=== PATIENT | male | born 1955 | race Caucasian/White ===

== ENCOUNTER 2016-07-28 12:03 | Emergency (ER) | payer MEDICARE ==
[~2016-07-28] VITALS: Ht 182.9 cm; Wt 111.1 kg
[~2016-07-28 12:03] MED LIST: ASPI1TAB PO; ATIV1TAB7 PO; ATOR1TAB21 PO; INSUDET SC; LISI-542 PO
[2016-07-28 13:02] LABS: VENOUS BASE EXCESS 3.1 (-2.0-2.0); VENOUS O2 SATURATION 82.6 % (60.0-80.0); VENOUS PARTIAL PRESSURE CO2 44.5 mmHg (38.0-50.0); VENOUS PARTIAL PRESSURE O2 45.9 mmHg (30.0-50.0); VENOUS STANDARD HCO3 26.8 MEQ/L; VENOUS TOTAL CO2 29.5 MEQ/L (24.0-28.0)
[2016-07-28 13:08] LABS: ANION GAP 8 MEQ/L (8-16); BLOOD UREA NITROGEN 15 MG/DL (7-18); CALCIUM LEVEL 8.9 MG/DL (8.8-10.2); CARBON DIOXIDE LEVEL 29 MEQ/L (21-32); CHLORIDE LEVEL 101 MEQ/L (98-107); CREATININE FOR GFR 1.15 MG/DL (0.70-1.30); GLOMERULAR FILTRATION RATE > 60.0 (>49); GLUCOSE, FASTING 367 MG/DL (80-110); POTASSIUM SERUM 4.2 MEQ/L (3.5-5.1); SODIUM LEVEL 138 MEQ/L (136-145)
[2016-07-28 13:09] LABS: BASO % 0.6 % (0.0-1.0); EOS # 0.2 K/mm3 (0.0-0.50); LARGE UNSTAINED CELL # 0.2 K/mm3 (0.0-0.4); LARGE UNSTAINED CELL % 1.7 % (0.0-4.0); LYMPH # 1.3 K/mm3 (1.5-4.5); LYMPH % 14.7 % (24.0-44.0); MEAN CORPUSCULAR HEMOGLOBIN 29.2 pg (27.0-33.0); MEAN CORPUSCULAR HGB CONC 32.8 g/dl (32.0-36.5); MONO # 0.4 K/mm3 (0.0-0.8); MONO % 4.5 % (0.0-5.0); NEUTROPHILS # 6.7 K/mm3 (1.8-7.7); NEUTROPHILS % 76.5 % (36.0-66.0); PLATELET COUNT, AUTOMATED 324 k/mm3 (150-450); RED CELL DISTRIBUTION WIDTH 12.3 % (11.5-14.5); WHITE BLOOD COUNT 8.7 K/mm3 (4.0-10.0)
[2016-07-28 13:51] LABS: ERYTHROCYTE SEDIMENTATION RATE 45 mm/hr (0-20)
[2016-07-28] MEDS ORDERED: SANTYL OINT 30GM TOP ONE (15:00)
[2016-07-28] MEDS ORDERED: ISOVUE-370 76% 100ML VIAL (Q9967) As Ordered ONE (15:22)
--- NOTE | 2016-07-28 16:12 | REP ---
CT of the right foot with IV contrast: Comparison is the right foot 95 10/28/2014. There is a soft tissue ulceration laterally adjacent to the fifth digit. There are no lytic, blastic or destructive skeletal changes to suggest osteomyelitis. There is diffuse soft tissue edema throughout the right foot. I a do not identify a focal fluid collection that would indicate abscess. Signed by Nick Lynn MD 07/28/2016 04:03 P
[2016-07-28] MEDS ORDERED: cefTRIAXone SOD 1 GM VIAL (J0696) As Ordered ONE (17:22)
[2016-07-28] MEDS ORDERED: HumuLIN N INSULIN (NovoLIN N) PER UNIT SC ONE (19:30)
--- NOTE | 2016-07-28 19:45 | EDDOCDS ---
Physician Documentation [facility] Name: Bryant Ruvalcaba Age: 60 yrs Sex: Male : 1955 Arrival Date: 07/28/2016 Time: 12:03 Bed 7 Private MD: Liban Santos H. Disposition: 07/28/16 18:54 Discharged to Home/Self Care. Impression: Type 2 diabetes mellitus with foot ulcer, Non-pressure chronic ulcer of other part of right foot with necrosis of muscle, Hyperglycemia, unspecified. - Condition is Stable. - Discharge Instructions: Blood Glucose Monitoring, Adult, Type 2 Diabetes Mellitus, Adult, Diabetes and Sick Day Management, Hyperglycemia, Skin Ulcer. - Prescriptions for Keflex 500 mg Oral Capsule - take 1 capsule by ORAL route every 8 hours for 14 days; 42 capsule. - Medication Reconciliation, Local Pharmacy Hours form. - Follow up: Liban Santos; When: Call to arrange an appointment; Reason: Recheck today's complaints, Continuance of care. Follow up: Anjel Chandra MD; When: Call to arrange an appointment; Reason: Recheck today's complaints, Continuance of care. - Problem is an acute exacerbation. - Symptoms are unchanged. - Notes: Check your fingersticks before meals and at bedtime Take your insulin as it was previously prescribed (15 units every morning) Call Dr Santos's office first thing Sunday to get a follow-up appointment Call Dr Chandra's office first thing Sunday to move up your appointment Return to the ER if you run a fever, develop redness of the foot or you have any other concerns Historical: - Allergies: No known drug Allergies; - Home Meds: 1. Aspir-81 81 mg oral TbEC 1 tab once daily 2. hasn't taken any of his prescribed medications since last summer due to financial difficulties - PMHx: Diabetes - IDDM: controlled; Hypercholesterolemia; - PSHx: debridement of diabetic foot ulcer; Tonsillectomy; circumcision; Stents, Coronary; - Social history: Smoking status: Patient states former smoker of tobacco. No barriers to communication noted, The patient speaks fluent Guatemalan, Speaks appropriately for age. - Family history: Not pertinent. - : The pt / caregiver states he / she is not on anticoagulants. Home medication list is obtained from the patient. - Exposure Risk Screening:: None identified. Vital Signs: 02/17 12:05 BP 137 / 75; Pulse 83; Resp 18 S; Temp 96.2(O); Pulse Ox 96% on R/A; Weight 111.13 kg / gr2 245 lbs (R); Height 6 ft. 0 in. (182.88 cm) (R); Pain 3/10; 19:10 BP 111 / 61; Pulse 84; Resp 18; Temp 98.1(TE); Pulse Ox 93% on R/A; Pain 0/10; jmv 12:05 Body Mass Index 33.23 (111.13 kg, 182.88 cm) gr2 MDM: 12:30 Fingerstick Blood Sugar Ordered. EDMS 12:46 Fingerstick Blood Sugar Reviewed. le 12:48 Consult PFS/PSA/Phosphoric Acid Supervisor: Resources/Social Work ordered. le 12:48 IV Saline Lock ordered. le 12:49 CBC with Diff Ordered. EDMS 12:49 BMP Ordered. EDMS 12:49 ESR Ordered. EDMS 12:49 CRP Ordered. EDMS 12:49 Venous Blood Gas (large pea green tube on ice) Ordered. EDMS 12:49 A1C Ordered. EDMS 13:04 Financial registration complete. mm15 13:13 COUNTS INCLUDE 234 BEDS AT THE [facility] Payment Agreement was scanned into [employer] and attached to record. mm15 14:04 CBC with Diff Reviewed. le 14:04 BMP Reviewed. le 14:04 ESR Reviewed. le 14:04 CRP Reviewed. le 14:04 Venous Blood Gas (large pea green tube on ice) Reviewed. le 14:04 A1C Reviewed. le 14:08 Santyl Ointment 250 unit/g 1 applic Topical once ordered. le 14:08 Wound Care ordered. le 14:09 Misc Foot Roentgenologist Order ordered. le 15:16 Misc Foot Roentgenologist Order complete. lbd 16:27 Misc. Nursing Order ordered. le 16:43 cefTRIAXone 2 grams IVPB once over 30 mins; dilute in 50mL of NS or D5W ordered. le 16:52 CONSISTENT CARBOHYDRATE+DIET ordered. EDMS 18:51 HumuLIN N 1 units Sub-Q once; Dispense unopened bottle home with the patient ordered. le Administered Medications: 14:38 Drug: Santyl Ointment 250 unit/g 1 applic Route: Topical; Site: affected area; kr3 17:30 Drug: cefTRIAXone 2 grams [ceftriaxone 1 gram solution for injection] Route: IVPB; rafaela Infused Over: 30 mins; Site: left hand; 18:05 Follow up: IV Status: Completed infusion rafaela 19:37 Drug: HumuLIN N 1 units {Co-Signature: mlc (Michelle Green RN).} {Note: sent home with rafaela patient.} Route: Sub-Q; Site: abdomen; Signatures: Dispatcher [employer] EDMS Heather Perez, Tile And Marble Setter Unit lbd Violeta Guillory RN RN ck1 Flori VizcarraRN RN kr3 Manda Pike, TOMBSTONE POLISHER TOMBSTONE POLISHER Mehul Galo mm15 Thai Bates RN RN jmb Mandy Booth RN mlc The chart was reviewed and I authenticate all verbal orders and agree with the evaluation and treatment provided.Corrections: (The following items were deleted from the chart) 15:23 15:17 CT ANGIO LOWER EXTREM ordered. EDMS EDMS 17:31 14:13 BED REQUEST+ADM ordered. EDMS EDMS Attachments: 13:13 COUNTS INCLUDE 234 BEDS AT THE [facility] Payment Agreement mm15 MTDD
--- NOTE | 2016-07-28 19:46 | EDDOCDS ---
Nurse's Notes [facility] Name: Bryant Ruvalcaba Age: 60 yrs Sex: Male : 1955 Arrival Date: 07/28/2016 Time: 12:03 Bed 7 Private MD: Liban Santos H. Diagnosis: Type 2 diabetes mellitus with foot ulcer;Non-pressure chronic ulcer of other part of right foot with necrosis of muscle;Hyperglycemia, unspecified Presentation: 07/28 12:08 Presenting complaint: Patient states: worsening diabetic ulcer on right foot with ck1 purulent drainage. Adult Sepsis Screening: The patient does not have new or worsening altered mentation. Patient's respiratory rate is less than 22. Systolic blood pressure is greater than 100. Patient has a qSOFA score of 0- Negative Sepsis Screen. Suicide/Homicide risk assessment- the patient denies having any suicidal and/or homicidal ideations and does not present with any other emotional, behavioral or mental health complaints. Status: Patient is not a appliance service technician or dependent. Transition of care: patient was not received from another setting of care. 12:08 Method Of Arrival: Walkin/Carried/Asstd ck1 12:08 Acuity: REBEL Level 3 ck1 Triage Assessment: 12:12 General: Appears in no apparent distress, comfortable, Behavior is appropriate for age, ck1 cooperative. Pain: Denies pain. HIV screening NA for this visit Offered previously. Neurological: Level of Consciousness is awake, alert, obeys commands, Oriented to person, place, time. Derm: Skin is pink, warm & dry. Musculoskeletal: Range of motion intact in all extremities. Historical: - Allergies: No known drug Allergies; - Home Meds: 1. Aspir-81 81 mg oral TbEC 1 tab once daily 2. hasn't taken any of his prescribed medications since last summer due to financial difficulties - PMHx: Diabetes - IDDM: controlled; Hypercholesterolemia; - PSHx: debridement of diabetic foot ulcer; Tonsillectomy; circumcision; Stents, Coronary; - Social history: Smoking status: Patient states former smoker of tobacco. No barriers to communication noted, The patient speaks fluent Jordanian, Speaks appropriately for age. - Family history: Not pertinent. - : The pt / caregiver states he / she is not on anticoagulants. Home medication list is obtained from the patient. - Exposure Risk Screening:: None identified. Screenin:56 Screening information is obtained from the patient. Fall risk: No risks identified. kr3 Assistance ADL's: requires no assistance with activities of daily living. Abuse/DV Screen: The patient / caregiver reports he/she is: not in a situation that causes fear, pain or injury. Nutritional screening: No deficits noted. Advance Directives: Currently, there is no health care proxy. home support is adequate. Assessment: 12:54 Reassessment: Patient appears in no apparent distress at this time. Pain: Location: kr3 ball of right foot. Neurological: Level of Consciousness is awake, alert. Respiratory: Respiratory effort is even, unlabored. Derm: wound bottom right foot with odorous drainage. Musculoskeletal:. 13:48 Reassessment: Patient appears in no apparent distress at this time. wound care being kr3 done by Manda Pike NP. 15:37 General: Appears in no apparent distress, comfortable, Behavior is appropriate for age, jmb cooperative, PAtient down to CT scan. Patient appears comfortable with no voiced complaints at this time. . Neurological: Level of Consciousness is awake, alert, obeys commands, Oriented to person, place, time, Speech is normal, Facial symmetry appears normal, Facial symmetry: tongue is midline. Cardiovascular: Capillary refill < 3 seconds Heart tones present. Respiratory: Airway is patent Respiratory effort is even, unlabored, Respiratory pattern is regular, symmetrical. GI: Abdomen is non- distended. Derm: Skin is pink, warm & dry. Patient has open wound to right foot. Dressed by nurse prior to receiving patient. Musculoskeletal: Range of motion intact in all extremities. 16:25 General: Appears in no apparent distress, comfortable, Behavior is appropriate for age, jmb cooperative, Patient laying on stretcher with at bedside. NO voiced complaints at this time. . Neurological: Level of Consciousness is awake, alert, obeys commands, Oriented to person, place, time. Respiratory: Airway is patent Respiratory effort is even, unlabored, Respiratory pattern is regular, symmetrical. 17:30 General: Appears in no apparent distress, comfortable, Behavior is appropriate for age, jmb cooperative, Patient laying on stretcher, medication administered via IV pump per provider orders. Patient denies any discomfort at this time. . Neurological: Level of Consciousness is awake, alert, obeys commands, Oriented to person, place, time. Respiratory: Airway is patent Respiratory effort is even, unlabored, Respiratory pattern is regular, symmetrical. 18:05 General: Appears in no apparent distress, comfortable, Behavior is appropriate for age, jmb cooperative. Neurological: Level of Consciousness is awake, alert, obeys commands, Oriented to person, place, time. Respiratory: Airway is patent Respiratory effort is even, unlabored, Respiratory pattern is regular, symmetrical. 18:48 General: Appears in no apparent distress, comfortable, Behavior is appropriate for age, jmb cooperative, Patient laying on stretcher with at bedside. keeps coming out asking questions and asking for food for patient. No voiced complaints at this time from patient. . Neurological: Level of Consciousness is awake, alert, obeys commands, Oriented to person, place, time. Respiratory: Airway is patent Respiratory effort is even, unlabored, Respiratory pattern is regular, symmetrical. 19:43 General: Patient instructed on discharge instructions. Patient asked if there were any b questions regarding discharge, patient stated no. IV discontinued per hospital policy. Patient signed discharge instructions. Patient discharged in stable condition. . Vital Signs: 12:05 BP 137 / 75; Pulse 83; Resp 18 S; Temp 96.2(O); Pulse Ox 96% on R/A; Weight 111.13 kg gr2 (R); Height 6 ft. 0 in. (182.88 cm) (R); Pain 3/10; 19:10 BP 111 / 61; Pulse 84; Resp 18; Temp 98.1(TE); Pulse Ox 93% on R/A; Pain 0/10; jmv 12:05 Body Mass Index 33.23 (111.13 kg, 182.88 cm) gr2 Vitals: 12:05 Log In Time: July 28, 2016 at 12:05. gr2 ED Course: 12:04 Patient visited by Rafa Talamantes. gr2 12:04 Patient moved to Waiting gr2 12:05 Liban Santos is Private Physician. gr2 12:07 Patient visited by Rafa Talamantes. gr2 12:07 Patient moved to Pre RCE gr2 12:09 Triage Initiated ck1 12:14 Flori Vizcarra,RN is Primary Nurse. ck1 12:14 Patient moved to 7 ck1 12:17 Manda Pike F[facility]. le 12:17 Patient visited by Manda Pike FNP. le 12:17 Patient visited by Manda Pike FNP. le 12:54 Patient visited by Flori Vizcarra RN. kr3 12:54 The patient / caregiver is instructed regarding the plan of care and ED course. kr3 Accompanied by Family Member, Patient has correct armband on for positive identification. Placed in gown. Bed in low position. Call light in reach. Side rails up X 1. 12:54 A1C Sent. kr3 12:54 CRP Sent. kr3 12:54 ESR Sent. kr3 12:54 BMP Sent. kr3 12:54 CBC with Diff Sent. kr3 12:54 Venous Blood Gas (large pea green tube on ice) Sent. kr3 12:54 Inserted saline lock: 20 gauge in left antecubital area and blood collected. The kr3 patient tolerated the procedure well. 13:13 [facility] [place] was scanned into myOrder and attached to record. mm15 13:48 Patient visited by Flori Vizcarra RN. kr3 13:57 Patient name changed from Bryant\S\Forest\S\Jordon\S\ to Bryant\S\ \S\Jordon. EDMS 14:38 Patient visited by Flori Vizcarra RN. kr3 15:07 Primary Nurse role handed off by Flori Vizcarra,ALEJANDRO kr3 15:09 Patient visited by Trang Phillip PCA. ct3 15:38 Patient visited by Thai Bates RN. jmb 16:26 Patient visited by Thai Bates RN. jmb 17:31 Patient visited by Thai Bates RN. jmb 18:05 Patient visited by Thai Bates RN. jmb 18:42 Patient visited by Trang Phillip PCA. ct3 18:49 Patient visited by Thai Bates RN. jmb 18:54 Liban Santos is Referral Physician. le 19:01 Anjel Chandra MD is Referral Physician. le 19:11 Patient visited by Jj Reyes PCA. jmv 19:43 Discontinued lock intact, bleeding controlled, pressure dressing applied, No jmb redness/swelling at site. No procedures done that require assistance. Administered Medications: 14:38 Drug: Santyl Ointment 250 unit/g 1 applic Route: Topical; Site: affected area; kr3 17:30 Drug: cefTRIAXone 2 grams [ceftriaxone 1 gram solution for injection] Route: IVPB; rafaela Infused Over: 30 mins; Site: left hand; 18:05 Follow up: IV Status: Completed infusion rafaela 19:37 Drug: HumuLIN N 1 units {Co-Signature: mlc (Michelle Green RN).} {Note: sent home with rafaela patient.} Route: Sub-Q; Site: abdomen; Order Results: Lab Order: Fingerstick Blood Sugar; SPEC'M 07/28/16 12:23 Test: BEDSIDE GLUCOSE; Value: 340; Range: 80-115; Abnormal: Above high normal; Units: MG/DL; Status: F Test Note: ; Serum Blood Draw Doctor Notified Lab Order: CBC with Diff; SPEC'M 07/28/16 12:36 Test: WHITE BLOOD COUNT; Value: 8.7; Range: 4.0-10.0; Units: K/mm3; Status: F Test: RED BLOOD COUNT; Value: 5.03; Range: 4.30-6.10; Units: M/mm3; Status: F Test: HEMOGLOBIN; Value: 14.7; Range: 14.0-18.0; Units: g/dl; Status: F Test: HEMATOCRIT; Value: 44.7; Range: 42.0-52.0; Units: %; Status: F Test: MEAN CORPUSCULAR VOLUME; Value: 89.0; Range: 80.0-96.0; Units: fl; Status: F Test: MEAN CORPUSCULAR HEMOGLOBIN; Value: 29.2; Range: 27.0-33.0; Units: pg; Status: F Test: MEAN CORPUSCULAR HGB CONC; Value: 32.8; Range: 32.0-36.5; Units: g/dl; Status: F Test: RED CELL DISTRIBUTION WIDTH; Value: 12.3; Range: 11.5-14.5; Units: %; Status: F Test: PLATELET COUNT, AUTOMATED; Value: 324; Range: 150-450; Units: k/mm3; Status: F Test: NEUTROPHILS %; Value: 76.5; Range: 36.0-66.0; Abnormal: Above high normal; Units: %; Status: F Test: LYMPH %; Value: 14.7; Range: 24.0-44.0; Abnormal: Below low normal; Units: %; Status: F Test: MONO %; Value: 4.5; Range: 0.0-5.0; Units: %; Status: F Test: EOS %; Value: 2.0; Range: 0.0-3.0; Units: %; Status: F Test: BASO %; Value: 0.6; Range: 0.0-1.0; Units: %; Status: F Test: LARGE UNSTAINED CELL %; Value: 1.7; Range: 0.0-4.0; Units: %; Status: F Test: NEUTROPHILS #; Value: 6.7; Range: 1.8-7.7; Units: K/mm3; Status: F Test: LYMPH #; Value: 1.3; Range: 1.5-4.5; Abnormal: Below low normal; Units: K/mm3; Status: F Test: MONO #; Value: 0.4; Range: 0.0-0.8; Units: K/mm3; Status: F Test: EOS #; Value: 0.2; Range: 0.0-0.50; Units: K/mm3; Status: F Test: BASO #; Value: 0.0; Range: 0.0-0.2; Units: K/mm3; Status: F Test: LARGE UNSTAINED CELL #; Value: 0.2; Range: 0.0-0.4; Units: K/mm3; Status: F Lab Order: [facility]; SPEC'M 07/28/16 12:36 Test: GLUCOSE, FASTING; Value: 367; Range: 80-110; Abnormal: Above high normal; Units: MG/DL; Status: F Test: BLOOD UREA NITROGEN; Value: 15; Range: 7-18; Units: MG/DL; Status: F Test: CREATININE FOR GFR; Value: 1.15; Range: 0.70-1.30; Units: MG/DL; Status: F Test: GLOMERULAR FILTRATION RATE; Value: > 60.0; Range: >49; Status: F Test: SODIUM LEVEL; Value: 138; Range: 136-145; Units: MEQ/L; Status: F Test: POTASSIUM SERUM; Value: 4.2; Range: 3.5-5.1; Units: MEQ/L; Status: F Test: CHLORIDE LEVEL; Value: 101; Range: 98-107; Units: MEQ/L; Status: F Test: CARBON DIOXIDE LEVEL; Value: 29; Range: 21-32; Units: MEQ/L; Status: F Test: ANION GAP; Value: 8; Range: 8-16; Units: MEQ/L; Status: F Test: CALCIUM LEVEL; Value: 8.9; Range: 8.8-10.2; Units: MG/DL; Status: F Test Note: ; Units are mL/min/1.73 m2 Chronic Kidney Disease Staging per NKF: Stage I & II GFR >=60 Normal to Mildly Decreased Stage III GFR 30-59 Moderately Decreased Stage IV GFR 15-29 Severely Decreased Stage V GFR <15 Very Little GFR Left ESRD GFR <15 on [facility] Lab Order: ESR; [facility] 07/28/16 12:36 Test: ERYTHROCYTE SEDIMENTATION RATE; Value: 45; Range: 0-20; Abnormal: Above high normal; Units: mm/hr; Status: F Lab Order: CRP; [facility] 07/28/16 12:36 Test: C REACTIVE PROTEIN QUANTITATIV; Value: 1.67; Range: 0.00-0.30; Abnormal: Above high normal; Units: MG/DL; Status: F Lab Order: Venous Blood Gas (large pea green tube on ice); [facility] 07/28/16 12:36 Test: VENOUS PH; Value: 7.419; Range: 7.330-7.430; Units: UNITS; Status: F Test: VENOUS PARTIAL PRESSURE CO2; Value: 44.5; Range: 38.0-50.0; Units: mmHg; Status: F Test: VENOUS PARTIAL PRESSURE O2; Value: 45.9; Range: 30.0-50.0; Units: mmHg; Status: F Test: VENOUS TOTAL CO2; Value: 29.5; Range: 24.0-28.0; Abnormal: Above high normal; Units: MEQ/L; Status: F Test: VENOUS HCO3; Value: 28.2; Range: 23.0-27.0; Abnormal: Above high normal; Units: MEQ/L; Status: F Test: VENOUS BASE EXCESS; Value: 3.1; Range: -2.0-2.0; Abnormal: Above high normal; Status: F Test: VENOUS STANDARD HCO3; Value: 26.8; Units: MEQ/L; Status: F Test: VENOUS O2 SATURATION; Value: 82.6; Range: 60.0-80.0; Abnormal: Above high normal; Units: %; Status: F Lab Order: A1C; SPEC'M 07/28/16 12:36 Test: HEMOGLOBIN A1c; Value: 12.9; Range: 4.5-6.2; Abnormal: Above high normal; Units: %; Status: F Test: ESTIMATED AVERAGE GLUCOSE; Value: 324; Range: 60-110; Abnormal: Above high normal; Units: MG/DL; Status: F Outcome: 18:54 Discharge ordered by Provider. le 19:43 Discharge Assessment: Patient awake, alert and oriented x 3. No cognitive and/or jmb functional deficits noted. Patient verbalized understanding of disposition instructions. Patient awake and alert. obeys commands, Oriented to person, place and time. Patient verbalized understanding of disposition instructions. Patient has no functional deficits. patient administered narcotics - no. The following High Risk Discharge criteria are identified: None. Discharged to home ambulatory, with significant other. Condition: stable. Discharge instructions given to patient, Instructed on discharge instructions, follow up and referral plans. medication usage, Demonstrated understanding of instructions, medications, Pt was receptive of discharge instructions/ teaching. Prescriptions given X 1. CT Study completed. Property sent home with patient. 19:44 Patient left the ED. rafaela Signatures: Dispatcher [employer] EDID Violeta GuilloryRN RN ck1 Flori Vizcarra,RN RN kr3 Manda Pike, ELECTRICAL ELECTRONICS ENGINEERS ELECTRICAL ELECTRONICS ENGINEERS Trang Agee, SATELLITE TECHNICIAN SATELLITE TECHNICIAN ct3 Rafa Talamantes gr2 Mehul Castro mm15 Thai BatesRN RN Jj Perea, SATELLITE TECHNICIAN SATELLITE TECHNICIAN jmv Michelle Green RN mlc MTDD
--- NOTE | 2016-07-30 20:46 | EDDOCDS ---
Physician Documentation [facility] Name: Bryant Ruvalcaba Age: 60 yrs Sex: Male : 1955 Arrival Date: 07/28/2016 Time: 12:03 Bed 7 Private MD: Liban Santos H. Disposition: 07/28/16 18:54 Discharged to Home/Self Care. Impression: Type 2 diabetes mellitus with foot ulcer, Non-pressure chronic ulcer of other part of right foot with necrosis of muscle, Hyperglycemia, unspecified. - Condition is Stable. - Discharge Instructions: Blood Glucose Monitoring, Adult, Type 2 Diabetes Mellitus, Adult, Diabetes and Sick Day Management, Hyperglycemia, Skin Ulcer. - Prescriptions for Keflex 500 mg Oral Capsule - take 1 capsule by ORAL route every 8 hours for 14 days; 42 capsule. - Medication Reconciliation, Local Pharmacy Hours form. - Follow up: Liban Santos; When: Call to arrange an appointment; Reason: Recheck today's complaints, Continuance of care. Follow up: Anjel Chandra MD; When: Call to arrange an appointment; Reason: Recheck today's complaints, Continuance of care. - Problem is an acute exacerbation. - Symptoms are unchanged. - Notes: Check your fingersticks before meals and at bedtime Take your insulin as it was previously prescribed (15 units every morning) Call Dr Santos's office first thing Sunday to get a follow-up appointment Call Dr Chandra's office first thing Sunday to move up your appointment Return to the ER if you run a fever, develop redness of the foot or you have any other concerns Historical: - Allergies: No known drug Allergies; - Home Meds: 1. Aspir-81 81 mg oral TbEC 1 tab once daily 2. hasn't taken any of his prescribed medications since last summer due to financial difficulties - PMHx: Diabetes - IDDM: controlled; Hypercholesterolemia; - PSHx: debridement of diabetic foot ulcer; Tonsillectomy; circumcision; Stents, Coronary; - Social history: Smoking status: Patient states former smoker of tobacco. No barriers to communication noted, The patient speaks fluent Scottish, Speaks appropriately for age. - Family history: Not pertinent. - : The pt / caregiver states he / she is not on anticoagulants. Home medication list is obtained from the patient. - Exposure Risk Screening:: None identified. Vital Signs: 02/17 12:05 BP 137 / 75; Pulse 83; Resp 18 S; Temp 96.2(O); Pulse Ox 96% on R/A; Weight 111.13 kg / gr2 245 lbs (R); Height 6 ft. 0 in. (182.88 cm) (R); Pain 3/10; 19:10 BP 111 / 61; Pulse 84; Resp 18; Temp 98.1(TE); Pulse Ox 93% on R/A; Pain 0/10; jmv 12:05 Body Mass Index 33.23 (111.13 kg, 182.88 cm) gr2 MDM: 12:30 Fingerstick Blood Sugar Ordered. EDMS 12:46 Fingerstick Blood Sugar Reviewed. le 12:48 Consult PFS/PSA/Compensation Expert: Resources/Social Work ordered. le 12:48 IV Saline Lock ordered. le 12:49 CBC with Diff Ordered. EDMS 12:49 BMP Ordered. EDMS 12:49 ESR Ordered. EDMS 12:49 CRP Ordered. EDMS 12:49 Venous Blood Gas (large pea green tube on ice) Ordered. EDMS 12:49 A1C Ordered. EDMS 13:04 Financial registration complete. mm15 13:13 [facility] Payment Agreement was scanned into [employer] and attached to record. mm15 14:04 CBC with Diff Reviewed. le 14:04 BMP Reviewed. le 14:04 ESR Reviewed. le 14:04 CRP Reviewed. le 14:04 Venous Blood Gas (large pea green tube on ice) Reviewed. le 14:04 A1C Reviewed. le 14:08 Santyl Ointment 250 unit/g 1 applic Topical once ordered. le 14:08 Wound Care ordered. le 14:09 Misc Professor Of Mechanical Engineering Order ordered. le 15:16 Misc Professor Of Mechanical Engineering Order complete. lbd 16:27 Misc. Nursing Order ordered. le 16:43 cefTRIAXone 2 grams IVPB once over 30 mins; dilute in 50mL of NS or D5W ordered. le 16:52 CONSISTENT CARBOHYDRATE+DIET ordered. EDMS 18:51 HumuLIN N 1 units Sub-Q once; Dispense unopened bottle home with the patient ordered. le 07/29 10:59 T-Sheet-- Draft Copy was scanned into [employer] and attached to record. gb Administered Medications: 07/28 14:38 Drug: Santyl Ointment 250 unit/g 1 applic Route: Topical; Site: affected area; kr3 17:30 Drug: cefTRIAXone 2 grams [ceftriaxone 1 gram solution for injection] Route: IVPB; rafaela Infused Over: 30 mins; Site: left hand; 18:05 Follow up: IV Status: Completed infusion rafaela 19:37 Drug: HumuLIN N 1 units {Co-Signature: [facility] [place] ([place]le [place] RN).} {Note: sent home with rafaela patient.} Route: Sub-Q; Site: abdomen; Signatures: Dispatcher [employer] EDMS Heather Perez, Communications Editor Unit lbd Najma Denise, Reg Reg gb Violeta GuilloryRN RN ck1 Flori Vizcarra,RN RN kr3 Manda Pike FNP Mehul Spear mm15 Thai Bates RN RN jmb Mandy Booth RN mlc The chart was reviewed and I authenticate all verbal orders and agree with the evaluation and treatment provided.Corrections: (The following items were deleted from the chart) 15:23 15:17 CT ANGIO LOWER EXTREM ordered. EDMS EDMS 17:31 14:13 BED REQUEST+ADM ordered. EDMS EDMS Attachments: 13:13 [facility] Payment Agreement mm15 07/29 10:59 T-Sheet-- Draft Copy gb Chart Complete MTDD
--- NOTE | 2016-07-30 20:46 | EDDOCDS ---
Nurse's Notes [facility] Name: Bryant Ruvalcaba Age: 60 yrs Sex: Male : 1955 Arrival Date: 07/28/2016 Time: 12:03 Bed 7 Private MD: Liban Santos H. Diagnosis: Type 2 diabetes mellitus with foot ulcer;Non-pressure chronic ulcer of other part of right foot with necrosis of muscle;Hyperglycemia, unspecified Presentation: 07/28 12:08 Presenting complaint: Patient states: worsening diabetic ulcer on right foot with ck1 purulent drainage. Adult Sepsis Screening: The patient does not have new or worsening altered mentation. Patient's respiratory rate is less than 22. Systolic blood pressure is greater than 100. Patient has a qSOFA score of 0- Negative Sepsis Screen. Suicide/Homicide risk assessment- the patient denies having any suicidal and/or homicidal ideations and does not present with any other emotional, behavioral or mental health complaints. Status: Patient is not a tax services specialist or dependent. Transition of care: patient was not received from another setting of care. 12:08 Method Of Arrival: Walkin/Carried/Asstd ck1 12:08 Acuity: REBEL Level 3 ck1 Triage Assessment: 12:12 General: Appears in no apparent distress, comfortable, Behavior is appropriate for age, ck1 cooperative. Pain: Denies pain. HIV screening NA for this visit Offered previously. Neurological: Level of Consciousness is awake, alert, obeys commands, Oriented to person, place, time. Derm: Skin is pink, warm & dry. Musculoskeletal: Range of motion intact in all extremities. Historical: - Allergies: No known drug Allergies; - Home Meds: 1. Aspir-81 81 mg oral TbEC 1 tab once daily 2. hasn't taken any of his prescribed medications since last summer due to financial difficulties - PMHx: Diabetes - IDDM: controlled; Hypercholesterolemia; - PSHx: debridement of diabetic foot ulcer; Tonsillectomy; circumcision; Stents, Coronary; - Social history: Smoking status: Patient states former smoker of tobacco. No barriers to communication noted, The patient speaks fluent Ugandan, Speaks appropriately for age. - Family history: Not pertinent. - : The pt / caregiver states he / she is not on anticoagulants. Home medication list is obtained from the patient. - Exposure Risk Screening:: None identified. Screenin:56 Screening information is obtained from the patient. Fall risk: No risks identified. kr3 Assistance ADL's: requires no assistance with activities of daily living. Abuse/DV Screen: The patient / caregiver reports he/she is: not in a situation that causes fear, pain or injury. Nutritional screening: No deficits noted. Advance Directives: Currently, there is no health care proxy. home support is adequate. Assessment: 12:54 Reassessment: Patient appears in no apparent distress at this time. Pain: Location: kr3 ball of right foot. Neurological: Level of Consciousness is awake, alert. Respiratory: Respiratory effort is even, unlabored. Derm: wound bottom right foot with odorous drainage. Musculoskeletal:. 13:48 Reassessment: Patient appears in no apparent distress at this time. wound care being kr3 done by Manda Pike NP. 15:37 General: Appears in no apparent distress, comfortable, Behavior is appropriate for age, jmb cooperative, PAtient down to CT scan. Patient appears comfortable with no voiced complaints at this time. . Neurological: Level of Consciousness is awake, alert, obeys commands, Oriented to person, place, time, Speech is normal, Facial symmetry appears normal, Facial symmetry: tongue is midline. Cardiovascular: Capillary refill < 3 seconds Heart tones present. Respiratory: Airway is patent Respiratory effort is even, unlabored, Respiratory pattern is regular, symmetrical. GI: Abdomen is non- distended. Derm: Skin is pink, warm & dry. Patient has open wound to right foot. Dressed by nurse prior to receiving patient. Musculoskeletal: Range of motion intact in all extremities. 16:25 General: Appears in no apparent distress, comfortable, Behavior is appropriate for age, jmb cooperative, Patient laying on stretcher with at bedside. NO voiced complaints at this time. . Neurological: Level of Consciousness is awake, alert, obeys commands, Oriented to person, place, time. Respiratory: Airway is patent Respiratory effort is even, unlabored, Respiratory pattern is regular, symmetrical. 17:30 General: Appears in no apparent distress, comfortable, Behavior is appropriate for age, jmb cooperative, Patient laying on stretcher, medication administered via IV pump per provider orders. Patient denies any discomfort at this time. . Neurological: Level of Consciousness is awake, alert, obeys commands, Oriented to person, place, time. Respiratory: Airway is patent Respiratory effort is even, unlabored, Respiratory pattern is regular, symmetrical. 18:05 General: Appears in no apparent distress, comfortable, Behavior is appropriate for age, jmb cooperative. Neurological: Level of Consciousness is awake, alert, obeys commands, Oriented to person, place, time. Respiratory: Airway is patent Respiratory effort is even, unlabored, Respiratory pattern is regular, symmetrical. 18:48 General: Appears in no apparent distress, comfortable, Behavior is appropriate for age, jmb cooperative, Patient laying on stretcher with at bedside. keeps coming out asking questions and asking for food for patient. No voiced complaints at this time from patient. . Neurological: Level of Consciousness is awake, alert, obeys commands, Oriented to person, place, time. Respiratory: Airway is patent Respiratory effort is even, unlabored, Respiratory pattern is regular, symmetrical. 19:43 General: Patient instructed on discharge instructions. Patient asked if there were any b questions regarding discharge, patient stated no. IV discontinued per hospital policy. Patient signed discharge instructions. Patient discharged in stable condition. . Vital Signs: 12:05 BP 137 / 75; Pulse 83; Resp 18 S; Temp 96.2(O); Pulse Ox 96% on R/A; Weight 111.13 kg gr2 (R); Height 6 ft. 0 in. (182.88 cm) (R); Pain 3/10; 19:10 BP 111 / 61; Pulse 84; Resp 18; Temp 98.1(TE); Pulse Ox 93% on R/A; Pain 0/10; jmv 12:05 Body Mass Index 33.23 (111.13 kg, 182.88 cm) gr2 Vitals: 12:05 Log In Time: July 28, 2016 at 12:05. gr2 ED Course: 12:04 Patient visited by Rafa Talamantes. gr2 12:04 Patient moved to Waiting gr2 12:05 Liban Santos is Private Physician. gr2 12:07 Patient visited by Rafa Talamantes. gr2 12:07 Patient moved to Pre RCE gr2 12:09 Triage Initiated ck1 12:14 Flori Vizcarra,RN is Primary Nurse. ck1 12:14 Patient moved to 7 ck1 12:17 [facility]. le 12:17 Patient visited by Manda Pike FNP. le 12:17 Patient visited by Manda Pike FNP. le 12:54 Patient visited by Flori Vizcarra RN. kr3 12:54 The patient / caregiver is instructed regarding the plan of care and ED course. kr3 Accompanied by Family Member, Patient has correct armband on for positive identification. Placed in gown. Bed in low position. Call light in reach. Side rails up X 1. 12:54 A1C Sent. kr3 12:54 CRP Sent. kr3 12:54 ESR Sent. kr3 12:54 BMP Sent. kr3 12:54 CBC with Diff Sent. kr3 12:54 Venous Blood Gas (large pea green tube on ice) Sent. kr3 12:54 Inserted saline lock: 20 gauge in left antecubital area and blood collected. The kr3 patient tolerated the procedure well. 13:13 [facility] [place] Agreement was scanned into [employer] and attached to record. mm15 13:48 Patient visited by Flori Vizcarra RN. kr3 13:57 Patient name changed from Bryant\S\Forest\S\Jordon\S\ to Bryant\S\ \S\Jordon. EDMS 14:38 Patient visited by Flori Vizcarra RN. kr3 15:07 Primary Nurse role handed off by Flori Vizcarra,ALEJANDRO kr3 15:09 Patient visited by Trang Phillip PCA. ct3 15:38 Patient visited by Thai Bates RN. jmb 16:26 Patient visited by Thai Bates RN. jmb 17:31 Patient visited by Thai Bates RN. jmb 18:05 Patient visited by Thai Bates RN. jmb 18:42 Patient visited by Trang Phillip PCA. ct3 18:49 Patient visited by Thai Bates RN. jmb 18:54 Liban Santos is Referral Physician. le 19:01 Anjel Chandra MD is Referral Physician. le 19:11 Patient visited by Jj Reyes PCA. jmv 19:43 Discontinued lock intact, bleeding controlled, pressure dressing applied, No jmb redness/swelling at site. No procedures done that require assistance. 07/29 10:59 T-Sheet-- Draft Copy was scanned into [employer] and attached to record. gb Administered Medications: 07/28 14:38 Drug: Santyl Ointment 250 unit/g 1 applic Route: Topical; Site: affected area; kr3 17:30 Drug: cefTRIAXone 2 grams [ceftriaxone 1 gram solution for injection] Route: IVPB; rafaela Infused Over: 30 mins; Site: left hand; 18:05 Follow up: IV Status: Completed infusion rafaela 19:37 Drug: HumuLIN N 1 units {Co-Signature: [facility] (Michelle Green RN).} {Note: sent home with rafaela patient.} Route: Sub-Q; Site: abdomen; Order Results: Lab Order: Fingerstick Blood Sugar; SPEC'M 07/28/16 12:23 Test: BEDSIDE GLUCOSE; Value: 340; Range: 80-115; Abnormal: Above high normal; Units: MG/DL; Status: F Test Note: ; Serum Blood Draw Doctor Notified Lab Order: CBC with Diff; SPEC'M 07/28/16 12:36 Test: WHITE BLOOD COUNT; Value: 8.7; Range: 4.0-10.0; Units: K/mm3; Status: F Test: RED BLOOD COUNT; Value: 5.03; Range: 4.30-6.10; Units: M/mm3; Status: F Test: HEMOGLOBIN; Value: 14.7; Range: 14.0-18.0; Units: g/dl; Status: F Test: HEMATOCRIT; Value: 44.7; Range: 42.0-52.0; Units: %; Status: F Test: MEAN CORPUSCULAR VOLUME; Value: 89.0; Range: 80.0-96.0; Units: fl; Status: F Test: MEAN CORPUSCULAR HEMOGLOBIN; Value: 29.2; Range: 27.0-33.0; Units: pg; Status: F Test: MEAN CORPUSCULAR HGB CONC; Value: 32.8; Range: 32.0-36.5; Units: g/dl; Status: F Test: RED CELL DISTRIBUTION WIDTH; Value: 12.3; Range: 11.5-14.5; Units: %; Status: F Test: PLATELET COUNT, AUTOMATED; Value: 324; Range: 150-450; Units: k/mm3; Status: F Test: NEUTROPHILS %; Value: 76.5; Range: 36.0-66.0; Abnormal: Above high normal; Units: %; Status: F Test: LYMPH %; Value: 14.7; Range: 24.0-44.0; Abnormal: Below low normal; Units: %; Status: F Test: MONO %; Value: 4.5; Range: 0.0-5.0; Units: %; Status: F Test: EOS %; Value: 2.0; Range: 0.0-3.0; Units: %; Status: F Test: BASO %; Value: 0.6; Range: 0.0-1.0; Units: %; Status: F Test: LARGE UNSTAINED CELL %; Value: 1.7; Range: 0.0-4.0; Units: %; Status: F Test: NEUTROPHILS #; Value: 6.7; Range: 1.8-7.7; Units: K/mm3; Status: F Test: LYMPH #; Value: 1.3; Range: 1.5-4.5; Abnormal: Below low normal; Units: K/mm3; Status: F Test: MONO #; Value: 0.4; Range: 0.0-0.8; Units: K/mm3; Status: F Test: EOS #; Value: 0.2; Range: 0.0-0.50; Units: K/mm3; Status: F Test: BASO #; Value: 0.0; Range: 0.0-0.2; Units: K/mm3; Status: F Test: LARGE UNSTAINED CELL #; Value: 0.2; Range: 0.0-0.4; Units: K/mm3; Status: F Lab Order: [facility]; SPEC'M 07/28/16 12:36 Test: GLUCOSE, FASTING; Value: 367; Range: 80-110; Abnormal: Above high normal; Units: MG/DL; Status: F Test: BLOOD UREA NITROGEN; Value: 15; Range: 7-18; Units: MG/DL; Status: F Test: CREATININE FOR GFR; Value: 1.15; Range: 0.70-1.30; Units: MG/DL; Status: F Test: GLOMERULAR FILTRATION RATE; Value: > 60.0; Range: >49; Status: F Test: SODIUM LEVEL; Value: 138; Range: 136-145; Units: MEQ/L; Status: F Test: POTASSIUM SERUM; Value: 4.2; Range: 3.5-5.1; Units: MEQ/L; Status: F Test: CHLORIDE LEVEL; Value: 101; Range: 98-107; Units: MEQ/L; Status: F Test: CARBON DIOXIDE LEVEL; Value: 29; Range: 21-32; Units: MEQ/L; Status: F Test: ANION GAP; Value: 8; Range: 8-16; Units: MEQ/L; Status: F Test: CALCIUM LEVEL; Value: 8.9; Range: 8.8-10.2; Units: MG/DL; Status: F Test Note: ; Units are mL/min/1.73 m2 Chronic Kidney Disease Staging per NKF: Stage I & II GFR >=60 Normal to Mildly Decreased Stage III GFR 30-59 Moderately Decreased Stage IV GFR 15-29 Severely Decreased Stage V GFR <15 Very Little GFR Left ESRD GFR <15 on ADULT EDUCATION MANAGER Lab Order: ESR; [facility]' 07/28/16 12:36 Test: ERYTHROCYTE SEDIMENTATION RATE; Value: 45; Range: 0-20; Abnormal: Above high normal; Units: mm/hr; Status: F Lab Order: CRP; [facility]' 07/28/16 12:36 Test: C REACTIVE PROTEIN QUANTITATIV; Value: 1.67; Range: 0.00-0.30; Abnormal: Above high normal; Units: MG/DL; Status: F Lab Order: Venous Blood Gas (large pea green tube on ice); [facility]' 07/28/16 12:36 Test: VENOUS PH; Value: 7.419; Range: 7.330-7.430; Units: UNITS; Status: F Test: VENOUS PARTIAL PRESSURE CO2; Value: 44.5; Range: 38.0-50.0; Units: mmHg; Status: F Test: VENOUS PARTIAL PRESSURE O2; Value: 45.9; Range: 30.0-50.0; Units: mmHg; Status: F Test: VENOUS TOTAL CO2; Value: 29.5; Range: 24.0-28.0; Abnormal: Above high normal; Units: MEQ/L; Status: F Test: VENOUS HCO3; Value: 28.2; Range: 23.0-27.0; Abnormal: Above high normal; Units: MEQ/L; Status: F Test: VENOUS BASE EXCESS; Value: 3.1; Range: -2.0-2.0; Abnormal: Above high normal; Status: F Test: VENOUS STANDARD HCO3; Value: 26.8; Units: MEQ/L; Status: F Test: VENOUS O2 SATURATION; Value: 82.6; Range: 60.0-80.0; Abnormal: Above high normal; Units: %; Status: F Lab Order: A1C; SPEC'M 07/28/16 12:36 Test: HEMOGLOBIN A1c; Value: 12.9; Range: 4.5-6.2; Abnormal: Above high normal; Units: %; Status: F Test: ESTIMATED AVERAGE GLUCOSE; Value: 324; Range: 60-110; Abnormal: Above high normal; Units: MG/DL; Status: F Outcome: 18:54 Discharge ordered by Provider. le 19:43 Discharge Assessment: Patient awake, alert and oriented x 3. No cognitive and/or jmb functional deficits noted. Patient verbalized understanding of disposition instructions. Patient awake and alert. obeys commands, Oriented to person, place and time. Patient verbalized understanding of disposition instructions. Patient has no functional deficits. patient administered narcotics - no. The following High Risk Discharge criteria are identified: None. Discharged to home ambulatory, with significant other. Condition: stable. Discharge instructions given to patient, Instructed on discharge instructions, follow up and referral plans. medication usage, Demonstrated understanding of instructions, medications, Pt was receptive of discharge instructions/ teaching. Prescriptions given X 1. CT Study completed. Property sent home with patient. 19:44 Patient left the ED. adalib Signatures: Dispatcher [employer] EDMS Najma Denise, Reg Reg gb Violeta Guillory,RN RN ck1 Flori Vizcarra,RN RN kr3 Manda Pike, PUBLIC HEALTH REPRESENTATIVE PUBLIC HEALTH REPRESENTATIVE Trang Agee, FLYING SQUAD SALESPERSON FLYING SQUAD SALESPERSON ct3 Rafa Talamantes gr2 Mehul Castro mm15 Thai Bates RN RN adalib Jj Reyes, FLYING SQUAD SALESPERSON FLYING SQUAD SALESPERSON jmv Michelle Green RN [facility] [place] Complete MTDD
--- NOTE | 2016-07-30 20:46 | EDDOCDS ---
Physician Documentation [facility] Name: Bryant Ruvalcaba Age: 60 yrs Sex: Male : 1955 Arrival Date: 07/28/2016 Time: 12:03 Bed 7 Private MD: Liban Santos H. Disposition: 07/28/16 18:54 Discharged to Home/Self Care. Impression: Type 2 diabetes mellitus with foot ulcer, Non-pressure chronic ulcer of other part of right foot with necrosis of muscle, Hyperglycemia, unspecified. - Condition is Stable. - Discharge Instructions: Blood Glucose Monitoring, Adult, Type 2 Diabetes Mellitus, Adult, Diabetes and Sick Day Management, Hyperglycemia, Skin Ulcer. - Prescriptions for Keflex 500 mg Oral Capsule - take 1 capsule by ORAL route every 8 hours for 14 days; 42 capsule. - Medication Reconciliation, Local Pharmacy Hours form. - Follow up: Liban Santos; When: Call to arrange an appointment; Reason: Recheck today's complaints, Continuance of care. Follow up: Anjel Chandra MD; When: Call to arrange an appointment; Reason: Recheck today's complaints, Continuance of care. - Problem is an acute exacerbation. - Symptoms are unchanged. - Notes: Check your fingersticks before meals and at bedtime Take your insulin as it was previously prescribed (15 units every morning) Call Dr Santos's office first thing Sunday to get a follow-up appointment Call Dr Chandra's office first thing Sunday to move up your appointment Return to the ER if you run a fever, develop redness of the foot or you have any other concerns Historical: - Allergies: No known drug Allergies; - Home Meds: 1. Aspir-81 81 mg oral TbEC 1 tab once daily 2. hasn't taken any of his prescribed medications since last summer due to financial difficulties - PMHx: Diabetes - IDDM: controlled; Hypercholesterolemia; - PSHx: debridement of diabetic foot ulcer; Tonsillectomy; circumcision; Stents, Coronary; - Social history: Smoking status: Patient states former smoker of tobacco. No barriers to communication noted, The patient speaks fluent [place]er, Speaks appropriately for age. - Family history: Not pertinent. - : The pt / caregiver states he / she is not on anticoagulants. Home medication list is obtained from the patient. - Exposure Risk Screening:: None identified. Vital Signs: 02/17 12:05 BP 137 / 75; Pulse 83; Resp 18 S; Temp 96.2(O); Pulse Ox 96% on R/A; Weight 111.13 kg / gr2 245 lbs (R); Height 6 ft. 0 in. (182.88 cm) (R); Pain 3/10; 19:10 BP 111 / 61; Pulse 84; Resp 18; Temp 98.1(TE); Pulse Ox 93% on R/A; Pain 0/10; jmv 12:05 Body Mass Index 33.23 (111.13 kg, 182.88 cm) gr2 MDM: 12:30 Fingerstick Blood Sugar Ordered. EDMS 12:46 Fingerstick Blood Sugar Reviewed. le 12:48 Consult PFS/PSA/Production Machine Operator: Resources/Social Work ordered. le 12:48 IV Saline Lock ordered. le 12:49 CBC with Diff Ordered. EDMS 12:49 BMP Ordered. EDMS 12:49 ESR Ordered. EDMS 12:49 CRP Ordered. EDMS 12:49 Venous Blood Gas (large pea green tube on ice) Ordered. EDMS 12:49 A1C Ordered. EDMS 13:04 Financial registration complete. mm15 13:13 [facility] Payment Agreement was scanned into [employer] and attached to record. mm15 14:04 CBC with Diff Reviewed. le 14:04 BMP Reviewed. le 14:04 ESR Reviewed. le 14:04 CRP Reviewed. le 14:04 Venous Blood Gas (large pea green tube on ice) Reviewed. le 14:04 A1C Reviewed. le 14:08 Santyl Ointment 250 unit/g 1 applic Topical once ordered. le 14:08 Wound Care ordered. le 14:09 Misc Business Center Manager Order ordered. le 15:16 Misc Business Center Manager Order complete. lbd 16:27 Misc. Nursing Order ordered. le 16:43 cefTRIAXone 2 grams IVPB once over 30 mins; dilute in 50mL of NS or D5W ordered. le 16:52 CONSISTENT CARBOHYDRATE+DIET ordered. EDMS 18:51 HumuLIN N 1 units Sub-Q once; Dispense unopened bottle home with the patient ordered. le 07/29 10:59 T-Sheet-- Draft Copy was scanned into [employer] and attached to record. gb Administered Medications: 07/28 14:38 Drug: Santyl Ointment 250 unit/g 1 applic Route: Topical; Site: affected area; kr3 17:30 Drug: cefTRIAXone 2 grams [ceftriaxone 1 gram solution for injection] Route: IVPB; rafaela Infused Over: 30 mins; Site: left hand; 18:05 Follow up: IV Status: Completed infusion rafaela 19:37 Drug: HumuLIN N 1 units [place] [facility] [place]} {Note: sent home with rafaela patient.} Route: Sub-Q; Site: abdomen; Signatures: Dispatcher [employer] EDMS Heather Perez, Mission Coordinator Unit lbd Najma Denise, Reg Reg gb Violeta GuilloryRN RN ck1 Flori Vizcarra,RN RN kr3 Manda Pike FNP Mehul Spear mm15 Thai Bates RN RN jmb Mandy Booth RN mlc The chart was reviewed and I authenticate all verbal orders and agree with the evaluation and treatment provided.Corrections: (The following items were deleted from the chart) 15:23 15:17 CT ANGIO LOWER EXTREM ordered. EDMS EDMS 17:31 14:13 BED REQUEST+ADM ordered. EDMS EDMS Attachments: 13:13 [facility] Payment Agreement mm15 07/29 10:59 T-Sheet-- Draft Copy gb Chart Complete MTDD
== END 2016-07-28 19:44 | disposition home or self-care (01) ==
LOC: M ED 12:03
DX: E11.622 Type 2 diabetes mellitus with other skin ulcer (principal); E11.65 Type 2 diabetes mellitus with hyperglycemia; E78.00 Pure hypercholesterolemia, unspecified; Z87.891 Personal history of nicotine dependence; Z98.61 Coronary angioplasty status; Z91.19 Patient's noncompliance with other medical treatment and regimen; Z79.82 Long term (current) use of aspirin
CPT/HCPCS: 36415; 73701; 80048; 82803; 83036; 85025; 85652; 86140; 96365; 96372; 99284; J0696; Q9967

== ENCOUNTER → 2016-08-15 | Outpatient (REF) | payer MEDICARE | LOC: M LAB REF 17:06 | PROVIDERS: ATTEND Surgery | DX: E11.621 Type 2 diabetes mellitus with foot ulcer (principal); L97.509 Non-pressure chronic ulcer of other part of unspecified foot with unspecified severity; Z79.4 Long term (current) use of insulin | CPT/HCPCS: 11043; 87070; 87077; 87186; 97597; G0463 ==

== ENCOUNTER 2017-08-07 06:33 | Inpatient (IN) | payer MEDICARE ==
[2017-08-07] MEDS ORDERED: IPRATROPIUM 0.5MG/ALBUTEROL 2.5MG INH SOL UD 3ML (DUONEB)(J7620) As Ordered (06:48)
[2017-08-07] MEDS: IPRATROPIUM 0.5MG/ALBUTEROL 2.5MG INH SOL UD 3ML (DUONEB)(J7620) NEB ×3 (06:58→06:59)
[2017-08-07 07:03] LABS: BASO # 0.1 10^3/uL (0.0-0.2); BASO % 0.5 % (0.0-1.0); EOS # 0.5 10^3/uL (0.0-0.50); HEMATOCRIT 44.5 % (42.0-52.0); HEMOGLOBIN 14.2 g/dl (14.0-18.0); IMMATURE GRANULOCYTE % 0.4 % (0-3.0); LYMPH # 1.5 10^3/uL (1.5-4.5); LYMPH % 15.7 % (24.0-44.0); MEAN CORPUSCULAR HEMOGLOBIN 29.5 pg (27.0-33.0); MEAN CORPUSCULAR HGB CONC 31.9 g/dl (32.0-36.5); MEAN CORPUSCULAR VOLUME 92.5 fl (80.0-96.0); MONO # 0.9 10^3/uL (0.0-0.8); MONO % 9.4 % (0.0-5.0); NEUTROPHILS # 6.7 10^3/uL (1.8-7.7); PLATELET COUNT, AUTOMATED 264 10^3/uL (150-450); RED BLOOD COUNT 4.81 10^6/uL (4.30-6.10); RED CELL DISTRIBUTION WIDTH 13.3 % (11.5-14.5); WHITE BLOOD COUNT 9.7 10^3/uL (4.0-10.0)
[2017-08-07 07:14] LABS: INR 0.96; PROTHROMBIN TIME 12.9 SECONDS (12.4-14.5)
[2017-08-07 07:15] LABS: PARTIAL THROMBOPLASTIN TIME 27.7 SECONDS (26.8-37.9)
[2017-08-07 07:23] LABS: ABG HCO3 27.9 MEQ/L (22.0-26.0); ABG O2 SATURATION 98.2 % (95.0-99.0); ABG PARTIAL PRESSURE CO2 54.1 mmHg (35.0-45.0); ABG PARTIAL PRESSURE O2 117.2 mmHg (75.0-100.0); ABG STANDARD HCO3 25.4 MEQ/L (22.0-26.0); ABG TOTAL CO2 29.6 MEQ/L (23.0-31.0); ABG pH (ARTERIAL) 7.331 UNITS (7.350-7.450)
[2017-08-07 07:34] LABS: LACTIC ACID SEPSIS PROTOCOL 3.4 MMOL/L (0.4-2.0)
[2017-08-07] MEDS: FUROSEMIDE 100 MG/10 ML VIAL (J1940) IV (07:36)
[2017-08-07 08:11] LABS: ANION GAP 10 MEQ/L (8-16); BLOOD UREA NITROGEN 25 MG/DL (7-18); CALCIUM LEVEL 8.2 MG/DL (8.8-10.2); CARBON DIOXIDE LEVEL 25 MEQ/L (21-32); CHLORIDE LEVEL 106 MEQ/L (98-107); CK-MB VALUE MASS 3.8 NG/ML (0.0-3.6); CPK CREATINE PHOSPHOKINASE 206 U/L (39-308); CREATININE FOR GFR 1.23 MG/DL (0.70-1.30); GLOMERULAR FILTRATION RATE > 60.0 (>49); GLUCOSE, FASTING 302 MG/DL (70-100); MB/CK RELATIVE INDEX 1.84 (< OR =4); NT-PRO BNP 615 PG/ML (<125); SODIUM LEVEL 141 MEQ/L (136-145); TROPONIN I 0.03 NG/ML (< 0.10)
[2017-08-07 08:15] LABS: POTASSIUM SERUM 5.2 MEQ/L (3.5-5.1)
[2017-08-07 09:18] LABS: CK-MB VALUE MASS 3.5 NG/ML (0.0-3.6); CPK CREATINE PHOSPHOKINASE 146 U/L (39-308); MB/CK RELATIVE INDEX 2.39 (< OR =4); TROPONIN I 0.05 NG/ML (< 0.10)
[2017-08-07] MEDS: FUROSEMIDE 40 MG/4 ML VIAL (J1940) IV ×3 (12:00→19:59)
[2017-08-07 12:45] LABS: CK-MB VALUE MASS 3.3 NG/ML (0.0-3.6); CPK CREATINE PHOSPHOKINASE 129 U/L (39-308); MB/CK RELATIVE INDEX 2.55 (< OR =4); TROPONIN I 0.06 NG/ML (< 0.10)
[2017-08-07] MEDS ORDERED: DEXTROSE 50% 50 ML SYRINGE IV (15:00)
[2017-08-07] MEDS ORDERED: GLUCAGON FOR INJ 1 MG VIAL (J1610) SC (15:00)
[2017-08-07] MEDS ORDERED: GLUCOSE 4 GM CHEW TABLET PO (15:00)
[2017-08-07] MEDS: ASPIRIN 81 MG ENTERIC TAB PO (16:20)
[2017-08-07 18:03] LABS: BEDSIDE GLUCOSE 199 MG/DL (80-115)
[2017-08-07] MEDS: HumaLOG INSULIN (NovoLOG) PER UNIT SC ×2 (18:31→21:00)
[2017-08-07 18:43] LABS: ANION GAP 6 MEQ/L (8-16); BLOOD UREA NITROGEN 24 MG/DL (7-18); CALCIUM LEVEL 8.1 MG/DL (8.8-10.2); CARBON DIOXIDE LEVEL 34 MEQ/L (21-32); CHLORIDE LEVEL 102 MEQ/L (98-107); CREATININE FOR GFR 1.12 MG/DL (0.70-1.30); GLOMERULAR FILTRATION RATE > 60.0 (>49); GLUCOSE, FASTING 228 MG/DL (70-100); POTASSIUM SERUM 4.4 MEQ/L (3.5-5.1); SODIUM LEVEL 142 MEQ/L (136-145)
[2017-08-07] MEDS ORDERED: SLF 3 ML SYR IV (21:00)
[2017-08-07] MEDS: SLF 3 ML SYR IV (21:11)
[2017-08-07] MEDS: SYMBICORT 80/4.5MCG INHALER 6GM INH (21:16)
[2017-08-07 21:28] LABS: BEDSIDE GLUCOSE 216 MG/DL (80-115)
[2017-08-08] MEDS: FUROSEMIDE 40 MG/4 ML VIAL (J1940) IV ×6 (00:07→20:06)
[2017-08-08 05:05] LABS: HEMATOCRIT 42.6 % (42.0-52.0); HEMOGLOBIN 13.6 g/dl (14.0-18.0); MEAN CORPUSCULAR HGB CONC 31.9 g/dl (32.0-36.5); MEAN CORPUSCULAR VOLUME 90.8 fl (80.0-96.0); PLATELET COUNT, AUTOMATED 285 10^3/uL (150-450); RED BLOOD COUNT 4.69 10^6/uL (4.30-6.10); RED CELL DISTRIBUTION WIDTH 13.4 % (11.5-14.5); WHITE BLOOD COUNT 11.4 10^3/uL (4.0-10.0)
[2017-08-08 05:31] LABS: ANION GAP 2 MEQ/L (8-16); BLOOD UREA NITROGEN 26 MG/DL (7-18); CALCIUM LEVEL 8.4 MG/DL (8.8-10.2); CARBON DIOXIDE LEVEL 39 MEQ/L (21-32); CHLORIDE LEVEL 100 MEQ/L (98-107); GLOMERULAR FILTRATION RATE 54.5 (>49); GLUCOSE, FASTING 229 MG/DL (70-100); SODIUM LEVEL 141 MEQ/L (136-145)
[2017-08-08] MEDS: SLF 3 ML SYR IV ×3 (06:00→20:07)
[2017-08-08] MEDS: SYMBICORT 80/4.5MCG INHALER 6GM INH ×2 (07:43→19:46)
[2017-08-08] MEDS: HumaLOG INSULIN (NovoLOG) PER UNIT SC ×4 (08:24→20:06)
[2017-08-08] MEDS: ATORVASTATIN 20 MG TAB PO (08:24)
[2017-08-08] MEDS: HumuLIN N INSULIN (NovoLIN N) PER UNIT SC (08:24)
[2017-08-08] MEDS: LISINOPRIL 5 MG TAB PO (08:25)
[2017-08-08] MEDS: CLOPIDOGREL 75 MG TAB PO (08:25)
[2017-08-08] MEDS: ASPIRIN 81 MG ENTERIC TAB PO (08:25)
[2017-08-08 11:36] LABS: BEDSIDE GLUCOSE 220 MG/DL (80-115)
[2017-08-08 16:56] LABS: BEDSIDE GLUCOSE 164 MG/DL (80-115)
[2017-08-08 20:01] LABS: BEDSIDE GLUCOSE 258 MG/DL (80-115)
[2017-08-09] MEDS: FUROSEMIDE 40 MG/4 ML VIAL (J1940) IV ×4 (00:14→16:45)
[2017-08-09] MEDS: SLF 3 ML SYR IV ×3 (04:21→20:57)
[2017-08-09 04:59] LABS: HEMATOCRIT 44.5 % (42.0-52.0); HEMOGLOBIN 14.3 g/dl (14.0-18.0); MEAN CORPUSCULAR HEMOGLOBIN 28.9 pg (27.0-33.0); MEAN CORPUSCULAR HGB CONC 32.1 g/dl (32.0-36.5); MEAN CORPUSCULAR VOLUME 89.9 fl (80.0-96.0); PLATELET COUNT, AUTOMATED 300 10^3/uL (150-450); RED BLOOD COUNT 4.95 10^6/uL (4.30-6.10); RED CELL DISTRIBUTION WIDTH 13.2 % (11.5-14.5); WHITE BLOOD COUNT 13.7 10^3/uL (4.0-10.0)
[2017-08-09 05:16] LABS: ANION GAP 2 MEQ/L (8-16); BLOOD UREA NITROGEN 42 MG/DL (7-18); CALCIUM LEVEL 8.6 MG/DL (8.8-10.2); CARBON DIOXIDE LEVEL 38 MEQ/L (21-32); CHLORIDE LEVEL 100 MEQ/L (98-107); CREATININE FOR GFR 1.56 MG/DL (0.70-1.30); GLOMERULAR FILTRATION RATE 48.1 (>49); GLUCOSE, FASTING 196 MG/DL (70-100); POTASSIUM SERUM 4.4 MEQ/L (3.5-5.1); SODIUM LEVEL 140 MEQ/L (136-145)
[2017-08-09] MEDS: HumaLOG INSULIN (NovoLOG) PER UNIT SC ×4 (07:36→20:50)
[2017-08-09] MEDS: SYMBICORT 80/4.5MCG INHALER 6GM INH ×2 (07:49→19:32)
[2017-08-09] MEDS: LISINOPRIL 5 MG TAB PO (08:10)
[2017-08-09] MEDS: CLOPIDOGREL 75 MG TAB PO (08:10)
[2017-08-09] MEDS: ATORVASTATIN 20 MG TAB PO (08:10)
[2017-08-09] MEDS: HumuLIN N INSULIN (NovoLIN N) PER UNIT SC (08:10)
[2017-08-09] MEDS: ASPIRIN 81 MG ENTERIC TAB PO (08:11)
[2017-08-09 11:50] LABS: BEDSIDE GLUCOSE 238 MG/DL (80-115)
[2017-08-09 16:46] LABS: BEDSIDE GLUCOSE 231 MG/DL (80-115)
[2017-08-09 20:51] LABS: BEDSIDE GLUCOSE 202 MG/DL (80-115)
[2017-08-09] MEDS: HEPARIN SOD (PORCINE) 5000 UNITS/ML VIAL SQ (20:56)
[2017-08-10 04:36] LABS: HEMATOCRIT 44.9 % (42.0-52.0); HEMOGLOBIN 14.3 g/dl (14.0-18.0); MEAN CORPUSCULAR HEMOGLOBIN 28.4 pg (27.0-33.0); MEAN CORPUSCULAR HGB CONC 31.8 g/dl (32.0-36.5); MEAN CORPUSCULAR VOLUME 89.3 fl (80.0-96.0); PLATELET COUNT, AUTOMATED 297 10^3/uL (150-450); RED BLOOD COUNT 5.03 10^6/uL (4.30-6.10); RED CELL DISTRIBUTION WIDTH 13.2 % (11.5-14.5); WHITE BLOOD COUNT 10.5 10^3/uL (4.0-10.0)
[2017-08-10 04:46] LABS: ANION GAP 6 MEQ/L (8-16); BLOOD UREA NITROGEN 49 MG/DL (7-18); CALCIUM LEVEL 8.2 MG/DL (8.8-10.2); CARBON DIOXIDE LEVEL 34 MEQ/L (21-32); CHLORIDE LEVEL 100 MEQ/L (98-107); CREATININE FOR GFR 1.47 MG/DL (0.70-1.30); GLOMERULAR FILTRATION RATE 51.5 (>49); GLUCOSE, FASTING 214 MG/DL (70-100); POTASSIUM SERUM 4.3 MEQ/L (3.5-5.1); SODIUM LEVEL 140 MEQ/L (136-145)
[2017-08-10] MEDS: SLF 3 ML SYR IV ×3 (06:00→20:17)
[2017-08-10] MEDS: HumaLOG INSULIN (NovoLOG) PER UNIT SC ×4 (07:41→20:18)
[2017-08-10] MEDS: HumuLIN N INSULIN (NovoLIN N) PER UNIT SC (08:47)
[2017-08-10] MEDS: FUROSEMIDE 40 MG/4 ML VIAL (J1940) IV ×2 (08:48→16:59)
[2017-08-10] MEDS: LISINOPRIL 5 MG TAB PO (08:48)
[2017-08-10] MEDS: HEPARIN SOD (PORCINE) 5000 UNITS/ML VIAL SQ ×2 (08:48→20:17)
[2017-08-10] MEDS: CLOPIDOGREL 75 MG TAB PO (08:48)
[2017-08-10] MEDS: ASPIRIN 81 MG ENTERIC TAB PO (08:48)
[2017-08-10] MEDS: ATORVASTATIN 20 MG TAB PO (08:48)
[2017-08-10] MEDS: SYMBICORT 80/4.5MCG INHALER 6GM INH ×2 (09:23→19:42)
[2017-08-10 11:36] LABS: BEDSIDE GLUCOSE 235 MG/DL (80-115)
[2017-08-10 16:42] LABS: BEDSIDE GLUCOSE 110 MG/DL (80-115)
[2017-08-10 20:22] LABS: BEDSIDE GLUCOSE 210 MG/DL (80-115)
[2017-08-11 04:54] LABS: HEMATOCRIT 43.7 % (42.0-52.0); MEAN CORPUSCULAR HEMOGLOBIN 28.7 pg (27.0-33.0); MEAN CORPUSCULAR VOLUME 89.5 fl (80.0-96.0); PLATELET COUNT, AUTOMATED 287 10^3/uL (150-450); RED BLOOD COUNT 4.88 10^6/uL (4.30-6.10); WHITE BLOOD COUNT 10.1 10^3/uL (4.0-10.0)
[2017-08-11 05:11] LABS: ANION GAP 4 MEQ/L (8-16); BLOOD UREA NITROGEN 50 MG/DL (7-18); CALCIUM LEVEL 8.2 MG/DL (8.8-10.2); CARBON DIOXIDE LEVEL 34 MEQ/L (21-32); CHLORIDE LEVEL 102 MEQ/L (98-107); CREATININE FOR GFR 1.35 MG/DL (0.70-1.30); GLOMERULAR FILTRATION RATE 56.8 (>49); GLUCOSE, FASTING 205 MG/DL (70-100); SODIUM LEVEL 140 MEQ/L (136-145)
[2017-08-11] MEDS: SLF 3 ML SYR IV ×3 (05:19→21:13)
[2017-08-11] MEDS: SYMBICORT 80/4.5MCG INHALER 6GM INH ×2 (07:46→19:42)
[2017-08-11] MEDS: HumaLOG INSULIN (NovoLOG) PER UNIT SC ×4 (08:02→20:12)
[2017-08-11] MEDS: CLOPIDOGREL 75 MG TAB PO (08:03)
[2017-08-11] MEDS: ASPIRIN 81 MG ENTERIC TAB PO (08:03)
[2017-08-11] MEDS: ATORVASTATIN 20 MG TAB PO (08:03)
[2017-08-11] MEDS: LISINOPRIL 5 MG TAB PO (08:03)
[2017-08-11] MEDS: HumuLIN N INSULIN (NovoLIN N) PER UNIT SC (08:04)
[2017-08-11] MEDS: HEPARIN SOD (PORCINE) 5000 UNITS/ML VIAL SQ ×2 (08:04→20:13)
[2017-08-11] MEDS: FUROSEMIDE 20 MG TAB PO ×2 (08:16→17:15)
[2017-08-11 11:54] LABS: BEDSIDE GLUCOSE 206 MG/DL (80-115)
[2017-08-11 17:17] LABS: BEDSIDE GLUCOSE 159 MG/DL (80-115)
[2017-08-11 20:25] LABS: BEDSIDE GLUCOSE 168 MG/DL (80-115)
[2017-08-12 04:48] LABS: HEMATOCRIT 44.4 % (42.0-52.0); HEMOGLOBIN 14.2 g/dl (14.0-18.0); RED BLOOD COUNT 4.97 10^6/uL (4.30-6.10); WHITE BLOOD COUNT 8.3 10^3/uL (4.0-10.0)
[2017-08-12 04:49] LABS: MEAN CORPUSCULAR HEMOGLOBIN 28.6 pg (27.0-33.0); MEAN CORPUSCULAR VOLUME 89.3 fl (80.0-96.0); PLATELET COUNT, AUTOMATED 265 10^3/uL (150-450)
[2017-08-12] MEDS: SLF 3 ML SYR IV ×3 (05:00→20:51)
[2017-08-12 05:07] LABS: ANION GAP 6 MEQ/L (8-16); BLOOD UREA NITROGEN 45 MG/DL (7-18); CALCIUM LEVEL 8.6 MG/DL (8.8-10.2); CARBON DIOXIDE LEVEL 33 MEQ/L (21-32); CHLORIDE LEVEL 100 MEQ/L (98-107); CREATININE FOR GFR 1.27 MG/DL (0.70-1.30); GLOMERULAR FILTRATION RATE > 60.0 (>49); GLUCOSE, FASTING 196 MG/DL (70-100); SODIUM LEVEL 139 MEQ/L (136-145)
[2017-08-12] MEDS: SYMBICORT 80/4.5MCG INHALER 6GM INH ×2 (07:29→20:33)
[2017-08-12] MEDS: HumaLOG INSULIN (NovoLOG) PER UNIT SC ×4 (07:43→20:40)
[2017-08-12] MEDS: ATORVASTATIN 20 MG TAB PO (08:46)
[2017-08-12] MEDS: FUROSEMIDE 20 MG TAB PO ×2 (08:46→17:13)
[2017-08-12] MEDS: ASPIRIN 81 MG ENTERIC TAB PO (08:46)
[2017-08-12] MEDS: CLOPIDOGREL 75 MG TAB PO (08:46)
[2017-08-12] MEDS: LISINOPRIL 5 MG TAB PO (08:47)
[2017-08-12] MEDS: HumuLIN N INSULIN (NovoLIN N) PER UNIT SC (08:47)
[2017-08-12] MEDS: HEPARIN SOD (PORCINE) 5000 UNITS/ML VIAL SQ ×2 (08:48→20:50)
[2017-08-12 11:50] LABS: BEDSIDE GLUCOSE 303 MG/DL (80-115)
[2017-08-12 17:16] LABS: BEDSIDE GLUCOSE 148 MG/DL (80-115)
[2017-08-12 20:45] LABS: BEDSIDE GLUCOSE 143 MG/DL (80-115)
[2017-08-13 04:41] LABS: HEMATOCRIT 43.5 % (42.0-52.0); HEMOGLOBIN 14.1 g/dl (14.0-18.0); MEAN CORPUSCULAR HEMOGLOBIN 28.7 pg (27.0-33.0); MEAN CORPUSCULAR HGB CONC 32.4 g/dl (32.0-36.5); MEAN CORPUSCULAR VOLUME 88.4 fl (80.0-96.0); PLATELET COUNT, AUTOMATED 273 10^3/uL (150-450); RED BLOOD COUNT 4.92 10^6/uL (4.30-6.10); RED CELL DISTRIBUTION WIDTH 12.9 % (11.5-14.5); WHITE BLOOD COUNT 9.9 10^3/uL (4.0-10.0)
[2017-08-13 04:59] LABS: ANION GAP 7 MEQ/L (8-16); BLOOD UREA NITROGEN 44 MG/DL (7-18); CALCIUM LEVEL 8.5 MG/DL (8.8-10.2); CARBON DIOXIDE LEVEL 31 MEQ/L (21-32); CHLORIDE LEVEL 102 MEQ/L (98-107); CREATININE FOR GFR 1.47 MG/DL (0.70-1.30); GLOMERULAR FILTRATION RATE 51.5 (>49); GLUCOSE, FASTING 173 MG/DL (70-100); POTASSIUM SERUM 4.2 MEQ/L (3.5-5.1); SODIUM LEVEL 140 MEQ/L (136-145)
[2017-08-13] MEDS: SLF 3 ML SYR IV ×2 (06:00→14:00)
[2017-08-13] MEDS: HumaLOG INSULIN (NovoLOG) PER UNIT SC ×3 (07:54→16:37)
[2017-08-13] MEDS: FUROSEMIDE 20 MG TAB PO ×2 (07:55→16:36)
[2017-08-13] MEDS: ASPIRIN 81 MG ENTERIC TAB PO (07:55)
[2017-08-13] MEDS: HumuLIN N INSULIN (NovoLIN N) PER UNIT SC (07:55)
[2017-08-13] MEDS: CLOPIDOGREL 75 MG TAB PO (07:56)
[2017-08-13] MEDS: HEPARIN SOD (PORCINE) 5000 UNITS/ML VIAL SQ (07:56)
[2017-08-13] MEDS: ATORVASTATIN 20 MG TAB PO (07:56)
[2017-08-13] MEDS: LISINOPRIL 5 MG TAB PO (07:56)
[2017-08-13] MEDS: SYMBICORT 80/4.5MCG INHALER 6GM INH (08:24)
[2017-08-13 12:03] LABS: BEDSIDE GLUCOSE 169 MG/DL (80-115)
[2017-08-13 16:39] LABS: BEDSIDE GLUCOSE 108 MG/DL (80-115)
== END 2017-08-13 19:41 | disposition home or self-care (01) | DRG 291 ==
LOC: M ICU 08-08 01:34 → M ED 06:33 → M ED INP 10:59 → M PCU 20:27
DX: I11.0 Hypertensive heart disease with heart failure (principal); J96.01 Acute respiratory failure with hypoxia; E66.2 Morbid (severe) obesity with alveolar hypoventilation; G47.33 Obstructive sleep apnea (adult) (pediatric); I25.10 Atherosclerotic heart disease of native coronary artery without angina pectoris; E11.40 Type 2 diabetes mellitus with diabetic neuropathy, unspecified; D72.829 Elevated white blood cell count, unspecified; I27.20 Pulmonary hypertension, unspecified; E78.5 Hyperlipidemia, unspecified; Z91.19 Patient's noncompliance with other medical treatment and regimen; Z79.899 Other long term (current) drug therapy; Z79.82 Long term (current) use of aspirin; I25.2 Old myocardial infarction; Z95.2 Presence of prosthetic heart valve; E11.319 Type 2 diabetes mellitus with unspecified diabetic retinopathy without macular edema; Z86.73 Personal history of transient ischemic attack (TIA), and cerebral infarction without residual deficits; I50.21 Acute systolic (congestive) heart failure; J44.9 Chronic obstructive pulmonary disease, unspecified

== ENCOUNTER → 2017-08-13 | Outpatient (CLI) | payer MEDICARE | LOC: M SLEEP 19:30 | DX: G47.33 Obstructive sleep apnea (adult) (pediatric) (principal) | CPT/HCPCS: 95811 ==

== ENCOUNTER 2017-10-23 07:03 | Emergency (ER) | payer MEDICARE ==
[2017-10-23 07:43] LABS: BASO # 0.1 10^3/uL (0.0-0.2); BASO % 0.6 % (0.0-1.0); EOS # 0.7 10^3/uL (0.0-0.50); EOS % 6.1 % (0.0-3.0); HEMATOCRIT 44.4 % (42.0-52.0); HEMOGLOBIN 14.9 g/dl (13.5-17.5); IMMATURE GRANULOCYTE % 0.5 % (0-3.0); LYMPH # 3.5 10^3/uL (1.5-4.5); LYMPH % 29.4 % (24.0-44.0); MEAN CORPUSCULAR HEMOGLOBIN 29.5 pg (27.0-33.0); MEAN CORPUSCULAR HGB CONC 33.6 g/dl (32.0-36.5); MEAN CORPUSCULAR VOLUME 87.9 fl (80.0-96.0); MONO # 1.1 10^3/uL (0.0-0.8); MONO % 9.3 % (0.0-5.0); NEUTROPHILS # 6.4 10^3/uL (1.8-7.7); NEUTROPHILS % 54.1 % (36.0-66.0); PLATELET COUNT, AUTOMATED 294 10^3/uL (150-450); RED BLOOD COUNT 5.05 10^6/uL (4.30-6.10); RED CELL DISTRIBUTION WIDTH 13.3 % (11.5-14.5); WHITE BLOOD COUNT 11.9 10^3/uL (4.0-10.0)
[2017-10-23] MEDS: DEXTROSE 50% 50 ML SYRINGE IV (07:50)
[2017-10-23 07:54] LABS: ANION GAP 7 MEQ/L (8-16); BLOOD UREA NITROGEN 22 MG/DL (7-18); CALCIUM LEVEL 8.7 MG/DL (8.8-10.2); CARBON DIOXIDE LEVEL 26 MEQ/L (21-32); CHLORIDE LEVEL 112 MEQ/L (98-107); CREATININE FOR GFR 1.12 MG/DL (0.70-1.30); GLOMERULAR FILTRATION RATE > 60.0 (>49); GLUCOSE, FASTING 54 MG/DL (70-100); POTASSIUM SERUM 3.1 MEQ/L (3.5-5.1); SODIUM LEVEL 145 MEQ/L (136-145)
[2017-10-23] MEDS: POTASSIUM CHLORIDE 10 MEQ SR TABLET PO (08:15)
[2017-10-23 08:44] LABS: BEDSIDE GLUCOSE 168 MG/DL (80-115)
[2017-10-23 08:44] LABS: BEDSIDE GLUCOSE 60 MG/DL (80-115)
[2017-10-23 08:44] LABS: BEDSIDE GLUCOSE 53 MG/DL (80-115)
== END 2017-10-23 09:52 | disposition home or self-care (01) ==
LOC: M ED 07:03
DX: E16.2 Hypoglycemia, unspecified (principal); E87.6 Hypokalemia; I25.10 Atherosclerotic heart disease of native coronary artery without angina pectoris; I50.9 Heart failure, unspecified; I25.2 Old myocardial infarction; I11.0 Hypertensive heart disease with heart failure; J44.9 Chronic obstructive pulmonary disease, unspecified; E11.9 Type 2 diabetes mellitus without complications; E78.70 Disorder of bile acid and cholesterol metabolism, unspecified; Z79.4 Long term (current) use of insulin; Z79.01 Long term (current) use of anticoagulants; Z79.899 Other long term (current) drug therapy; Z86.73 Personal history of transient ischemic attack (TIA), and cerebral infarction without residual deficits; Z95.5 Presence of coronary angioplasty implant and graft; Z87.891 Personal history of nicotine dependence
CPT/HCPCS: 80048

== ENCOUNTER 2018-04-03 10:09 | Day surgery (SDC) | payer MEDICARE ==
[2018-04-03] MEDS: NS 1,000 ML IV (10:50)
[2018-04-03 11:07] LABS: BEDSIDE GLUCOSE 116 MG/DL (80-115)
[2018-04-03] MEDS ORDERED: PROPOFOL 200 MG/20 ML VIAL As Ordered ×2 (11:58→12:20)
== END 2018-04-03 13:02 | disposition home or self-care (01) ==
LOC: M OPP 10:09
DX: Z12.11 Encounter for screening for malignant neoplasm of colon (principal); Z80.0 Family history of malignant neoplasm of digestive organs; D12.5 Benign neoplasm of sigmoid colon; D12.4 Benign neoplasm of descending colon; D12.0 Benign neoplasm of cecum; K64.0 First degree hemorrhoids; K57.30 Diverticulosis of large intestine without perforation or abscess without bleeding; Z95.5 Presence of coronary angioplasty implant and graft; I25.10 Atherosclerotic heart disease of native coronary artery without angina pectoris; I50.9 Heart failure, unspecified; E78.5 Hyperlipidemia, unspecified; E11.9 Type 2 diabetes mellitus without complications; R19.7 Diarrhea, unspecified; R56.9 Unspecified convulsions; G47.8 Other sleep disorders; G47.30 Sleep apnea, unspecified; R06.83 Snoring; L97.911 Non-pressure chronic ulcer of unspecified part of right lower leg limited to breakdown of skin; L97.921 Non-pressure chronic ulcer of unspecified part of left lower leg limited to breakdown of skin; Z79.82 Long term (current) use of aspirin; Z79.4 Long term (current) use of insulin; Z79.899 Other long term (current) drug therapy
CPT/HCPCS: 45385

== ENCOUNTER 2018-04-09 11:49 | Emergency (ER) | payer MEDICARE ==
[2018-04-09] MEDS: NS 1,000 ML IV (13:09)
[2018-04-09] MEDS: ONDANSETRON 4MG/2ML VIAL (J2405) IV (13:09)
[2018-04-09 13:11] LABS: BASO % 0.3 % (0.0-1.0); EOS # 0.1 10^3/uL (0.0-0.50); EOS % 0.8 % (0.0-3.0); HEMATOCRIT 45.2 % (42.0-52.0); HEMOGLOBIN 14.8 g/dl (13.5-17.5); IMMATURE GRANULOCYTE % 0.3 % (0-3.0); LYMPH # 0.9 10^3/uL (1.5-4.5); LYMPH % 6.3 % (24.0-44.0); MEAN CORPUSCULAR HGB CONC 32.7 g/dl (32.0-36.5); MEAN CORPUSCULAR VOLUME 91.7 fl (80.0-96.0); MONO # 1.1 10^3/uL (0.0-0.8); MONO % 7.9 % (0.0-5.0); NEUTROPHILS # 11.7 10^3/uL (1.8-7.7); NEUTROPHILS % 84.4 % (36.0-66.0); PLATELET COUNT, AUTOMATED 305 10^3/uL (150-450); RED BLOOD COUNT 4.93 10^6/uL (4.30-6.10); RED CELL DISTRIBUTION WIDTH 13.1 % (11.5-14.5); WHITE BLOOD COUNT 13.9 10^3/uL (4.0-10.0)
[2018-04-09 13:29] LABS: ALBUMIN 2.8 GM/DL (3.2-5.2); ALKALINE PHOSPHATASE 101 U/L (45-117); ALT/SGPT 22 U/L (12-78); ANION GAP 6 MEQ/L (8-16); AST/SGOT 11 U/L (7-37); BILIRUBIN,TOTAL 0.5 MG/DL (0.2-1.0); BLOOD UREA NITROGEN 25 MG/DL (7-18); CALCIUM LEVEL 8.3 MG/DL (8.8-10.2); CARBON DIOXIDE LEVEL 32 MEQ/L (21-32); CHLORIDE LEVEL 102 MEQ/L (98-107); CPK CREATINE PHOSPHOKINASE 119 U/L (39-308); CREATININE FOR GFR 1.41 MG/DL (0.70-1.30); GLOMERULAR FILTRATION RATE 53.9 (>49); GLUCOSE, FASTING 244 MG/DL (70-100); LIPASE 143 U/L (73-393); MB/CK RELATIVE INDEX 1.76 (< OR =4); POTASSIUM SERUM 5.1 MEQ/L (3.5-5.1); SODIUM LEVEL 140 MEQ/L (136-145); TOTAL PROTEIN 6.8 GM/DL (6.4-8.2); TROPONIN I < 0.02 NG/ML (< 0.10)
== END 2018-04-09 14:41 | disposition home or self-care (01) ==
LOC: M ED 11:49
DX: R11.2 Nausea with vomiting, unspecified (principal); R19.7 Diarrhea, unspecified; R10.9 Unspecified abdominal pain; E11.9 Type 2 diabetes mellitus without complications; I11.0 Hypertensive heart disease with heart failure; I50.9 Heart failure, unspecified; I25.2 Old myocardial infarction; J44.9 Chronic obstructive pulmonary disease, unspecified; Z86.73 Personal history of transient ischemic attack (TIA), and cerebral infarction without residual deficits; Z95.5 Presence of coronary angioplasty implant and graft; Z82.49 Family history of ischemic heart disease and other diseases of the circulatory system; Z79.899 Other long term (current) drug therapy; Z79.82 Long term (current) use of aspirin; Z79.02 Long term (current) use of antithrombotics/antiplatelets; Z79.4 Long term (current) use of insulin
CPT/HCPCS: J2405

== ENCOUNTER → 2018-04-10 | Outpatient (REF) | payer MEDICARE | LOC: M LAB REF 10:11 | DX: R19.7 Diarrhea, unspecified (principal) | CPT/HCPCS: 87507 ==

== ENCOUNTER 2018-05-20 06:21 | Inpatient (IN) | payer MEDICARE ==
[2018-05-20] MEDS: ALBUTEROL SULFATE 2.5 MG/0.5 ML INH NEB SOLN INH (07:19)
[2018-05-20] MEDS: IPRATROPIUM 0.5MG/ALBUTEROL 2.5MG INH SOL UD 3ML (DUONEB)(J7620) NEB ×3 (07:19→20:10)
[2018-05-20 07:24] LABS: BASO % 0.4 % (0.0-1.0); EOS # 0.3 10^3/uL (0.0-0.50); EOS % 3.5 % (0.0-3.0); HEMOGLOBIN 13.6 g/dl (13.5-17.5); IMMATURE GRANULOCYTE % 0.2 % (0-3.0); LYMPH # 1.3 10^3/uL (1.5-4.5); LYMPH % 14.6 % (24.0-44.0); MEAN CORPUSCULAR HEMOGLOBIN 29.5 pg (27.0-33.0); MEAN CORPUSCULAR HGB CONC 31.6 g/dl (32.0-36.5); MEAN CORPUSCULAR VOLUME 93.3 fl (80.0-96.0); MONO # 0.7 10^3/uL (0.0-0.8); MONO % 7.3 % (0.0-5.0); NEUTROPHILS # 6.6 10^3/uL (1.8-7.7); PLATELET COUNT, AUTOMATED 245 10^3/uL (150-450); RED BLOOD COUNT 4.61 10^6/uL (4.30-6.10); RED CELL DISTRIBUTION WIDTH 13.7 % (11.5-14.5); WHITE BLOOD COUNT 8.9 10^3/uL (4.0-10.0)
[2018-05-20] MEDS: methylPREDNISolone INJ 125 MG/2 ML VIAL (J2930) IV (07:28)
[2018-05-20 07:37] LABS: ABG BASE EXCESS 2.4 (-2.0-2.0); ABG HCO3 28.5 MEQ/L (22.0-26.0); ABG O2 SATURATION 94.3 % (95.0-99.0); ABG PARTIAL PRESSURE CO2 49.7 mmHg (35.0-45.0); ABG STANDARD HCO3 26.5 MEQ/L (22.0-26.0); ABG pH (ARTERIAL) 7.376 UNITS (7.350-7.450)
[2018-05-20 07:47] LABS: LACTIC ACID SEPSIS PROTOCOL 1.1 MMOL/L (0.4-2.0)
[2018-05-20 07:47] LABS: ALBUMIN 2.8 GM/DL (3.2-5.2); ALBUMIN/GLOBULIN RATIO 0.67 (1.00-1.93); ALKALINE PHOSPHATASE 116 U/L (45-117); ALT/SGPT 17 U/L (12-78); AST/SGOT 13 U/L (7-37); BILIRUBIN,DIRECT 0.1 MG/DL (0.0-0.2); BILIRUBIN,TOTAL 0.4 MG/DL (0.2-1.0)
[2018-05-20 07:49] LABS: ANION GAP 4 MEQ/L (8-16); BLOOD UREA NITROGEN 30 MG/DL (7-18); CARBON DIOXIDE LEVEL 32 MEQ/L (21-32); CHLORIDE LEVEL 106 MEQ/L (98-107); CPK CREATINE PHOSPHOKINASE 96 U/L (39-308); CREATININE FOR GFR 1.46 MG/DL (0.70-1.30); GLOMERULAR FILTRATION RATE 51.7 (>49); GLUCOSE, FASTING 266 MG/DL (70-100); MB/CK RELATIVE INDEX 2.92 (< OR =4); NT-PRO BNP 1327 PG/ML (<125); POTASSIUM SERUM 4.9 MEQ/L (3.5-5.1); SODIUM LEVEL 142 MEQ/L (136-145); TROPONIN I 0.03 NG/ML (< 0.10)
[2018-05-20 07:54] LABS: INFLUENZA A AMPLIFICATION NEGATIVE (NEGATIVE); INFLUENZA B AMPLIFICATION NEGATIVE (NEGATIVE)
[2018-05-20] MEDS ORDERED: ISOVUE-370 76% 100ML VIAL (Q9967) As Ordered (08:08)
[2018-05-20] MEDS: FUROSEMIDE injection 250 MG in D5W 225 ML IV (08:26)
[2018-05-20] MEDS ORDERED: IPRATROPIUM 0.5MG/ALBUTEROL 2.5MG INH SOL UD 3ML (DUONEB)(J7620) NEB (10:15)
[2018-05-20] MEDS ORDERED: DEXTROSE 50% 50 ML SYRINGE IV (10:30)
[2018-05-20] MEDS ORDERED: GLUCOSE 4 GM CHEW TABLET PO (10:30)
[2018-05-20] MEDS ORDERED: GLUCAGON FOR INJ 1 MG VIAL (J1610) SC (10:30)
[2018-05-20] MEDS ORDERED: ONDANSETRON 4MG/2ML VIAL (J2405) IV (10:30)
[2018-05-20] MEDS: AZITHROMYCIN INJ 500 MG, VIAL MATE ADAPTER 1 EACH in D5W 250 ML IV (10:38)
[2018-05-20] MEDS: cefTRIAXone SOD 2 GM in D5W MINI-BAG PLUS 50 ML IV (12:00)
[2018-05-20 12:07] LABS: BEDSIDE GLUCOSE 358 MG/DL (80-115)
[2018-05-20] MEDS: LACTOBACILLUS ACIDOPHILUS CAP (BACID) PO (12:41)
[2018-05-20] MEDS: ATORVASTATIN 20 MG TAB PO (12:41)
[2018-05-20] MEDS: HumaLOG INSULIN (NovoLOG) PER UNIT SC ×3 (12:41→21:37)
[2018-05-20] MEDS: LISINOPRIL 10 MG TAB PO (12:42)
[2018-05-20] MEDS: ASPIRIN 81 MG ENTERIC TAB PO (12:42)
[2018-05-20] MEDS: CLOPIDOGREL 75 MG TAB PO (12:42)
[2018-05-20 14:15] LABS: C REACTIVE PROTEIN QUANTITATIV 0.67 MG/DL (0.00-0.30)
[2018-05-20 14:42] LABS: CPK CREATINE PHOSPHOKINASE 101 U/L (39-308); MB/CK RELATIVE INDEX 2.87 (< OR =4); TROPONIN I < 0.02 NG/ML (< 0.10)
[2018-05-20] MEDS ORDERED: SLF 3 ML SYR IV (15:00)
[2018-05-20] MEDS: FUROSEMIDE 40 MG/4 ML VIAL (J1940) IV (15:11)
[2018-05-20 16:29] LABS: CPK CREATINE PHOSPHOKINASE 105 U/L (39-308); MB/CK RELATIVE INDEX 2.48 (< OR =4); TROPONIN I < 0.02 NG/ML (< 0.10)
[2018-05-20 16:56] LABS: BEDSIDE GLUCOSE 423 MG/DL (80-115)
[2018-05-20] MEDS ORDERED: LEVEMIR (INSULIN DETEMIR) 1 UNITS/0.01ML SC (21:00)
[2018-05-20 21:20] LABS: BEDSIDE GLUCOSE 341 MG/DL (80-115)
[2018-05-20] MEDS: SENOKOT S TAB PO (21:36)
[2018-05-20] MEDS: HEPARIN SOD (PORCINE) 5000 UNITS/ML VIAL SC (21:36)
[2018-05-20] MEDS: guaiFENesin ER 600 MG TAB PO (21:36)
[2018-05-20] MEDS: LEVEMIR (INSULIN DETEMIR) 1 UNITS/0.01ML SC (21:37)
[2018-05-20] MEDS: SLF 3 ML SYR IV (21:38)
[2018-05-21] MEDS: FUROSEMIDE 40 MG/4 ML VIAL (J1940) IV ×4 (01:10→23:58)
[2018-05-21] MEDS: IPRATROPIUM 0.5MG/ALBUTEROL 2.5MG INH SOL UD 3ML (DUONEB)(J7620) NEB ×4 (02:00→20:11)
[2018-05-21 05:50] LABS: HEMATOCRIT 42.6 % (42.0-52.0); HEMOGLOBIN 13.3 g/dl (13.5-17.5); MEAN CORPUSCULAR HGB CONC 31.2 g/dl (32.0-36.5); MEAN CORPUSCULAR VOLUME 92.8 fl (80.0-96.0); PLATELET COUNT, AUTOMATED 257 10^3/uL (150-450); RED BLOOD COUNT 4.59 10^6/uL (4.30-6.10); RED CELL DISTRIBUTION WIDTH 13.6 % (11.5-14.5); WHITE BLOOD COUNT 12.9 10^3/uL (4.0-10.0)
[2018-05-21] MEDS: SLF 3 ML SYR IV ×3 (06:00→21:22)
[2018-05-21 06:07] LABS: ANION GAP 4 MEQ/L (8-16); BLOOD UREA NITROGEN 37 MG/DL (7-18); C REACTIVE PROTEIN QUANTITATIV 0.55 MG/DL (0.00-0.30); CALCIUM LEVEL 8.5 MG/DL (8.8-10.2); CARBON DIOXIDE LEVEL 35 MEQ/L (21-32); CHLORIDE LEVEL 100 MEQ/L (98-107); CREATININE FOR GFR 1.57 MG/DL (0.70-1.30); GLOMERULAR FILTRATION RATE 47.6 (>49); GLUCOSE, FASTING 308 MG/DL (70-100); MAGNESIUM LEVEL 1.8 MG/DL (1.8-2.4); POTASSIUM SERUM 4.5 MEQ/L (3.5-5.1); SODIUM LEVEL 139 MEQ/L (136-145)
[2018-05-21] MEDS: HumaLOG INSULIN (NovoLOG) PER UNIT SC ×4 (07:46→21:00)
[2018-05-21] MEDS: LACTOBACILLUS ACIDOPHILUS CAP (BACID) PO (08:18)
[2018-05-21] MEDS: CLOPIDOGREL 75 MG TAB PO (08:18)
[2018-05-21] MEDS: HEPARIN SOD (PORCINE) 5000 UNITS/ML VIAL SC ×2 (08:18→21:21)
[2018-05-21] MEDS: LEVEMIR (INSULIN DETEMIR) 1 UNITS/0.01ML SC ×2 (08:19→21:21)
[2018-05-21] MEDS: guaiFENesin ER 600 MG TAB PO ×2 (08:19→21:21)
[2018-05-21] MEDS: SENOKOT S TAB PO ×2 (08:19→21:21)
[2018-05-21] MEDS: ASPIRIN 81 MG ENTERIC TAB PO (08:19)
[2018-05-21] MEDS: ATORVASTATIN 20 MG TAB PO (08:19)
[2018-05-21] MEDS: LISINOPRIL 10 MG TAB PO (08:19)
[2018-05-21] MEDS ORDERED: AZITHROMYCIN INJ 500 MG, VIAL MATE ADAPTER 1 EACH in D5W 250 ML IV (11:00)
[2018-05-21 11:41] LABS: BEDSIDE GLUCOSE 275 MG/DL (80-115)
[2018-05-21] MEDS ORDERED: cefTRIAXone SOD 2 GM in D5W MINI-BAG PLUS 50 ML IV (12:00)
[2018-05-21 16:36] LABS: BEDSIDE GLUCOSE 283 MG/DL (80-115)
[2018-05-21 21:15] LABS: BEDSIDE GLUCOSE 229 MG/DL (80-115)
[2018-05-22] MEDS: IPRATROPIUM 0.5MG/ALBUTEROL 2.5MG INH SOL UD 3ML (DUONEB)(J7620) NEB ×4 (02:00→20:30)
[2018-05-22 05:25] LABS: HEMATOCRIT 45.2 % (42.0-52.0); MEAN CORPUSCULAR VOLUME 93.6 fl (80.0-96.0); PLATELET COUNT, AUTOMATED 268 10^3/uL (150-450); RED BLOOD COUNT 4.83 10^6/uL (4.30-6.10); RED CELL DISTRIBUTION WIDTH 13.6 % (11.5-14.5); WHITE BLOOD COUNT 10.6 10^3/uL (4.0-10.0)
[2018-05-22] MEDS: SLF 3 ML SYR IV ×3 (05:27→20:10)
[2018-05-22 05:49] LABS: ANION GAP 2 MEQ/L (8-16); BLOOD UREA NITROGEN 42 MG/DL (7-18); C REACTIVE PROTEIN QUANTITATIV 0.32 MG/DL (0.00-0.30); CALCIUM LEVEL 8.4 MG/DL (8.8-10.2); CARBON DIOXIDE LEVEL 36 MEQ/L (21-32); CHLORIDE LEVEL 100 MEQ/L (98-107); CREATININE FOR GFR 1.51 MG/DL (0.70-1.30); GLOMERULAR FILTRATION RATE 49.8 (>49); GLUCOSE, FASTING 228 MG/DL (70-100); MAGNESIUM LEVEL 1.7 MG/DL (1.8-2.4); POTASSIUM SERUM 4.9 MEQ/L (3.5-5.1); SODIUM LEVEL 138 MEQ/L (136-145)
[2018-05-22] MEDS: LACTOBACILLUS ACIDOPHILUS CAP (BACID) PO (08:19)
[2018-05-22] MEDS: CLOPIDOGREL 75 MG TAB PO (08:19)
[2018-05-22] MEDS: guaiFENesin ER 600 MG TAB PO ×2 (08:19→19:58)
[2018-05-22] MEDS: ASPIRIN 81 MG ENTERIC TAB PO (08:19)
[2018-05-22] MEDS: ATORVASTATIN 20 MG TAB PO (08:19)
[2018-05-22] MEDS: SENOKOT S TAB PO ×2 (08:19→19:58)
[2018-05-22] MEDS: LISINOPRIL 10 MG TAB PO (08:20)
[2018-05-22] MEDS: LEVEMIR (INSULIN DETEMIR) 1 UNITS/0.01ML SC ×2 (08:20→19:58)
[2018-05-22] MEDS: HEPARIN SOD (PORCINE) 5000 UNITS/ML VIAL SC ×2 (08:20→19:58)
[2018-05-22] MEDS: FUROSEMIDE 40 MG/4 ML VIAL (J1940) IV ×2 (08:21→15:52)
[2018-05-22] MEDS: HumaLOG INSULIN (NovoLOG) PER UNIT SC ×4 (08:49→19:57)
[2018-05-22 11:41] LABS: BEDSIDE GLUCOSE 267 MG/DL (80-115)
[2018-05-22] MEDS: MAG SULF 1GM/100ML (MAG RUN) 1 GM in APPROPRIATE DILUENT 1 EA IV (14:04)
[2018-05-22 17:59] LABS: BEDSIDE GLUCOSE 288 MG/DL (80-115)
[2018-05-22 21:00] LABS: BEDSIDE GLUCOSE 181 MG/DL (80-115)
[2018-05-23] MEDS: FUROSEMIDE 40 MG/4 ML VIAL (J1940) IV ×4 (00:53→23:57)
[2018-05-23] MEDS: IPRATROPIUM 0.5MG/ALBUTEROL 2.5MG INH SOL UD 3ML (DUONEB)(J7620) NEB ×4 (02:00→19:23)
[2018-05-23 05:33] LABS: HEMATOCRIT 44.2 % (42.0-52.0); HEMOGLOBIN 13.9 g/dl (13.5-17.5); MEAN CORPUSCULAR HGB CONC 31.4 g/dl (32.0-36.5); MEAN CORPUSCULAR VOLUME 92.3 fl (80.0-96.0); PLATELET COUNT, AUTOMATED 279 10^3/uL (150-450); RED BLOOD COUNT 4.79 10^6/uL (4.30-6.10); RED CELL DISTRIBUTION WIDTH 13.4 % (11.5-14.5); WHITE BLOOD COUNT 10.9 10^3/uL (4.0-10.0)
[2018-05-23 05:51] LABS: ANION GAP 4 MEQ/L (8-16); BLOOD UREA NITROGEN 45 MG/DL (7-18); C REACTIVE PROTEIN QUANTITATIV < 0.30 MG/DL (0.00-0.30); CALCIUM LEVEL 8.4 MG/DL (8.8-10.2); CARBON DIOXIDE LEVEL 36 MEQ/L (21-32); CHLORIDE LEVEL 101 MEQ/L (98-107); CREATININE FOR GFR 1.42 MG/DL (0.70-1.30); GLOMERULAR FILTRATION RATE 53.4 (>49); GLUCOSE, FASTING 110 MG/DL (70-100); POTASSIUM SERUM 4.2 MEQ/L (3.5-5.1); SODIUM LEVEL 141 MEQ/L (136-145)
[2018-05-23] MEDS: SLF 3 ML SYR IV ×3 (06:00→22:00)
[2018-05-23 07:05] LABS: NT-PRO BNP 120 PG/ML (<125)
[2018-05-23] MEDS: HEPARIN SOD (PORCINE) 5000 UNITS/ML VIAL SC ×2 (08:05→20:33)
[2018-05-23] MEDS: SENOKOT S TAB PO ×2 (08:06→20:33)
[2018-05-23] MEDS: ATORVASTATIN 20 MG TAB PO (08:06)
[2018-05-23] MEDS: LACTOBACILLUS ACIDOPHILUS CAP (BACID) PO (08:06)
[2018-05-23] MEDS: ASPIRIN 81 MG ENTERIC TAB PO (08:06)
[2018-05-23] MEDS: CLOPIDOGREL 75 MG TAB PO (08:06)
[2018-05-23] MEDS: guaiFENesin ER 600 MG TAB PO ×2 (08:06→20:33)
[2018-05-23] MEDS: LISINOPRIL 10 MG TAB PO (08:07)
[2018-05-23 08:14] LABS: BEDSIDE GLUCOSE 103 MG/DL (80-115)
[2018-05-23] MEDS: LEVEMIR (INSULIN DETEMIR) 1 UNITS/0.01ML SC ×2 (08:25→20:34)
[2018-05-23] MEDS: HumaLOG INSULIN (NovoLOG) PER UNIT SC ×4 (08:27→20:34)
[2018-05-23 12:04] LABS: BEDSIDE GLUCOSE 193 MG/DL (80-115)
[2018-05-23 17:13] LABS: BEDSIDE GLUCOSE 189 MG/DL (80-115)
[2018-05-23 20:02] LABS: BEDSIDE GLUCOSE 215 MG/DL (80-115)
[2018-05-24] MEDS: IPRATROPIUM 0.5MG/ALBUTEROL 2.5MG INH SOL UD 3ML (DUONEB)(J7620) NEB ×4 (01:52→20:00)
[2018-05-24 05:19] LABS: HEMATOCRIT 45.6 % (42.0-52.0); HEMOGLOBIN 14.3 g/dl (13.5-17.5); MEAN CORPUSCULAR HGB CONC 31.4 g/dl (32.0-36.5); MEAN CORPUSCULAR VOLUME 92.5 fl (80.0-96.0); PLATELET COUNT, AUTOMATED 271 10^3/uL (150-450); RED BLOOD COUNT 4.93 10^6/uL (4.30-6.10); RED CELL DISTRIBUTION WIDTH 13.5 % (11.5-14.5); WHITE BLOOD COUNT 9.7 10^3/uL (4.0-10.0)
[2018-05-24 05:41] LABS: ANION GAP 5 MEQ/L (8-16); BLOOD UREA NITROGEN 49 MG/DL (7-18); C REACTIVE PROTEIN QUANTITATIV 0.84 MG/DL (0.00-0.30); CALCIUM LEVEL 8.1 MG/DL (8.8-10.2); CARBON DIOXIDE LEVEL 35 MEQ/L (21-32); CHLORIDE LEVEL 99 MEQ/L (98-107); CREATININE FOR GFR 1.56 MG/DL (0.70-1.30); GLOMERULAR FILTRATION RATE 47.9 (>49); GLUCOSE, FASTING 229 MG/DL (70-100); POTASSIUM SERUM 4.6 MEQ/L (3.5-5.1); SODIUM LEVEL 139 MEQ/L (136-145)
[2018-05-24] MEDS: SLF 3 ML SYR IV ×3 (05:48→20:38)
[2018-05-24] MEDS: HumaLOG INSULIN (NovoLOG) PER UNIT SC ×4 (08:34→20:37)
[2018-05-24] MEDS: HEPARIN SOD (PORCINE) 5000 UNITS/ML VIAL SC ×2 (08:34→20:37)
[2018-05-24] MEDS: LEVEMIR (INSULIN DETEMIR) 1 UNITS/0.01ML SC ×2 (08:34→20:38)
[2018-05-24] MEDS: SENOKOT S TAB PO ×2 (08:35→20:37)
[2018-05-24] MEDS: guaiFENesin ER 600 MG TAB PO ×2 (08:35→20:37)
[2018-05-24] MEDS: CLOPIDOGREL 75 MG TAB PO (08:35)
[2018-05-24] MEDS: LISINOPRIL 10 MG TAB PO (08:35)
[2018-05-24] MEDS: ASPIRIN 81 MG ENTERIC TAB PO (08:35)
[2018-05-24] MEDS: LACTOBACILLUS ACIDOPHILUS CAP (BACID) PO (08:35)
[2018-05-24] MEDS: ATORVASTATIN 20 MG TAB PO (08:35)
[2018-05-24 12:02] LABS: BEDSIDE GLUCOSE 271 MG/DL (80-115)
[2018-05-24 16:46] LABS: BEDSIDE GLUCOSE 224 MG/DL (80-115)
[2018-05-24 20:31] LABS: BEDSIDE GLUCOSE 224 MG/DL (80-115)
[2018-05-25] MEDS: IPRATROPIUM 0.5MG/ALBUTEROL 2.5MG INH SOL UD 3ML (DUONEB)(J7620) NEB ×3 (01:50→14:00)
[2018-05-25 05:21] LABS: HEMATOCRIT 43.5 % (42.0-52.0); HEMOGLOBIN 13.5 g/dl (13.5-17.5); MEAN CORPUSCULAR HEMOGLOBIN 28.4 pg (27.0-33.0); MEAN CORPUSCULAR VOLUME 91.6 fl (80.0-96.0); PLATELET COUNT, AUTOMATED 247 10^3/uL (150-450); RED BLOOD COUNT 4.75 10^6/uL (4.30-6.10); RED CELL DISTRIBUTION WIDTH 13.2 % (11.5-14.5)
[2018-05-25 05:43] LABS: ANION GAP 3 MEQ/L (8-16); BLOOD UREA NITROGEN 44 MG/DL (7-18); C REACTIVE PROTEIN QUANTITATIV 1.64 MG/DL (0.00-0.30); CALCIUM LEVEL 8.2 MG/DL (8.8-10.2); CARBON DIOXIDE LEVEL 34 MEQ/L (21-32); CHLORIDE LEVEL 104 MEQ/L (98-107); CREATININE FOR GFR 1.43 MG/DL (0.70-1.30); GLUCOSE, FASTING 151 MG/DL (70-100); MAGNESIUM LEVEL 2.1 MG/DL (1.8-2.4); POTASSIUM SERUM 4.8 MEQ/L (3.5-5.1); SODIUM LEVEL 141 MEQ/L (136-145)
[2018-05-25] MEDS: SLF 3 ML SYR IV ×3 (06:00→21:36)
[2018-05-25] MEDS: HumaLOG INSULIN (NovoLOG) PER UNIT SC ×4 (07:45→21:35)
[2018-05-25] MEDS: LEVEMIR (INSULIN DETEMIR) 1 UNITS/0.01ML SC ×2 (08:34→21:35)
[2018-05-25] MEDS: SENOKOT S TAB PO ×2 (08:35→21:00)
[2018-05-25] MEDS: ASPIRIN 81 MG ENTERIC TAB PO (08:35)
[2018-05-25] MEDS: ATORVASTATIN 20 MG TAB PO (08:35)
[2018-05-25] MEDS: LACTOBACILLUS ACIDOPHILUS CAP (BACID) PO (08:35)
[2018-05-25] MEDS: LISINOPRIL 10 MG TAB PO (08:35)
[2018-05-25] MEDS: HEPARIN SOD (PORCINE) 5000 UNITS/ML VIAL SC ×2 (08:36→21:34)
[2018-05-25] MEDS: FUROSEMIDE 40 MG TAB PO ×2 (08:36→17:33)
[2018-05-25] MEDS: guaiFENesin ER 600 MG TAB PO ×2 (08:36→21:34)
[2018-05-25] MEDS: CLOPIDOGREL 75 MG TAB PO (08:36)
[2018-05-25 11:40] LABS: BEDSIDE GLUCOSE 165 MG/DL (80-115)
[2018-05-25 16:45] LABS: BEDSIDE GLUCOSE 176 MG/DL (80-115)
[2018-05-26] MEDS: IPRATROPIUM 0.5MG/ALBUTEROL 2.5MG INH SOL UD 3ML (DUONEB)(J7620) NEB ×4 (02:00→20:10)
[2018-05-26 05:54] LABS: HEMATOCRIT 44.1 % (42.0-52.0); HEMOGLOBIN 13.7 g/dl (13.5-17.5); MEAN CORPUSCULAR HEMOGLOBIN 28.5 pg (27.0-33.0); MEAN CORPUSCULAR HGB CONC 31.1 g/dl (32.0-36.5); MEAN CORPUSCULAR VOLUME 91.7 fl (80.0-96.0); PLATELET COUNT, AUTOMATED 273 10^3/uL (150-450); RED BLOOD COUNT 4.81 10^6/uL (4.30-6.10); RED CELL DISTRIBUTION WIDTH 13.2 % (11.5-14.5); WHITE BLOOD COUNT 10.1 10^3/uL (4.0-10.0)
[2018-05-26] MEDS: SLF 3 ML SYR IV ×3 (05:54→21:45)
[2018-05-26 06:20] LABS: ANION GAP 6 MEQ/L (8-16); BLOOD UREA NITROGEN 42 MG/DL (7-18); C REACTIVE PROTEIN QUANTITATIV 3.35 MG/DL (0.00-0.30); CALCIUM LEVEL 8.3 MG/DL (8.8-10.2); CARBON DIOXIDE LEVEL 31 MEQ/L (21-32); CHLORIDE LEVEL 104 MEQ/L (98-107); CREATININE FOR GFR 1.41 MG/DL (0.70-1.30); GLOMERULAR FILTRATION RATE 53.9 (>49); GLUCOSE, FASTING 180 MG/DL (70-100); MAGNESIUM LEVEL 2.3 MG/DL (1.8-2.4); POTASSIUM SERUM 4.3 MEQ/L (3.5-5.1); SODIUM LEVEL 141 MEQ/L (136-145)
[2018-05-26] MEDS: HumaLOG INSULIN (NovoLOG) PER UNIT SC ×4 (07:37→21:00)
[2018-05-26] MEDS: guaiFENesin ER 600 MG TAB PO ×2 (09:02→21:45)
[2018-05-26] MEDS: FUROSEMIDE 40 MG TAB PO ×2 (09:02→17:00)
[2018-05-26] MEDS: LACTOBACILLUS ACIDOPHILUS CAP (BACID) PO (09:02)
[2018-05-26] MEDS: ASPIRIN 81 MG ENTERIC TAB PO (09:02)
[2018-05-26] MEDS: CLOPIDOGREL 75 MG TAB PO (09:02)
[2018-05-26] MEDS: HEPARIN SOD (PORCINE) 5000 UNITS/ML VIAL SC ×2 (09:03→21:45)
[2018-05-26] MEDS: ATORVASTATIN 20 MG TAB PO (09:03)
[2018-05-26] MEDS: LEVEMIR (INSULIN DETEMIR) 1 UNITS/0.01ML SC ×2 (09:03→21:45)
[2018-05-26] MEDS: SENOKOT S TAB PO ×2 (09:03→21:45)
[2018-05-26] MEDS: LISINOPRIL 10 MG TAB PO (09:03)
[2018-05-27] MEDS: IPRATROPIUM 0.5MG/ALBUTEROL 2.5MG INH SOL UD 3ML (DUONEB)(J7620) NEB ×3 (02:00→13:56)
[2018-05-27] MEDS: SLF 3 ML SYR IV (05:08)
[2018-05-27 05:48] LABS: HEMATOCRIT 41.5 % (42.0-52.0); MEAN CORPUSCULAR HEMOGLOBIN 28.8 pg (27.0-33.0); MEAN CORPUSCULAR HGB CONC 31.3 g/dl (32.0-36.5); MEAN CORPUSCULAR VOLUME 91.8 fl (80.0-96.0); PLATELET COUNT, AUTOMATED 258 10^3/uL (150-450); RED BLOOD COUNT 4.52 10^6/uL (4.30-6.10); WHITE BLOOD COUNT 8.9 10^3/uL (4.0-10.0)
[2018-05-27 06:05] LABS: ANION GAP 5 MEQ/L (8-16); BLOOD UREA NITROGEN 45 MG/DL (7-18); C REACTIVE PROTEIN QUANTITATIV 2.05 MG/DL (0.00-0.30); CALCIUM LEVEL 8.2 MG/DL (8.8-10.2); CARBON DIOXIDE LEVEL 32 MEQ/L (21-32); CHLORIDE LEVEL 104 MEQ/L (98-107); CREATININE FOR GFR 1.39 MG/DL (0.70-1.30); GLOMERULAR FILTRATION RATE 54.8 (>49); GLUCOSE, FASTING 177 MG/DL (70-100); MAGNESIUM LEVEL 2.2 MG/DL (1.8-2.4); POTASSIUM SERUM 4.4 MEQ/L (3.5-5.1); SODIUM LEVEL 141 MEQ/L (136-145)
[2018-05-27] MEDS: SENOKOT S TAB PO (08:45)
[2018-05-27] MEDS: CLOPIDOGREL 75 MG TAB PO (08:45)
[2018-05-27] MEDS: FUROSEMIDE 40 MG TAB PO (08:45)
[2018-05-27] MEDS: guaiFENesin ER 600 MG TAB PO (08:45)
[2018-05-27] MEDS: ATORVASTATIN 20 MG TAB PO (08:45)
[2018-05-27] MEDS: ASPIRIN 81 MG ENTERIC TAB PO (08:46)
[2018-05-27] MEDS: LACTOBACILLUS ACIDOPHILUS CAP (BACID) PO (08:46)
[2018-05-27] MEDS: HumaLOG INSULIN (NovoLOG) PER UNIT SC ×2 (08:46→11:52)
[2018-05-27] MEDS: LEVEMIR (INSULIN DETEMIR) 1 UNITS/0.01ML SC (08:47)
[2018-05-27] MEDS: HEPARIN SOD (PORCINE) 5000 UNITS/ML VIAL SC (08:47)
[2018-05-27] MEDS: LISINOPRIL 10 MG TAB PO (09:00)
[2018-05-27 21:44] LABS: BEDSIDE GLUCOSE 274 MG/DL (80-115)
[2018-05-27 21:44] LABS: BEDSIDE GLUCOSE 232 MG/DL (80-115)
[2018-05-27 21:44] LABS: BEDSIDE GLUCOSE 154 MG/DL (80-115)
[2018-05-27 21:44] LABS: BEDSIDE GLUCOSE 246 MG/DL (80-115)
== END 2018-05-27 13:57 | disposition home or self-care (01) | DRG 291 ==
LOC: M MSPAV 05-25 20:14 → M ED 06:21 → M PCU 05-21 17:15 → M MSPAV 05-25 20:16 → M ED INP 10:17 → M PCU 12:21
DX: I50.31 Acute diastolic (congestive) heart failure (principal); J96.01 Acute respiratory failure with hypoxia; J20.9 Acute bronchitis, unspecified; E66.9 Obesity, unspecified; G47.33 Obstructive sleep apnea (adult) (pediatric); I25.10 Atherosclerotic heart disease of native coronary artery without angina pectoris; E11.9 Type 2 diabetes mellitus without complications; B97.89 Other viral agents as the cause of diseases classified elsewhere; Z91.19 Patient's noncompliance with other medical treatment and regimen; Z95.2 Presence of prosthetic heart valve; E78.49 Other hyperlipidemia; Z79.82 Long term (current) use of aspirin; Z79.899 Other long term (current) drug therapy; Z87.891 Personal history of nicotine dependence; N18.9 Chronic kidney disease, unspecified

== ENCOUNTER 2018-09-15 13:20 | Inpatient (IN) | payer MEDICARE ==
[~2018-09-15] VITALS: Ht 182.9 cm; Wt 129.8 kg
[~2018-09-15 13:20] MED LIST changes: -ASPI1TAB PO; +ASPI81TA26 PO; +CLOP75TA2 PO; +EXCETAB81 PO; +FURO40TA2 PO; +INSUNSD SC; +LASI40TA9 PO; +LISI10TA4 PO; +POTA20TA4 PO; +SYMB80INH INH; +TOUJ1.2I SC; +ZOFR4TAB14 PO; +[UNRECOGNIZED DRUG - CODE] PO
[2018-09-15] MEDS ORDERED: CARV6.25 PO ×2 (13:33→16:30)
[2018-09-15] MEDS ORDERED: SOLI1INJ SQ (13:33)
[2018-09-15 14:14] LABS: BASO % 0.4 % (0.0-1.0); EOS # 0.1 10^3/uL (0.0-0.50); EOS % 0.7 % (0.0-3.0); HEMOGLOBIN 13.6 g/dl (13.5-17.5); LYMPH # 0.4 10^3/uL (1.5-4.5); LYMPH % 3.8 % (24.0-44.0); MEAN CORPUSCULAR HEMOGLOBIN 26.8 pg (27.0-33.0); MEAN CORPUSCULAR HGB CONC 29.6 g/dl (32.0-36.5); MEAN CORPUSCULAR VOLUME 90.7 fl (80.0-96.0); MONO # 0.6 10^3/uL (0.0-0.8); MONO % 5.9 % (0.0-5.0); NEUTROPHILS # 9.4 10^3/uL (1.8-7.7); PLATELET COUNT, AUTOMATED 260 10^3/uL (150-450); RED BLOOD COUNT 5.07 10^6/uL (4.30-6.10); WHITE BLOOD COUNT 10.6 10^3/uL (4.0-10.0)
[2018-09-15 14:16] LABS: VENOUS BASE EXCESS -2.2 (-2.0-2.0); VENOUS HCO3 27.7 MEQ/L (23.0-27.0); VENOUS O2 SATURATION 78.5 % (60.0-80.0); VENOUS PARTIAL PRESSURE CO2 72.1 mmHg (38.0-50.0); VENOUS PARTIAL PRESSURE O2 50.8 mmHg (30.0-50.0); VENOUS PH 7.202 UNITS (7.330-7.430); VENOUS STANDARD HCO3 22.2 MEQ/L; VENOUS TOTAL CO2 29.9 MEQ/L (24.0-28.0)
[2018-09-15 14:24] LABS: INR 1.08; PROTHROMBIN TIME 14.1 SECONDS (12.1-14.4)
--- NOTE | 2018-09-15 14:26 | REP ---
Clinical: Cough and dyspnea. Technique: PA and lateral. Comparison: 05/23/2018. Findings: Cardiomegaly is appreciated along with cephalization and increased interstitial markings as well as indistinct pulmonary vasculature. Findings suggest pulmonary edema/CHF. Lateral view demonstrates small pleural effusions. No focal consolidation. No pneumothorax. Skeletal structures intact. Impression: Findings most suggestive of cardiomegaly with pulmonary edema and small pleural effusions. Electronically Signed by Tex Ramires MD 09/15/2018 02:18 P
[2018-09-15 14:51] LABS: ALBUMIN 3.1 GM/DL (3.2-5.2); BILIRUBIN,DIRECT 0.3 MG/DL (0.0-0.2); BILIRUBIN,TOTAL 0.7 MG/DL (0.2-1.0); CALCIUM LEVEL 8.7 MG/DL (8.8-10.2); CREATININE FOR GFR 2.28 MG/DL (0.70-1.30); GLOMERULAR FILTRATION RATE 30.9 (>49); MB/CK RELATIVE INDEX 1.61 (< OR =4); POTASSIUM SERUM 5.7 MEQ/L (3.5-5.1); THYROID STIMULATING HORMONE 1.07 uIU/ML (0.358-3.740); TOTAL PROTEIN 6.9 GM/DL (6.4-8.2); TROPONIN I 0.02 NG/ML (< 0.10)
[2018-09-15] MEDS ORDERED: IPRATROPIUM 0.5MG/ALBUTEROL 2.5MG INH SOL UD 3ML (DUONEB)(J7620) NEB ONE (15:15)
[2018-09-15] MEDS ORDERED: FUROSEMIDE 40 MG/4 ML VIAL (J1940) IV ONE (15:45)
[2018-09-15] MEDS ORDERED: NITROGLYCERIN 2% OINT 1 GM *U/D* PKT TOP ONE (15:45)
[2018-09-15] MEDS ORDERED: NITROGLYCERIN 0.4 MG SUBL TABLET SL PRN (16:15)
[2018-09-15] MEDS ORDERED: GLUCOSE 4 GM CHEW TABLET PO PRN (16:15)
[2018-09-15] MEDS ORDERED: ACETAMINOPHEN TAB 650MG DOSE (2X325MG) PO PRN (16:15)
[2018-09-15] MEDS ORDERED: MAALOX 30 ML SUSP *UDC PO PRN (16:15)
[2018-09-15] MEDS ORDERED: GLUCAGON FOR INJ 1 MG VIAL (J1610) SC PRN (16:15)
[2018-09-15] MEDS ORDERED: DEXTROSE 50% 50 ML SYRINGE IV PRN (16:15)
--- NOTE | 2018-09-15 16:28 | HPEPDOC ---
General Date of Admission Sep 15, 2018 at 16:04 Primary Care Physician: SANCHEZ COTO MD Attending Physician: KAROL IGNACIO MD Chief Complaint The patient is a 62-year-old male admitted with a reason for visit of CHF. Source: Patient, Family Exam Limitations: No limitations Timing/Duration: Day(s) (2-3 days) Associated Symptoms: Cough History of Present Illness This is a 62 years old, obese, white male with past medical history of multiple medical problems including congestive heart failure, obstructive sleep apnea, diabetes mellitus, coronary artery disease and status post PCI with 3 stents placed and about 4-5 years ago. Recently had a nuclear studies done which showed EF of 34%, came in with chief complaints of persistent diarrhea and sore throat. While in ED, patient was found to be in acute congestive heart failure but patient declines any chest pain or shortness of breath, patient is being admitted for treatment of pulmonary edema and cardiology consultation. Home Medications Scheduled (Probiotic Choclate Bears) 1 Chw Chw, 2 CHW PO DAILY, (Reported) (Soliqua 100/33 100-33 Unt-Mcg/ml) 1 Inj Inj, 50 UNITS SQ DAILY, (Reported) Aspirin (Aspirin 81) 81 Mg Tab, 81 MG PO DAILY, (Reported) Atorvastatin Calcium (Atorvastatin Calcium) 20 Mg Tab, 20 MG PO DAILY, (Reported) Carvedilol (Carvedilol) 6.25 Mg Tab, 6.25 MG PO BID, (Reported) Clopidogrel Bisulfate (Clopidogrel) 75 Mg Tab, 75 MG PO DAILY, (Reported) Lisinopril (Lisinopril) 10 Mg Tab, 10 MG PO DAILY, (Reported) Scheduled PRN Furosemide (Furosemide) 40 Mg Tab, 40 MG PO BID PRN for SWELLING, (Reported) Allergies Coded Allergies: No Known Allergies (Unverified , 09/15/18) Past Medical History Medical History Congestive heart failure, obstructive sleep apnea, diabetes mellitus, coronary artery disease status post PCI, history of recent persistent diarrhea. Had a colonoscopy done recently in February 2018 with 3 polyps, but patient still has persistent diarrhea Surgical History None, except PCI's Family History Significant Family History: No pertinent family hx Social History * Smoker: Denies Alcohol: Denies Drugs: denies Review of Systems Constitutional: Denies: Chills, Fever, Night Sweats Eyes: Denies: Pain, Vision change ENT: Reports: Sore Throat Skin: Denies: Rash, Lesions, Breakdown Pulmonary: Reports: Cough; Denies: Dyspnea Cardiovascular: Denies: Chest Pain, Palpitations, Orthopnea, Paroxysmal Noc. Dyspnea, Lt Headedness Gastrointestinal: Denies: Nausea, Vomiting, Abdominal Pain, Diarrhea Genitourinary: Denies: Dysuria, Frequency, Incontinence, Retention Hematologic: Denies: Bruising, Bleeding Excessively Musculoskeletal: Denies: Neck Pain, Back Pain, Joint Pain, Muscle Pain, Spasms Neurological: Denies: Weakness, Numbness, Change in speech, Confusion Psych: Reports: Mood Normal; Denies: Depression, Memory Issues Physical Examination General Exam: Positive: Alert, No Acute Distress Eye Exam: Positive: PERRLA, Conjunctiva & lids normal, EOMI; Negative: Sclera icteric ENT Exam: Positive: Atraumatic, Mucous membr. moist/pink, Pharynx Normal Neck Exam: Positive: Supple; Negative: JVD, thyromegaly Chest Exam: Positive: Rales, Other (decreased breath sounds and bilateral rales audible on examination) Heart Exam: Positive: Rate Normal, Regular Rhythm, Normal S1, Normal S2; Negative: Murmurs, Rubs Telemetry: Positive: No significant arrhythmia Abdomen Exam: Positive: Normal bowel sounds, Soft; Negative: Tenderness, Hepatospenomegaly Extremity Exam: Positive: Edema (2+ bipedal edema), Normal pulses; Negative: Clubbing, Cyanosis Skin Exam: Positive: Nl turgor and temperature; Negative: Breakdown, Lesion Neuro Exam: Positive: Normal Gait, Normal Speech, Cranial Nerves 3-12 NL, Reflexes 2+ Psych Exam: Positive: Mental status NL, Mood NL, Oriented x 3 Vital Signs Vital Signs Date Time Temp Pulse Resp B/P (MAP) Pulse Ox O2 Delivery O2 Flow Rate FiO2 09/15/18 16:01 75 20 143/67 (92) 65 Nasal Cannula 09/15/18 15:00 4.0 09/15/18 13:29 97.3 Laboratory Data Labs 24H Laboratory Tests 2 09/15/18 13:54: Immature Granulocyte % (Auto) 0.2, White Blood Count 10.6H, Red Blood Count 5.07, Hemoglobin 13.6, Hematocrit 46.0, Mean Corpuscular Volume 90.7, Mean Corpuscular Hemoglobin 26.8L, Mean Corpuscular Hemoglobin Concent 29.6L, Red Cell Distribution Width 14.6H, Platelet Count 260, Neutrophils (%) (Auto) 89.0H, Lymphocytes (%) (Auto) 3.8L, Monocytes (%) (Auto) 5.9H, Eosinophils (%) (Auto) 0.7, Basophils (%) (Auto) 0.4, Neutrophils # (Auto) 9.4H, Lymphocytes # (Auto) 0.4L, Monocytes # (Auto) 0.6, Eosinophils # (Auto) 0.1, Basophils # (Auto) 0.0, Nucleated Red Blood Cells % (auto) 0.0, Prothrombin Time 14.1, Prothromb Time International Ratio 1.08, Blood Gas Bicarbonate Standard 22.2, Venous Blood pH 7.202L, Venous Blood Partial Pressure CO2 72.1H, Venous Blood Partial Pressure O2 50.8H, Venous Blood Total Carbon Dioxide 29.9H, Venous Blood HCO3 27.7H, Venous Blood Oxygen Saturation 78.5, Venous Blood Base Excess -2.2L, Anion Gap 4L, Glomerular Filtration Rate 30.9L, Lactic Acid Level 1.2, Calcium Level 8.7L, Aspartate Amino Transf (AST/SGOT) 29, Alanine Aminotransferase (ALT/SGPT) 51, Alkaline Phosphatase 132H, Total Bilirubin 0.7, Direct Bilirubin 0.3H, Total Creatine Kinase 254, Creatine Kinase MB 4.0H, Creatine Kinase MB Relative Index 1.61, Troponin I 0.02, KC-Owh-U-Type Natriuretic Peptide 3098H, Total Protein 6.9, Albumin 3.1L, Albumin/Globulin Ratio 0.82L, Thyroid Stimulating Hormone (TSH) 1.070 CBC/BMP Laboratory Tests 09/15/18 13:54 Red Blood Count 5.07, Mean Corpuscular Volume 90.7, Mean Corpuscular Hemoglobin 26.8 L, Mean Corpuscular Hemoglobin Concent 29.6 L, Red Cell Distribution Width 14.6 H, Neutrophils (%) (Auto) 89.0 H, Lymphocytes (%) (Auto) 3.8 L, Monocytes (%) (Auto) 5.9 H, Eosinophils (%) (Auto) 0.7, Basophils (%) (Auto) 0.4, Neutroph ils # (Auto) 9.4 H, Lymphocytes # (Auto) 0.4 L, Monocytes # (Auto) 0.6, Eosinophils # (Auto) 0.1, Basophils # (Auto) 0.0 Microbiology Microbiology 09/15/18 Blood Culture, Received Pending 09/15/18 Blood Culture, Received Pending 09/15/18 Respiratory Virus Panel (PCR) (SP) - Final, Complete Human Rhinovirus/Enterovirus Coronavirus Hku1 09/15/18 Gram Stain, Received Pending 09/15/18 Sputum Culture, Received Pending Problems (1) CHF (congestive heart failure) Status: Acute Response to Treatment: Uncompensated Discussed With: Patient, Family with Pt Consent Problem Specific Plan: Consult Specialist Problem Text: A 62 years old, obese, white male with past medical history of congestive heart failure, obstructive sleep apnea, diabetes mellitus, coronary artery disease status post PCI with 3 stents, EF of 34%. Also of chronic diarrhea is being admitted with the diagnosis of pulmonary edema and worsening BUN/creatinine. Patient is noncompliant to his medical care, most likely decompensated acute on chronic systolic heart failure on exam. Patient doesn't have a lateral styles and bipedal edema consistent with acute Heart failure. Given the patient's BUN/creatinine is higher than the baseline. He could benefit from diuresis with Lasix. He did get 1 dose of Lasix 40 mg IV in the ED along with Nitropaste half inch to chest wall. Admit patient to [facility] floor with telemetry. Saline lock IV Lasix 40 mg every 12 hours Monitor intake and output clinical athletic instructor O2 support Nitropaste half inch to chest wall every 6 hours to reduce preload Continue home COREG,LISINOPRIL. LIPITOR, Plavix, aspirin Repeat BNP, CBC, CMP in a.m. Trend troponins Cardiology consult was called from ED. We'll await cardiology input Regarding patient's diabetes mellitus. He'll be placed on a fingerstick blood sugar coverage with Humalog Medical management discussed with patient and his at the bedside and they agree with the plan Plan / VTE VTE Prophylaxis Ordered?: Yes KAROL IGNACIO MD Sep 15, 2018 16:28
[2018-09-15] MEDS ORDERED: FURO40TA2 PO (16:30)
--- NOTE | 2018-09-15 16:56 | REP ---
Clinical: Acute renal failure. Technique: Real time forte scale ultrasound examination using curved array transducer. Findings: The kidneys demonstrate increased central sinus fat consistent with chronic age-related medical renal disease. The right kidney measures 12.9 x 5.5 x 5.7 cm without hydronephrosis, nephrolithiasis, cystic or mass lesion. The left kidney measures 13.1 x 5.3 x 5.1 cm without hydronephrosis, nephrolithiasis, or cystic lesion. A 2.6 x 2.1 x 2.89 cm isoechoic area along the lower pole likely represents lobulated normal tissue less likely mass lesion. The bladder is unremarkable. Impression: 1. Chronic medical renal disease. 2. No hydronephrosis. 3. Presumed lobulation along the lower pole of the left kidney less likely representing true mass. Pre post contrast CT of the abdomen as outpatient may be helpful for more definitive evaluation. Electronically Signed by Tex Ramires MD 09/15/2018 04:48 P
[2018-09-15 18:00] VITALS: BP 166/88
[2018-09-15] MEDS: IPRATROPIUM 0.5MG/ALBUTEROL 2.5MG INH SOL UD 3ML (DUONEB)(J7620) NEB PRN ×2 (18:05→23:55)
--- NOTE | 2018-09-15 18:07 | ECGEPIP ---
Stationary ECG Study [facility] - ED Test Date: 2018-09-15 Pat Name: MANISH GIL Department: Room: - Gender: M Second Vp Hr Assessment: ab : 1955 Requested By: CHASE Malone Order Number: [id number] Reading MD: Azra Marshall Measurements Intervals [place] Rate: 76 P: 76 NC: 157 QRS: 52 QRSD: 96 T: 74 QT: 379 QTc: 429 Interpretive Statements SINUS RHYTHM LOW QRS VOLTAGE ANTEROSEPTAL MYOCARDIAL INFARCTION, OF INDETERMINATE AGE NSTTW ABNORMALITY SIMILAR 05/20/18 Electronically Signed On 09-15-2018 18:07:29 EDT by Azra Marshall
[2018-09-15] MEDS: HumaLOG INSULIN (NovoLOG) PER UNIT SC SCH ×2 (18:19→21:10)
[2018-09-15] MEDS: CLOPIDOGREL 75 MG TAB PO SCH (18:19)
[2018-09-15] MEDS: ENOXAPARIN 40 MG/0.4 ML SYRINGE (J1650) SC SCH (18:19)
[2018-09-15] MEDS: DOCUSATE SODIUM 100 MG CAP PO SCH (21:00)
[2018-09-15] MEDS: CARVedilol 6.25 MG TAB PO SCH (21:08)
[2018-09-15] MEDS: guaiFENesin ER 600 MG TAB PO SCH (21:09)
[2018-09-15] MEDS: NITROGLYCERIN 2% OINT 1 GM *U/D* PKT TOP SCH (21:10)
[2018-09-15 22:00] VITALS: BP 136/61
[2018-09-16] MEDS: NITROGLYCERIN 2% OINT 1 GM *U/D* PKT TOP SCH ×4 (03:47→21:30)
[2018-09-16] MEDS ORDERED: FUROSEMIDE 40 MG/4 ML VIAL (J1940) IV SCH (04:00)
[2018-09-16 06:00] VITALS: BP 132/68
[2018-09-16 06:10] LABS: HEMATOCRIT 40.2 % (42.0-52.0); MEAN CORPUSCULAR HGB CONC 29.9 g/dl (32.0-36.5); MEAN CORPUSCULAR VOLUME 90.5 fl (80.0-96.0); PLATELET COUNT, AUTOMATED 228 10^3/uL (150-450); RED BLOOD COUNT 4.44 10^6/uL (4.30-6.10); WHITE BLOOD COUNT 9.5 10^3/uL (4.0-10.0)
[2018-09-16 06:35] LABS: ALBUMIN 2.7 GM/DL (3.2-5.2); BILIRUBIN,TOTAL 0.6 MG/DL (0.2-1.0); CALCIUM LEVEL 8.3 MG/DL (8.8-10.2); CREATININE FOR GFR 2.22 MG/DL (0.70-1.30); GLOMERULAR FILTRATION RATE 31.9 (>49); MAGNESIUM LEVEL 1.8 MG/DL (1.8-2.4); POTASSIUM SERUM 5.3 MEQ/L (3.5-5.1); TOTAL PROTEIN 6.5 GM/DL (6.4-8.2)
[2018-09-16] MEDS: HumaLOG INSULIN (NovoLOG) PER UNIT SC SCH ×4 (07:51→21:32)
[2018-09-16 08:00] VITALS: BP 116/59
[2018-09-16] MEDS: LISINOPRIL 10 MG TAB PO SCH (09:27)
[2018-09-16] MEDS: guaiFENesin ER 600 MG TAB PO SCH ×2 (09:28→21:31)
[2018-09-16] MEDS: ASPIRIN 81 MG CHEW TABLET PO SCH (09:28)
[2018-09-16] MEDS: CLOPIDOGREL 75 MG TAB PO SCH (09:28)
[2018-09-16] MEDS: DOCUSATE SODIUM 100 MG CAP PO SCH ×2 (09:28→21:00)
[2018-09-16] MEDS: ATORVASTATIN 20 MG TAB PO SCH (09:28)
[2018-09-16] MEDS: CARVedilol 6.25 MG TAB PO SCH ×2 (09:29→21:31)
[2018-09-16] MEDS ORDERED: FUROSEMIDE 100 MG/10 ML VIAL (J1940) IV ONE ×3 (09:30→21:00)
[2018-09-16] MEDS: ENOXAPARIN 40 MG/0.4 ML SYRINGE (J1650) SC SCH (09:30)
--- NOTE | 2018-09-16 09:34 | IPNPDOC ---
Subjective Date Seen The patient was seen on 09/16/18. Subjective Chief Complaint/HPI Patient is still complaining of shortness of breath, which has slightly improved. No chest pain, no nausea, vomiting, chronic wounds at both lower extremities General: Reports: Normal Appetite; Denies: Chills, Night Sweats, Fatigue, Malaise Constitutional: Denies: Chills, Fever, Night Sweats Eyes: Denies: Pain, Vision change ENT: Denies: Head Aches, Ear Pain, Dysphagia Skin: Denies: Rash, Lesions, Breakdown Pulmonary: Reports: Dyspnea, Cough Cardiovascular: Denies: Chest Pain, Palpitations, Orthopnea, Paroxysmal Noc. Dyspnea, Lt Headedness Gastrointestinal: Denies: Nausea, Vomiting, Abdominal Pain, Diarrhea, Constipation Genitourinary: Denies: Dysuria, Frequency, Incontinence, Retention Hematologic: Denies: Bruising, Bleeding Excessively Musculoskeletal: Denies: Neck Pain, Back Pain, Joint Pain, Muscle Pain, Spasms Neurological: Denies: Weakness, Numbness, Change in speech, Confusion Psych: Reports: Mood Normal; Denies: Depression, Memory Issues Objective Physical Examination General Exam: Positive: Alert, No Acute Distress Eye Exam: Positive: PERRLA, Conjunctiva & lids normal, EOMI; Negative: Sclera icteric ENT Exam: Positive: Atraumatic, Mucous membr. moist/pink, Pharynx Normal Neck Exam: Positive: Supple; Negative: JVD, thyromegaly Chest Exam: Positive: Rales, Wheezing, Other (bilateral expiratory wheezing also noted today) Heart Exam: Positive: Rate Normal, Regular Rhythm, Normal S1, Normal S2; Negative: Murmurs, Rubs Telemetry: Positive: No significant arrhythmia Abdomen Exam: Positive: Normal bowel sounds, Soft; Negative: Tenderness, Hepatospenomegaly Extremity Exam: Positive: Edema (2+ bipedal edema), Normal pulses; Negative: Clubbing, Cyanosis Skin Exam: Positive: Nl turgor and temperature; Negative: Breakdown, Lesion Neuro Exam: Positive: Normal Gait, Normal Speech, Cranial Nerves 3-12 NL, Reflexes 2+ Psych Exam: Positive: Mental status NL, Mood NL, Oriented x 3 Assessment /Plan Problems (1) CHF (congestive heart failure) Status: Acute Response to Treatment: Uncompensated Discussed With: Patient, Family with Pt Consent Problem Specific Plan: Consult Specialist Problem Text: A 62 years old, obese, white male with past medical history of congestive heart failure, obstructive sleep apnea, diabetes mellitus, coronary artery disease status post PCI with 3 stents, EF of 34%. Also of chronic diarrhea is being admitted with the diagnosis of pulmonary edema and worsening BUN/creatinine. Patient is noncompliant to his medical care, most likely decompensated acute on chronic systolic heart failure on exam. Patient doesn't have a lateral styles and bipedal edema consistent with acute Heart failure. Given the patient's BUN/creatinine is higher than the baseline. He could benefit from diuresis with Lasix. He did get 1 dose of Lasix 40 mg IV in the ED along with Nitropaste half inch to chest wall. On today's physical examination patient also seemed to have a component of COPD as well Patient has positive balance on intake and output after a slight negative balance yesterday Will give one more stated dose of Lasix for 60 mg IVP 1 Strict I&O's Cardiology consult pending Monitor patient's renal functions on Lasix Continue home medications (2) COPD (chronic obstructive pulmonary disease) Problem Text: This seems to be a component of COPD on examination Gen. bilateral wheezing on auscultation Will add duoneb to 6 hour and every 2 hours when necessary Also start Solu-Medrol 40 mg IV every 8 hour Monitor fingerstick blood sugar and coverage accordingly Will Will monitor closely Continue home meds Plan/VTE VTE Prophylaxis Ordered?: Yes VS, I&O, 24H, Fishbongeraldine Vital Signs/I&O Vital Signs Date Time Temp Pulse Resp B/P (MAP) Pulse Ox O2 Delivery O2 Flow Rate FiO2 09/16/18 06:00 97.7 72 21 132/68 (89) 91 4.0 09/15/18 16:01 Nasal Cannula I&O- Last 24 Hours up to 6 AM 09/16/18 06:00 Intake Total 1100 ml Output Total 950 ml Balance 150 ml Laboratory Data 24H LABS Laboratory Tests 2 09/15/18 13:54: Immature Granulocyte % (Auto) 0.2, White Blood Count 10.6H, Red Blood Count 5.07, Hemoglobin 13.6, Hematocrit 46.0, Mean Corpuscular Volume 90.7, Mean Corpuscular Hemoglobin 26.8L, Mean Corpuscular Hemoglobin Concent 29.6L, Red Cell Distribution Width 14.6H, Platelet Count 260, Neutrophils (%) (Auto) 89.0H, Lymphocytes (%) (Auto) 3.8L, Monocytes (%) (Auto) 5.9H, Eosinophils (%) (Auto) 0 .7, Basophils (%) (Auto) 0.4, Neutrophils # (Auto) 9.4H, Lymphocytes # (Auto) 0.4L, Monocytes # (Auto) 0.6, Eosinophils # (Auto) 0.1, Basophils # (Auto) 0.0, Nucleated Red Blood Cells % (auto) 0.0, Prothrombin Time 14.1, Prothromb Time International Ratio 1.08, Blood Gas Bicarbonate Standard 22.2, Venous Blood pH 7.202L, Venous Blood Partial Pressure CO2 72.1H, Venous Blood Partial Pressure O2 50.8H, Venous Blood Total Carbon Dioxide 29.9H, Venous Blood HCO3 27.7H, Venous Blood Oxygen Saturation 78.5, Venous Blood Base Excess -2.2L, Anion Gap 4L, Glomerular Filtration Rate 30.9L, Lactic Acid Level 1.2, Calcium Level 8.7L, Aspartate Amino Transf (AST/SGOT) 29, Alanine Aminotransferase (ALT/SGPT) 51, Alkaline Phosphatase 132H, Total Bilirubin 0.7, Direct Bilirubin 0.3H, Total Creatine Kinase 254, Creatine Kinase MB 4.0H, Creatine Kinase MB Relative Index 1.61, Troponin I 0.02, RI-Yfw-R-Type Natriuretic Peptide 3098H, Total Protein 6.9, Albumin 3.1L, Albumin/Globulin Ratio 0.82L, Thyroid Stimulating Hormone (TSH) 1.070 09/15/18 18:02: Bedside Glucose (Misc Panel) 163H 09/15/18 20:32: Bedside Glucose (Misc Panel) 303H 09/15/18 21:59: Troponin I 0.02 09/16/18 05:23: Nucleated Red Blood Cells % (auto) 0.0, Anion Gap 6L, Glomerular Filtration Rate 31.9L, Blood Urea Nitrogen 50H, Creatinine 2.22H, Sodium Level 141, Potassium Level 5.3H, Chloride Level 107, Carbon Dioxide Level 28, Calcium Level 8.3L, Aspartate Amino Transf (AST/SGOT) 32, Alanine Aminotransferase (ALT/SGPT) 41, Alkaline Phosphatase 106, Total Bilirubin 0.6, Total Protein 6.5, Albumin 2.7L, Magnesium Level 1.8, WO-Hyp-T-Type Natriuretic Peptide 4599H, Albumin/Globulin Ratio 0.71L CBC/BMP Laboratory Tests 09/15/18 13:54 Red Blood Count 5.07, Mean Corpuscular Volume 90.7, Mean Corpuscular Hemoglobin 26.8 L, Mean Corpuscular Hemoglobin Concent 29.6 L, Red Cell Distribution Width 14.6 H, Neutrophils (%) (Auto) 89.0 H, Lymphocytes (%) (Auto) 3.8 L, Monocytes (%) (Auto) 5.9 H, Eosinophils (%) (Auto) 0.7, Basophils (%) (Auto) 0.4, Neutrophils # (Auto) 9.4 H, Lymphocytes # (Auto) 0.4 L, Monocytes # (Auto) 0.6, Eosinophils # (Auto) 0.1, Basophils # (Auto) 0.0 09/16/18 05:23 Red Blood Count 4.44, Mean Corpuscular Volume 90.5, Mean Corpuscular Hemoglobin 27.0, Mean Corpuscular Hemoglobin Concent 29.9 L, Red Cell Distribution Width 14.3, Calcium Level 8.3 L, Aspartate Amino Transf (AST/SGOT) 32, Alanine Aminotransferase (ALT/SGPT) 41, Alkaline Phosphatase 106, Total Bilirubin 0.6, Total Protein 6.5, Albumin 2.7 L Microbiology Microbiology 09/15/18 Blood Culture, Received Pending 09/15/18 Blood Culture, Received Pending 09/15/18 Respiratory Virus Panel (PCR) (SP) - Final, Complete Human Rhinovirus/Enterovirus Coronavirus Hku1 09/15/18 Gram Stain - Final, Resulted 09/15/18 Sputum Culture, Resulted Pending KAROL IGNACIO MD Sep 16, 2018 09:34
--- NOTE | 2018-09-16 10:07 | REP ---
CHEST, SINGLE VIEW: Single frontal portable view of the chest is performed and compared to prior study of 09/15/2018. Mild cardiomegaly and vascular congestion is again noted. Once again, there are findings suggesting mild interstitial pulmonary edema, essentially unchanged. Mediastinal silhouette is unchanged. IMPRESSION: Stable exam. Electronically Signed by Nick Carrasco MD 09/16/2018 06:15 P
[2018-09-16] MEDS: methylPREDNISolone INJ 40 MG/1 ML VIAL (J2920) IV SCH ×2 (11:50→18:32)
[2018-09-16] MEDS: IPRATROPIUM 0.5MG/ALBUTEROL 2.5MG INH SOL UD 3ML (DUONEB)(J7620) NEB SCH ×2 (13:58→20:43)
[2018-09-16 14:00] VITALS: BP 101/50
[2018-09-16] MEDS ORDERED: FUROSEMIDE 40 MG/4 ML VIAL (J1940) As Ordered ONE (15:50)
[2018-09-16 16:25] VITALS: BP 115/60
[2018-09-16] MEDS: FUROSEMIDE 100 MG/10 ML VIAL (J1940) IV SCH (17:00)
--- NOTE | 2018-09-16 17:05 | REP ---
Portable chest, 04:08 p.m., single AP semi upright view: Comparison is 09:34 a.m. earlier today. There is an additional comparison study of 09/15/2018. Diffuse bilateral interstitial infiltrates are again identified, unchanged. No pleural effusions are identified. Cardiac size is upper normal. Impression: Persisting interstitial infiltrates. Electronically Signed by Nick Lynn MD 09/16/2018 04:57 P
[2018-09-16] MEDS ORDERED: SLF 3 ML SYR IV PRN (18:30)
[2018-09-16 20:00] VITALS: BP 112/52
[2018-09-16] MEDS: SLF 3 ML SYR IV SCH (21:32)
[2018-09-16 23:59] VITALS: BP 130/65
[2018-09-17] VITALS (14 sets, daily range): BP systolic 110–133; BP diastolic 56–72; O2SAT 94
[2018-09-17 00:17] LABS: ABG BASE EXCESS -0.6 (-2.0-2.0); ABG HCO3 26.9 MEQ/L (22.0-26.0); ABG O2 SATURATION 99.3 % (95.0-99.0); ABG PARTIAL PRESSURE CO2 57.1 mmHg (35.0-45.0); ABG PARTIAL PRESSURE O2 196.8 mmHg (75.0-100.0); ABG TOTAL CO2 28.7 MEQ/L (23.0-31.0); ABG pH (ARTERIAL) 7.291 UNITS (7.350-7.450)
[2018-09-17] MEDS ORDERED: FUROSEMIDE 100 MG/10 ML VIAL (J1940) IV ONE ×4 (00:30→03:45)
[2018-09-17] MEDS: methylPREDNISolone INJ 40 MG/1 ML VIAL (J2920) IV SCH ×3 (01:01→17:41)
[2018-09-17] MEDS: IPRATROPIUM 0.5MG/ALBUTEROL 2.5MG INH SOL UD 3ML (DUONEB)(J7620) NEB SCH ×4 (01:39→20:40)
[2018-09-17] MEDS: NITROGLYCERIN 2% OINT 1 GM *U/D* PKT TOP SCH ×4 (04:00→21:16)
[2018-09-17 04:43] LABS: ABG BASE EXCESS 0.3 (-2.0-2.0); ABG HCO3 29.5 MEQ/L (22.0-26.0); ABG PARTIAL PRESSURE O2 174.2 mmHg (75.0-100.0); ABG STANDARD HCO3 24.8 MEQ/L (22.0-26.0); ABG TOTAL CO2 31.7 MEQ/L (23.0-31.0)
[2018-09-17 04:45] LABS: ABG pH (ARTERIAL) 7.234 UNITS (7.350-7.450)
[2018-09-17 04:47] LABS: ABG PARTIAL PRESSURE CO2 71.4 mmHg (35.0-45.0)
[2018-09-17 05:00] LABS: HEMATOCRIT 40.4 % (42.0-52.0); HEMOGLOBIN 12.2 g/dl (13.5-17.5); MEAN CORPUSCULAR HEMOGLOBIN 26.8 pg (27.0-33.0); MEAN CORPUSCULAR HGB CONC 30.2 g/dl (32.0-36.5); MEAN CORPUSCULAR VOLUME 88.6 fl (80.0-96.0); PLATELET COUNT, AUTOMATED 218 10^3/uL (150-450); RED BLOOD COUNT 4.56 10^6/uL (4.30-6.10); WHITE BLOOD COUNT 4.6 10^3/uL (4.0-10.0)
[2018-09-17] MEDS: SLF 3 ML SYR IV SCH ×3 (05:33→21:15)
[2018-09-17 05:41] LABS: ALBUMIN 2.7 GM/DL (3.2-5.2); BILIRUBIN,TOTAL 0.5 MG/DL (0.2-1.0); CALCIUM LEVEL 8.2 MG/DL (8.8-10.2); CREATININE FOR GFR 2.38 MG/DL (0.70-1.30); GLOMERULAR FILTRATION RATE 29.4 (>49); MAGNESIUM LEVEL 1.9 MG/DL (1.8-2.4); POTASSIUM SERUM 5.7 MEQ/L (3.5-5.1)
--- NOTE | 2018-09-17 05:46 | IPNPDOC ---
Date Seen The patient was seen on 09/17/18. Progress Note INTERIM PROGRESS NOTE I was called to the beside by nursing and respiratory therapy around 0300 because patient had been tried on BiPaP but was saturating in the low 70s and very lethargic. Reportedly, the patient uses BiPaP at home but is non-compliant and does not know his home settings. Respiratory therapy tried non-rebreather mask and was able to get patient's saturations up to low 90%. On my exam, the patient's lungs had crackles and I could appreciate some trace edema on his lower extremities bilaterally. I reviewed the orders from previous in the day and found that after almost 120mg IV lasix he had only urinated 1.5L and I felt the patient was fluid-overloaded. I gave the patient 80mg IV lasix, followed by 60mg IV lasix ordered by my attending Dr. Wade Rodrigues, and the patient's output was only 800cc after about 3 hours. It was then decided to transfer the patient to the ICU to be under the care of the counter clerk tractor parts present at the time, Dr. Marycarmen Salas and for adjustment of his BiPaP settings. An ABG drawn after the patient was initially on a non-rebreather mask demonstr ated a primary respiratory acidosis: 7.29/57/196. Four hours later (continued on nonrebreather mask) it worsened to 7.234/71/174. The patient was started on BiPaP again with settings 18/8 and 60% FiO2. VS, I&O, 24H, Fishbone Vital Signs/I&O Vital Signs Date Time Temp Pulse Resp B/P (MAP) Pulse Ox O2 Delivery O2 Flow Rate FiO2 09/17/18 05:00 45 09/17/18 05:00 62 22 128/67 (87) 92 09/17/18 04:10 15.0 09/17/18 04:00 97.6 09/17/18 03:00 Non-Rebreather I&O- Last 24 Hours up to 6 AM 09/17/18 06:00 Intake Total 960 ml Output Total 3570 ml Balance -2610 ml Laboratory Data 24H LABS Laboratory Tests 2 09/16/18 11:20: Bedside Glucose (Misc Panel) 197H 09/16/18 16:32: Troponin I 0.05# 09/16/18 17:52: Bedside Glucose (Misc Panel) 231H 09/16/18 21:08: Bedside Glucose (Misc Panel) 390H 09/17/18 00:08: Blood Gas Bicarbonate Standard 24.0, Arterial Blood pH 7.291L, Arterial Blood Partial Pressure CO2 57.1H, Arterial Blood Partial Pressure O2 196.8H, Arterial Blood Total CO2 28.7, Arterial Blood HCO3 26.9H, Arterial Blood Base Excess -0.6, Arterial Blood Oxygen Saturation 99.3H 09/17/18 04:21: Nucleated Red Blood Cells % (auto) 0.0 09/17/18 04:35: Blood Gas Bicarbonate Standard 24.8, Arterial Blood pH 7.234*L, Arterial Blood Partial Pressure CO2 71.4*H, Arterial Blood Partial Pressure O2 174.2H, Arterial Blood Total CO2 31.7H, Arterial Blood HCO3 29.5H, Arterial Blood Base Excess 0.3, Arterial Blood Oxygen Saturation 99.0 CBC/BMP Laboratory Tests 09/17/18 04:21 Red Blood Count 4.56, Mean Corpuscular Volume 88.6, Mean Corpuscular Hemoglobin 26.8 L, Mean Corpuscular Hemoglobin Concent 30.2 L, Red Cell Distribution Width 14.4 Microbiology Microbiology 09/15/18 Blood Culture - Preliminary, Resulted No growth after 24 hours . All specim... 09/15/18 Blood Culture - Preliminary, Resulted No growth after 24 hours . All specim... 09/15/18 Respiratory Virus Panel (PCR) (SP) - Final, Complete Human Rhinovirus/Enterovirus Coronavirus Hku1 09/15/18 Gram Stain - Final, Resulted 09/15/18 Sputum Culture, Resulted Pending GME ATTESTATION GME ATTESTATION My faculty preceptor for this patient encounter was physically present during the encounter and was fully available. All aspects of the patient interview, examination, medical decision making process, and medical care plan development were reviewed and approved by the faculty preceptor. The faculty preceptor is aware and concurs with the plan as stated in the body of this note and will attest to such by his/her cosignature. ATTENDING NOTE ATTENDING ATTESTATION: I discussed and reviewed the findings and plan with resident. I have personally assessed patient at bedside and agreed with resident's assessment and plans. GENARO RUBIO MD Sep 17, 2018 05:46 WADE RODRIGUES MD Sep 17, 2018 06:36
[2018-09-17 09:31] LABS: ABG BASE EXCESS 0.1 (-2.0-2.0); ABG HCO3 27.4 MEQ/L (22.0-26.0); ABG O2 SATURATION 90.3 % (95.0-99.0); ABG PARTIAL PRESSURE CO2 55.5 mmHg (35.0-45.0); ABG STANDARD HCO3 24.5 MEQ/L (22.0-26.0); ABG TOTAL CO2 29.1 MEQ/L (23.0-31.0); ABG pH (ARTERIAL) 7.311 UNITS (7.350-7.450)
[2018-09-17] MEDS: HumaLOG INSULIN (NovoLOG) PER UNIT SC SCH ×4 (09:49→21:15)
[2018-09-17] MEDS: FUROSEMIDE 100 MG/10 ML VIAL (J1940) IV SCH (09:49)
[2018-09-17] MEDS: ENOXAPARIN 40 MG/0.4 ML SYRINGE (J1650) SC SCH (09:50)
[2018-09-17] MEDS: CLOPIDOGREL 75 MG TAB PO SCH (10:22)
[2018-09-17] MEDS: ASPIRIN 81 MG CHEW TABLET PO SCH (10:22)
[2018-09-17] MEDS: DOCUSATE SODIUM 100 MG CAP PO SCH ×2 (10:22→20:23)
[2018-09-17] MEDS: ATORVASTATIN 20 MG TAB PO SCH (10:23)
[2018-09-17] MEDS: guaiFENesin ER 600 MG TAB PO SCH ×2 (10:24→21:15)
[2018-09-17] MEDS: CARVedilol 6.25 MG TAB PO SCH ×2 (10:24→21:15)
[2018-09-17] MEDS: LISINOPRIL 10 MG TAB PO SCH (10:24)
--- NOTE | 2018-09-17 10:35 | REP ---
Portable chest, 09:54 a.m., single AP semi upright view: Comparison is for a 2019. The interstitial infiltrates have improved. There are no focal infiltrates. No pleural effusions. Cardiac size is upper normal, unchanged. Impression: Improved interstitial infiltrates. Electronically Signed by Nick Lynn MD 09/17/2018 10:27 A
--- NOTE | 2018-09-17 13:30 | IPNPDOC ---
Subjective Date Seen The patient was seen on 09/17/18. Subjective Chief Complaint/HPI Patient was transferred to ICU last night with increasing shortness of breath, patient is presently on a BiPAP and is tolerating it very well, General: Reports: ROS Unobtainable Objective Physical Examination General Exam: Positive: Alert, No Acute Distress Eye Exam: Positive: PERRLA, Conjunctiva & lids normal, EOMI; Negative: Sclera icteric ENT Exam: Positive: Atraumatic, Mucous membr. moist/pink, Pharynx Normal Neck Exam: Positive: Supple; Negative: JVD, thyromegaly Chest Exam: Positive: Rales, Wheezing, Other (bilateral expiratory wheezing also noted today) Heart Exam: Positive: Rate Normal, Regular Rhythm, Normal S1, Normal S2; Negative: Murmurs, Rubs Telemetry: Positive: No significant arrhythmia Abdomen Exam: Positive: Normal bowel sounds, Soft; Negative: Tenderness, Hepatospenomegaly Extremity Exam: Positive: Edema (2+ bipedal edema), Normal pulses; Negative: Clubbing, Cyanosis Skin Exam: Positive: Nl turgor and temperature; Negative: Breakdown, Lesion Neuro Exam: Positive: Normal Gait, Normal Speech, Cranial Nerves 3-12 NL, Reflexes 2+ Psych Exam: Positive: Mental status NL, Mood NL, Oriented x 3 Assessment /Plan Problems (1) CHF (congestive heart failure) Status: Acute Response to Treatment: Compensated Discussed With: Nurse, Chief Ii Dispatcher Problem Text: A 62 years old, obese, white male with past medical history of congestive heart failure, obstructive sleep apnea, diabetes mellitus, coronary artery disease status post PCI with 3 stents, EF of 34%. Also of chronic diarrhea is being admitted with the diagnosis of pulmonary edema and worsening BUN/creatinine. Patient is noncompliant to his medical care, most likely decompensated acute on chronic systolic heart failure on exam. Patient doesn't have a lateral styles and bipedal edema consistent with acute Heart failure. Patient was transferred to ICU last night Will start Lasix 60 mg IV every 6 hours 2. Obtained Negative balance at least 1.5 L in 24 hours Patient has been started on BiPAP and by pulmonary and he is tolerating it very well, ABG has improved Continue all current medications Repeat CBC, CMP, BNP and chest x-ray in a.m. Continue intensive care till patient is clinically stable Further, as per critical care/pulmonary (2) COPD (chronic obstructive pulmonary disease) Status: Acute Response to Treatment: Compensated Discussed With: Nurse Problem Text: This seems to be a component of COPD on examination Gen. bilateral wheezing on auscultation Will add duoneb to 6 hour and every 2 hours when necessary Also start Solu-Medrol 40 mg IV every 8 hour Monitor fingerstick blood sugar and coverage accordingly Will Will monitor closely Continue home meds Plan/VTE VTE Prophylaxis Ordered?: Yes VS, I&O, 24H, Fishbone Vital Signs/I&O Vital Signs Date Time Temp Pulse Resp B/P (MAP) Pulse Ox O2 Delivery O2 Flow Rate FiO2 09/17/18 10:24 65 133/72 09/17/18 07:30 94 BIPAP/CPAP 65 09/17/18 06:00 19 09/17/18 04:10 15.0 09/17/18 04:00 97.6 I&O- Last 24 Hours up to 6 AM 09/17/18 06:00 Intake Total 960 ml Output Total 3910 ml Balance -2950 ml Laboratory Data 24H LABS Laboratory Tests 2 09/16/18 16:32: Troponin I 0.05# 09/16/18 17:52: Bedside Glucose (Misc Panel) 231H 09/16/18 21:08: Bedside Glucose (Misc Panel) 390H 09/17/18 00:08: Blood Gas Bicarbonate Standard 24.0, Arterial Blood pH 7.291L, Arterial Blood Partial Pressure CO2 57.1H, Arterial Blood Partial Pressure O2 196.8H, Arterial Blood Total CO2 28.7, Arterial Blood HCO3 26.9H, Arterial Blood Base Excess - 0.6, Arterial Blood Oxygen Saturation 99.3H 09/17/18 04:21: Nucleated Red Blood Cells % (auto) 0.0, Anion Gap 6L, Glomerular Filtration Rate 29.4L, Blood Urea Nitrogen 61H, Creatinine 2.38H, Sodium Level 137, Potassium Level 5.7H, Chloride Level 103, Carbon Dioxide Level 28, Calcium Level 8.2L, Aspartate Amino Transf (AST/SGOT) 38H, Alanine Aminotransferase (ALT/SGPT) 39, Alkaline Phosphatase 102, Total Bilirubin 0.5, Total Protein 7.0, Albumin 2.7L, Magnesium Level 1.9, DR-Glx-B-Type Natriuretic Peptide 3734H, Albumin/Globulin Ratio 0.63L 09/17/18 04:35: Blood Gas Bicarbonate Standard 24.8, Arterial Blood pH 7.234*L, Arterial Blood Partial Pressure CO2 71.4*H, Arterial Blood Partial Pressure O2 174.2H, Arterial Blood Total CO2 31.7H, Arterial Blood HCO3 29.5H, Arterial Blood Base Excess 0.3, Arterial Blood Oxygen Saturation 99.0 09/17/18 09:21: Blood Gas Bicarbonate Standard 24.5, Arterial Blood pH 7.311L, Arterial Blood Partial Pressure CO2 55.5H, Arterial Blood Partial Pressure O2 65.0L, Arterial Blood Total CO2 29.1, Arterial Blood HCO3 27.4H, Arterial Blood Base Excess 0.1, Arterial Blood Oxygen Saturation 90.3L 09/17/18 12:37: Bedside Glucose (Misc Panel) 278H CBC/BMP Laboratory Tests 09/17/18 04:21 Red Blood Count 4.56, Mean Corpuscular Volume 88.6, Mean Corpuscular Hemoglobin 26.8 L, Mean Corpuscular Hemoglobin Concent 30.2 L, Red Cell Distribution Width 14.4, Calcium Level 8.2 L, Aspartate Amino Transf (AST/SGOT) 38 H, Alanine Aminotransferase (ALT/SGPT) 39, Alkaline Phosphatase 102, Total Bilirubin 0.5, Total Protein 7.0, Albumin 2.7 L Microbiology Microbiology 09/15/18 Blood Culture - Preliminary, Resulted No growth after 24 hours . All specim... 09/15/18 Blood Culture - Preliminary, Resulted No growth after 24 hours . All specim... 09/15/18 Respiratory Virus Panel (PCR) (SP) - Final, Complete Human Rhinovirus/Enterovirus Coronavirus Hku1 09/15/18 Gram Stain - Final, Complete 09/15/18 Sputum Culture - Final, Complete KAROL IGNACIO MD Sep 17, 2018 13:30
[2018-09-17] MEDS: FUROSEMIDE 40 MG/4 ML VIAL (J1940) IV SCH (17:41)
[2018-09-18] VITALS (10 sets, daily range): BP systolic 144–166; BP diastolic 68–83; O2SAT 97
[2018-09-18] MEDS: IPRATROPIUM 0.5MG/ALBUTEROL 2.5MG INH SOL UD 3ML (DUONEB)(J7620) NEB SCH ×4 (02:18→20:35)
[2018-09-18] MEDS: methylPREDNISolone INJ 40 MG/1 ML VIAL (J2920) IV SCH ×3 (02:19→16:58)
[2018-09-18] MEDS: NITROGLYCERIN 2% OINT 1 GM *U/D* PKT TOP SCH ×4 (04:00→21:04)
[2018-09-18 05:34] LABS: HEMOGLOBIN 12.8 g/dl (13.5-17.5); MEAN CORPUSCULAR HEMOGLOBIN 26.8 pg (27.0-33.0); MEAN CORPUSCULAR HGB CONC 30.5 g/dl (32.0-36.5); MEAN CORPUSCULAR VOLUME 87.9 fl (80.0-96.0); PLATELET COUNT, AUTOMATED 252 10^3/uL (150-450); RED BLOOD COUNT 4.78 10^6/uL (4.30-6.10); WHITE BLOOD COUNT 9.4 10^3/uL (4.0-10.0)
[2018-09-18] MEDS: FUROSEMIDE 40 MG/4 ML VIAL (J1940) IV SCH ×4 (05:45→16:58)
[2018-09-18] MEDS: SLF 3 ML SYR IV SCH ×3 (05:45→21:04)
[2018-09-18 06:04] LABS: ALBUMIN 2.7 GM/DL (3.2-5.2); BILIRUBIN,TOTAL 0.4 MG/DL (0.2-1.0); CALCIUM LEVEL 8.4 MG/DL (8.8-10.2); CREATININE FOR GFR 2.15 MG/DL (0.70-1.30); GLOMERULAR FILTRATION RATE 33.1 (>49); MAGNESIUM LEVEL 1.8 MG/DL (1.8-2.4); POTASSIUM SERUM 5.2 MEQ/L (3.5-5.1); TOTAL PROTEIN 6.8 GM/DL (6.4-8.2)
--- NOTE | 2018-09-18 06:50 | CR ---
DATE OF CONSULTATION: 09/17/2018 History obtained from chart and collateral information as patient unable to provide an accurate history due to metabolic encephalopathy HISTORY OF PRESENT ILLNESS: The patient is a 62-year-old male with a history of morbid obesity, heart failure with reduced ejection fraction (EF), obstructive sleep apnea (KADIE) - noncompliant, diabetes, coronary artery disease (CAD) status post percutaneous coronary intervention (PCI) and stent, hypertension, and hyperlipidemia who presented with complaints of diarrhea initially and sore throat. The patient has a history of poor compliance with medications due to difficulty affording their cost. He is on a diuretic, however, he has had been taking it as needed. The patient is also on insulin for his diabetes, however, has only been able to take it sparingly due to the cost. The patient initially had been complaining of diarrhea and was due for an appointment with GI to further evaluate it, however in the emergency department (ED), the patient had also been complaining of some increasing shortness of breath and possibly some increased lower extremity edema. He has also been on nasal cannula supplementation at home requiring 4-5 liters per minute. He denies a prior history of chronic obstructive pulmonary disease (COPD). He is a former smoker, however, has quit more than 25 years ago and was less than a pack a day for 15 years. In the ED, the patient was noted to be hypoxemic as well as lethargic. The patient's chest x-ray on admission also showed evidence of some increased pulmonary vascular congestion as well as with small pleural effusions. His BNP was elevated as well and he was admitted for a acute decompensated congestive heart failure (CHF) exacerbation. The patient's ABG showed evidence of some acute hypercarbic respiratory failure likely in the setting of his acute CHF exacerbation and he was placed on BiPAP for further support. The patient was placed on his home BiPAP settings, however, on these BiPAP settings he was noted to have periods of apnea and desaturating into the 80s. He was therefore admitted to the intensive care unit (ICU) to be placed on our BiPAP with adjustment of his settings. The patient was adjusted to BiPAP with the settings of 18/8, a respiratory rate of 18 and FIO2 of 60%. Later on in the morning, it was noted that while patient goes into deeper periods of sleep he will desaturate while on the BiPAP. His BiPAP settings were then adjusted to 20/12 with a rate of 20 and FIO2 of 60%. PAST MEDICAL HISTORY: 1. CHF with reduced EF. 2. KADIE, noncompliant. 3. Diabetes. 4. CAD status post PCI. 5. Hypertension. 6. Hyperlipidemia. 8. Chronic hypoxemic respiratory failure. 9. History of diarrhea. PAST SURGICAL HISTORY: PCIs. FAMILY HISTORY: Mother with a history of diabetes, hypertensive heart disease. Father with a history of colon cancer. Brothers and sisters with heart disease and diabetes as well. SOCIAL HISTORY: The patient is a former smoker and was less than a pack a day for approximately 15 years and has had quit smoking more than 25 years ago. ALLERGIES: No known drug allergies. HOME MEDICATIONS: - aspirin - atorvastatin - carvedilol - Plavix - lisinopril - spironolactone - furosemide - insulin REVIEW OF SYSTEMS: Was limited as the patient was on BiPAP and lethargic. PHYSICAL EXAMINATION: Temperature 97.6, pulse 69, respirations 24, blood pressure (BP) 126/69, O2 sat 98% on non-rebreather. General: The patient is a morbidly obese male who is lying in bed. He is somewhat somnolent, but able to be aroused to voice, however, he drifts back to sleep immediately. HEENT: He is normocephalic, atraumatic. Neck is supple. No palpable cervical adenopathy. Mucous membranes are moist. Cardiac: Regular rate and rhythm. Normal S1 and S2. Unable to appreciate any murmurs. Pulmonary: The patient with some bilateral crackles and some faint wheezing. Abdomen is obese, nontender, nondistended. Lower extremities: There is trace lower extremity edema bilaterally and evidence of scabbing wounds and nonhealing ulcers. LABORATORY DATA: WBC 4.6, hemoglobin 12.2, platelets 218. Chemistry: Sodium 137, potassium 5.7, chloride 103, bicarb 28, BUN 61, creatinine 2.38, glucose 324, AST 38, ALT 39, alkaline phosphatase 102. BNP 3734. Troponin was negative. AB.234, pCO2 of 71.4 and pO2 of 174.2, this was on his home BiPAP. ASSESSMENT/PLAN: The patient is a 62-year-old male with a history of congestive heart failure with a reduced ejection fraction, diabetes, obstructive sleep apnea - noncompliant with BiPAP, chronic hypoxemic respiratory failure on nasal cannula oxygen supplementation, hypertension, and hyperlipidemia who presented with diarrhea, sore throat and increased shortness of breath. The patient was found to have acute hypoxemic and hypercarbic respiratory failure likely secondary to an acute CHF exacerbation. He was placed on his home BiPAP, however, was noted to be desaturating on his home BiPAP and therefore was brought to the ICU for placement of our BiPAP and adjustment of his settings. With adjustment of his BiPAP settings, he was noted to have improvement in his ABG and improvement in his mental status. The patient was also given Lasix as per the primary team and has had increased urine output. The patient also had some faint wheezes noted and he was started on steroids by the primary team for possible COPD exacerbation. He has no prior history of COPD and no documented pulmonary function testing. He is a former smoker, however, had quit more than 25 years ago. Would consider a quicker taper of the prednisone. Can continue with DuoNebs. Would continue diuresis and would closely monitor his electrolytes and his urine output. Will continue with BiPAP at night and with naps. He will likely need to be discharged on some adjusted settings. Would need to encourage compliance for his BiPAP upon discharge and follow up with pulmonary. GLADYS
--- NOTE | 2018-09-18 07:09 | ECHO ---
DATE OF PROCEDURE: 09/17/2018 REFERRING PHYSICIAN: Dr. Hector Galindo. INDICATION: Congestive heart failure. HEIGHT: 183 cm. WEIGHT: 141 kg. DIMENSIONS: IVS: 1.1 LV: 5.6 LVPW: 1.1 LA: 3.2 Aorta: 3.2 IVC: 3.1 Mitral E wave velocity: 77 A wave: 51 E prime septal: 9.0 E prime lateral: 7.5 FINDINGS: The study is of very limited technical quality. Parasternal and apical views are virtually nonexistent. There were acceptable subcostal views. The patient is in sinus rhythm. Left ventricle is normal size. There is a septal wall motion abnormality. [place] was not visualized. Remaining LV segments probably of normal or near normal contractility. I estimate overall mildly reduced left ventricular systolic function. Right ventricle was poorly seen but grossly does not appear enlarged. Both atria appear grossly normal based on limited views. Aortic valve is minimally sclerotic but mobility of leaflets is preserved. There are also degenerative abnormalities of mitral valve but mobility of leaflet is intact. Tricuspid and pulmonic valves appear normal. No pericardial effusion is noted. Inferior vena cava is markedly dilated and there is no appreciable collapse with respiration indicative of very high central venous pressure. Aortic root is normal. Aortic arch and abdominal aorta were not seen. Doppler interrogation of aortic valve reveals no stenosis or insufficiency. Same applies for remaining three valves. Mitral inflow pattern and tissue Doppler imaging of mitral annulus reveal likely grade 2 diastolic dysfunction. CONCLUSIONS: 1. Study is of markedly limited technical quality. 2. Preserved LV size with septal wall motion abnormality, nonvisualized apex and overall probably mildly reduced LV systolic function. This should not be considered overly reliable due to very limited visualization. Likely grade 2 diastolic dysfunction. 3. No significant valvular disease. 4. Very high central venous pressure. 5. Unable to estimate pulmonary artery pressure. COMMENT: SBE prophylaxis is not recommended. MTDD
[2018-09-18] MEDS: HumaLOG INSULIN (NovoLOG) PER UNIT SC SCH ×4 (07:31→21:03)
--- NOTE | 2018-09-18 07:37 | REP ---
Portable chest, 06:52 a.m., single AP semi upright view: Comparison is 09/17/2018. The lung rodriguez are unchanged. Cardiac size is upper normal for portable positioning, unchanged. The babs, mediastinum, skeletal structures are unremarkable. Impression: There is no interval change. Electronically Signed by Nick Lynn MD 09/18/2018 07:29 A
[2018-09-18] MEDS: ASPIRIN 81 MG CHEW TABLET PO SCH (08:26)
[2018-09-18] MEDS: CLOPIDOGREL 75 MG TAB PO SCH (08:26)
[2018-09-18] MEDS: DOCUSATE SODIUM 100 MG CAP PO SCH ×2 (08:26→21:00)
[2018-09-18] MEDS: CARVedilol 6.25 MG TAB PO SCH ×2 (08:26→21:02)
[2018-09-18] MEDS: ENOXAPARIN 40 MG/0.4 ML SYRINGE (J1650) SC SCH (08:27)
[2018-09-18] MEDS: guaiFENesin ER 600 MG TAB PO SCH ×2 (08:27→21:02)
[2018-09-18] MEDS: ATORVASTATIN 20 MG TAB PO SCH (08:27)
[2018-09-18] MEDS: LISINOPRIL 10 MG TAB PO SCH (08:27)
[2018-09-18 09:01] LABS: ABG BASE EXCESS 3.9 (-2.0-2.0); ABG HCO3 30.5 MEQ/L (22.0-26.0); ABG PARTIAL PRESSURE CO2 54.4 mmHg (35.0-45.0); ABG PARTIAL PRESSURE O2 96.5 mmHg (75.0-100.0); ABG STANDARD HCO3 27.9 MEQ/L (22.0-26.0); ABG TOTAL CO2 32.2 MEQ/L (23.0-31.0); ABG pH (ARTERIAL) 7.367 UNITS (7.350-7.450)
--- NOTE | 2018-09-18 11:30 | IPNPDOC ---
Subjective Date Seen The patient was seen on 09/18/18. Subjective Chief Complaint/HPI Patient feels much better. He is on BiPAP, good diuresis with Lasix is in negative balance General: Reports: ROS Unobtainable, Normal Appetite Pulmonary: Reports: Dyspnea Psych: Reports: Mood Normal Objective Physical Examination General Exam: Positive: Alert, No Acute Distress Eye Exam: Positive: PERRLA, Conjunctiva & lids normal, EOMI; Negative: Sclera icteric ENT Exam: Positive: Atraumatic, Mucous membr. moist/pink, Pharynx Normal Neck Exam: Positive: Supple; Negative: JVD, thyromegaly Chest Exam: Positive: Other (bilateral crackers and some wheezing noted) Heart Exam: Positive: Rate Normal, Regular Rhythm, Normal S1, Normal S2; Negative: Murmurs, Rubs Telemetry: Positive: No significant arrhythmia Abdomen Exam: Positive: Normal bowel sounds, Soft; Negative: Tenderness, Hepatospenomegaly Male Exam: Positive: Normal Genital Exam Extremity Exam: Positive: Edema (2+ bipedal edema), Normal pulses; Negative: Clubbing, Cyanosis Skin Exam: Positive: Nl turgor and temperature; Negative: Breakdown, Lesion Neuro Exam: Positive: Normal Gait, Normal Speech, Cranial Nerves 3-12 NL, Reflexes 2+ Psych Exam: Positive: Mental status NL, Mood NL, Oriented x 3 Assessment /Plan Problems (1) CHF (congestive heart failure) Status: Acute Response to Treatment: Compensated Discussed With: Nurse, Developer Designer Problem Text: A 62 years old, obese, white male with past medical history of congestive heart failure, obstructive sleep apnea, diabetes mellitus, coronary artery disease status post PCI with 3 stents, EF of 34%. Also of chronic diarrhea is being admitted with the diagnosis of pulmonary edema and worsening BUN/creatinine. Patient is noncompliant to his medical care, most likely decompensated acute on chronic systolic heart failure on exam. Patient doesn't have a lateral styles and bipedal edema consistent with acute Heart failure. Patient is responding very well to negative balance Lasix therapy . His output was 3200, negative yesterday and 740. Negative today Will change Lasix to Lasix 60 mg IV every 6 hours Still will aim for negative balance Patient has been started on BiPAP and by pulmonary and he is tolerating it very well, ABG has improved Continue all current medications . Continue intensive care till patient is clinically stable Further, as per critical care/pulmonary (2) COPD (chronic obstructive pulmonary disease) Status: Acute Response to Treatment: Compensated Discussed With: Nurse Problem Text: This seems to be a component of COPD on examination Gen. bilateral wheezing on auscultation Will add duoneb to 6 hour and every 2 hours when necessary Also start Solu-Medrol 40 mg IV every 8 hour Monitor fingerstick blood sugar and coverage accordingly Will Will monitor closely Continue home meds (3) ARF (acute renal failure) Status: Acute Problem Text: BEE on CKD will get Nephrology consult for further evaluation. Renal functions stable Plan/VTE VTE Prophylaxis Ordered?: Yes VS, I&O, 24H, Fishbone Vital Signs/I&O Vital Signs Date Time Temp Pulse Resp B/P (MAP) Pulse Ox O2 Delivery O2 Flow Rate FiO2 09/18/18 08:26 73 166/79 09/18/18 08:00 97.7 21 91 4.0 09/18/18 04:00 50 09/18/18 02:25 BIPAP/CPAP I&O- Last 24 Hours up to 6 AM 09/18/18 06:00 Intake Total 1520 ml Output Total 3205 ml Balance -1685 ml Laboratory Data 24H LABS Laboratory Tests 2 09/17/18 12:37: Bedside Glucose (Misc Panel) 278H 09/17/18 17:28: Bedside Glucose (Misc Panel) 292H 09/17/18 21:11: Bedside Glucose (Misc Panel) 351H 09/18/18 04:43: Nucleated Red Blood Cells % (auto) 0.0, Anion Gap 4L, Glomerular Filtration Rate 33.1L, Blood Urea Nitrogen 65H, Creatinine 2.15H, Sodium Level 138, Potassium Level 5.2H, Chloride Level 103, Carbon Dioxide Level 31, Calcium Level 8.4L, Aspartate Amino Transf (AST/SGOT) 20, Alanine Aminotransferase (ALT/SGPT) 32, Alkaline Phosphatase 92, Total Bilirubin 0.4, Total Protein 6.8, Albumin 2.7L, Magnesium Level 1.8, JO-Xkt-B-Type Natriuretic Peptide 1847H, Albumin/Globulin Ratio 0.66L 09/18/18 08:44: Blood Gas Bicarbonate Standard 27.9H, Arterial Blood pH 7.367, Arterial Blood Partial Pressure CO2 54.4H, Arterial Blood Partial Pressure O2 96.5, Arterial Blood Total CO2 32.2H, Arterial Blood HCO3 30.5H, Arterial Blood Base Excess 3.9H, Arterial Blood Oxygen Saturation 97.0 CBC/BMP Laboratory Tests 09/18/18 04:43 Red Blood Count 4.78, Mean Corpuscular Volume 87.9, Mean Corpuscular Hemoglobin 26.8 L, Mean Corpuscular Hemoglobin Concent 30.5 L, Red Cell Distribution Width 14.2, Calcium Level 8.4 L, Aspartate Amino Transf (AST/SGOT) 20, Alanine Aminotransferase (ALT/SGPT) 32, Alkaline Phosphatase 92, Total Bilirubin 0.4, Total Protein 6.8, Albumin 2.7 L Microbiology Microbiology 09/15/18 Blood Culture - Preliminary, Resulted No Growth after 48 hours. All Specime... 09/15/18 Blood Culture - Preliminary, Resulted No Growth after 48 hours. All Specime... 09/15/18 Respiratory Virus Panel (PCR) (SP) - Final, Complete Human Rhinovirus/Enterovirus Coronavirus Hku1 09/15/18 Gram Stain - Final, Complete 09/15/18 Sputum Culture - Final, Complete KAROL IGNACIO MD Sep 18, 2018 11:30
[2018-09-18 14:41] LABS: CREATININE,RANDOM URINE 17.4 MG/DL
[2018-09-18] MEDS ORDERED: CEPACOL LOZENGE PO PRN (15:00)
[2018-09-18 19:51] LABS: APPEARANCE, URINE CLEAR (CLEAR); BACTERIA, URINE AUTO NEGATIVE (NEGATIVE); BILIRUBIN, URINE AUTO NEGATIVE (NEGATIVE); BLOOD, URINE BLOOD 2+ (NEGATIVE); COLOR, URINE STRAW (YELLOW); GLUCOSE, URINE (UA) AUTO 3+ mg/dL (NEGATIVE); KETONE, URINE AUTO NEGATIVE (NEGATIVE); LEUKOCYTE ESTERASE, URINE AUTO NEGATIVE (NEGATIVE); NITRITE, URINE AUTO NEGATIVE (NEGATIVE); PROTEIN, URINE AUTO NEGATIVE (NEGATIVE); RBC, URINE AUTO 6 /HPF (0-3); SPECIFIC GRAVITY URINE AUTO 1.006 (1.002-1.035); SQUAMOUS EPITHELIAL CELL UR AU 0 /HPF (0-6); UROBILINOGEN, URINE AUTO 0.2 mg/dL (0.0-2.0); WBC, URINE AUTO 0 /HPF (0-3)
[2018-09-18] MEDS: **hydrALAZINE** 10 MG TAB PO SCH (22:54)
[2018-09-19] VITALS (13 sets, daily range): BP systolic 96–181; BP diastolic 51–89
[2018-09-19] MEDS: FUROSEMIDE 40 MG/4 ML VIAL (J1940) IV SCH ×2 (00:11→06:00)
[2018-09-19] MEDS: IPRATROPIUM 0.5MG/ALBUTEROL 2.5MG INH SOL UD 3ML (DUONEB)(J7620) NEB SCH ×4 (01:37→20:52)
[2018-09-19] MEDS: methylPREDNISolone INJ 40 MG/1 ML VIAL (J2920) IV SCH ×2 (02:29→15:21)
[2018-09-19] MEDS: NITROGLYCERIN 2% OINT 1 GM *U/D* PKT TOP SCH ×2 (04:00→10:17)
[2018-09-19 05:02] LABS: HEMATOCRIT 43.8 % (42.0-52.0); HEMOGLOBIN 13.6 g/dl (13.5-17.5); MEAN CORPUSCULAR HEMOGLOBIN 26.6 pg (27.0-33.0); MEAN CORPUSCULAR HGB CONC 31.1 g/dl (32.0-36.5); MEAN CORPUSCULAR VOLUME 85.7 fl (80.0-96.0); PLATELET COUNT, AUTOMATED 279 10^3/uL (150-450); RED BLOOD COUNT 5.11 10^6/uL (4.30-6.10); WHITE BLOOD COUNT 11.3 10^3/uL (4.0-10.0)
[2018-09-19] MEDS: **hydrALAZINE** 10 MG TAB PO SCH ×4 (05:43→21:58)
[2018-09-19] MEDS: SLF 3 ML SYR IV SCH ×3 (06:06→21:59)
[2018-09-19 06:34] LABS: ALBUMIN 2.9 GM/DL (3.2-5.2); BILIRUBIN,TOTAL 0.5 MG/DL (0.2-1.0); CALCIUM LEVEL 8.6 MG/DL (8.8-10.2); CREATININE FOR GFR 1.98 MG/DL (0.70-1.30); GLOMERULAR FILTRATION RATE 36.4 (>49); PERCENT SATURATION 10.9 % (19.7-50.0); PHOSPHORUS LEVEL 4.1 MG/DL (2.5-4.9); POTASSIUM SERUM 5.4 MEQ/L (3.5-5.1); TOTAL PROTEIN 6.7 GM/DL (6.4-8.2)
--- NOTE | 2018-09-19 06:34 | CR ---
DATE OF CONSULTATION: 09/18/2018 REQUESTING PHYSICIAN: Dr. Hector Galindo REASON FOR CONSULTATION: Management of volume status and acute kidney injury (BEE) on chronic kidney disease. CHIEF COMPLAINT: The patient presented to the hospital on September 15, 2018 with progressive shortness of breath. HISTORY OF PRESENT ILLNESS: Mr. Bryant Ruvalcaba is a 62-year-old male with past medical history of morbid obesity, diabetes mellitus type 2, history of coronary artery disease, congestive heart failure, multiple other comorbidities as mentioned below. He has baseline chronic kidney disease stage III, baseline creatinine of around 1.4 to 1.5 as of last year; however some of his previous readings from 2017 and 2018 have a creatinine of 1.1 to 1.2. He reports that he saw Dr. Narayan in the nephrology office many years ago and that he stopped following up. He presented to the hospital this time with progressive shortness of breath. Chest x-ray on arrival showed pulmonary edema. He was aggressively diuresed with intravenous (IV) diuretics. His creatinine on arrival was 2.2 which has been still fluctuating around 2.1 to 2.2. The patient is also hyperkalemic. The nephrology service was called for further help in the management of this patient's volume status and assessment in the management of acute chronic kidney superimposed on chronic kidney disease stage III. I saw and evaluated the patient this morning in the intensive care unit (ICU). He was wearing the nasal cannula. He reports that his shortness of breath is getting better now as compared with two days ago. He has an indwelling Burrell catheter. The patient has a good response to diuretics. He is otherwise afebrile and hemodynamically stable. PAST MEDICAL HISTORY: 1. Congestive heart failure. The latest echocardiogram showed mildly reduced left ventricular (LV) systolic function. No significant valvular abnormality. 2. Chronic kidney disease stage III. Best baseline creatinine around 1.4 to 1.5 as of last year. 3. Diabetes mellitus type 2. 4. Morbid obesity. 5. Obstructive sleep apnea. 6. Coronary artery disease status post stenting. PAST SURGICAL HISTORY: 1. History of coronary artery disease stenting. 2. History of colonoscopy in the past. ALLERGIES: No known drug allergies. FAMILY HISTORY: No significant family history of end-stage renal disease regarding hemodialysis. SOCIAL HISTORY: The patient denies any illicit drug abuse, alcohol abuse or smoking. REVIEW OF SYSTEMS: Constitutional: He denies any fevers or chills. Eyes: He denies any blurring vision, double vision. ENT: He denies any dysphagia, odynophagia, ear discharge. Cardiovascular: He reports a history of heart failure. He denies any chest pain or palpitations. Respiratory: He reports improving shortness of breath. GI: Patient denies any nausea or vomiting. Genitourinary: He has an indwelling Burrell catheter. Musculoskeletal: He denies any muscle aches or pains. Skin: He denies any rashes or ulcers. FINISH PATCHER: He denies any strokes or seizures. Psych: Patient denies any depression or anxiety. Hematologic/Oncologic: He denies any easy bleeding or bruisiong. All other review of systems is negative. PHYSICAL EXAMINATION: General: Patient is awake, alert, oriented times three, morbid obese sitting up in the bed. Vital signs: Temperature is 98.7 degrees Fahrenheit, blood pressure 150/76, pulse 73, respiratory rate 20, saturating 91% on nasal cannula. Head and neck exam: Extraocular muscles intact. Pupils equal, round, reactive to light. Moist mucous membranes. He is wearing a nasal cannula. Neck: Neck is supple. I could not evaluate jugular venous distention (JVD) because of body habitus. . Cardiovascular: S1, S2. Extremities: 1+ edema of the bilateral lower extremities. He has ulcers on the bilateral lower extremities which are in different stages of healing. Respiratory: Mildly decreased breath sounds at the bases. Mild expiratory rhonchi bilaterally at the bases. Abdomen: Soft, obese, positive bowel sounds, nontender. Genitourinary: He has an indwelling Burrell catheter. Urine in the bag is pale yellow at this point. Musculoskeletal: Bilateral lower extremity ulcers and scabs. FINISH PATCHER: No focal neurological deficit. Power is 5/5 in all extremities. LAB REVIEW: CBC showed WBC of 9.4, hemoglobin 12.8, platelets are 252. Urinalysis showed no protein, 3+ glucose. Arterial blood gas (ABG) done this morning showed pH 7.3, PCO2 54, PO2 96. Bicarbonate 30, Oxygen sat is 97%. Basic metabolic panel (BMP) showed sodium 138, potassium 5.2, chloride 103, bicarbonate 31, BUN 65, creatinine 2.1, it was 2.3 yesterday. Calcium 8.4, magnesium 1.8. BNP 1847, it was more than 3,000 on admission. Albumin 2.7. Microbiology: Respiratory viral panel is positive for human rhinovirus and enterovirus. IMAGING: A renal ultrasound done on September 15, 2018 showed chronic renal disease, no hydronephrosis, presumed lobulation along the lower pole of the left kidney. Pre and post contrast CT of the abdomen was advised. A chest x-ray was done this morning that showed cardiac size upper limits of normal, no acute infiltrate, pulmonary edema is improving. CURRENT INPATIENT MEDICATIONS: - Mucinex as needed - Tylenol as needed - DuoNebs every 4 hours as needed and every 6 hours around the clock - Mylanta as needed for dyspepsia - aspirin 81 mg daily - Depakote 20 mg nightly - Coreg 6.25 mg by mouth twice a day - Cepacol Lozenges - Plavix 75 mg by mouth daily - Lovenox 40 mg subcutaneous daily - Lasix 40 mg intravenous every 6 hours - Lisinopril 10 mg by mouth daily - Solu-Medrol 40 mg IV every 8 hours ASSESSMENT: This patient is a 62-year-old male with chronic kidney disease state III, diabetes mellitus type 2, admitted this time with acute respiratory rate secondary to congestive heart failure exacerbation and acute viral upper respiratory tract infection. The patient has acute kidney disease superimposed on chronic kidney disease stage III along with hyperkalemia. PLAN: 1. Acute kidney disease superimposed on chronic kidney disease stage III. It is multifactorial at this point. The patient is using adeline inhibitors. He is on high dose of diuretics at this time. His volume status is also decompensated. It is okay to continue the diuretics at this point; however, I am holding the lisinopril. The patient is nonoliguric at this point. He is responding very well to the diuretics. The diuretic dose has already been to 40 mg every 6 hours starting yesterday. 2. Hyperkalemia. The patient has persistent hyperkalemia despite being on diuretics. As mentioned above, I am hold the lisinopril at this point. Continue low potassium diet which I have changed today. 3. Anemia and chronic kidney disease. I have ordered the iron levels for tomorrow morning. If the levels are low then the patient will be given iron. Hemoglobin is above 12, no need for Aranesp administration at this point. 4. Acute decompensated systolic congestive heart failure. The patient is currently on diuretics. He is in negative fluid balance for the last four days. Volume status is improving. Continue Coreg at this point. Lisinopril is being held because of acute kidney injury superimposed on chronic kidney disease and hyperkalemia. I am going to start the patient on hydralazine. 5. Coronary artery disease. Continue aspirin 81 mg daily. Continue Lipitor 20 mg nightly. Continue the current dose of Coreg. Continue Plavix. Lisinopril is being held because of hyperkalemia and worsening kidney function. 6. Diabetes mellitus type 2. Glucose level is well controlled. Continue current dose of insulin sliding scale. Avoid use of Metformin. The patient needs to be started on long acting insulin as his glucose levels are running in the 300s. 7. Upper respiratory tract viral infection. The patient is currently on steroids and nebulizations. He still has mild respiratory rhonchi. Symptoms are improving. Thank-you for involving me in the care of this patient. I shall be happy to follow the patient along with you tomorrow morning. Total critical care time spent in the management of this patient today in the intensive care unit (ICU) was 1 hour. edited: 09/19/2018 0634 is MTDD
[2018-09-19] MEDS: ISOSORBIDE DIN (ISORDIL) 10 MG TAB PO SCH ×3 (06:41→17:18)
[2018-09-19] MEDS: DOCUSATE SODIUM 100 MG CAP PO SCH ×2 (07:36→21:00)
[2018-09-19] MEDS: HumaLOG INSULIN (NovoLOG) PER UNIT SC SCH ×4 (07:47→21:58)
[2018-09-19] MEDS: LEVEMIR (INSULIN DETEMIR) 1 UNITS/0.01ML SC SCH (07:47)
[2018-09-19 08:58] LABS: ABG BASE EXCESS 5.6 (-2.0-2.0); ABG O2 SATURATION 91.7 % (95.0-99.0); ABG PARTIAL PRESSURE CO2 53.6 mmHg (35.0-45.0); ABG PARTIAL PRESSURE O2 64.8 mmHg (75.0-100.0); ABG STANDARD HCO3 29.3 MEQ/L (22.0-26.0); ABG TOTAL CO2 33.7 MEQ/L (23.0-31.0); ABG pH (ARTERIAL) 7.394 UNITS (7.350-7.450)
[2018-09-19 09:43] LABS: PTH INTACT 104.2 PG/ML (18.5-88.0)
[2018-09-19] MEDS: ENOXAPARIN 40 MG/0.4 ML SYRINGE (J1650) SC SCH (09:57)
[2018-09-19] MEDS: guaiFENesin ER 600 MG TAB PO SCH ×2 (09:57→21:59)
[2018-09-19] MEDS: ATORVASTATIN 20 MG TAB PO SCH (09:57)
[2018-09-19] MEDS: CLOPIDOGREL 75 MG TAB PO SCH (09:57)
[2018-09-19] MEDS: ASPIRIN 81 MG CHEW TABLET PO SCH (09:57)
[2018-09-19] MEDS: CARVedilol 6.25 MG TAB PO SCH ×2 (10:11→21:59)
--- NOTE | 2018-09-19 11:11 | IPNPDOC ---
Subjective Date Seen The patient was seen on 09/19/18. Subjective Chief Complaint/HPI Patient is comfortable. No shortness of breath last about 3 kg, KG is awake, off BiPAP on nasal cannula General: Reports: Normal Appetite; Denies: Chills, Night Sweats, Fatigue, Malaise Constitutional: Denies: Chills, Fever, Night Sweats Eyes: Denies: Pain, Vision change ENT: Denies: Head Aches, Ear Pain, Dysphagia Skin: Denies: Rash, Lesions, Breakdown Pulmonary: Denies: Dyspnea, Cough Cardiovascular: Denies: Chest Pain, Palpitations, Orthopnea, Paroxysmal Noc. Dyspnea, Lt Headedness Gastrointestinal: Denies: Nausea, Vomiting, Abdominal Pain, Diarrhea, Constip ation Genitourinary: Denies: Dysuria, Frequency, Incontinence, Retention Hematologic: Denies: Bruising, Bleeding Excessively Musculoskeletal: Denies: Neck Pain, Back Pain, Joint Pain, Muscle Pain, Spasms Neurological: Denies: Weakness, Numbness, Change in speech, Confusion Psych: Reports: Mood Normal; Denies: Depression, Memory Issues Objective Physical Examination General Exam: Positive: Alert, No Acute Distress Eye Exam: Positive: PERRLA, Conjunctiva & lids normal, EOMI; Negative: Sclera icteric ENT Exam: Positive: Atraumatic, Mucous membr. moist/pink, Pharynx Normal Neck Exam: Positive: Supple; Negative: JVD, thyromegaly Chest Exam: Positive: Other (bilateral crackers and some wheezing noted) Heart Exam: Positive: Rate Normal, Regular Rhythm, Normal S1, Normal S2; Negative: Murmurs, Rubs Telemetry: Positive: No significant arrhythmia Abdomen Exam: Positive: Normal bowel sounds, Soft; Negative: Tenderness, Hepatospenomegaly Male Exam: Positive: Normal Genital Exam Extremity Exam: Positive: Edema (2+ bipedal edema), Normal pulses; Negative: Clubbing, Cyanosis Skin Exam: Positive: Nl turgor and temperature; Negative: Breakdown, Lesion Neuro Exam: Positive: Normal Gait, Normal Speech, Cranial Nerves 3-12 NL, Reflexes 2+ Psych Exam: Positive: Mental status NL, Mood NL, Oriented x 3 Assessment /Plan Problems (1) CHF (congestive heart failure) Status: Acute Response to Treatment: Compensated Discussed With: Nurse, Sample Driller Problem Text: A 62 years old, obese, white male with past medical history of congestive heart failure, obstructive sleep apnea, diabetes mellitus, coronary artery disease status post PCI with 3 stents, EF of 34%. Also of chronic diarrhea is being admitted with the diagnosis of pulmonary edema and worsening BUN/creatinine. Patient is noncompliant to his medical care, most likely decompensated acute on chronic systolic heart failure on exam. Patient doesn't have a lateral styles and bipedal edema consistent with acute Heart failure. Patient has diuresed very well on Lasix therapy. We will continue hydralazine, Lasix and adeline inhibitors have been stopped secondary to hyperkalemia and worsening renal function He is off BiPAP during the daytime on a nasal cannula for oxygen support Patient is clinically doing very well. He will be tried his home BiPAP tonight and if there is any problems or complications. He'll be discharged to PCU on from there. He will possibly be arranged to go home Continue all current medications . Continue intensive care till patient is clinically stable Further, as per critical care/pulmonary (2) COPD (chronic obstructive pulmonary disease) Status: Acute Response to Treatment: Compensated Discussed With: Nurse Problem Text: This seems to be a component of COPD on examination Gen. bilateral wheezing on auscultation Will add duoneb to 6 hour and every 2 hours when necessary Change Solu-Medrol 40 mg every 6-12 hours Monitor fingerstick blood sugar and coverage accordingly Will Will monitor closely Continue home meds (3) ARF (acute renal failure) Status: Acute Problem Text: BEE on CKD Nephrology consult appreciated. Off ACEI secondary to worsening renal function and hyperkalemia Also started on hydralazine and isosorbide DC nitro paste Discussed with Dr. kramer Plan/VTE VTE Prophylaxis Ordered?: Yes VS, I&O, 24H, Fishbone Vital Signs/I&O Vital Signs Date Time Temp Pulse Resp B/P (MAP) Pulse Ox O2 Delivery O2 Flow Rate FiO2 09/19/18 10:11 69 96/51 09/19/18 06:00 17 90 4.0 09/19/18 04:00 97.8 40 09/18/18 02:25 BIPAP/CPAP I&O- Last 24 Hours up to 6 AM 09/19/18 06:00 Intake Total 1796 ml Output Total 4375 ml Balance -2579 ml Laboratory Data 24H LABS Laboratory Tests 2 09/18/18 12:25: Bedside Glucose (Misc Panel) 371H 09/18/18 13:56: Urine Appearance CLEAR, Urine Color STRAW, Urine pH 5.0, Urine Specific [place] 1.006, Urine Protein NEGATIVE, Urine Glucose (UA) 3+H, Urine Ketones NEGATIVE, Urine Urobilinogen 0.2, Urine Bilirubin NEGATIVE, Urine Leukocyte Esterase NEGATIVE, Urine Blood 2+H, Urine Nitrite NEGATIVE, Urine WBC (Auto) 0, Urine RBC (Auto) 6H, Urine Hyaline Casts (Auto) 0, Urine Bacteria (Auto) NEGATIVE, Urine Squamous Epithelial Cells 0, Urine Sperm (Auto) , Urine Random Creatinine 17.4, Urine Random Total Protein 10.0 09/18/18 16:52: Bedside Glucose (Misc Panel) 382H 09/18/18 20:52: Bedside Glucose (Misc Panel) 398H 09/19/18 04:24: Nucleated Red Blood Cells % (auto) 0.2H, Anion Gap 5L, Glomerular Filtration Rate 36.4L, Blood Urea Nitrogen 69H, Creatinine 1.98H, Sodium Level 138, Potassium Level 5.4H, Chloride Level 101, Carbon Dioxide Level 32, Calcium Level 8.6L, Phosphorus Level 4.1, Aspartate Amino Transf (AST/SGOT) 17, Alanine Aminotransferase (ALT/SGPT) 31, Alkaline Phosphatase 91, Total Bilirubin 0.5, Total Protein 6.7, Albumin 2.9L, Iron Level 31L, Total Iron Binding Capacity 285, Transferrin % Saturation 10.9L, Ferritin 42, Albumin/Globulin Ratio 0.76L, Parathyroid Hormone (Intact) 104.2H 09/19/18 08:47: Blood Gas Bicarbonate Standard 29.3H, Arterial Blood pH 7.394, Arterial Blood Partial Pressure CO2 53.6H, Arterial Blood Partial Pressure O2 64.8L, Arterial Blood Total CO2 33.7H, Arterial Blood HCO3 32.0H, Arterial Blood Base Excess 5.6H, Arterial Blood Oxygen Saturation 91.7L CBC/BMP Laboratory Tests 09/19/18 04:24 Red Blood Count 5.11, Mean Corpuscular Volume 85.7, Mean Corpuscular Hemoglobin 26.6 L, Mean Corpuscular Hemoglobin Concent 31.1 L, Red Cell Distribution Width 14.2, Calcium Level 8.6 L, Phosphorus Level 4.1, Aspartate Amino Transf (AST/SGOT) 17, Alanine Aminotransferase (ALT/SGPT) 31, Alkaline Phosphatase 91, Total Bilirubin 0.5, Total Protein 6.7, Albumin 2.9 L Microbiology Microbiology 09/15/18 Blood Culture - Preliminary, Resulted No Growth after 72 hours. All specime... 09/15/18 Blood Culture - Preliminary, Resulted No Growth after 72 hours. All specime... 09/15/18 Respiratory Virus Panel (PCR) (SP) - Final, Complete Human Rhinovirus/Enterovirus Coronavirus Hku1 09/15/18 Gram Stain - Final, Complete 09/15/18 Sputum Culture - Final, Complete KAROL IGNACIO MD Sep 19, 2018 11:11
[2018-09-19] MEDS ORDERED: DARBEPOETIN 100 MCG/0.5 ML *DIALYSIS* SYRINGE (J0882) IV SCH (12:00)
--- NOTE | 2018-09-19 14:05 | IPN ---
DATE OF SERVICE: 09/19/2018 SUBJECTIVE: The patient was seen and examined at the bedside today morning in the intensive care unit (ICU). The patient is afebrile and hemodynamically stable. He continues to have a good urine output. His renal function is stable. Creatinine is down to 1.9. He continues to have hyperkalemia. His breathing is significantly better. OBJECTIVE: Vital Signs: Temperature 97.5 degrees Fahrenheit. Blood pressure 96/51. Pulse 67. Respiratory rate 18. Saturating 95% on 4 liters by nasal cannula. Intake and Output: Urine output recorded as 4.1 liters yesterday and 1.5 liters so far today since overnight. PHYSICAL EXAMINATION: General: Patient is awake, alert and oriented times three, morbidly obese, laying in the bed, in no apparent distress. Head and Neck Exam: Extraocular muscles are intact. Pupils equally round and reactive to light. Mucous membranes are moist. Neck is supple. I could not appreciate any jugular venous distention (JVD). Cardiovascular: S1 and S2. Trace edema of the bilateral lower extremities. Respiratory: Mildly decreased breath sounds at the bases. No active rales or rhonchi. Abdomen: Soft. Obese. Positive bowel sounds. Nontender. No organomegaly. Genitourinary: He has an indwelling Burrell catheter. Musculoskeletal: Bilateral lower extremity ulcers on his calves were noted. Central Nervous System (ANALYTICAL CLERK): No focal deficit. Power is 5/5 in all extremities. LAB REVIEW: CBC showed a WBC of 11.3, hemoglobin 13.6 and platelets are 279. BMP showed sodium 138, potassium 5.4, chloride 101, bicarbonate 32, BUN 69, creatinine 1.9 and it was 2.1 yesterday. Glucose level was 421. Calcium 8.6. Iron 31, TIBC 285, transferrin saturation 10.9% only, ferritin 42. IMAGING: Chest x-ray done today morning showed cardiac size upper limit of normal. No interval change. CURRENT INPATIENT MEDICATIONS: The patient's medications were all reviewed by me. I have started the patient on hydralazine 10 mg by mouth three times a day, isosorbide 10 mg by mouth three times a day. Nitropaste has been stopped. Lisinopril was stopped yesterday. Solu-Medrol has been decreased to 40 mg IV every 12 hours. IV Lasix has been stopped and the patient has been started on torsemide by myself. ASSESSMENT AND PLAN: 1. Acute kidney injury superimposed on chronic kidney disease Stage III, most likely secondary to combination of cardiorenal syndrome and use of AZAM inhibitors. Okay to continue the diuretics, however, diuretics have been changed to oral diuretic now. Best baseline creatinine as per previous record is around 1.4 as of last year. 2. Hyperkalemia. It is secondary to use of AZAM inhibitors. His lisinopril was stopped yesterday. Potassium level is expected to improve over the next 24 to 48 hours. 3. Iron deficiency anemia. I am going to start the patient on oral iron. 4. Acute decompensated systolic congestive heart failure. The patient is diuresing very well with IV diuretics. His blood pressures are soft now. Continue the current dose of Coreg. Lisinopril has been stopped because of acute kidney injury and hyperkalemia. He has been started on low dose of hydralazine and isosorbide with holding parameters. 5. Diabetes mellitus type 2. Continue insulin sliding scale. Avoid use of metformin. The patient was started on Levemir 30 units subcutaneous daily today morning. 6. Acute chronic obstructive pulmonary disease exacerbation. The patient has human rhinovirus enterovirus infection. He is currently getting steroids which are being tapered down. Continue the nebulizations. Improvement of volume status is also helping with the shortness of breath. 7. Secondary hyperparathyroidism. The patient has a PTH level of 104. I am going to start him on low dose of calcitriol. Total critical care time spent in the management of this patient today morning in the intensive care unit was 40 minutes.
[2018-09-19] MEDS: FERROUS GLUCONATE 324 MG TAB PO SCH (15:22)
[2018-09-19] MEDS: TORSEMIDE 20 MG TAB PO SCH (17:18)
[2018-09-20] VITALS (8 sets, daily range): BP systolic 92–157; BP diastolic 54–84
[2018-09-20] MEDS: IPRATROPIUM 0.5MG/ALBUTEROL 2.5MG INH SOL UD 3ML (DUONEB)(J7620) NEB SCH ×4 (00:49→20:30)
[2018-09-20] MEDS: methylPREDNISolone INJ 40 MG/1 ML VIAL (J2920) IV SCH (03:50)
[2018-09-20 05:24] LABS: HEMATOCRIT 47.2 % (42.0-52.0); HEMOGLOBIN 14.9 g/dl (13.5-17.5); MEAN CORPUSCULAR HEMOGLOBIN 26.9 pg (27.0-33.0); MEAN CORPUSCULAR HGB CONC 31.6 g/dl (32.0-36.5); MEAN CORPUSCULAR VOLUME 85.2 fl (80.0-96.0); PLATELET COUNT, AUTOMATED 263 10^3/uL (150-450); RED BLOOD COUNT 5.54 10^6/uL (4.30-6.10)
[2018-09-20] MEDS: SLF 3 ML SYR IV SCH ×3 (05:33→22:59)
[2018-09-20] MEDS: **hydrALAZINE** 10 MG TAB PO SCH ×3 (05:33→22:59)
[2018-09-20 06:04] LABS: CREATININE FOR GFR 2.11 MG/DL (0.70-1.30); GLOMERULAR FILTRATION RATE 33.8 (>49); POTASSIUM SERUM 4.9 MEQ/L (3.5-5.1)
[2018-09-20] MEDS: ISOSORBIDE DIN (ISORDIL) 10 MG TAB PO SCH ×3 (06:32→17:22)
--- NOTE | 2018-09-20 08:07 | REP ---
Portable chest x-ray: Single view. History: CHF. Comparison chest x-ray: September 18, 2018. Findings: EKG electrodes are seen. There are increased markings today in the left base laterally. Developing infiltrate versus atelectasis. Remaining lung rodriguez are clear. Pleural angles are sharp. Cardiomediastinal silhouette is unchanged. Pulmonary vasculature is not increased. Impression: Increased density left base question developing infiltrate versus atelectasis. Electronically Signed by Ian Cain MD 09/20/2018 07:59 A
[2018-09-20] MEDS: HumaLOG INSULIN (NovoLOG) PER UNIT SC SCH ×4 (08:17→21:43)
[2018-09-20] MEDS: LEVEMIR (INSULIN DETEMIR) 1 UNITS/0.01ML SC SCH (08:18)
[2018-09-20] MEDS: predniSONE 10 MG TAB PO SCH (08:18)
[2018-09-20] MEDS: guaiFENesin ER 600 MG TAB PO SCH ×2 (08:18→21:06)
[2018-09-20] MEDS: ASPIRIN 81 MG CHEW TABLET PO SCH (08:18)
[2018-09-20] MEDS: FERROUS GLUCONATE 324 MG TAB PO SCH (08:18)
[2018-09-20] MEDS: CLOPIDOGREL 75 MG TAB PO SCH (08:18)
[2018-09-20] MEDS: TORSEMIDE 20 MG TAB PO SCH (08:19)
[2018-09-20] MEDS: ATORVASTATIN 20 MG TAB PO SCH (08:19)
[2018-09-20] MEDS: CALCITRIOL 0.25 MCG CAP (S0169) PO SCH (08:19)
[2018-09-20] MEDS: ENOXAPARIN 40 MG/0.4 ML SYRINGE (J1650) SC SCH (08:19)
[2018-09-20] MEDS ORDERED: LEVEMIR (INSULIN DETEMIR) 1 UNITS/0.01ML SC ONE (09:00)
[2018-09-20] MEDS: CARVedilol 6.25 MG TAB PO SCH ×2 (09:00→21:06)
--- NOTE | 2018-09-20 12:04 | IPN ---
DATE OF SERVICE: 09/20/2018 SUBJECTIVE: The patient was seen and examined at the bedside today morning. The patient reports his shortness of breath is significantly better. His volume status is optimized. He is off of oxygen now. He is breathing much better now. He still continues to have more than a gallon of urine output a day. His diuretics were changed to oral diuretics yesterday. He is responding well to torsemide. There is a slight bump in the creatinine today from 1.9 to 2.1. The patient is getting alkalotic with the diuretics. OBJECTIVE: VITAL SIGNS: Temperature 98.3 degrees Fahrenheit. Blood pressure 92/54. Pulse 72. Respiratory rate 19. Saturating 92% on 3 liters nasal cannula. INTAKE AND OUTPUT: Urine output recorded as 4.3 liters yesterday, 750 mL so far today since overnight. Weight on the bed scale is 131 kg. PHYSICAL EXAMINATION: GENERAL: Patient is awake, alert and oriented times three, morbidly obese, laying in the bed, in no apparent distress. HEAD AND NECK EXAM: Extraocular muscles are intact. Pupils equally round and reactive to light. Mucous membranes are moist. Neck is supple. No jugular venous distention (JVD) was appreciated. CARDIOVASCULAR: S1 and S2. No edema of the bilateral lower extremities. RESPIRATORY: Mildly decreased breath sounds at the bases. Otherwise, no active rales or rhonchi. ABDOMEN: Soft. Obese. Positive bowel sounds. Nontender. No organomegaly. MUSCULOSKELETAL: He has bilateral scabs and ulcers on the lower extremities. Otherwise, no clubbing or cyanosis. SUPERVISOR NETWORK CONTROL OPERATORS: No focal deficit. Power is 5/5 in all extremities. LAB REVIEW: CBC showed a WBC of 10, hemoglobin 14.9, platelets are 263. BMP showed sodium 136, potassium 4.9, chloride 97, bicarbonate 35, BUN 79, creatinine 2.1. Glucose level was 425, calcium is 9. IMAGING: A chest x-ray was done today morning which showed possible atelectasis on the left base. CURRENT INPATIENT MEDICATIONS: The patient's medications were all reviewed by myself. I have decreased the torsemide to 30 mg by mouth twice a day. Solu-Medrol has been stopped and he has been started on prednisone 30 mg daily. I increased the insulin Levemir to 40 units subcu daily. ASSESSMENT AND PLAN: 1. Acute kidney injury superimposed on chronic kidney disease stage III. It was most likely secondary cardiorenal in nature. Patient is responding well to diuretics. I stopped the AZAM inhibitor because of elevated creatinine and persistent hyperkalemia. Okay to continue the oral diuretics at this point. 2. Hyperkalemia. Potassium level is improved after stopping the AZAM inhibitors. Continue the diuretics, which will help further improve the potassium levels. 3. Iron deficiency anemia. Patient is currently oral iron. Hemoglobin level has improved within normal range. 4. Acute decompensated systolic congestive heart failure. Patient has responded very well to the IV diuretics. The diuretics have been switched to oral. He is getting alkalotic now so I have decreased the torsemide dose to 30 mg by mouth twice a day. Continue the current dose of hydralazine and isosorbide. Continue current dose of carvedilol. 5. Diabetes mellitus type 2. I have increased the Levemir dose to 40 units subcu daily because the patient is still hyperglycemic because of use of steroids. 6. Acute chronic obstructive pulmonary disease exacerbation. Symptomatically he is better. Continue the nebulizations. Steroids have been changed to oral prednisone, tapering down the doses as per primary team. 7. Secondary hyperparathyroidism. Continue current dose of calcitriol 0.25 mcg by mouth Sunday, Sunday, and Sunday.
--- NOTE | 2018-09-20 13:53 | IPNPDOC ---
Subjective Date Seen The patient was seen on 09/20/18. Subjective Chief Complaint/HPI Patient is feeling much better. He is off BiPAP on nasal cannula, sitting in bed awaiting physical therapy General: Reports: Normal Appetite; Denies: Chills, Night Sweats, Fatigue, Malaise Constitutional: Denies: Chills, Fever, Night Sweats Eyes: Denies: Pain, Vision change ENT: Denies: Head Aches, Ear Pain, Dysphagia Skin: Denies: Rash, Lesions, Breakdown Pulmonary: Denies: Dyspnea, Cough Cardiovascular: Denies: Chest Pain, Palpitations, Orthopnea, Paroxysmal Noc. Dyspnea, Lt Headedness Gastrointestinal: Denies: Nausea, Vomiting, Abdominal Pain, Diarrhea, Cons tipation Genitourinary: Denies: Dysuria, Frequency, Incontinence, Retention Hematologic: Denies: Bruising, Bleeding Excessively Musculoskeletal: Denies: Neck Pain, Back Pain, Joint Pain, Muscle Pain, Spasms Neurological: Denies: Weakness, Numbness, Change in speech, Confusion Psych: Reports: Mood Normal; Denies: Depression, Memory Issues Objective Physical Examination General Exam: Positive: Alert, No Acute Distress Eye Exam: Positive: PERRLA, Conjunctiva & lids normal, EOMI; Negative: Sclera icteric ENT Exam: Positive: Atraumatic, Mucous membr. moist/pink, Pharynx Normal Neck Exam: Positive: Supple; Negative: JVD, thyromegaly Chest Exam: Positive: Other (bilateral crackers and some wheezing noted) Heart Exam: Positive: Rate Normal, Regular Rhythm, Normal S1, Normal S2; Negative: Murmurs, Rubs Telemetry: Positive: No significant arrhythmia Abdomen Exam: Positive: Normal bowel sounds, Soft; Negative: Tenderness, Hepatospenomegaly Male Exam: Positive: Normal Genital Exam Extremity Exam: Positive: Edema (2+ bipedal edema), Normal pulses; Negative: Clubbing, Cyanosis Skin Exam: Positive: Nl turgor and temperature; Negative: Breakdown, Lesion Neuro Exam: Positive: Normal Gait, Normal Speech, Cranial Nerves 3-12 NL, Reflexes 2+ Psych Exam: Positive: Mental status NL, Mood NL, Oriented x 3 Assessment /Plan Problems (1) CHF (congestive heart failure) Status: Acute Response to Treatment: Compensated Discussed With: Nurse, [employer] Drill Operator Problem Text: A 62 years old, obese, white male with past medical history of co ngestive heart failure, obstructive sleep apnea, diabetes mellitus, coronary artery disease status post PCI with 3 stents, EF of 34%. Also of chronic diarrhea is being admitted with the diagnosis of pulmonary edema and worsening BUN/creatinine. Patient is noncompliant to his medical care, most likely decompensated acute on chronic systolic heart failure on exam. Patient doesn't have a lateral styles and bipedal edema consistent with acute Heart failure. Patient has diuresed very well on Lasix therapy. We will continue hydralazine, Lasix and adeline inhibitors have been stopped secondary to hyperkalemia and worsening renal function He is off BiPAP during the daytime on a nasal cannula for oxygen support Patient is clinically doing very well. He will be tried his home BiPAP tonight and if there is any problems or complications. Patient responded very well to IV diuresis with good urine output Transfer to PCU today Continue all current medications . Continue intensive care till patient is clinically stable Further, as per critical care/pulmonary (2) COPD (chronic obstructive pulmonary disease) Status: Acute Response to Treatment: Compensated Discussed With: Nurse Problem Text: This seems to be a component of COPD on examination Gen. bilateral wheezing on auscultation Will add duoneb to 6 hour and every 2 hours when necessary Change Solu-Medrol to by mouth prednisone secondary to increasing blood sugar Baseline Lantus has been increased secondary to uncontrolled diabetes mellitus, also fingerstick blood sugar coverage with sliding scale insulin Will Will monitor closely Continue home meds (3) ARF (acute renal failure) Status: Acute Problem Text: BEE on CKD Nephrology consult appreciated. Off ACEI secondary to worsening renal function and hyperkalemia Also started on hydralazine and isosorbide DC nitro paste Discussed with Dr. kramer Plan/VTE VTE Prophylaxis Ordered?: Yes VS, I&O, 24H, Fishbone Vital Signs/I&O Vital Signs Date Time Temp Pulse Resp B/P (MAP) Pulse Ox O2 Delivery O2 Flow Rate FiO2 09/20/18 12:49 125/73 09/20/18 12:00 3.0 09/20/18 12:00 98.4 68 16 93 09/19/18 04:00 40 09/18/18 02:25 BIPAP/CPAP I&O- Last 24 Hours up to 6 AM 09/20/18 06:00 Intake Total 1540 ml Output Total 4370 ml Balance -2830 ml Laboratory Data 24H LABS Laboratory Tests 2 09/19/18 16:43: Bedside Glucose (Misc Panel) 423H 09/19/18 20:43: Bedside Glucose (Misc Panel) 361H 09/20/18 05:10: Nucleated Red Blood Cells % (auto) 0.2H, Anion Gap 4L, Glomerular Filtration Rate 33.8L, Blood Urea Nitrogen 79H, Creatinine 2.11H, Sodium Level 136, Potassium Level 4.9, Chloride Level 97L, Carbon Dioxide Level 35H, Calcium Level 9.0 09/20/18 11:52: Bedside Glucose (Misc Panel) 487H CBC/BMP Laboratory Tests 09/20/18 05:10 Red Blood Count 5.54, Mean Corpuscular Volume 85.2, Mean Corpuscular Hemoglobin 26.9 L, Mean Corpuscular Hemoglobin Concent 31.6 L, Red Cell Distribution Width 14.2, Calcium Level 9.0 Microbiology Microbiology 09/15/18 Blood Culture - Preliminary, Resulted No Growth after 72 hours. All specime... 09/15/18 Blood Culture - Preliminary, Resulted No Growth after 72 hours. All specime... 09/15/18 Respiratory Virus Panel (PCR) (SP) - Final, Complete Human Rhinovirus/Enterovirus Coronavirus Hku1 09/15/18 Gram Stain - Final, Complete 09/15/18 Sputum Culture - Final, Complete KAROL IGNACIO MD Sep 20, 2018 13:53
[2018-09-20] MEDS: TORSEMIDE 10 MG TABLET PO SCH (17:22)
[2018-09-21] MEDS ORDERED: HumaLOG INSULIN (NovoLOG) PER UNIT SC ONE (00:45)
[2018-09-21] MEDS: IPRATROPIUM 0.5MG/ALBUTEROL 2.5MG INH SOL UD 3ML (DUONEB)(J7620) NEB SCH ×4 (02:00→20:00)
[2018-09-21 04:00] VITALS: BP 125/81
[2018-09-21 05:50] LABS: HEMATOCRIT 49.5 % (42.0-52.0); HEMOGLOBIN 15.5 g/dl (13.5-17.5); MEAN CORPUSCULAR HEMOGLOBIN 26.5 pg (27.0-33.0); MEAN CORPUSCULAR HGB CONC 31.3 g/dl (32.0-36.5); MEAN CORPUSCULAR VOLUME 84.6 fl (80.0-96.0); PLATELET COUNT, AUTOMATED 273 10^3/uL (150-450); RED BLOOD COUNT 5.85 10^6/uL (4.30-6.10); WHITE BLOOD COUNT 13.2 10^3/uL (4.0-10.0)
[2018-09-21] MEDS: SLF 3 ML SYR IV SCH ×3 (06:00→22:35)
[2018-09-21 06:20] LABS: ALBUMIN 3.2 GM/DL (3.2-5.2); BILIRUBIN,TOTAL 0.6 MG/DL (0.2-1.0); CALCIUM LEVEL 9.2 MG/DL (8.8-10.2); CREATININE FOR GFR 2.27 MG/DL (0.70-1.30); GLOMERULAR FILTRATION RATE 31.1 (>49); POTASSIUM SERUM 3.7 MEQ/L (3.5-5.1); TOTAL PROTEIN 7.6 GM/DL (6.4-8.2)
[2018-09-21] MEDS: **hydrALAZINE** 10 MG TAB PO SCH ×3 (06:28→22:36)
[2018-09-21 08:00] VITALS: BP 117/68
[2018-09-21] MEDS: ENOXAPARIN 40 MG/0.4 ML SYRINGE (J1650) SC SCH (08:06)
[2018-09-21] MEDS: LEVEMIR (INSULIN DETEMIR) 1 UNITS/0.01ML SC SCH (08:06)
[2018-09-21] MEDS: predniSONE 10 MG TAB PO SCH (08:07)
[2018-09-21] MEDS: ASPIRIN 81 MG CHEW TABLET PO SCH (08:07)
[2018-09-21] MEDS: TORSEMIDE 10 MG TABLET PO SCH ×2 (08:07→17:00)
[2018-09-21] MEDS: HumaLOG INSULIN (NovoLOG) PER UNIT SC SCH ×4 (08:07→21:42)
[2018-09-21] MEDS: ISOSORBIDE DIN (ISORDIL) 10 MG TAB PO SCH ×3 (08:08→17:00)
[2018-09-21] MEDS: FERROUS GLUCONATE 324 MG TAB PO SCH (08:08)
[2018-09-21] MEDS: guaiFENesin ER 600 MG TAB PO SCH ×2 (08:08→21:41)
[2018-09-21] MEDS: CLOPIDOGREL 75 MG TAB PO SCH (08:08)
[2018-09-21] MEDS: ATORVASTATIN 20 MG TAB PO SCH (08:09)
[2018-09-21] MEDS: CARVedilol 6.25 MG TAB PO SCH ×2 (08:09→21:41)
--- NOTE | 2018-09-21 09:27 | REP ---
Portable chest x-ray: Single view. History: Right lower lobe infiltrate. Comparison chest x-ray: September 20, 2018. This was read as showing a possible infiltrate in the left base. Findings: Lungs are symmetrically aerated. No definite infiltrate is seen on either side. Pleural angles are sharp. Heart size is borderline. Pulmonary vasculature is not increased. Impression: No definite infiltrate. Electronically Signed by Ian Cain MD 09/21/2018 09:18 A
[2018-09-21 12:00] VITALS: BP 126/74
--- NOTE | 2018-09-21 12:28 | IPNPDOC ---
Subjective Date Seen The patient was seen on 09/21/18. Subjective Chief Complaint/HPI Patient is comfortable for no new complaints at the present time tolerating BiPAP at nighttime General: Reports: Normal Appetite; Denies: Chills, Night Sweats, Fatigue, Malaise Constitutional: Denies: Chills, Fever, Night Sweats Eyes: Denies: Pain, Vision change ENT: Denies: Head Aches, Ear Pain, Dysphagia Skin: Denies: Rash, Lesions, Breakdown Pulmonary: Denies: Dyspnea, Cough Cardiovascular: Denies: Chest Pain, Palpitations, Orthopnea, Paroxysmal Noc. Dyspnea, Lt Headedness Gastrointestinal: Denies: Nausea, Vomiting, Abdominal Pain, Diarrhea, Constipation Genitourinary: Denies: Dysuria, Frequency, Incontinence, Retention Hematologic: Denies: Bruising, Bleeding Excessively Musculoskeletal: Denies: Neck Pain, Back Pain, Joint Pain, Muscle Pain, Spasms Neurological: Denies: Weakness, Numbness, Change in speech, Confusion Psych: Reports: Mood Normal; Denies: Depression, Memory Issues Objective Physical Examination General Exam: Positive: Alert, No Acute Distress Eye Exam: Positive: PERRLA, Conjunctiva & lids normal, EOMI; Negative: Sclera icteric ENT Exam: Positive: Atraumatic, Mucous membr. moist/pink, Pharynx Normal Neck Exam: Positive: Supple; Negative: JVD, thyromegaly Chest Exam: Positive: Other (bilateral crackers and some wheezing noted) Heart Exam: Positive: Rate Normal, Regular Rhythm, Normal S1, Normal S2; Negative: Murmurs, Rubs Telemetry: Positive: No significant arrhythmia Abdomen Exam: Positive: Normal bowel sounds, Soft; Negative: Tenderness, Hepatospenomegaly Male Exam: Positive: Normal Genital Exam Extremity Exam: Positive: Edema (2+ bipedal edema), Normal pulses; Negative: Clubbing, Cyanosis Skin Exam: Positive: Nl turgor and temperature; Negative: Breakdown, Lesion Neuro Exam: Positive: Normal Gait, Normal Speech, Cranial Nerves 3-12 NL, Reflexes 2+ Psych Exam: Positive: Mental status NL, Mood NL, Oriented x 3 Assessment /Plan Problems (1) CHF (congestive heart failure) Status: Acute Response to Treatment: Compensated Discussed With: Nurse, [place] Cutter Problem Text: A 62 years old, obese, white male with past medical history of congestive heart failure, obstructive sleep apnea, diabetes mellitus, coronary artery disease status post PCI with 3 stents, EF of 34%. Also of chronic diarrhea is being admitted with the diagnosis of pulmonary edema and worsening BUN/creatinine. Patient is noncompliant to his medical care, most likely decompensated acute on chronic systolic heart failure on exam. Patient doesn't have a lateral styles and bipedal edema consistent with acute Heart failure. Patient has diuresed very well on Lasix therapy. We will continue hydralazine, Lasix . adeline inhibitors have been stopped secondary to hyperkalemia and worsening renal function He is off BiPAP during the daytime on a nasal cannula for oxygen support Patient is clinically doing very well. He will be tried his home BiPAP tonight and if there is any problems or complications. Patient responded very well to IV diuresis with good urine output current is cu rrently on by mouth Lasix Continue all current medications . Continue intensive care till patient is clinically stable Further, as per critical care/pulmonary (2) COPD (chronic obstructive pulmonary disease) Status: Acute Response to Treatment: Compensated Discussed With: Nurse Problem Text: This seems to be a component of COPD on examination Gen. bilateral wheezing on auscultation Will add duoneb to 6 hour and every 2 hours when necessary Change Solu-Medrol to by mouth prednisone secondary to increasing blood sugar , taper dose of prednisone to 20 mg by mouth daily Baseline Lantus has been increased secondary to uncontrolled diabetes mellitus, also fingerstick blood sugar coverage with sliding scale insulin Will Will monitor closely Continue home meds (3) ARF (acute renal failure) Status: Acute Problem Text: BEE on CKD Nephrology consult appreciated. Off ACEI secondary to worsening renal function and hyperkalemia Also started on hydralazine and isosorbide DC nitro paste Discussed with Dr. kramer Plan/VTE VTE Prophylaxis Ordered?: Yes VS, I&O, 24H, Fishbone Vital Signs/I&O Vital Signs Date Time Temp Pulse Resp B/P (MAP) Pulse Ox O2 Delivery O2 Flow Rate FiO2 09/21/18 08:09 77 117/68 09/21/18 08:00 97.1 21 93 3.0 09/19/18 04:00 40 09/18/18 02:25 BIPAP/CPAP I&O- Last 24 Hours up to 6 AM 09/21/18 06:00 Intake Total 1260 ml Output Total 2900 ml Balance -1640 ml Laboratory Data 24H LABS Laboratory Tests 2 09/20/18 17:01: Bedside Glucose (Misc Panel) 516*H 09/20/18 17:08: Bedside Glucose (Misc Panel) 472H 09/20/18 17:12: Bedside Glucose Confirm (Misc) 523*H 09/20/18 21:09: Bedside Glucose (Misc Panel) 521*H 09/21/18 00:08: Bedside Glucose (Misc Panel) 419H 09/21/18 02:54: Bedside Glucose (Misc Panel) 310H 09/21/18 05:23: 09/21/18 05:26: Nucleated Red Blood Cells % (auto) 0.0, Anion Gap 9, Glomerular Filtration Rate 31.1L, Blood Urea Nitrogen 90H, Creatinine 2.27H, Sodium Level 141, Potassium Level 3.7#, Chloride Level 96L, Carbon Dioxide Level 36H, Calcium Level 9.2, Aspartate Amino Transf (AST/SGOT) 26, Alanine Aminotransferase (ALT/SGPT) 61, Alkaline Phosphatase 97, Total Bilirubin 0.6, Total Protein 7.6, Albumin 3.2, Albumin/Globulin Ratio 0.73L 09/21/18 11:57: Bedside Glucose (Misc Panel) 298H CBC/BMP Laboratory Tests 09/21/18 05:26 Red Blood Count 5.85, Mean Corpuscular Volume 84.6, Mean Corpuscular Hemoglobin 26.5 L, Mean Corpuscular Hemoglobin Concent 31.3 L, Red Cell Distribution Width 14.0, Calcium Level 9.2, Aspartate Amino Transf (AST/SGOT) 26, Alanine Aminotransferase (ALT/SGPT) 61, Alkaline Phosphatase 97, Total Bilirubin 0.6, Total Protein 7.6, Albumin 3.2 Microbiology Microbiology 09/15/18 Blood Culture - Final, Complete NO GROWTH AFTER 5 DAYS 09/15/18 Blood Culture - Final, Complete NO GROWTH AFTER 5 DAYS 09/15/18 Respiratory Virus Panel (PCR) (SP) - Final, Complete Human Rhinovirus/Enterovirus Coronavirus Hku1 09/15/18 Gram Stain - Final, Complete 09/15/18 Sputum Culture - Final, Complete KAROL IGNACIO MD Sep 21, 2018 12:28
--- NOTE | 2018-09-21 14:38 | IPN ---
DATE: 09/21/2018 Mr. Ruvalcaba is seen this morning on his bedside. He is feeling better today and denies any nausea or vomiting. His dyspnea is still there and he is using oxygen. He has no fever or chills. PHYSICAL EXAMINATION: Temperature 97.6 degrees Fahrenheit, heart rate 70 per minute and respiratory rate 18 per minute. Blood pressure 126/74 mmHg and oxygen saturation 90% on 3 liters oxygen. Head is atraumatic. Neck is supple and jugular venous distention (JVD) difficult to be assessed but no obvious neck vein distension noted. His heart sounds are regular and lungs have diminished breath sounds bilaterally. Abdomen is obese, soft and nontender. Extremities have no cyanosis or clubbing. Neurologically, he is awake, alert and oriented times three. Today's labs show WBC count 13.2, hemoglobin 15.5 and hematocrit 49.5. Sodium 141, potassium 3.7, CO2 of 36, BUN 90 and creatinine 2.27. Glucose 282. PROBLEMS: 1. Acute renal failure superimposed on chronic kidney disease. There is no significant belt changer the last few days and mild fluctuations in kidney function are noted. At present, we will continue to monitor his kidney function on a daily basis. 2. Congestive heart failure. The patient has been diuresed and currently his diuretics are on hold. Clinically his not easy to be assessed; however, I do not see any significant evidence of volume overload. We will continue to hold his diuretics for now. 3. Metabolic alkalosis. The patient has developed mild metabolic alkalosis related to diuresis and currently his diuretics are on hold. We anticipate improvement over the next few days. From a renal standpoint, the patient is doing much better, and we will continue to monitor closely. At present, his kidney function seems to be leveled off.
[2018-09-21 15:26] VITALS: BP 92/54
[2018-09-21 20:00] VITALS: BP 104/58
[2018-09-21 23:59] VITALS: BP 114/68
[2018-09-22] MEDS: IPRATROPIUM 0.5MG/ALBUTEROL 2.5MG INH SOL UD 3ML (DUONEB)(J7620) NEB SCH ×4 (01:58→20:01)
[2018-09-22 04:00] VITALS: BP 119/72
[2018-09-22 05:36] LABS: HEMATOCRIT 49.8 % (42.0-52.0); HEMOGLOBIN 15.6 g/dl (13.5-17.5); MEAN CORPUSCULAR HEMOGLOBIN 26.8 pg (27.0-33.0); MEAN CORPUSCULAR HGB CONC 31.3 g/dl (32.0-36.5); MEAN CORPUSCULAR VOLUME 85.4 fl (80.0-96.0); PLATELET COUNT, AUTOMATED 252 10^3/uL (150-450); RED BLOOD COUNT 5.83 10^6/uL (4.30-6.10); WHITE BLOOD COUNT 12.5 10^3/uL (4.0-10.0)
[2018-09-22 05:47] LABS: BILIRUBIN,TOTAL 0.5 MG/DL (0.2-1.0); CALCIUM LEVEL 8.9 MG/DL (8.8-10.2); CREATININE FOR GFR 2.4 MG/DL (0.70-1.30); GLOMERULAR FILTRATION RATE 29.2 (>49); MAGNESIUM LEVEL 1.9 MG/DL (1.8-2.4); POTASSIUM SERUM 4.4 MEQ/L (3.5-5.1); TOTAL PROTEIN 7.2 GM/DL (6.4-8.2)
[2018-09-22] MEDS: **hydrALAZINE** 10 MG TAB PO SCH ×3 (06:00→21:07)
[2018-09-22] MEDS: SLF 3 ML SYR IV SCH ×3 (06:00→21:07)
[2018-09-22 08:00] VITALS: BP 131/77
[2018-09-22] MEDS ORDERED: predniSONE 20 MG TAB PO SCH (09:00)
[2018-09-22] MEDS: HumaLOG INSULIN (NovoLOG) PER UNIT SC SCH ×4 (09:01→21:00)
[2018-09-22] MEDS: ATORVASTATIN 20 MG TAB PO SCH (09:02)
[2018-09-22] MEDS: CLOPIDOGREL 75 MG TAB PO SCH (09:02)
[2018-09-22] MEDS: ASPIRIN 81 MG CHEW TABLET PO SCH (09:02)
[2018-09-22] MEDS: LEVEMIR (INSULIN DETEMIR) 1 UNITS/0.01ML SC SCH (09:02)
[2018-09-22] MEDS: ENOXAPARIN 40 MG/0.4 ML SYRINGE (J1650) SC SCH (09:02)
[2018-09-22] MEDS: FERROUS GLUCONATE 324 MG TAB PO SCH (09:02)
[2018-09-22] MEDS: guaiFENesin ER 600 MG TAB PO SCH ×2 (09:03→21:05)
[2018-09-22] MEDS: ISOSORBIDE DIN (ISORDIL) 10 MG TAB PO SCH ×3 (09:03→16:42)
[2018-09-22] MEDS: TORSEMIDE 10 MG TABLET PO SCH (09:04)
[2018-09-22] MEDS: CARVedilol 6.25 MG TAB PO SCH ×2 (09:04→21:06)
--- NOTE | 2018-09-22 10:25 | IPNPDOC ---
Subjective Date Seen The patient was seen on 09/22/18. Subjective Chief Complaint/HPI She lives down in bed, has no new complaints General: Reports: Normal Appetite; Denies: Chills, Night Sweats, Fatigue, Malaise Constitutional: Denies: Chills, Fever, Night Sweats Eyes: Denies: Pain, Vision change ENT: Denies: Head Aches, Ear Pain, Dysphagia Skin: Denies: Rash, Lesions, Breakdown Pulmonary: Denies: Dyspnea, Cough Cardiovascular: Denies: Chest Pain, Palpitations, Orthopnea, Paroxysmal Noc. Dyspnea, Lt Headedness Gastrointestinal: Denies: Nausea, Vomiting, Abdominal Pain, Diarrhea, Constipation Genitourinary: Denies: Dysuria, Frequency, Incontinence, Retention Hematologic: Denies: Bruising, Bleeding Excessively Musculoskeletal: Denies: Neck Pain, Back Pain, Joint Pain, Muscle Pain, Spasms Neurological: Denies: Weakness, Numbness, Change in speech, Confusion Psych: Reports: Mood Normal; Denies: Depression, Memory Issues Objective Physical Examination General Exam: Positive: Alert, No Acute Distress Eye Exam: Positive: PERRLA, Conjunctiva & lids normal, EOMI; Negative: Sclera icteric ENT Exam: Positive: Atraumatic, Mucous membr. moist/pink, Pharynx Normal Neck Exam: Positive: Supple; Negative: JVD, thyromegaly Chest Exam: Positive: Other (bilateral crackers and some wheezing noted) Heart Exam: Positive: Rate Normal, Regular Rhythm, Normal S1, Normal S2; Negative: Murmurs, Rubs Telemetry: Positive: No significant arrhythmia Abdomen Exam: Positive: Normal bowel sounds, Soft; Negative: Tenderness, Hepatospenomegaly Male Exam: Positive: Normal Genital Exam Extremity Exam: Positive: Edema (2+ bipedal edema), Normal pulses; Negative: Clubbing, Cyanosis Skin Exam: Positive: Nl turgor and temperature; Negative: Breakdown, Lesion Neuro Exam: Positive: Normal Gait, Normal Speech, Cranial Nerves 3-12 NL, Reflexes 2+ Psych Exam: Positive: Mental status NL, Mood NL, Oriented x 3 Assessment /Plan Problems (1) CHF (congestive heart failure) Status: Acute Response to Treatment: Compensated Discussed With: Nurse, Landscape Horticulture Instructor Problem Text: A 62 years old, obese, white male with past medical history of congestive heart failure, obstructive sleep apnea, diabetes mellitus, coronary artery disease status post PCI with 3 stents, EF of 34%. Also of chronic diarrhea is being admitted with the diagnosis of pulmonary edema and worsening BUN/creatinine. Patient is noncompliant to his medical care, most likely decompensated acute on chronic systolic heart failure on exam. Patient doesn't have a lateral styles and bipedal edema consistent with acute Heart failure. Patient has diuresed very well on Lasix therapy. We will continue hydralazine, Lasix . adeline inhibitors have been stopped secondary to hyperkalemia and worsening renal function He is off BiPAP during the daytime on a nasal cannula for oxygen support Patient is clinically doing very well. He will be tried his home BiPAP tonight and if there is any problems or complications. Patient responded very well to IV diuresis with good urine output current is currently on by mouth Lasix Patient can be discharged home in a.m with home care support Patient again counseled to use BiPAP at nighttime while sleeping. He agrees (2) COPD (chronic obstructive pulmonary disease) Status: Acute Response to Treatment: Compensated Discussed With: Nurse Problem Text: This seems to be a component of COPD on examination Gen. bilateral wheezing on auscultation Will add duoneb to 6 hour and every 2 hours when necessary Change Solu-Medrol to by mouth prednisone secondary to increasing blood sugar , taper dose of prednisone to 10 mg by mouth daily Baseline Lantus has been increased secondary to uncontrolled diabetes mellitus, also fingerstick blood sugar coverage with sliding scale insulin Will Will monitor closely Continue home meds (3) ARF (acute renal failure) Status: Acute Problem Text: BEE on CKD Nephrology consult appreciated. Off ACEI secondary to worsening renal function and hyperkalemia Also started on hydralazine and isosorbide DC nitro paste Baseline renal function followed by Dr. Narayan appreciated Plan/VTE VTE Prophylaxis Ordered?: Yes VS, I&O, 24H, Fishbone Vital Signs/I&O Vital Signs Date Time Temp Pulse Resp B/P (MAP) Pulse Ox O2 Delivery O2 Flow Rate FiO2 09/22/18 09:04 73 09/22/18 09:03 131/77 09/22/18 08:00 97.7 18 89 97.7 75 09/22/18 07:00 Nasal Cannula I&O- Last 24 Hours up to 6 AM 09/22/18 05:59 Intake Total 1140 ml Output Total 1425 ml Balance -285 ml Laboratory Data 24H LABS Laboratory Tests 2 09/21/18 11:57: Bedside Glucose (Misc Panel) 298H 09/21/18 17:04: Bedside Glucose (Misc Panel) 402H 09/21/18 21:37: Bedside Glucose (Misc Panel) 438H 09/22/18 05:11: Nucleated Red Blood Cells % (auto) 0.0, Anion Gap 7L, Glomerular Filtration Rate 29.2L, Blood Urea Nitrogen 98H, Creatinine 2.40H, Sodium Level 137, Potassium Level 4.4, Chloride Level 96L, Carbon Dioxide Level 34H, Calcium Level 8.9, Asp artate Amino Transf (AST/SGOT) 35, Alanine Aminotransferase (ALT/SGPT) 76, Alkaline Phosphatase 86, Total Bilirubin 0.5, Total Protein 7.2, Albumin 3.0L, Magnesium Level 1.9, Albumin/Globulin Ratio 0.71L CBC/BMP Laboratory Tests 09/22/18 05:11 Red Blood Count 5.83, Mean Corpuscular Volume 85.4, Mean Corpuscular Hemoglobin 26.8 L, Mean Corpuscular Hemoglobin Concent 31.3 L, Red Cell Distribution Width 14.1, Calcium Level 8.9, Aspartate Amino Transf (AST/SGOT) 35, Alanine Ami notransferase (ALT/SGPT) 76, Alkaline Phosphatase 86, Total Bilirubin 0.5, Total Protein 7.2, Albumin 3.0 L Microbiology Microbiology 09/15/18 Blood Culture - Final, Complete NO GROWTH AFTER 5 DAYS 09/15/18 Blood Culture - Final, Complete NO GROWTH AFTER 5 DAYS 09/15/18 Respiratory Virus Panel (PCR) (SP) - Final, Complete Human Rhinovirus/Enterovirus Coronavirus Hku1 09/15/18 Gram Stain - Final, Complete 09/15/18 Sputum Culture - Final, Complete KAROL IGNACIO MD Sep 22, 2018 10:25
[2018-09-22 12:00] VITALS: BP 108/64
--- NOTE | 2018-09-22 14:55 | IPN ---
DATE OF SERVICE: 09/22/2018 Mr. Ruvalcaba is seen this morning on his bedside. He feels about the same compared with yesterday. Nursing staff report that yesterday his blood pressure was low and diuretics were held. However, this morning his blood pressure has improved. The patient has chronic dyspnea and has been on 3 liters oxygen at home. He denies any fever, chills, nausea or vomiting. On physical examination, temperature 97.7 degrees Fahrenheit, heart rate 86 per minute and respiratory rate 18 per minute. Blood pressure 131/77 mmHg and oxygen saturation 90%. Intake and output records from yesterday are negative by 260 mL. His head is atraumatic. Neck is supple and jugular venous distention (JVD) is difficult to be assessed. Oral mucosa is somewhat dry. Heart sounds are irregular in rhythm and distant. Lungs have diminished air entry bilaterally. Abdomen: Obese, soft and nontender and bowel sounds are present. Extremities have no cyanosis or clubbing. Neurologically, he is at his baseline mentation. Today's labs show WBC count 12.5, hemoglobin 15.6 and hematocrit 29.8. Platelets 252. Sodium 137, potassium 4.4, CO2 of 34, BUN 98 and creatinine 2.40. Glucose 319 and calcium 8.9. PROBLEMS: 1. Acute renal failure superimposed on chronic kidney disease. The patient has slight increase in his BUN and creatinine. He has been in negative fluid balance over the last few days. Yesterday his blood pressure was also low. I am going to hold his diuretic torsemide for now and we will see how he does during the next 24 hours. 2. Congestive heart failure. His volume status seems to be reasonably well-compensated and at this point we will hold off on further diuretic. 3. Hypotension. Blood pressure was low yesterday, but seems to be better today. He did receive his medications this morning. 4. Hypoxemia. This is chronic and most likely related to his lung disease. He has been on home oxygen. I do not feel that diuresing him any further is likely to improve his hypoxemia.
[2018-09-22] MEDS ORDERED: ONDANSETRON 4MG/2ML VIAL (J2405) As Ordered ONE (15:16)
[2018-09-22] MEDS: ONDANSETRON 4MG/2ML VIAL (J2405) IV PRN ×2 (15:19→21:11)
[2018-09-22 20:00] VITALS: BP 130/76
[2018-09-23] MEDS: IPRATROPIUM 0.5MG/ALBUTEROL 2.5MG INH SOL UD 3ML (DUONEB)(J7620) NEB SCH ×4 (01:00→19:02)
[2018-09-23] MEDS: ONDANSETRON 4MG/2ML VIAL (J2405) IV PRN ×2 (02:53→08:35)
[2018-09-23 04:00] VITALS: BP 158/92
[2018-09-23] MEDS: **hydrALAZINE** 10 MG TAB PO SCH ×3 (05:47→21:09)
[2018-09-23] MEDS: SLF 3 ML SYR IV SCH ×3 (05:48→21:11)
[2018-09-23] MEDS: ISOSORBIDE DIN (ISORDIL) 10 MG TAB PO SCH ×3 (05:48→17:38)
[2018-09-23 08:00] VITALS: BP 170/90
[2018-09-23] MEDS: ENOXAPARIN 40 MG/0.4 ML SYRINGE (J1650) SC SCH (08:33)
[2018-09-23] MEDS: HumaLOG INSULIN (NovoLOG) PER UNIT SC SCH ×4 (08:33→21:10)
[2018-09-23] MEDS: CLOPIDOGREL 75 MG TAB PO SCH (08:34)
[2018-09-23] MEDS: LEVEMIR (INSULIN DETEMIR) 1 UNITS/0.01ML SC SCH (08:34)
[2018-09-23] MEDS: FERROUS GLUCONATE 324 MG TAB PO SCH (08:34)
[2018-09-23] MEDS: predniSONE 10 MG TAB PO SCH (08:34)
[2018-09-23] MEDS: ASPIRIN 81 MG CHEW TABLET PO SCH (08:34)
[2018-09-23] MEDS: guaiFENesin ER 600 MG TAB PO SCH ×2 (08:34→21:09)
[2018-09-23] MEDS: ATORVASTATIN 20 MG TAB PO SCH (08:34)
[2018-09-23] MEDS: CALCITRIOL 0.25 MCG CAP (S0169) PO SCH (08:35)
[2018-09-23] MEDS: CARVedilol 6.25 MG TAB PO SCH ×2 (08:35→21:09)
--- NOTE | 2018-09-23 08:59 | IPN ---
DATE: 09/23/2018 Bryant Ruvalcaba is a patient of Dr. Liban Robert who is on the hospitalist service for congestive heart failure (CHF), reduced ejection fraction of 34%, he has a history of noncompliance with medical care, particularly his diuretics and CPAP therapy. He had acute on chronic kidney failure on admission. Nephrology has been consulted. He is off AZAM inhibitor but his renal function continues to decline. His diuretics were held yesterday by nephrology. Their consultation is appreciated. The patient expressed frustration over having to use is BiPAP. Denies chest pain. Says his shortness of breath is better than it was when he came in. Still dyspneic. PHYSICAL EXAMINATION: 150/92, pulse 81, respiratory rate 18, 93% oxygen saturation on 3 liters. General appearance: Obese, sitting in bed. Not wearing his BiPAP while sleeping. He has a thick neck, narrow airway. Lungs have decreased breath sounds. Heart regular rate and rhythm. Abdomen is soft, obese, no masses. Trace peripheral edema. LABS: Sodium 137, potassium 4.4, BUN 98, creatinine is up to 2.4, glucose 319, white count 12.5, hemoglobin 56, platelets 252. Blood sugars are 200 to 300 ranges. Respiratory panel had previously shown rhinovirus/enterovirus and coronavirus. IMPRESSION: 1. Congestive heart failure (CHF) with reduced ejection fraction. I think he is a little dried out at this point and his diuretics have been held. Short term should respond to prescribed therapy. 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 We discussed this at length today. 2. Acute renal failure superimposed on stage III chronic kidney disease. Renal function has deteriorated from yesterday. He is off his AZAM inhibitor. His diuretics were also held. Nephrology is consulted. He is not ready for discharge yet with progressively worsening renal failure. 3. Chronic obstructive pulmonary disease (COPD). He is on steroids, prednisone by mouth, nebulized bronchodilator. 4. Diabetes. Worse due to steroid therapy. Blood sugar is elevated. Will escalate the dose of his Lantus insulin. 5. Hypertensive heart disease. He is on hydralazine, Isordil and carvedilol at this point with good control of his blood pressure. 6. Hyperlipidemia. Continue atorvastatin 20 mg daily. The patient is being transferred up to [address] [place] [address]. He is not ready for discharge and probably will not be for at least a few more days. His renal function has to return towards baseline before we can think about sending him home.
[2018-09-23] MEDS ORDERED: LEVEMIR (INSULIN DETEMIR) 1 UNITS/0.01ML SC SCH (09:00)
[2018-09-23 10:00] VITALS: BP 144/80
[2018-09-23] MEDS: PROMETHAZINE INJ 25 MG/ML VIAL (J2550) IV PRN ×2 (12:26→21:10)
--- NOTE | 2018-09-23 13:12 | IPN ---
DATE: 09/23/2018 Mr. Ruvalcaba is seen this morning on his bedside. He reports that he had some epigastric discomfort due to bloating and gas buildup. He denies any fever or chills. His dyspnea is chronic and unchanged. PHYSICAL EXAMINATION: Temperature 96.8 degrees Fahrenheit, heart rate 80 per minute and respiratory rate 18 per minute. Blood pressure 170/90 mmHg and oxygen saturation 92%. His head is atraumatic. Neck is supple and without jugular venous distention (JVD) or thyroid enlargement. Heart sounds are regular and lungs with diminished breath sounds bilaterally. Abdomen obese, soft and nontender and bowel sounds are present. Extremities have no cyanosis or clubbing. The patient did not have any new labs done today. PROBLEMS: 1. Acute renal failure superimposed on chronic kidney disease. Yesterday his creatinine increased to 2.4. I am going to order a renal profile for today and also for tomorrow. His kidney function has been gradually worsening and will need to be monitored. 2. Shortness of breath. His volume status clinically seems reasonably well-compensated. He has significant chronic lung disease and remains on 3 liters oxygen. Yesterday's intake and output records did show a negative fluid balance of 385 mL. His weight has been inaccurate.
[2018-09-23 13:27] LABS: ALBUMIN 3.3 GM/DL (3.2-5.2); CALCIUM LEVEL 9.7 MG/DL (8.8-10.2); CREATININE FOR GFR 2.07 MG/DL (0.70-1.30); GLOMERULAR FILTRATION RATE 34.6 (>49); PHOSPHORUS LEVEL 3.5 MG/DL (2.5-4.9); POTASSIUM SERUM 4.4 MEQ/L (3.5-5.1)
[2018-09-23 22:00] VITALS: BP 120/69
[2018-09-24] MEDS: IPRATROPIUM 0.5MG/ALBUTEROL 2.5MG INH SOL UD 3ML (DUONEB)(J7620) NEB SCH ×4 (01:12→19:06)
[2018-09-24 06:00] VITALS: BP 117/66
[2018-09-24] MEDS: **hydrALAZINE** 10 MG TAB PO SCH ×3 (06:00→20:31)
[2018-09-24] MEDS: SLF 3 ML SYR IV SCH ×3 (06:26→20:31)
[2018-09-24] MEDS: ISOSORBIDE DIN (ISORDIL) 10 MG TAB PO SCH ×3 (06:29→17:38)
[2018-09-24 06:39] LABS: HEMATOCRIT 50.6 % (42.0-52.0); HEMOGLOBIN 15.6 g/dl (13.5-17.5); MEAN CORPUSCULAR HEMOGLOBIN 26.5 pg (27.0-33.0); MEAN CORPUSCULAR HGB CONC 30.8 g/dl (32.0-36.5); MEAN CORPUSCULAR VOLUME 86.1 fl (80.0-96.0); PLATELET COUNT, AUTOMATED 229 10^3/uL (150-450); RED BLOOD COUNT 5.88 10^6/uL (4.30-6.10); WHITE BLOOD COUNT 13.3 10^3/uL (4.0-10.0)
[2018-09-24 07:01] LABS: CREATININE FOR GFR 2.03 MG/DL (0.70-1.30); GLOMERULAR FILTRATION RATE 35.4 (>49); POTASSIUM SERUM 4.1 MEQ/L (3.5-5.1)
[2018-09-24] MEDS: ENOXAPARIN 40 MG/0.4 ML SYRINGE (J1650) SC SCH (07:59)
[2018-09-24] MEDS: FERROUS GLUCONATE 324 MG TAB PO SCH (08:00)
[2018-09-24] MEDS: ATORVASTATIN 20 MG TAB PO SCH (08:00)
[2018-09-24] MEDS: HumaLOG INSULIN (NovoLOG) PER UNIT SC SCH ×4 (08:00→20:30)
[2018-09-24] MEDS: ASPIRIN 81 MG CHEW TABLET PO SCH (08:01)
[2018-09-24] MEDS: CLOPIDOGREL 75 MG TAB PO SCH (08:01)
[2018-09-24] MEDS: guaiFENesin ER 600 MG TAB PO SCH ×2 (08:01→20:30)
[2018-09-24] MEDS: CARVedilol 6.25 MG TAB PO SCH ×2 (08:01→20:31)
[2018-09-24] MEDS: predniSONE 10 MG TAB PO SCH (08:01)
[2018-09-24] MEDS: LEVEMIR (INSULIN DETEMIR) 1 UNITS/0.01ML SC SCH (08:02)
[2018-09-24] MEDS: TORSEMIDE 10 MG TABLET PO SCH ×2 (09:00→18:54)
--- NOTE | 2018-09-24 12:02 | IPN ---
DATE OF VISIT: 09/24/2018 Mr. Ruvalcaba is seen this morning on his bedside. He is laying in the bed without any acute distress using oxygen via nasal cannula. He denies any chest pain or abdominal pain. He denies any nausea or vomiting. On physical examination, his temperature is 97.9 degrees Fahrenheit, heart rate 80 per minute and respiratory rate 18 per minute. Blood pressure 120/70 mmHg and oxygen saturation 92%. Head is atraumatic. Neck veins are difficult to be assessed. Heart sounds are regular and lungs with diminished breath sounds bilaterally. Abdomen obese, soft and nontender. Bowel sounds are present. Extremities have no cyanosis or clubbing. Neurologically, he is awake, alert and at his baseline mentation. Today's labs show WBC count 13.3, hemoglobin 15.6 and hematocrit 50.6. Platelets 229. Sodium 144, potassium 4.1, CO2 32, BUN 89 and creatinine 2.03. PROBLEMS: 1. Acute renal failure superimposed on chronic kidney disease. Kidney function seems to be leveled off. There is no further improvement in kidney function for the last couple of days. This is probably his baseline kidney function. 2. Congestive heart failure. Volume status has been stable and we should maintain his volume status with the diuretic. I do not feel that he needs to be in negative fluid balance at this point. He is currently on torsemide 30 mg twice a day and no changes are being made today. 3. Hypertension. Blood pressure is very well controlled on current meds and no changes are being made today.
[2018-09-24 14:00] VITALS: BP 139/73
--- NOTE | 2018-09-24 15:05 | IPNPDOC ---
Date Seen The patient was seen on 09/24/18. Progress Note SUBJECTIVE: Patient reports his shortness of breath is improving. He is still only able to walk to the door of his room and around his room without getting SOB. He also states he feels he has no energy because he has not had any appetite since he has been here. He is willing to work with PT and OT. He does state that his SOB has somewhat improved since admission. OBJECTIVE PHYSICAL EXAMINATION: VITAL SIGNS: Please see below. GENERAL: laying in bed, comfortable, calm, in no acute distress HEENT: moist mucus membranes, no thyromegaly, EOMI CARDIOVASCULAR: RRR, no murmurs/rubs/gallops RESPIRATORY: clear to auscultation bilaterally ABDOMINAL: soft, nontender to palpation, +BS EXTREMITIES: no clubbing/cyanosis/edema NEUROLOGICAL: CN 2-12 intact, no focal deficits PSYCHOLOGICAL: normal mood, somewhat flat affect, AAOx3 LABORATORY DATA, IMAGING STUDIES, MICROBIOLOGY: Please see below. Echocardiogram: 09/2017 1. Study is of markedly limited technical quality. 2. Preserved LV size with septal wall motion abnormality, nonvisualized apex and overall probably mildly reduced LV systolic function. This should not be considered overly reliable due to very limited visualization. Likely grade 2 diastolic dysfunction. 3. No significant valvular disease. 4. Very high central venous pressure. 5. Unable to estimate pulmonary artery pressure. DVT prophylaxis ordered?: Lovenox ASSESSMENT AND PLAN: This is a 62 YO M with history of CHF (rEF), KADIE (noncompliant), DM2, CAD s/p stent, HTN found to be hypoxemic likely 2/2 CHF exacerbation. His ABG on admission demonstrated acute hypercarbic respiratory failure and he is s/p BiPaP in the ICU. He is currently in the med/surg unit with clinical course improving with diuresis and oxygen supplementation. PROBLEMS: 1. SOB likely 2/2 CHF exacerbation: currently on 3L of oxygen. Clinical exam has improved since admission -Last echo demonstrated Grade 2 diastolic dysfunction, EF 30% -volume status has improved -Continue strict fluid restriction -Continue diuresis with Demedex -Low sodium diet 2. Acute on chronic renal failure: -Cr 2.03 from 2.07 yesterday. Stable -Nephrology consulted. Appreciate recommendations. -Will continue to monitor 3. Hx of COPD? -Continue prednisone, bronchodilators -Continue KADIE protocol and BiPaP 4. DM2: persistently elevated blood sugars, most likely 2/2 chronic prednisone use -Lantus increased to 50U -Continue SSI with hypoglycemic protocol 5. Hypertension: BP is WNL -Continue hydralazine, Isordil, Carvedilol 6. CAD s/p stent: -continue Aspirin, Lipitor, Plavix DISPOSITION: Continue PT/OT therapy VS, I&O, 24H, Fishbone Vital Signs/I&O Vital Signs Date Time Temp Pulse Resp B/P (MAP) Pulse Ox O2 Delivery O2 Flow Rate FiO2 09/24/18 14:27 136/72 09/24/18 09:00 80 18 92 Nasal Cannula 3.0 09/24/18 06:00 97.9 09/22/18 08:00 I&O- Last 24 Hours up to 6 AM 09/24/18 06:00 Intake Total 500 ml Output Total 1100 ml Balance -600 ml Laboratory Data 24H LABS Laboratory Tests 2 09/23/18 17:02: Bedside Glucose (Misc Panel) 297H 09/23/18 19:51: Bedside Glucose (Misc Panel) 283H 09/24/18 05:20: Nucleated Red Blood Cells % (auto) 0.0, Anion Gap 8, Glomerular Filtration Rate 35.4L, Blood Urea Nitrogen 89H, Creatinine 2.03H, Sodium Level 144, Potassium Level 4.1, Chloride Level 104, Carbon Dioxide Level 32, Calcium Level 9.0 09/24/18 05:27: Bedside Glucose (Misc Panel) 225H 09/24/18 11:23: Bedside Glucose (Misc Panel) 267H CBC/BMP Laboratory Tests 09/24/18 05:20 Red Blood Count 5.88, Mean Corpuscular Volume 86.1, Mean Corpuscular Hemoglobin 26.5 L, Mean Corpuscular Hemoglobin Concent 30.8 L, Red Cell Distribution Width 14.3, Calcium Level 9.0 Microbiology Microbiology 09/15/18 Blood Culture - Final, Complete NO GROWTH AFTER 5 DAYS 09/15/18 Blood Culture - Final, Complete NO GROWTH AFTER 5 DAYS 09/15/18 Respiratory Virus Panel (PCR) (SP) - Final, Complete Human Rhinovirus/Enterovirus Coronavirus Hku1 09/15/18 Gram Stain - Final, Complete 09/15/18 Sputum Culture - Final, Complete GME ATTESTATION GME ATTESTATION My faculty preceptor for this patient encounter was physically present during the encounter and was fully available. All aspects of the patient interview, examination, medical decision making process, and medical care plan development were reviewed and approved by the faculty preceptor. The faculty preceptor is aware and concurs with the plan as stated in the body of this note and will attest to such by his/her cosignature. GENARO RUBIO MD Sep 24, 2018 14:42
--- NOTE | 2018-09-24 16:07 | REP ---
HISTORY: Dyspnea. COMPARISON: Multiple, the latest 09/21/2018, a portable exam. There is no significant change compared to the prior exam, other than technique. No acute patchy parenchymal opacities or pleural effusions have developed. The heart is not enlarged. The pleural angles are sharp. There is no change in the osseous structures. IMPRESSION: No evidence of acute cardiopulmonary disease. Electronically Signed by Mo Christian DO 09/24/2018 04:31 P
[2018-09-24 22:00] VITALS: BP 154/57
[2018-09-25] MEDS: IPRATROPIUM 0.5MG/ALBUTEROL 2.5MG INH SOL UD 3ML (DUONEB)(J7620) NEB SCH ×4 (01:41→19:02)
[2018-09-25] MEDS: PROMETHAZINE INJ 25 MG/ML VIAL (J2550) IV PRN (03:30)
[2018-09-25 06:00] VITALS: BP 136/74
[2018-09-25] MEDS: ISOSORBIDE DIN (ISORDIL) 10 MG TAB PO SCH ×3 (06:15→17:00)
[2018-09-25] MEDS: SLF 3 ML SYR IV SCH ×3 (06:15→21:31)
[2018-09-25] MEDS: **hydrALAZINE** 10 MG TAB PO SCH ×3 (06:15→21:31)
[2018-09-25 06:33] LABS: HEMATOCRIT 51.4 % (42.0-52.0); HEMOGLOBIN 15.8 g/dl (13.5-17.5); MEAN CORPUSCULAR HEMOGLOBIN 26.6 pg (27.0-33.0); MEAN CORPUSCULAR HGB CONC 30.7 g/dl (32.0-36.5); MEAN CORPUSCULAR VOLUME 86.5 fl (80.0-96.0); PLATELET COUNT, AUTOMATED 207 10^3/uL (150-450); RED BLOOD COUNT 5.94 10^6/uL (4.30-6.10); WHITE BLOOD COUNT 13.6 10^3/uL (4.0-10.0)
[2018-09-25 06:55] LABS: CALCIUM LEVEL 9.3 MG/DL (8.8-10.2); CREATININE FOR GFR 1.92 MG/DL (0.70-1.30); GLOMERULAR FILTRATION RATE 37.7 (>49); POTASSIUM SERUM 4.4 MEQ/L (3.5-5.1)
[2018-09-25] MEDS: ENOXAPARIN 40 MG/0.4 ML SYRINGE (J1650) SC SCH (07:52)
[2018-09-25] MEDS: TORSEMIDE 10 MG TABLET PO SCH ×2 (07:52→17:25)
[2018-09-25] MEDS: CALCITRIOL 0.25 MCG CAP (S0169) PO SCH (07:52)
[2018-09-25] MEDS: CARVedilol 6.25 MG TAB PO SCH ×2 (07:53→21:30)
[2018-09-25] MEDS: predniSONE 10 MG TAB PO SCH (07:53)
[2018-09-25] MEDS: CLOPIDOGREL 75 MG TAB PO SCH (07:54)
[2018-09-25] MEDS: ASPIRIN 81 MG CHEW TABLET PO SCH (07:54)
[2018-09-25] MEDS: ATORVASTATIN 20 MG TAB PO SCH (07:54)
[2018-09-25] MEDS: guaiFENesin ER 600 MG TAB PO SCH ×2 (07:54→21:30)
[2018-09-25] MEDS: FERROUS GLUCONATE 324 MG TAB PO SCH (07:54)
[2018-09-25] MEDS: LEVEMIR (INSULIN DETEMIR) 1 UNITS/0.01ML SC SCH (07:55)
[2018-09-25] MEDS: HumaLOG INSULIN (NovoLOG) PER UNIT SC SCH ×4 (07:55→21:00)
[2018-09-25 08:06] LABS: I079-IGE GLUTEN <0.10 kU/L (Class 0)
--- NOTE | 2018-09-25 11:44 | IPNPDOC ---
Date Seen The patient was seen on 09/25/18. Progress Note SUBJECTIVE: Patient reports feeling better today in terms of his breathing. He is able to walk with physical therapy without issue. He still complains of no appetite and distaste for the hospital food. He will ask his to bring him some from home. Otherwise, no complaints. OBJECTIVE PHYSICAL EXAMINATION: VITAL SIGNS: Please see below. GENERAL: laying in bed, comfortable, calm, in no acute distress HEENT: moist mucus membranes, no thyromegaly, EOMI CARDIOVASCULAR: RRR, no murmurs/rubs/gallops RESPIRATORY: clear to auscultation bilaterally ABDOMINAL: soft, nontender to palpation, +BS EXTREMITIES: no clubbing/cyanosis/edema NEUROLOGICAL: CN 2-12 intact, no focal deficits PSYCHOLOGICAL: normal mood, somewhat flat affect, AAOx3 LABORATORY DATA, IMAGING STUDIES, MICROBIOLOGY: Please see below. Echocardiogram: 09/2017 1. Study is of markedly limited technical quality. 2. Preserved LV size with septal wall motion abnormality, nonvisualized apex and overall probably mildly reduced LV systolic function. This should not be considered overly reliable due to very limited visualization. Likely grade 2 diastolic dysfunction. 3. No significant valvular disease. 4. Very high central venous pressure. 5. Unable to estimate pulmonary artery pressure. DVT prophylaxis ordered?: Lovenox ASSESSMENT AND PLAN: This is a 62 YO M with history of CHF (rEF), KADIE (noncompliant), DM2, CAD s/p stent, HTN found to be hypoxemic likely 2/2 CHF exacerbation. His ABG on admission demonstrated acute hypercarbic respiratory failure and he is s/p BiPaP in the ICU. He is currently in the med/surg unit with clinical course improving with diuresis and oxygen supplementation. PROBLEMS: 1. SOB likely 2/2 CHF exacerbation: currently on 3L of oxygen. Clinical exam has improved since admission -Last echo demonstrated Grade 2 diastolic dysfunction, EF 30% -volume status has improved -Continue strict fluid restriction -Continue diuresis with Demedex -Low sodium diet -Ordering LE bilateral doppler to R/U DVT/PE 2. Acute on chronic renal failure: -Cr 1.9 from 2.03 yesterday. Stable -Nephrology consulted. Appreciate recommendations. -Will continue to monitor 3. Hx of COPD? -Continue prednisone, bronchodilators -Continue KADIE protocol and BiPaP 4. DM2: persistently elevated blood sugars, most likely 2/2 chronic prednisone use -Lantus increased to 50U. Better control of BGL at this time -Continue SSI with hypoglycemic protocol 5. Hypertension: BP is WNL -Continue hydralazine, Isordil, Carvedilol 6. CAD s/p stent: -continue Aspirin, Lipitor, Plavix DISPOSITION: Continue PT/OT therapy VS, I&O, 24H, Fishbone Vital Signs/I&O Vital Signs Date Time Temp Pulse Resp B/P (MAP) Pulse Ox O2 Delivery O2 Flow Rate FiO2 09/25/18 09:00 80 18 92 Nasal Cannula 3.0 09/25/18 07:53 120/72 09/25/18 06:00 98.3 09/22/18 08:00 I&O- Last 24 Hours up to 6 AM 09/25/18 06:00 Intake Total 1130 ml Output Total 1075 ml Balance 55 ml Laboratory Data 24H LABS Laboratory Tests 2 09/24/18 16:08: Bedside Glucose (Misc Panel) 244H 09/24/18 20:13: Bedside Glucose (Misc Panel) 278H 09/25/18 05:20: Nucleated Red Blood Cells % (auto) 0.0, Anion Gap 6L, Glomerular Filtration Rate 37.7L, Blood Urea Nitrogen 84H, Creatinine 1.92H, Sodium Level 142, Potassium Level 4.4, Chloride Level 104, Carbon Dioxide Level 32, Calcium Level 9.3 CBC/BMP Laboratory Tests 09/25/18 05:20 Red Blood Count 5.94, Mean Corpuscular Volume 86.5, Mean Corpuscular Hemoglobin 26.6 L, Mean Corpuscular Hemoglobin Concent 30.7 L, Red Cell Distribution Width 14.3, Calcium Level 9.3 Microbiology Microbiology 09/15/18 Blood Culture - Final, Complete NO GROWTH AFTER 5 DAYS 09/15/18 Blood Culture - Final, Complete NO GROWTH AFTER 5 DAYS 09/15/18 Respiratory Virus Panel (PCR) (SP) - Final, Complete Human Rhinovirus/Enterovirus Coronavirus Hku1 09/15/18 Gram Stain - Final, Complete 09/15/18 Sputum Culture - Final, Complete GME ATTESTATION GME ATTESTATION My faculty preceptor for this patient encounter was physically present during the encounter and was fully available. All aspects of the patient interview, examination, medical decision making process, and medical care plan development were reviewed and approved by the faculty preceptor. The faculty preceptor is aware and concurs with the plan as stated in the body of this note and will attest to such by his/her cosignature. GENARO RUBIO MD Sep 25, 2018 11:44
--- NOTE | 2018-09-25 13:49 | REP ---
DEEP VENOUS ULTRASONOGRAPHY BILATERAL THIGHS, RULE OUT DVT: REASON: Pain and swelling bilaterally. TECHNIQUE: Multiple ultrasonographic images of the deep venous structures of the thighs were obtained from the common femoral vein to the popliteal vein along with Doppler interrogation and color flow Doppler images. FINDINGS: There is no abnormal echogenic material seen within any of the visualized deep venous structures that would suggest acute thrombosis. Coaptation is unremarkable throughout. Doppler interrogation shows an expected response to respiratory variability and augmentation. The color flow images show what appears to be a normal vascular pattern throughout. IMPRESSION: There is no ultrasonographic evidence of deep venous thrombosis involving any of the visualized deep venous structures of the bilateral thighs, as described above. Electronically Signed by Mo Christian DO 09/25/2018 05:01 P
[2018-09-25 14:00] VITALS: BP 117/70
[2018-09-25 22:00] VITALS: BP 127/72
[2018-09-26] MEDS: IPRATROPIUM 0.5MG/ALBUTEROL 2.5MG INH SOL UD 3ML (DUONEB)(J7620) NEB SCH ×4 (01:02→20:00)
[2018-09-26 06:00] VITALS: BP 130/72
[2018-09-26] MEDS: SLF 3 ML SYR IV SCH ×3 (06:00→21:18)
[2018-09-26 06:02] LABS: HEMATOCRIT 51.4 % (42.0-52.0); HEMOGLOBIN 15.9 g/dl (13.5-17.5); MEAN CORPUSCULAR HEMOGLOBIN 26.5 pg (27.0-33.0); MEAN CORPUSCULAR HGB CONC 30.9 g/dl (32.0-36.5); MEAN CORPUSCULAR VOLUME 85.8 fl (80.0-96.0); PLATELET COUNT, AUTOMATED 156 10^3/uL (150-450); RED BLOOD COUNT 5.99 10^6/uL (4.30-6.10); WHITE BLOOD COUNT 14.3 10^3/uL (4.0-10.0)
[2018-09-26 06:26] LABS: CREATININE FOR GFR 1.87 MG/DL (0.70-1.30); GLOMERULAR FILTRATION RATE 38.9 (>49); POTASSIUM SERUM 3.8 MEQ/L (3.5-5.1)
[2018-09-26] MEDS: **hydrALAZINE** 10 MG TAB PO SCH ×3 (06:36→21:18)
[2018-09-26] MEDS: ISOSORBIDE DIN (ISORDIL) 10 MG TAB PO SCH ×3 (06:36→17:28)
[2018-09-26 08:28] LABS: C REACTIVE PROTEIN QUANTITATIV 0.33 MG/DL (0.00-0.30)
[2018-09-26] MEDS: LEVEMIR (INSULIN DETEMIR) 1 UNITS/0.01ML SC SCH (09:00)
[2018-09-26] MEDS: NYSTATIN 500,000 U/5 ML SUSP UDC SS SCH ×3 (09:00→20:43)
[2018-09-26] MEDS: TORSEMIDE 10 MG TABLET PO SCH ×2 (09:00→17:27)
[2018-09-26] MEDS: CARVedilol 6.25 MG TAB PO SCH ×2 (09:02→20:44)
[2018-09-26] MEDS: guaiFENesin ER 600 MG TAB PO SCH ×2 (09:02→20:44)
[2018-09-26] MEDS: CLOPIDOGREL 75 MG TAB PO SCH (09:02)
[2018-09-26] MEDS: predniSONE 10 MG TAB PO SCH (09:03)
[2018-09-26] MEDS: FERROUS GLUCONATE 324 MG TAB PO SCH (09:03)
[2018-09-26] MEDS: ATORVASTATIN 20 MG TAB PO SCH (09:03)
[2018-09-26] MEDS: ASPIRIN 81 MG CHEW TABLET PO SCH (09:03)
[2018-09-26] MEDS: ENOXAPARIN 40 MG/0.4 ML SYRINGE (J1650) SC SCH (09:04)
[2018-09-26] MEDS: HumaLOG INSULIN (NovoLOG) PER UNIT SC SCH ×4 (09:05→20:44)
--- NOTE | 2018-09-26 09:05 | REP ---
PA and lateral chest: Comparison is 09/24/2018. The lung rodriguez are clear. The cardiac size is normal. The babs, mediastinum, and skeletal structures are unremarkable. There are gowning / clothing/monitoring lead the artifacts projected over the right apex. Impression: Negative PA and lateral chest. Electronically Signed by Nick Lynn MD 09/26/2018 08:56 A
--- NOTE | 2018-09-26 11:40 | IPNPDOC ---
Date Seen The patient was seen on 09/26/18. Progress Note SUBJECTIVE: Patient states he is "not feeling well" today and not feeling his usual self. It is a somewhat vague feeling, although he is afebrile, has no shortness of breath, n/v/ or abdominal pain at this time. He has not eaten much over the past few days. He does state he gets a sore/dry throat when he uses his BiPaP at night. OBJECTIVE PHYSICAL EXAMINATION: VITAL SIGNS: Please see below. GENERAL: laying in bed, comfortable, calm, in no acute distress HEENT: moist mucus membranes, some white plaques on posterior pharynx, no thyromegaly, EOMI CARDIOVASCULAR: RRR, no murmurs/rubs/gallops RESPIRATORY: clear to auscultation bilaterally ABDOMINAL: soft, nontender to palpation, +BS EXTREMITIES: no clubbing/cyanosis/edema NEUROLOGICAL: CN 2-12 intact, no focal deficits PSYCHOLOGICAL: normal mood, somewhat flat affect, AAOx3 LABORATORY DATA, IMAGING STUDIES, MICROBIOLOGY: Please see below. Echocardiogram: 09/2017 1. Study is of markedly limited technical quality. 2. Preserved LV size with septal wall motion abnormality, nonvisualized apex and overall probably mildly reduced LV systolic function. This should not be considered overly reliable due to very limited visualization. Likely grade 2 diastolic dysfunction. 3. No significant valvular disease. 4. Very high central venous pressure. 5. Unable to estimate pulmonary artery pressure. DVT prophylaxis ordered?: Lovenox ASSESSMENT AND PLAN: This is a 62 YO M with history of CHF (rEF), KADIE (noncompliant), DM2, CAD s/p stent, HTN found to be hypoxemic likely 2/2 CHF exacerbation. His ABG on admission demonstrated acute hypercarbic respiratory failure and he is s/p BiPaP in the ICU. He is currently in the med/surg unit with clinical course improving with diuresis and oxygen supplementation. PROBLEMS: 1. SOB likely 2/2 CHF exacerbation: currently on 3L of oxygen. Clinical exam has improved since admission -Last echo demonstrated Grade 2 diastolic dysfunction, EF 30% -volume status has improved -Continue strict fluid restriction -Continue diuresis with Demedex -Low sodium diet -LE bilateral doppler to R/U DVT/PE negative for DVT -CT chest today for suspected infection, giving rising WBC 2. Acute on chronic renal failure: -Cr 1.8 today. Stable -Nephrology consulted. Appreciate recommendations. -Will continue to monitor 3. Hx of KADIE -Prednisone stopped, as it may be a cause of his increasing WBC -Continue KADIE protocol and BiPaP 4. DM2: persistently elevated blood sugars, most likely 2/2 chronic prednisone use -Lantus increased to 50U. Better control of BGL at this time -Continue SSI with hypoglycemic protocol 5. Hypertension: BP is WNL -Continue hydralazine, Isordil, Carvedilol 6. CAD s/p stent: -continue Aspirin, Lipitor, Plavix DISPOSITION: PT recommends home with services VS, I&O, 24H, Fishbone Vital Signs/I&O Vital Signs Date Time Temp Pulse Resp B/P (MAP) Pulse Ox O2 Delivery O2 Flow Rate FiO2 09/26/18 09:02 76 132/74 09/26/18 09:00 3.0 09/26/18 09:00 18 92 Nasal Cannula 09/26/18 06:00 97.6 09/22/18 08:00 I&O- Last 24 Hours up to 6 AM 09/26/18 05:59 Intake Total 1440 ml Output Total 1100 ml Balance 340 ml Laboratory Data 24H LABS Laboratory Tests 2 09/25/18 16:36: Bedside Glucose (Misc Panel) 249H 09/25/18 19:48: Bedside Glucose (Misc Panel) 214H 09/26/18 05:22: Nucleated Red Blood Cells % (auto) 0.0, Anion Gap 8, Glomerular Filtration Rate 38.9L, Blood Urea Nitrogen 78H, Creatinine 1.87H, Sodium Level 141, Potassium Level 3.8, Chloride Level 100, Carbon Dioxide Level 33H, Calcium Level 9.0, C- Reactive Protein, Quantitative 0.33H 09/26/18 05:30: Bedside Glucose (Misc Panel) 230H CBC/BMP Laboratory Tests 09/26/18 05:22 Red Blood Count 5.99, Mean Corpuscular Volume 85.8, Mean Corpuscular Hemoglobin 26.5 L, Mean Corpuscular Hemoglobin Concent 30.9 L, Red Cell Distribution Width 14.1, Calcium Level 9.0 GME ATTESTATION GME ATTESTATION My faculty preceptor for this patient encounter was physically present during the encounter and was fully available. All aspects of the patient interview, examination, medical decision making process, and medical care plan development were reviewed and approved by the faculty preceptor. The faculty preceptor is aware and concurs with the plan as stated in the body of this note and will attest to such by his/her cosignature. GENARO RUBIO MD Sep 26, 2018 11:40
--- NOTE | 2018-09-26 12:05 | IPN ---
DATE OF VISIT: 09/26/2018 Mr. Ruvalcaba was followed by congestive heart failure and acute kidney injury. His kidney function has been stable for a few days and I did not see him for last couple of days. From renal standpoint, he is doing well with stable renal function. I am signing off his case and will followup as an outpatient in couple of weeks after discharge. From renal standpoint, he can continue with all current medications. Please do not hesitate to call me should you need any further assistance.
[2018-09-26 13:19] LABS: ABG BASE EXCESS 7.8 (-2.0-2.0); ABG HCO3 32.7 MEQ/L (22.0-26.0); ABG O2 SATURATION 92.1 % (95.0-99.0); ABG PARTIAL PRESSURE CO2 45.9 mmHg (35.0-45.0); ABG PARTIAL PRESSURE O2 62.6 mmHg (75.0-100.0); ABG STANDARD HCO3 31.5 MEQ/L (22.0-26.0); ABG TOTAL CO2 34.1 MEQ/L (23.0-31.0); ABG pH (ARTERIAL) 7.471 UNITS (7.350-7.450)
[2018-09-26 14:00] VITALS: BP 140/77
[2018-09-26] MEDS: EUCERIN 120GM CREAM TOP SCH ×2 (14:30→20:45)
[2018-09-26 22:00] VITALS: BP 124/70
[2018-09-27] MEDS: IPRATROPIUM 0.5MG/ALBUTEROL 2.5MG INH SOL UD 3ML (DUONEB)(J7620) NEB SCH ×4 (02:00→20:00)
[2018-09-27] MEDS: SLF 3 ML SYR IV SCH ×3 (05:05→21:37)
[2018-09-27] MEDS: **hydrALAZINE** 10 MG TAB PO SCH ×3 (05:05→21:36)
[2018-09-27 06:00] VITALS: BP 118/74
[2018-09-27 06:02] LABS: HEMATOCRIT 48.9 % (42.0-52.0); HEMOGLOBIN 15.3 g/dl (13.5-17.5); MEAN CORPUSCULAR HEMOGLOBIN 26.6 pg (27.0-33.0); MEAN CORPUSCULAR HGB CONC 31.3 g/dl (32.0-36.5); MEAN CORPUSCULAR VOLUME 84.9 fl (80.0-96.0); PLATELET COUNT, AUTOMATED 178 10^3/uL (150-450); RED BLOOD COUNT 5.76 10^6/uL (4.30-6.10); WHITE BLOOD COUNT 16.3 10^3/uL (4.0-10.0)
[2018-09-27 06:26] LABS: CALCIUM LEVEL 8.7 MG/DL (8.8-10.2); CREATININE FOR GFR 2.07 MG/DL (0.70-1.30); GLOMERULAR FILTRATION RATE 34.6 (>49); POTASSIUM SERUM 3.9 MEQ/L (3.5-5.1)
[2018-09-27] MEDS: ISOSORBIDE DIN (ISORDIL) 10 MG TAB PO SCH ×3 (06:38→16:23)
--- NOTE | 2018-09-27 08:57 | REP ---
CT of the chest without IV contrast for shortness of breath: Comparison is of 03/30/2018. There are no acute infiltrates. There are no pleural effusions. There is a small parenchymal scar posteriorly in the right upper lobe where there was an acute infiltrate previously. The previous small bilateral pleural effusions have resolved. The There are no nodules or masses. There is no mediastinal or axillary lymph node enlargement. The study is insensitive for hilar lymph node enlargement in the absence of IV contrast. The unenhanced thoracic aorta is unremarkable. Cardiac size is upper normal, unchanged. There is no pericardial effusion. The visualized unenhanced upper abdominal contents are unremarkable. Impression: There is no acute infiltrate or pleural effusion. There are no masses, nodules, or adenopathy. There is a small parenchymal scarring posteriorly in the right upper lobe as described. Electronically Signed by Nick Lynn MD 09/27/2018 08:49 A
[2018-09-27] MEDS: CARVedilol 6.25 MG TAB PO SCH ×2 (09:00→21:35)
[2018-09-27] MEDS: NYSTATIN 500,000 U/5 ML SUSP UDC SS SCH ×3 (09:00→21:48)
[2018-09-27] MEDS: ENOXAPARIN 40 MG/0.4 ML SYRINGE (J1650) SC SCH (09:00)
[2018-09-27] MEDS: LEVEMIR (INSULIN DETEMIR) 1 UNITS/0.01ML SC SCH (09:00)
[2018-09-27] MEDS: EUCERIN 120GM CREAM TOP SCH ×2 (09:00→21:37)
--- NOTE | 2018-09-27 09:06 | REP ---
CT Head without contrast HISTORY: Syncope COMPARISON: 10/12/2014 An area of decreased attenuation is present in the right occipital lobe. There is dilatation of the overlying cortical sulci. This represents an old infarction. Areas of decreased attenuation are present in the periventricular white matter. This represents small-vessel ischemic disease. There is no intraparenchymal hemorrhage, acute infarct, mass or midline shift. The ventricular system and cortical sulci are dilated consistent with mild volume loss. There is no extra cerebral collection. There is no fracture. Those will thickening is present in the left maxillary sinus. IMPRESSION: 1. 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 2. Small vessel ischemic disease. 3. Mild volume loss. Electronically Signed by Alfonso Bailey MD 09/27/2018 08:57 A
[2018-09-27] MEDS: CALCITRIOL 0.25 MCG CAP (S0169) PO SCH (10:05)
[2018-09-27] MEDS: ATORVASTATIN 20 MG TAB PO SCH (10:05)
[2018-09-27] MEDS: ASPIRIN 81 MG CHEW TABLET PO SCH (10:05)
[2018-09-27] MEDS: FERROUS GLUCONATE 324 MG TAB PO SCH (10:05)
[2018-09-27] MEDS: guaiFENesin ER 600 MG TAB PO SCH ×2 (10:05→21:33)
[2018-09-27] MEDS: CLOPIDOGREL 75 MG TAB PO SCH (10:06)
[2018-09-27] MEDS: HumaLOG INSULIN (NovoLOG) PER UNIT SC SCH ×4 (10:08→21:38)
[2018-09-27] MEDS: TORSEMIDE 10 MG TABLET PO SCH ×2 (10:15→16:53)
[2018-09-27 11:36] VITALS: BP_SYST 116; BP_SYST 85; BP_SYST 98; BP_DIAS 55; BP_DIAS 60; BP_DIAS 72
--- NOTE | 2018-09-27 13:37 | IPNPDOC ---
Date Seen The patient was seen on 09/27/18. Progress Note SUBJECTIVE: Patient continues to report he does not feel well this morning. Nursing states he had a syncopal event yesterday while being transferred to the wheelchair in which his body became rigid, eyes rolled, and he was reportedly unresponsive for 2-3 minutes. Nursing also reports that prior to this event he was found to be incontinent, which is unusual for him. His reported that he does have a history of seizures. The patient has no memory of the event. Otherwise, he continues to have no appetite and not "feel [himself]." No fevers/chills/n/v/d. OBJECTIVE PHYSICAL EXAMINATION: VITAL SIGNS: Please see below. GENERAL: laying in bed, comfortable, calm, in no acute distress HEENT: moist mucus membranes, some white plaques on posterior pharynx, no thyromegaly, EOMI CARDIOVASCULAR: RRR, no murmurs/rubs/gallops RESPIRATORY: clear to auscultation bilaterally ABDOMINAL: soft, nontender to palpation, +BS EXTREMITIES: no clubbing/cyanosis/edema NEUROLOGICAL: CN 2-12 intact, no focal deficits PSYCHOLOGICAL: normal mood, somewhat flat affect, AAOx3 LABORATORY DATA, IMAGING STUDIES, MICROBIOLOGY: Please see below. Echocardiogram: 09/2017 1. Study is of markedly limited technical quality. 2. Preserved LV size with septal wall motion abnormality, nonvisualized apex and overall probably mildly reduced LV systolic function. This should not be considered overly reliable due to very limited visualization. Likely grade 2 diastolic dysfunction. 3. No significant valvular disease. 4. Very high central venous pressure. 5. Unable to estimate pulmonary artery pressure. DVT prophylaxis ordered?: Lovenox ASSESSMENT AND PLAN: This is a 62 YO M with history of CHF (rEF), KADIE ( noncompliant), DM2, CAD s/p stent, HTN found to be hypoxemic likely 2/2 CHF exacerbation. His ABG on admission demonstrated acute hypercarbic respiratory failure and he is s/p BiPaP in the ICU. He is currently in the med/surg unit with clinical course complicated by increasing WBC and concern for seizures vs syncope. PROBLEMS: 1. Syncope vs seizure: Nursing reports the patient was incontinent + u nresponsive for about 2-3 minutes yesterday when transferring to wheelchair. Likely 2/2 autonomic dysfunction vs dehydration vs seizure. -Orthostatics are positive and Cr is up today. Suspect his fluid status is somewhat hypovolemic. -Continue telemetry -Continue seizure precautions. EEG ordered. Case was discussed with Neurology (Dr. Johnson) who suggested EEG at this time with no indication for other imaging. Should patient have another event, he will see the patient and will start him on anti-epileptic. Of note, patient was hospitalized for the same reason in 2014 and etiology of "rigid spells" was never found. EEG and imaging at that time was negative. -Head CT this morning negative for any intracranial pathology other than old infarct (no change from prior head CT) 2. SOB likely 2/2 CHF exacerbation: currently on 3L of oxygen. Respiratory exam has improved throughout admission. -Last echo demonstrated Grade 2 diastolic dysfunction, EF 30% -volume status has improved -Continue strict fluid restriction -Continue diuresis with Demedex -Low sodium diet -LE bilateral doppler to R/U DVT/PE negative for DVT -CT chest today for suspected infection, giving rising WBC 3. Acute on chronic renal failure: -Cr increased from 1.8 to 2.07 today. Expecting some fluctuation -Nephrology consulted. Appreciate recommendations. -Will continue to monitor 4. Hx of KADIE -Prednisone stopped, as it may be a cause of his increasing WBC -Continue KADIE protocol and BiPaP 5. DM2: persistently elevated blood sugars, most likely 2/2 chronic prednisone use -Lantus increased to 50U. Better control of BGL at this time -Continue SSI with hypoglycemic protocol 6. Hypertension: BP is WNL -Continue hydralazine, Isordil, Carvedilol 7. CAD s/p stent: -continue Aspirin, Lipitor, Plavix DISPOSITION: pending clinical improvement and physical therapy recommendations, 09/24 determination was "not safe for discharge" VS, I&O, 24H, Fishbone Vital Signs/I&O Vital Signs Date Time Temp Pulse Resp B/P (MAP) Pulse Ox O2 Delivery O2 Flow Rate FiO2 09/27/18 09:00 82 120/72 09/27/18 09:00 3.0 09/27/18 06:00 97.5 21 93 09/26/18 09:00 Nasal Cannula 09/22/18 08:00 I&O- Last 24 Hours up to 6 AM 09/27/18 06:00 Intake Total 1080 ml Output Total 1570 ml Balance -490 ml Laboratory Data 24H LABS Laboratory Tests 2 09/26/18 11:43: Bedside Glucose (Misc Panel) 311H 09/26/18 12:55: 09/26/18 13:07: Blood Gas Bicarbonate Standard 31.5H, Arterial Blood pH 7.471H, Arterial Blood Partial Pressure CO2 45.9H, Arterial Blood Partial Pressure O2 62.6L, Arterial Blood Total CO2 34.1H, Arterial Blood HCO3 32.7H, Arterial Blood Base Excess 7.8H, Arterial Blood Oxygen Saturation 92.1L 09/26/18 17:02: Bedside Glucose (Misc Panel) 261H 09/26/18 20:27: Bedside Glucose (Misc Panel) 240H 09/27/18 05:19: Nucleated Red Blood Cells % (auto) 0.0, Anion Gap 7L, Glomerular Filtration Rate 34.6L, Blood Urea Nitrogen 82H, Creatinine 2.07H, Sodium Level 141, Potassium Level 3.9, Chloride Level 100, Carbon Dioxide Level 34H, Calcium Level 8.7L CBC/BMP Laboratory Tests 09/27/18 05:19 Red Blood Count 5.76, Mean Corpuscular Volume 84.9, Mean Corpuscular Hemoglobin 26.6 L, Mean Corpuscular Hemoglobin Concent 31.3 L, Red Cell Distribution Width 14.1, Calcium Level 8.7 L GME ATTESTATION GME ATTESTATION My faculty preceptor for this patient encounter was physically present during the encounter and was fully available. All aspects of the patient interview, examination, medical decision making process, and medical care plan development were reviewed and approved by the faculty preceptor. The faculty preceptor is aware and concurs with the plan as stated in the body of this note and will attest to such by his/her cosignature. GENARO RUBIO MD Sep 27, 2018 11:42
[2018-09-27 22:00] VITALS: BP 119/76
[2018-09-28] VITALS (8 sets, daily range): BP systolic 76–133; BP diastolic 50–84
[2018-09-28] MEDS: IPRATROPIUM 0.5MG/ALBUTEROL 2.5MG INH SOL UD 3ML (DUONEB)(J7620) NEB SCH ×4 (01:07→20:00)
[2018-09-28] MEDS: **hydrALAZINE** 10 MG TAB PO SCH (06:00)
[2018-09-28] MEDS: SLF 3 ML SYR IV SCH ×3 (06:00→21:06)
[2018-09-28 06:39] LABS: HEMATOCRIT 49.7 % (42.0-52.0); HEMOGLOBIN 15.7 g/dl (13.5-17.5); MEAN CORPUSCULAR HEMOGLOBIN 26.5 pg (27.0-33.0); MEAN CORPUSCULAR HGB CONC 31.6 g/dl (32.0-36.5); PLATELET COUNT, AUTOMATED 201 10^3/uL (150-450); RED BLOOD COUNT 5.92 10^6/uL (4.30-6.10)
[2018-09-28] MEDS: ISOSORBIDE DIN (ISORDIL) 10 MG TAB PO SCH ×2 (06:40→12:00)
[2018-09-28 06:51] LABS: CALCIUM LEVEL 8.8 MG/DL (8.8-10.2); CREATININE FOR GFR 1.91 MG/DL (0.70-1.30); POTASSIUM SERUM 3.8 MEQ/L (3.5-5.1)
[2018-09-28] MEDS: HumaLOG INSULIN (NovoLOG) PER UNIT SC SCH ×4 (07:30→21:05)
[2018-09-28] MEDS: ATORVASTATIN 20 MG TAB PO SCH (08:46)
[2018-09-28] MEDS: FERROUS GLUCONATE 324 MG TAB PO SCH (08:46)
[2018-09-28] MEDS: CLOPIDOGREL 75 MG TAB PO SCH (08:46)
[2018-09-28] MEDS: guaiFENesin ER 600 MG TAB PO SCH ×2 (08:46→21:04)
[2018-09-28] MEDS: ASPIRIN 81 MG CHEW TABLET PO SCH (08:46)
[2018-09-28] MEDS: LEVEMIR (INSULIN DETEMIR) 1 UNITS/0.01ML SC SCH (08:47)
[2018-09-28] MEDS: EUCERIN 120GM CREAM TOP SCH ×2 (08:47→21:05)
[2018-09-28] MEDS: NYSTATIN 500,000 U/5 ML SUSP UDC SS SCH ×3 (08:47→21:04)
[2018-09-28] MEDS: ENOXAPARIN 40 MG/0.4 ML SYRINGE (J1650) SC SCH (08:47)
[2018-09-28] MEDS: CARVedilol 6.25 MG TAB PO SCH ×2 (08:49→21:04)
[2018-09-28] MEDS: TORSEMIDE 10 MG TABLET PO SCH ×2 (08:53→16:55)
--- NOTE | 2018-09-28 09:50 | IPNPDOC ---
Date Seen The patient was seen on 09/28/18. Progress Note SUBJECTIVE: The patient reports he is feeling much better this morning with no major complaints. He still struggles a bit using his CPAP at night. His BP was 90/57 at the time of morning medication administration, so his Isordil and Hydralazine were held. Otherwise, he has no complaints and states he feels as if he is getting a lot of his energy back. OBJECTIVE PHYSICAL EXAMINATION: VITAL SIGNS: Please see below. GENERAL: laying in bed, comfortable, calm, in no acute distress HEENT: moist mucus membranes, some white plaques on posterior pharynx, no thyromegaly, EOMI CARDIOVASCULAR: RRR, no murmurs/rubs/gallops RESPIRATORY: clear to auscultation bilaterally ABDOMINAL: soft, nontender to palpation, +BS EXTREMITIES: no clubbing/cyanosis/edema NEUROLOGICAL: CN 2-12 intact, no focal deficits PSYCHOLOGICAL: normal mood, somewhat flat affect, AAOx3 LABORATORY DATA, IMAGING STUDIES, MICROBIOLOGY: Please see below. Echocardiogram: 09/2017 1. Study is of markedly limited technical quality. 2. Preserved LV size with septal wall motion abnormality, nonvisualized apex and overall probably mildly reduced LV systolic function. This should not be considered overly reliable due to very limited visualization. Likely grade 2 diastolic dysfunction. 3. No significant valvular disease. 4. Very high central venous pressure. 5. Unable to estimate pulmonary artery pressure. DVT prophylaxis ordered?: Lovenox ASSESSMENT AND PLAN: This is a 62 YO M with history of CHF (rEF), KADIE (noncom pliant), DM2, CAD s/p stent, HTN found to be hypoxemic likely 2/2 CHF exacerbation. His ABG on admission demonstrated acute hypercarbic respiratory failure and he is s/p BiPaP in the ICU. He is currently in the med/surg unit with clinical course complicated by increasing WBC and concern for seizures vs syncope. PROBLEMS: 1. Syncope vs seizure: Nursing reports the patient was incontinent + unrespo nsive for about 2-3 minutes when transferring to wheelchair. Likely 2/2 autonomic dysfunction vs dehydration vs seizure. -Orthostatics are positive. Suspect his fluid status is somewhat hypovolemic. -Continue telemetry -Continue seizure precautions. EEG ordered. Case was discussed with Neurology (Hillary Johnson) who suggested EEG at this time with no indication for other imaging. Should patient have another event, he will see the patient and will start him on anti-epileptic. Of note, patient was hospitalized for the same reason in 2015 and etiology of "rigid spells" was never found. EEG and imaging at that time was negative. -Head CT negative for any intracranial pathology other than old infarct (no change from prior head CT) 2. SOB likely 2/2 CHF exacerbation: currently on 3L of oxygen. Respiratory exam has improved throughout admission. -Last echo demonstrated Grade 2 diastolic dysfunction, EF 30% -volume status has improved -Continue strict fluid restriction -Continue diuresis with Demedex -Low sodium diet -LE bilateral doppler to R/U DVT/PE negative for DVT -CT chest today for suspected infection, giving rising WBC 3. Acute on chronic renal failure: -Cr down to 1.9 from 2.07. Expecting some fluctuation -Nephrology consulted. Appreciate recommendations. -Will continue to monitor 4. Hx of KADIE -Prednisone stopped, as it may be a cause of his increasing WBC -Continue KADIE protocol and BiPaP 5. DM2: persistently elevated blood sugars, most likely 2/2 chronic prednisone use -Lantus increased to 50U. Better control of BGL at this time -Continue SSI with hypoglycemic protocol 6. Hypertension: BP is WNL -Continue hydralazine, Isordil, Carvedilol 7. CAD s/p stent: -continue Aspirin, Lipitor, Plavix DISPOSITION: pending clinical improvement and physical therapy recommendations VS, I&O, 24H, Fishbone Vital Signs/I&O Vital Signs Date Time Temp Pulse Resp B/P (MAP) Pulse Ox O2 Delivery O2 Flow Rate FiO2 09/28/18 08:49 80 119/73 09/28/18 06:00 96.8 19 94 3.0 09/26/18 09:00 Nasal Cannula 09/22/18 08:00 I&O- Last 24 Hours up to 6 AM 09/28/18 06:00 Intake Total 1140 ml Output Total 2250 ml Balance -1110 ml Laboratory Data 24H LABS Laboratory Tests 2 09/27/18 11:39: Bedside Glucose (Misc Panel) 314H 09/27/18 14:36: Urine Color YELLOW, Urine Appearance CLEAR, Urine pH 5.0, Urine Specific [place] 1.011, Urine Protein NEGATIVE, Urine Glucose (UA) NEGATIVE, Urine Ketones NEGATIVE, Urine Blood NEGATIVE, Urine Nitrite NEGATIVE, Urine Bilirubin NEGATIVE, Urine Urobilinogen 0.2, Urine Leukocyte Esterase NEGATIVE, Urine WBC (Auto) 1, Urine RBC (Auto) 1, Urine Hyaline Casts (Auto) 2, Urine Bacteria (Auto) NEGATIVE, Urine Squamous Epithelial Cells 0, Urine Mucus (Auto) SMALL, Urine Sperm (Auto) 09/27/18 16:29: Bedside Glucose (Misc Panel) 338H 09/27/18 21:04: Bedside Glucose (Misc Panel) 379H 09/28/18 05:25: Nucleated Red Blood Cells % (auto) 0.0, Anion Gap 7L, Glomerular Filtration Rate 38.0L, Blood Urea Nitrogen 76H, Creatinine 1.91H, Sodium Level 140, Potassium Level 3.8, Chloride Level 100, Carbon Dioxide Level 33H, Calcium Level 8.8 CBC/BMP Laboratory Tests 09/28/18 05:25 Red Blood Count 5.92, Mean Corpuscular Volume 84.0, Mean Corpuscular Hemoglobin 26.5 L, Mean Corpuscular Hemoglobin Concent 31.6 L, Red Cell Distribution Width 14.0, Calcium Level 8.8 GME ATTESTATION GME ATTESTATION My faculty preceptor for this patient encounter was physically present during the encounter and was fully available. All aspects of the patient interview, examination, medical decision making process, and medical care plan development were reviewed and approved by the faculty preceptor. The faculty preceptor is aware and concurs with the plan as stated in the body of this note and will attest to such by his/her cosignature. GENARO RUBIO MD Sep 28, 2018 09:50
[2018-09-28] MEDS: ISOSORBIDE DIN. (ISORDIL) 5 MG TAB PO SCH (16:35)
[2018-09-28] MEDS ORDERED: ISOSORBIDE DIN (ISORDIL) 10 MG TAB PO SCH (17:00)
[2018-09-29] MEDS: IPRATROPIUM 0.5MG/ALBUTEROL 2.5MG INH SOL UD 3ML (DUONEB)(J7620) NEB SCH ×4 (01:06→19:08)
[2018-09-29 06:00] VITALS: BP 120/77
[2018-09-29] MEDS: SLF 3 ML SYR IV SCH ×3 (06:02→21:48)
[2018-09-29 06:03] VITALS: BP_SYST 122; BP_SYST 91; BP_DIAS 51; BP_DIAS 78
[2018-09-29 06:34] LABS: HEMATOCRIT 48.9 % (42.0-52.0); HEMOGLOBIN 15.4 g/dl (13.5-17.5); MEAN CORPUSCULAR HEMOGLOBIN 26.6 pg (27.0-33.0); MEAN CORPUSCULAR HGB CONC 31.5 g/dl (32.0-36.5); MEAN CORPUSCULAR VOLUME 84.3 fl (80.0-96.0); PLATELET COUNT, AUTOMATED 199 10^3/uL (150-450); WHITE BLOOD COUNT 14.6 10^3/uL (4.0-10.0)
[2018-09-29] MEDS: ISOSORBIDE DIN. (ISORDIL) 5 MG TAB PO SCH ×3 (06:35→16:57)
[2018-09-29 06:53] LABS: CALCIUM LEVEL 8.7 MG/DL (8.8-10.2); CREATININE FOR GFR 1.93 MG/DL (0.70-1.30); GLOMERULAR FILTRATION RATE 37.5 (>49); POTASSIUM SERUM 3.8 MEQ/L (3.5-5.1)
[2018-09-29] MEDS: NYSTATIN 500,000 U/5 ML SUSP UDC SS SCH ×3 (08:43→21:47)
[2018-09-29] MEDS: ASPIRIN 81 MG CHEW TABLET PO SCH (08:43)
[2018-09-29] MEDS: CARVedilol 6.25 MG TAB PO SCH ×2 (08:44→21:47)
[2018-09-29] MEDS: FERROUS GLUCONATE 324 MG TAB PO SCH (08:44)
[2018-09-29] MEDS: CLOPIDOGREL 75 MG TAB PO SCH (08:44)
[2018-09-29] MEDS: guaiFENesin ER 600 MG TAB PO SCH ×2 (08:44→21:47)
[2018-09-29] MEDS: TORSEMIDE 10 MG TABLET PO SCH (08:44)
[2018-09-29] MEDS: ATORVASTATIN 20 MG TAB PO SCH (08:44)
[2018-09-29] MEDS: HumaLOG INSULIN (NovoLOG) PER UNIT SC SCH ×4 (08:45→21:48)
[2018-09-29] MEDS: LEVEMIR (INSULIN DETEMIR) 1 UNITS/0.01ML SC SCH (08:45)
[2018-09-29] MEDS: ENOXAPARIN 40 MG/0.4 ML SYRINGE (J1650) SC SCH (08:46)
[2018-09-29] MEDS: EUCERIN 120GM CREAM TOP SCH ×2 (08:46→21:48)
--- NOTE | 2018-09-29 10:24 | IPNPDOC ---
Text Note Date of Service The patient was seen on 09/29/18. NOTE SUBJECTIVE: Patient seen and examined at bedside. No acute overnight events r eported. Patient still complains of dizziness with standing, otherwise feels better. Appetite has improved. OBJECTIVE PHYSICAL EXAMINATION: VITAL SIGNS: Please see below. GENERAL: laying in bed, comfortable, calm, in no acute distress, disheveled HEENT: moist mucus membranes, some white plaques on posterior pharynx, no thyromegaly, EOMI CARDIOVASCULAR: RRR, no murmurs/rubs/gallops RESPIRATORY: clear to auscultation bilaterally ABDOMINAL: soft, nontender to palpation, +BS EXTREMITIES: multiple small well-healing wounds on b/l lower extremities, mild chronic venous stasis changes NEUROLOGICAL: CN 2-12 intact, no focal deficits PSYCHOLOGICAL: normal mood, somewhat flat affect, AAOx3 LABORATORY DATA, IMAGING STUDIES, MICROBIOLOGY: Please see below. Echocardiogram: 09/2017 1. Study is of markedly limited technical quality. 2. Preserved LV size with septal wall motion abnormality, nonvisualized apex and overall probably mildly reduced LV systolic function. This should not be considered overly reliable due to very limited visualization. Likely grade 2 diastolic dysfunction. 3. No significant valvular disease. 4. Very high central venous pressure. 5. Unable to estimate pulmonary artery pressure. DVT prophylaxis ordered?: Lovenox ASSESSMENT AND PLAN: This is a 62 YO M with history of CHF (rEF), KADIE (noncompliant), DM2, CAD s/p stent, HTN found to be hypoxemic likely 2/2 CHF exacerbation. His ABG on admission demonstrated acute hypercarbic respiratory failure and he is s/p BiPaP in the ICU. He is currently in the med/surg unit with clinical course complicated by increasing WBC and concern for seizures vs syncope. PROBLEMS: 1. Syncope vs seizure: Nursing reports the patient was incontinent + unresponsive for about 2-3 minutes when transferring to wheelchair. Likely 2/2 autonomic dysfunction vs dehydration vs seizure. - symptomatic orthostasis -Continue seizure precautions. EEG ordered. Case was discussed with Neurology (Dr. Johnson) who suggested EEG at this time with no indication for other imaging. Should patient have another event, he will see the patient and will start him on anti-epileptic. Of note, patient was hospitalized for the same reason in 2014 and etiology of "rigid spells" was never found. EEG and imaging at that time was negative. -Head CT negative for any intracranial pathology other than old infarct (no change from prior head CT) 2. SOB likely 2/2 CHF exacerbation: currently on 3L of oxygen. Respiratory exam has improved throughout admission. -HFrEF - previously EF 30%; diastolic dysfunction grade 2 -Continue strict fluid restriction -Continue diuresis with Demedex -Low sodium diet 3. Acute on chronic renal failure: -Nephrology consulted. Appreciate recommendations. -Will continue to monitor 4. Hx of KADIE -Continue KADIE protocol and BiPaP 5. DM2: persistently elevated blood sugars -Continue SSI with hypoglycemic protocol, titrate basal insulin - increased to 65U BID 6. Hypertension/symptomatic orthostasis - discontinued hydralazine, hold torsemide - d/w dr. aguayo, assistance appreciated 7. CAD s/p stent: -continue Aspirin, Lipitor, Plavix, lisinopril, coreg DISPOSITION: pending clinical improvement and physical therapy recommendations VS,Fishbone, I+O VS, Fishbone, I+O Laboratory Tests 09/29/18 05:23 Red Blood Count 5.80, Mean Corpuscular Volume 84.3, Mean Corpuscular Hemoglobin 26.6 L, Mean Corpuscular Hemoglobin Concent 31.5 L, Red Cell Distribution Width 14.0, Calcium Level 8.7 L Vital Signs Date Time Temp Pulse Resp B/P (MAP) Pulse Ox O2 Delivery O2 Flow Rate FiO2 09/29/18 08:44 76 112/63 09/29/18 06:00 97.0 18 90 97 09/28/18 22:00 3.0 09/28/18 09:10 Nasal Cannula I&O- Last 24 Hours up to 6 AM 09/29/18 06:00 Intake Total 2490 ml Output Total 2100 ml Balance 390 ml CLAY LOPEZ MD Sep 29, 2018 10:24
[2018-09-29 15:00] VITALS: BP_SYST 102; BP_SYST 115; BP_DIAS 62; BP_DIAS 64
[2018-09-29 22:00] VITALS: BP 125/79
[2018-09-29 23:00] VITALS: BP_SYST 139; BP_SYST 98; BP_DIAS 58; BP_DIAS 87
[2018-09-30] VITALS (21 sets, daily range): BP systolic 71–136; BP diastolic 43–80
[2018-09-30] MEDS: IPRATROPIUM 0.5MG/ALBUTEROL 2.5MG INH SOL UD 3ML (DUONEB)(J7620) NEB SCH ×4 (02:00→20:00)
[2018-09-30] MEDS: PROMETHAZINE INJ 25 MG/ML VIAL (J2550) IV PRN (06:10)
[2018-09-30] MEDS: SLF 3 ML SYR IV SCH ×3 (06:12→21:31)
[2018-09-30 06:21] LABS: HEMATOCRIT 47.3 % (42.0-52.0); HEMOGLOBIN 14.9 g/dl (13.5-17.5); MEAN CORPUSCULAR HEMOGLOBIN 26.2 pg (27.0-33.0); MEAN CORPUSCULAR HGB CONC 31.5 g/dl (32.0-36.5); MEAN CORPUSCULAR VOLUME 83.3 fl (80.0-96.0); PLATELET COUNT, AUTOMATED 199 10^3/uL (150-450); RED BLOOD COUNT 5.68 10^6/uL (4.30-6.10); WHITE BLOOD COUNT 13.8 10^3/uL (4.0-10.0)
[2018-09-30] MEDS: ISOSORBIDE DIN. (ISORDIL) 5 MG TAB PO SCH (06:27)
[2018-09-30 06:47] LABS: CALCIUM LEVEL 8.6 MG/DL (8.8-10.2); CREATININE FOR GFR 1.78 MG/DL (0.70-1.30); GLOMERULAR FILTRATION RATE 41.2 (>49); POTASSIUM SERUM 3.7 MEQ/L (3.5-5.1)
[2018-09-30] MEDS: HumaLOG INSULIN (NovoLOG) PER UNIT SC SCH ×4 (07:37→21:31)
[2018-09-30] MEDS: CLOPIDOGREL 75 MG TAB PO SCH (08:53)
[2018-09-30] MEDS: FERROUS GLUCONATE 324 MG TAB PO SCH (08:53)
[2018-09-30] MEDS: ATORVASTATIN 20 MG TAB PO SCH (08:53)
[2018-09-30] MEDS: CALCITRIOL 0.25 MCG CAP (S0169) PO SCH (08:55)
[2018-09-30] MEDS: CARVedilol 6.25 MG TAB PO SCH (08:55)
[2018-09-30] MEDS: guaiFENesin ER 600 MG TAB PO SCH ×2 (08:55→21:30)
[2018-09-30] MEDS: ASPIRIN 81 MG CHEW TABLET PO SCH (08:56)
[2018-09-30] MEDS: ENOXAPARIN 40 MG/0.4 ML SYRINGE (J1650) SC SCH (08:57)
[2018-09-30] MEDS: LEVEMIR (INSULIN DETEMIR) 1 UNITS/0.01ML SC SCH (08:58)
[2018-09-30] MEDS: EUCERIN 120GM CREAM TOP SCH ×2 (08:58→21:30)
[2018-09-30] MEDS ORDERED: LISINOPRIL 10 MG TAB PO SCH (09:00)
[2018-09-30] MEDS: IPRATROPIUM 0.5MG/ALBUTEROL 2.5MG INH SOL UD 3ML (DUONEB)(J7620) NEB PRN (09:04)
[2018-09-30] MEDS: NYSTATIN 500,000 U/5 ML SUSP UDC SS SCH ×3 (10:29→22:19)
--- NOTE | 2018-09-30 10:35 | IPNPDOC ---
Date Seen The patient was seen on 09/30/18. Progress Note SUBJECTIVE: Patient reports he is feeling better this morning, but continues to have positive orthostatics, to the point where he cannot stand without getting extremely lightheaded and nauseous. He states he had some trouble with his breathing overnight, but he is doing well on his supplemental oxygen this morning. Otherwise, he has no complaints this morning. OBJECTIVE PHYSICAL EXAMINATION: VITAL SIGNS: Please see below. GENERAL: laying in bed, comfortable, calm, in no acute distress HEENT: moist mucus membranes, some white plaques on posterior pharynx, no thyromegaly, EOMI CARDIOVASCULAR: RRR, no murmurs/rubs/gallops RESPIRATORY: clear to auscultation bilaterally ABDOMINAL: soft, nontender to palpation, +BS EXTREMITIES: no clubbing/cyanosis/edema NEUROLOGICAL: CN 2-12 intact, no focal deficits PSYCHOLOGICAL: normal mood, somewhat flat affect, AAOx3 LABORATORY DATA, IMAGING STUDIES, MICROBIOLOGY: Please see below. Echocardiogram: 09/2017 1. Study is of markedly limited technical quality. 2. Preserved LV size with septal wall motion abnormality, nonvisualized apex and overall probably mildly reduced LV systolic function. This should not be considered overly reliable due to very limited visualization. Likely grade 2 diastolic dysfunction. 3. No significant valvular disease. 4. Very high central venous pressure. 5. Unable to estimate pulmonary artery pressure. DVT prophylaxis ordered?: Lovenox ASSESSMENT AND PLAN: This is a 62 YO M with history of CHF (rEF), KADIE (noncompliant), DM2, CAD s/p stent, HTN found to be hypoxemic likely 2/2 CHF exacerbation. His ABG on admission demonstrated acute hypercarbic respiratory failure and he is s/p BiPaP in the ICU. He is currently in the med/surg unit with clinical course complicated by increasing WBC and concern for seizures vs syncope. PROBLEMS: 1. Syncope vs seizure: most likely 2/2 orthostasis -Orthostatics are positive. Suspect his fluid status is somewhat hypovolemic. -Continue telemetry -Continue seizure precautions. EEG ordered. Case was discussed with Neurology (Dr. Johnson) who suggested EEG at this time with no indication for other imaging. Should patient have another event, he will see the patient and will start him on anti-epileptic. Of note, patient was hospitalized for the same reason in 2014 an d etiology of "rigid spells" was never found. EEG and imaging at that time was negative. -Head CT negative for any intracranial pathology other than old infarct (no change from prior head CT) 2. SOB likely 2/2 CHF exacerbation: currently on 3L of oxygen. Respiratory exam has improved throughout admission. -Last echo demonstrated Grade 2 diastolic dysfunction, EF 30% -volume status has improved -Continue strict fluid restriction -Continue diuresis with Demedex. Currently being held for orthostasis. -Low sodium diet -LE bilateral doppler to R/U DVT/PE negative for DVT -CT chest today for suspected infection, giving rising WBC 3. Acute on chronic renal failure: -Cr 1.78 today. Expecting some fluctuation -Nephrology consulted. Appreciate recommendations. -Will continue to monitor 4. Hx of KADIE -Prednisone stopped, as it may be a cause of his increasing WBC -Continue KADIE protocol and BiPaP 5. DM2: persistently elevated blood sugars, most likely 2/2 chronic prednisone use -Lantus increased to 65U -Continue SSI with hypoglycemic protocol 6. Hypertension: BP is WNL -Continue hydralazine, Carvedilol -Isordil decreased 7. CAD s/p stent: -continue Aspirin, Lipitor, Plavix DISPOSITION: pending clinical improvement and physical therapy recommendations VS, I&O, 24H, Fishbone Vital Signs/I&O Vital Signs Date Time Temp Pulse Resp B/P (MAP) Pulse Ox O2 Delivery O2 Flow Rate FiO2 09/30/18 08:56 136/78 09/30/18 08:55 83 09/30/18 07:49 97.1 20 95 3.0 09/29/18 21:30 Nasal Cannula 09/29/18 06:00 97 I&O- Last 24 Hours up to 6 AM 09/30/18 06:00 Intake Total 2490 ml Output Total 900 ml Balance 1590 ml Laboratory Data 24H LABS Laboratory Tests 2 09/29/18 11:27: Bedside Glucose (Misc Panel) 294H 09/29/18 16:26: Bedside Glucose (Misc Panel) 314H 09/29/18 21:04: Bedside Glucose (Misc Panel) 305H 09/30/18 05:28: Nucleated Red Blood Cells % (auto) 0.0, Anion Gap 7L, Glomerular Filtration Rate 41.2L, Blood Urea Nitrogen 66H, Creatinine 1.78H, Sodium Level 136, Potassium Level 3.7, Chloride Level 95L, Carbon Dioxide Level 34H, Calcium Level 8.6L 09/30/18 06:27: Bedside Glucose (Misc Panel) 254H CBC/BMP Laboratory Tests 09/30/18 05:28 Red Blood Count 5.68, Mean Corpuscular Volume 83.3, Mean Corpuscular Hemoglobin 26.2 L, Mean Corpuscular Hemoglobin Concent 31.5 L, Red Cell Distribution Width 13.9, Calcium Level 8.6 L GME ATTESTATION GME ATTESTATION My faculty preceptor for this patient encounter was physically present during the encounter and was fully available. All aspects of the patient interview, examination, medical decision making process, and medical care plan development were reviewed and approved by the faculty preceptor. The faculty preceptor is aware and concurs with the plan as stated in the body of this note and will attest to such by his/her cosignature. GENARO RUBIO MD Sep 30, 2018 10:35
[2018-09-30 15:06] LABS: ABG BASE EXCESS 3.3 (-2.0-2.0); ABG HCO3 28.7 MEQ/L (22.0-26.0); ABG O2 SATURATION 93.7 % (95.0-99.0); ABG PARTIAL PRESSURE CO2 46.4 mmHg (35.0-45.0); ABG STANDARD HCO3 27.3 MEQ/L (22.0-26.0); ABG TOTAL CO2 30.1 MEQ/L (23.0-31.0); ABG pH (ARTERIAL) 7.409 UNITS (7.350-7.450)
[2018-09-30 15:19] LABS: BASO # 0.1 10^3/uL (0.0-0.2); BASO % 0.4 % (0.0-1.0); EOS # 0.4 10^3/uL (0.0-0.50); EOS % 2.8 % (0.0-3.0); HEMATOCRIT 45.7 % (42.0-52.0); HEMOGLOBIN 14.2 g/dl (13.5-17.5); LYMPH # 1.2 10^3/uL (1.5-4.5); LYMPH % 8.6 % (24.0-44.0); MEAN CORPUSCULAR HEMOGLOBIN 26.3 pg (27.0-33.0); MEAN CORPUSCULAR HGB CONC 31.1 g/dl (32.0-36.5); MEAN CORPUSCULAR VOLUME 84.6 fl (80.0-96.0); MONO # 1.2 10^3/uL (0.0-0.8); MONO % 8.4 % (0.0-5.0); NEUTROPHILS % 79.3 % (36.0-66.0); PLATELET COUNT, AUTOMATED 206 10^3/uL (150-450); WHITE BLOOD COUNT 13.9 10^3/uL (4.0-10.0)
[2018-09-30] MEDS ORDERED: LIDOCAINE 2% MDV 20 ML VIAL As Ordered ONE (15:25)
--- NOTE | 2018-09-30 15:26 | REP ---
PORTABLE CHEST X-RAY: Single view. HISTORY: Shortness of breath. Hypotension. COMPARISON STUDY: September 26, 2018. FINDINGS: Oxygen delivery tubing is seen. The lungs are well inflated and clear. Pleural angles are sharp. Heart is not enlarged. Pulmonary vasculature is not increased. IMPRESSION: No acute disease. Electronically Signed by Ian Cain MD 09/30/2018 04:13 P
[2018-09-30] MEDS ORDERED: NS 500 ML IV ONE (15:30)
[2018-09-30 15:34] LABS: INR 1.04; PROTHROMBIN TIME 13.7 SECONDS (12.1-14.4)
[2018-09-30 15:45] LABS: ALBUMIN 2.7 GM/DL (3.2-5.2); BILIRUBIN,TOTAL 0.5 MG/DL (0.2-1.0); CALCIUM LEVEL 8.3 MG/DL (8.8-10.2); CREATININE FOR GFR 2.32 MG/DL (0.70-1.30); GLOMERULAR FILTRATION RATE 30.3 (>49); MB/CK RELATIVE INDEX 5.34 (< OR =4); POTASSIUM SERUM 3.8 MEQ/L (3.5-5.1); TROPONIN I 0.08 NG/ML (< 0.10)
--- NOTE | 2018-09-30 15:45 | RO ---
DATE OF PROCEDURE: 09/30/2018 PREPROCEDURE DIAGNOSES: Status post hypotension. POSTPROCEDURE DIAGNOSES: Status post hypotension. PROCEDURE: Insertion of left subclavian central line. SURGEON: Tay Santos MD VETERINARIAN ASSISTANT: ANESTHESIA: DESCRIPTION OF PROCEDURE: The patient's left subclavicular fossa was prepped and draped in usual sterile fashion. Infiltrated with 1% lidocaine. The vein was found on the third pass and a wire was passed without difficulty. The tract was dilated and triple lumen catheter was placed by Seldinger technique. The ports were aspirated and flushed without difficulty. The catheter was secured to the chest wall with two #3-0 silk sutures. The patient tolerated procedure well, and a chest x-ray is pending.
--- NOTE | 2018-09-30 17:03 | REP ---
Portable chest x-ray: Single view. History: Status post central line placement. Comparison chest x-ray: September 30, 2018 03:00 p.m. film. Findings: A left subclavian line has been inserted with its tip in the expected location of the superior vena cava. There is no evidence of pneumothorax or hydrothorax. Cardiomediastinal silhouette is unremarkable. Impression: Left subclavian line with its tip in the expected location of the SVC. No complication is identified. Electronically Signed by Ian Cain MD 10/01/2018 08:56 A
--- NOTE | 2018-09-30 17:10 | IPNPDOC ---
Date Seen The patient was seen on 09/30/18. Progress Note INTERIM PROGRESS NOTE: I was called to the room around 2:30 PM by nursing, who reported the patient had a syncopal event after having a bowel movement. Reportedly, he was getting up off the toilet and suddenly felt as if he was going to pass out. At this time his blood pressure was in the 70s systolic. They were able to get the patient back to bed and, after waiting period of about 30 minutes his blood pressure was checked again and found to be 66/45. His HR during this time was stable in the 70s and his oxygen was increased to 4L in order to maintain an O2 saturation above 90%. The patient complained of dizziness/lightheadedness, but denied CP/SOB/nausea. He was transferred to the ICU for central line placement and closer management. An EKG demonstrated normal sinus rhythm with some Q waves, which were present on admission. A chest x-ray was negative for any abnormality, cardiac markers were within normal limits, and ABG demonstrated 7.4/46.4/72, which was relatively unchanged from his prior ABG on 09/26. Lactic acid was found to be 2.1. Of note, the patient had a similar syncopal episode last week. Cardiology (Dr. Barrera) was consulted and will see the patient for further rec ommendations. VS, I&O, 24H, Fishbone Vital Signs/I&O Vital Signs Date Time Temp Pulse Resp B/P (MAP) Pulse Ox O2 Delivery O2 Flow Rate FiO2 09/30/18 16:21 72 99/57 (71) 96 09/30/18 15:53 4.0 09/30/18 15:15 97.8 20 09/30/18 10:48 Nasal Cannula 09/29/18 06:00 97 I&O- Last 24 Hours up to 6 AM 09/30/18 06:00 Intake Total 2490 ml Output Total 900 ml Balance 1590 ml Laboratory Data 24H LABS Laboratory Tests 2 09/29/18 21:04: Bedside Glucose (Misc Panel) 305H 09/30/18 05:28: Nucleated Red Blood Cells % (auto) 0.0, Anion Gap 7L, Glomerular Filtration Rate 41.2L, Blood Urea Nitrogen 66H, Creatinine 1.78H, Sodium Level 136, Potassium Level 3.7, Chloride Level 95L, Carbon Dioxide Level 34H, Calcium Level 8.6L 09/30/18 06:27: Bedside Glucose (Misc Panel) 254H 09/30/18 11:41: Bedside Glucose (Misc Panel) 319H 09/30/18 13:11: Bedside Glucose (Misc Panel) 359H 09/30/18 14:58: Blood Gas Bicarbonate Standard 27.3H, Arterial Blood pH 7.409, Arterial Blood Partial Pressure CO2 46.4H, Arterial Blood Partial Pressure O2 72.0L, Arterial Blood Total CO2 30.1, Arterial Blood HCO3 28.7H, Arterial Blood Base Excess 3.3H, Arterial Blood Oxygen Saturation 93.7L 09/30/18 15:06: Immature Granulocyte % (Auto) 0.5, White Blood Count 13.9H, Red Blood Count 5.40, Hemoglobin 14.2, Hematocrit 45.7, Mean Corpuscular Volume 84.6, Mean Corpuscular Hemoglobin 26.3L, Mean Corpuscular Hemoglobin Concent 31.1L, Red Cell Distribution Width 13.9, Platelet Count 206, Neutrophils (%) (Auto) 79.3H, Lymphocytes (%) (Auto) 8.6L, Monocytes (%) (Auto) 8.4H, Eosinophils (%) (Auto) 2.8, Basophils (%) (Auto) 0.4, Neutrophils # (Auto) 11.0H, Lymphocytes # (Auto) 1.2L, Monocytes # (Auto) 1.2H, Eosinophils # (Auto) 0.4, Basophils # (Auto) 0.1, Nucleated Red Blood Cells % (auto) 0.0, Prothrombin Time 13.7, Prothromb Time International Ratio 1.04, Anion Gap 6L, Glomerular Filtration Rate 30.3L, Lactic Acid Level 2.1*H, Blood Urea Nitrogen 68H, Creatinine 2.32H, Sodium Level 137, Potassium Level 3.8, Chloride Level 98, Carbon Dioxide Level 33H, Calcium Level 8.3L, Aspartate Amino Transf (AST/SGOT) 37, Alanine Aminotransferase (ALT/SGPT) 65, Total Creatine Kinase 73, Alkaline Phosphatase 88, Total Bilirubin 0.5, Total Protein 6.0L, Albumin 2.7L, Creatine Kinase MB 4.0H, Creatine Kinase MB Relative Index 5.34H, Troponin I 0.08, BX-Geu-O-Type Natriuretic Peptide 893H, Albumin/Globulin Ratio 0.82L 09/30/18 16:37: Bedside Glucose (Misc Panel) 300H CBC/BMP Laboratory Tests 09/30/18 05:28 Red Blood Count 5.68, Mean Corpuscular Volume 83.3, Mean Corpuscular Hemoglobin 26.2 L, Mean Corpuscular Hemoglobin Concent 31.5 L, Red Cell Distribution Width 13.9, Calcium Level 8.6 L 09/30/18 15:06 Red Blood Count 5.40, Mean Corpuscular Volume 84.6, Mean Corpuscular Hemoglobin 26.3 L, Mean Corpuscular Hemoglobin Concent 31.1 L, Red Cell Distribution Width 13.9, Calcium Level 8.3 L, Neutrophils (%) (Auto) 79.3 H, Lymphocytes (%) (Auto) 8.6 L, Monocytes (%) (Auto) 8.4 H, Eosinophils (%) (Auto) 2.8, Basophils (%) (Auto) 0.4, Neutrophils # (Auto) 11.0 H, Lymphocytes # (Auto) 1.2 L, Monocytes # (Auto) 1.2 H, Eosinophils # (Auto) 0.4, Basophils # (Auto) 0.1, Aspartate Amino Transf (AST/SGOT) 37, Alanine Aminotransferase (ALT/SGPT) 65, Total Creatine Kinase 73, Alkaline Phosphatase 88, Total Bilirubin 0.5, Total Protein 6.0 L, Albumin 2.7 L Microbiology Microbiology 09/30/18 Stool Lactoferrin - Final, Complete GME ATTESTATION GME ATTESTATION My faculty preceptor for this patient encounter was physically present during the encounter and was fully available. All aspects of the patient interview, examination, medical decision making process, and medical care plan development were reviewed and approved by the faculty preceptor. The faculty preceptor is aware and concurs with the plan as stated in the body of this note and will attest to such by his/her cosignature. GENARO RUBIO MD Sep 30, 2018 17:10
[2018-09-30 17:16] LABS: D-DIMER QUANT > 4000 ng/ml (<500)
[2018-09-30] MEDS ORDERED: SODIUM CHLORIDE 0.9% INJ 10 ML SYR IV PRN (20:45)
[2018-09-30] MEDS: SODIUM CHLORIDE 0.9% INJ 10 ML SYR IV SCH (21:31)
[2018-09-30 23:21] LABS: MB/CK RELATIVE INDEX 4.84 (< OR =4); TROPONIN I 0.08 NG/ML (< 0.10)
[2018-10-01] VITALS (30 sets, daily range): BP systolic 58–134; BP diastolic 25–74
--- NOTE | 2018-10-01 00:41 | ECGEPIP ---
Stationary ECG Study [facility] Test Date: 2018-09-30 Pat Name: MANISH GIL Department: Room: H8566-80 Gender: M Trucking Manager: RAHEL : [id number] Requested By: GENARO RUBIO Order Number: [id number] Reading MD: William Barker Measurements Intervals [place] Rate: 70 P: 64 OK: 186 QRS: 34 QRSD: 97 T: 105 QT: 394 QTc: 426 Interpretive Statements SINUS RHYTHM POSSIBLE ANTERIOR MYOCARDIAL INFARCTION, OF INDETERMINATE AGE No significant change when compared to prior tracing of 09-15-18 Baseline artifact Electronically Signed On 10-01-2018 0:41:34 EDT by William Barker
[2018-10-01] MEDS: IPRATROPIUM 0.5MG/ALBUTEROL 2.5MG INH SOL UD 3ML (DUONEB)(J7620) NEB SCH ×4 (02:00→20:00)
[2018-10-01] MEDS: SLF 3 ML SYR IV SCH ×3 (05:34→21:55)
[2018-10-01] MEDS: SODIUM CHLORIDE 0.9% INJ 10 ML SYR IV SCH ×3 (05:34→21:43)
--- NOTE | 2018-10-01 07:50 | EEG ---
DATE OF PROCEDURE: 10/01/2018 REFERRING PHYSICIAN: Dr. Galindo EEG NUMBER: [id number] HISTORY: The patient is a 62-year-old man who was admitted at [facility] and has episodes of unresponsiveness with urinary incontinence, lasting for 2 for 3 minutes. The patient had another spell in 2014. He is currently taking aspirin, Plavix, carvedilol, Lipitor, isosorbide, hydralazine, torsemide. TECHNICAL DESCRIPTION: This digital EEG was recorded by 21 scalp ear and two EKG electrodes and was reviewed in bipolar and referential montages following reformatting 10-20 international electrode placement system. INTERPRETATION: The patient was noted to be in awake and drowsy states during this EEG. Resting awake background rhythm consisted of 8 - 9 Hz alpha activity measuring 15 - 40 microvolts in amplitude and was symmetric and reactive to eye opening. Attenuation of posterior dominant rhythm was seen during transition into drowsiness. Stage I and II sleep were reviewed and were symmetric bilaterally. Hyperventilation could not be performed. Photic stimulation remained unremarkable. EKG revealed normal sinus rhythm. No focal, lateralizing or epileptiform abnormalities were seen. CONCLUSION: This EEG in awake, drowsy states, stage I and II sleep is within normal limits.
[2018-10-01] MEDS: ATORVASTATIN 20 MG TAB PO SCH (08:26)
[2018-10-01] MEDS: FERROUS GLUCONATE 324 MG TAB PO SCH (08:26)
[2018-10-01] MEDS: NYSTATIN 500,000 U/5 ML SUSP UDC SS SCH ×3 (08:26→21:41)
[2018-10-01] MEDS: ENOXAPARIN 40 MG/0.4 ML SYRINGE (J1650) SC SCH (08:27)
[2018-10-01] MEDS: CLOPIDOGREL 75 MG TAB PO SCH (08:27)
[2018-10-01] MEDS: ASPIRIN 81 MG CHEW TABLET PO SCH (08:27)
[2018-10-01] MEDS: EUCERIN 120GM CREAM TOP SCH ×2 (08:27→21:42)
[2018-10-01] MEDS: guaiFENesin ER 600 MG TAB PO SCH ×2 (08:28→21:42)
[2018-10-01] MEDS: HumaLOG INSULIN (NovoLOG) PER UNIT SC SCH ×4 (08:28→21:00)
[2018-10-01] MEDS: LEVEMIR (INSULIN DETEMIR) 1 UNITS/0.01ML SC SCH (08:28)
[2018-10-01] MEDS: CARVedilol 6.25 MG TAB PO SCH ×2 (09:00→20:22)
--- NOTE | 2018-10-01 09:19 | CR ---
DATE OF CONSULTATION: 10/01/2018 Mr. Ruvalcaba is known to me from the outpatient setting. I was asked by the hospitalist service to see him because he had episodes of near-syncope not related to arrhythmic events. The patient is a 62-year-old man who has longstanding history of coronary artery disease. He had a remote history of myocardial infarction and in his life had two coronary interventions in 2001 and 2011 in [facility] in [place]. His last cardiac evaluation was nuclear stress test in July of this year in our office. It was a pharmacologic SPECT and revealed extensive anterior wall infarct with minimal periinfarct ischemia and overall left ventricle ejection fraction calculated at 34%. At his baseline, he has had chronic congestive heart failure. He has been using furosemide only on as-needed basis. He presented to our facility with congestive heart failure. He was grossly volume overloaded and initially required continuous positive airway pressure (CPAP) and bilateral positive airway pressure (BiPAP) for respiratory failure. Eventually, he was though diuresed, and his condition improved, but then he had two episodes when he had near-syncopal sensation. Both of them occurred shortly after he had a bowel movement after he stood up, but he felt very lightheaded but never truly lost consciousness. He was on monitor on both occasions, but each time there were no arrhythmias recorded. His blood pressure, though, was low, and I believe that the presentation overall is consistent with orthostatic hypotension. At bedside today, the patient tells me he is feeling much better. Unfortunately, most of his medications at this point were discontinued because his blood pressure has been too soft. He denies any chest pain. He denies any significant dyspnea. Denies any sensation of palpitations. I did review his telemetry tracings, and there have been no arrhythmias. PAST MEDICAL HISTORY: 1. Coronary artery disease as above. 2. Chronic systolic congestive heart failure. 3. Obstructive sleep apnea. The patient has been noncompliant with his CPAP because he could not tolerate it. 4. Hypertension. 5. Dyslipidemia. 6. Type 2 diabetes. 7. Chronic poor compliance with medications, probably principally related to financial issues. SURGICAL HISTORY: Tonsillectomy and circumcision. SOCIAL HISTORY: The patient used to smoke but quit about 25 years ago. He does not drink alcohol. Lives with his family. He is disabled. FAMILY HISTORY: Is positive for coronary artery disease. OUTPATIENT MEDICATIONS: - aspirin 81 mg a day - Coreg 6.25 mg twice a day - furosemide 40 mg daily as needed for peripheral edema, weight gain - insulin - Lipitor 20 mg daily - Lisinopril 10 mg daily - Plavix 75 mg daily - Trulicity as directed On the review of systems, prior to this hospitalization, he denied any fever, chills, nausea, vomiting, or diarrhea. There is no history of stroke. He feels chronically tired and spends many hours a day in bed sleeping or dozing off. As above, he has not been using his CPAP. He denied any chest pain. He does have exertional dyspnea, [place] Heart Association class III at his baseline. No bleeding history. He has had variable degree of peripheral edema but generally has not been a significant issue as of lately. The rest of review of system is negative. PHYSICAL EXAMINATION: Mr. Ruvalcaba is a 62-year-old morbidly obese man who is sitting in intensive care unit (ICU) bed, appears comfortable at no distress. He is alert and oriented times three. His vital signs: Currently, blood pressure 123/70, heart rate has been in 70s. He is afebrile. Saturation 95% on 3 liters of oxygen. Weight this morning was documented as 127.3 kg, which is 2 kg up from 2 days ago. The weight was not documented yesterday. His admission weight was 141 kg, which would result in approximately 14 kg weight loss since admission, and I have to point out that there has been very significant fluctuation of his documented weight during this hospitalization, and I am not certain about its accuracy. His lungs are clear to auscultation. Good air movement. Heart examination revealed very muffled heart sounds related to his obesity. I cannot feel the precordial impulse. I do not appreciate any murmur, gallop, or rub. Abdomen is morbidly obese but soft and nontender. No shifting dullness. No hepatosplenomegaly to be detected by physical examination. There is, if anything, trace peripheral edema. He does have stasis dermatitis abnormalities on his shins. Peripheral pulses are palpable but not of good quality. No obvious trophic defects on lower extremities. Neurologically, he is alert and oriented and appropriate. I do not appreciate any focal weakness. LABORATORY DATA: Complete blood count (CBC) as of today, hemoglobin 14.2, hematocrit 45.7, platelet count 206,000, WBC count is 13.9. Basic metabolic panel was not drawn today. As of yesterday, sodium 137, potassium 3.8, BUN 68, creatinine 2.3, and glucose 312, lactic acid was 2.1. Two sets of cardiac enzymes have been negative, and albumin is 2.7. Urinalysis is negative for protein, glucose, and ketones. Chest x-ray performed 2 days ago revealed appropriate position of his central line through the left subclavian. He had a chest CT on 09/27/2018 that revealed no pleural effusions, no pericardial effusion, and no obvious lymphadenopathy. An electrocardiogram from 09/30/2018 reveals presence of sinus rhythm with ventricular rate 70 beats per minute, abnormalities consistent with old anterior wall myocardial infarction. This has not appreciably changed compared to his prior electrocardiograms (ECGs) on records. ASSESSMENT AND PLAN: Mr. Ruvalcaba is a 62-year-old man who has ischemic cardiomyopathy and chronic systolic congestive heart failure. He presented acutely exacerbated, I suspect in part due to poor compliance with diuretics which has been a chronic issue. At this point, he seemed to have diuresed considerably and is probably euvolemic or possibly even slightly hypovolemic. I believe that it is the principal reason why he had orthostatic hypotension, even though it is likely that his diabetic neuropathy contributes, as well. I agree with holding medications today, but as long as the blood pressure tolerates, we should reintroduce them. The first drug that I would consider is carvedilol, which has the most beneficial effect on life expectancy and survival and systolic congestive heart failure. Provided it is well tolerated in small dose, I would add additional medications, like angiotensin receptor blockers (ARBs) or angiotensin-converting enzyme (AZAM) inhibitors and diuretic use only as needed. Hopefully, with this approach, he will avoid significant orthostatic hypotension. He does have numerous additional problems. Management of diabetes, sleep apnea, and renal failure remains with the appropriate specialists. I had a long discussion with the patient regarding his compliance issues, but my impression is that the patient has the best of intentions, but his financial means really do not allow him to buy his medications regularly. It would be helpful, in my opinion, that social work therapist get involved and see whether there can be some assistance provided in this matter.
[2018-10-01 09:26] LABS: BASO % 0.2 % (0.0-1.0); EOS # 0.4 10^3/uL (0.0-0.50); HEMATOCRIT 46.1 % (42.0-52.0); HEMOGLOBIN 14.5 g/dl (13.5-17.5); LYMPH # 1.9 10^3/uL (1.5-4.5); LYMPH % 13.2 % (24.0-44.0); MEAN CORPUSCULAR HEMOGLOBIN 26.7 pg (27.0-33.0); MEAN CORPUSCULAR HGB CONC 31.5 g/dl (32.0-36.5); MEAN CORPUSCULAR VOLUME 84.9 fl (80.0-96.0); MONO # 0.9 10^3/uL (0.0-0.8); MONO % 6.5 % (0.0-5.0); NEUTROPHILS # 10.8 10^3/uL (1.8-7.7); NEUTROPHILS % 76.7 % (36.0-66.0); PLATELET COUNT, AUTOMATED 208 10^3/uL (150-450); RED BLOOD COUNT 5.43 10^6/uL (4.30-6.10); WHITE BLOOD COUNT 14.1 10^3/uL (4.0-10.0)
[2018-10-01 09:32] LABS: CALCIUM LEVEL 8.5 MG/DL (8.8-10.2); CREATININE FOR GFR 2.15 MG/DL (0.70-1.30); GLOMERULAR FILTRATION RATE 33.1 (>49); MAGNESIUM LEVEL 1.7 MG/DL (1.8-2.4); POTASSIUM SERUM 4.2 MEQ/L (3.5-5.1)
[2018-10-01] MEDS ORDERED: MAG SULF 1GM/100ML (MAG RUN) 1 GM in APPROPRIATE DILUENT 1 EA IV ONE (10:30)
--- NOTE | 2018-10-01 11:15 | IPNPDOC ---
Date Seen The patient was seen on 10/01/18. Progress Note SUBJECTIVE: No major events overnight, other than continued soft BPs in the 70s- 80s systolic. The patient did get somewhat dizzy/lightheaded this morning when he sat up to eat breakfast. He continues to have several bouts of diarrhea. OBJECTIVE PHYSICAL EXAMINATION: VITAL SIGNS: Please see below. GENERAL: laying in bed, comfortable, calm, in no acute distress HEENT: moist mucus membranes, some white plaques on posterior pharynx, no thyromegaly, EOMI CARDIOVASCULAR: RRR, no murmurs/rubs/gallops RESPIRATORY: clear to auscultation bilaterally ABDOMINAL: soft, nontender to palpation, +BS EXTREMITIES: no clubbing/cyanosis/edema NEUROLOGICAL: CN 2-12 intact, no focal deficits PSYCHOLOGICAL: normal mood, somewhat flat affect, AAOx3 LABORATORY DATA, IMAGING STUDIES, MICROBIOLOGY: Please see below. Echocardiogram: 09/2017 1. Study is of markedly limited technical quality. 2. Preserved LV size with septal wall motion abnormality, nonvisualized apex and overall probably mildly reduced LV systolic function. This should not be considered overly reliable due to very limited visualization. Likely grade 2 diastolic dysfunction. 3. No significant valvular disease. 4. Very high central venous pressure. 5. Unable to estimate pulmonary artery pressure. DVT prophylaxis ordered?: Lovenox ASSESSMENT AND PLAN: This is a 62 YO M with history of CHF (rEF), KADIE (noncompliant), DM2, CAD s/p stent, HTN found to be hypoxemic likely 2/2 CHF exacerbation. Clinical course is significant for continued hypoxemia despite BiPaP, which has resolved, and new syncopal episodes and orthostatic hypotension for which he is currently in the ICU. PROBLEMS: 1. Syncope vs seizure: most likely 2/2 orthostasis -Patient has had 2 syncopal events after having a BM in which he reports he felt lightheaded/dizzy as if he were about to faint. BP at that time dropped dramatically -Orthostatics are positive. I suspect his fluid status is somewhat hypovolemic. -Continue telemetry -Continue seizure precautions. EEG was found to be negative for any epileptiform activity -Head CT negative for any intracranial pathology other than old infarct (no change from prior head CT) -GI panel ordered 2. SOB likely 2/2 CHF exacerbation: currently on 3L of oxygen. -Last echo demonstrated Grade 2 diastolic dysfunction, EF 30%. The patient received 2x 500cc fluid boluses yesterday 2/2 hypotension -Continue strict fluid restriction. Low sodium diet -Continue diuresis with Demedex. Currently being held 2/2 hypotension -LE bilateral Doppler to R/U DVT/PE negative for DVT 3. Acute on chronic renal failure: -Cr 2.15 today. Likely 2/2 to prolonged hypotension yesterday -Nephrology consulted. Appreciate recommendations. -Will continue to monitor 4. Hx of KADIE -Continue KADIE protocol and BiPaP 5. DM2: persistently elevated blood sugars, most likely 2/2 chronic prednisone use -Lantus increased to 65U -Continue SSI with hypoglycemic protocol 6. Hypertension: BP is WNL -Continue hydralazine, Carvedilol -Isordil decreased 7. CAD s/p stent: -continue Aspirin, Lipitor, Plavix DISPOSITION: pending clinical improvement VS, I&O, 24H, Fishbone Vital Signs/I&O Vital Signs Date Time Temp Pulse Resp B/P (MAP) Pulse Ox O2 Delivery O2 Flow Rate FiO2 10/01/18 09:00 74 95/53 10/01/18 06:03 20 95 3.0 10/01/18 04:03 98.0 09/30/18 10:48 Nasal Cannula 09/29/18 06:00 97 I&O- Last 24 Hours up to 6 AM 10/01/18 06:00 Intake Total 1600 ml Output Total 0 ml Balance 1600 ml Laboratory Data 24H LABS Laboratory Tests 2 09/30/18 11:41: Bedside Glucose (Misc Panel) 319H 09/30/18 13:11: Bedside Glucose (Misc Panel) 359H 09/30/18 14:58: Blood Gas Bicarbonate Standard 27.3H, Arterial Blood pH 7.409, Arterial Blood Partial Pressure CO2 46.4H, Arterial Blood Partial Pressure O2 72.0L, Arterial Blood Total CO2 30.1, Arterial Blood HCO3 28.7H, Arterial Blood Base Excess 3.3H, Arterial Blood Oxygen Saturation 93.7L 09/30/18 15:06: Immature Granulocyte % (Auto) 0.5, White Blood Count 13.9H, Red Blood Count 5.40, Hemoglobin 14.2, Hematocrit 45.7, Mean Corpuscular Volume 84.6, Mean Corpuscular Hemoglobin 26.3L, Mean Corpuscular Hemoglobin Concent 31.1L, Red Cell Distribution Width 13.9, Platelet Count 206, Neutrophils (%) (Auto) 79.3H, Lymphocytes (%) (Auto) 8.6L, Monocytes (%) (Auto) 8.4H, Eosinophils (%) (Auto) 2.8, Basophils (%) (Auto) 0.4, Neutrophils # (Auto) 11.0H, Lymphocytes # (Auto) 1.2L, Monocytes # (Auto) 1.2H, Eosinophils # (Auto) 0.4, Basophils # (Auto) 0.1, Nucleated Red Blood Cells % (auto) 0.0, Prothrombin Time 13.7, Prothromb Time International Ratio 1.04, D-Dimer, Quantitative > 4000H, Anion Gap 6L, Glomerular Filtration Rate 30.3L, Lactic Acid Level 2.1*H, Blood Urea Nitrogen 68H, Creatinine 2.32H, Sodium Level 137, Potassium Level 3.8, Chloride Level 98, Carbon Dioxide Level 33H, Calcium Level 8.3L, Aspartate Amino Transf (AST/SGOT) 37, Alanine Aminotransferase (ALT/SGPT) 65, Total Creatine Kinase 73, Alkaline Phosphatase 88, Total Bilirubin 0.5, Total Protein 6.0L, Albumin 2.7L, Creatine Kinase MB 4.0H, Creatine Kinase MB Relative Index 5.34H, Troponin I 0.08, MV-Ukn-X-Type Natriuretic Peptide 893H, Albumin/Globulin Ratio 0.82L 09/30/18 16:37: Bedside Glucose (Misc Panel) 300H 09/30/18 21:18: Bedside Glucose (Misc Panel) 383H 09/30/18 22:27: Lactic Acid Followup at 4 Hours 1.6, Total Creatine Kinase 91, Creatine Kinase MB 4.0H, Creatine Kinase MB Relative Index 4.84H, Troponin I 0.08 10/01/18 08:06: Bedside Glucose (Misc Panel) 170H 10/01/18 08:48: Immature Granulocyte % (Auto) 0.4, White Blood Count 14.1H, Red Blood Count 5.43, Hemoglobin 14.5, Hematocrit 46.1, Mean Corpuscular Volume 84.9, Mean Corpuscular Hemoglobin 26.7L, Mean Corpuscular Hemoglobin Concent 31.5L, Red Cell Distribution Width 14.1, Platelet Count 208, Neutrophils (%) (Auto) 76.7H, Lymphocytes (%) (Auto) 13.2L, Monocytes (%) (Auto) 6.5H, Eosinophils (%) (Auto) 3.0, Basophils (%) (Auto) 0.2, Neutrophils # (Auto) 10.8H, Lymphocytes # (Auto) 1.9, Monocytes # (Auto) 0.9H, Eosinophils # (Auto) 0.4, Basophils # (Auto) 0.0, Nucleated Red Blood Cells % (auto) 0.0, Anion Gap 7L, Glomerular Filtration Rate 33.1L, Blood Urea Nitrogen 69H, Creatinine 2.15H, Sodium Level 137, Potassium Level 4.2, Chloride Level 99, Carbon Dioxide Level 31, Calcium Level 8.5L, Magnesium Level 1.7L CBC/BMP Laboratory Tests 09/30/18 15:06 Red Blood Count 5.40, Mean Corpuscular Volume 84.6, Mean Corpuscular Hemoglobin 26.3 L, Mean Corpuscular Hemoglobin Concent 31.1 L, Red Cell Distribution Width 13.9, Neutrophils (%) (Auto) 79.3 H, Lymphocytes (%) (Auto) 8.6 L, Monocytes (%) (Auto) 8.4 H, Eosinophils (%) (Auto) 2.8, Basophils (%) (Auto) 0.4, Neutrophils # (Auto) 11.0 H, Lymphocytes # (Auto) 1.2 L, Monocytes # (Auto) 1.2 H, Eosinophils # (Auto) 0.4, Basophils # (Auto) 0.1, Calcium Level 8.3 L, Aspartate Amino Transf (AST/SGOT) 37, Alanine Aminotransferase (ALT/SGPT) 65, Total Creatine Kinase 73, Alkaline Phosphatase 88, Total Bilirubin 0.5, Total Protein 6.0 L, Albumin 2.7 L 10/01/18 08:48 Red Blood Count 5.43, Mean Corpuscular Volume 84.9, Mean Corpuscular Hemoglobin 26.7 L, Mean Corpuscular Hemoglobin Concent 31.5 L, Red Cell Distribution Width 14.1, Neutrophils (%) (Auto) 76.7 H, Lymphocytes (%) (Auto) 13.2 L, Monocytes (%) (Auto) 6.5 H, Eosinophils (%) (Auto) 3.0, Basophils (%) (Auto) 0.2, Neutroph ils # (Auto) 10.8 H, Lymphocytes # (Auto) 1.9, Monocytes # (Auto) 0.9 H, Eosinophils # (Auto) 0.4, Basophils # (Auto) 0.0, Calcium Level 8.5 L Microbiology Microbiology 09/30/18 Stool Lactoferrin - Final, Complete GME ATTESTATION GME ATTESTATION My faculty preceptor for this patient encounter was physically present during the encounter and was fully available. All aspects of the patient interview, examination, medical decision making process, and medical care plan development were reviewed and approved by the faculty preceptor. The faculty preceptor is aware and concurs with the plan as stated in the body of this note and will attest to such by his/her cosignature. ATTENDING NOTE I, Terrance Tovar, have both independently examined this patient as well as reviewed the documentation. I have discussed in detail with the resident the findings and plan of treatment as documented in the residents documentation. I will continue to follow the patient and offer further guidance to the patients care as necessary during this hospital stay. GENARO RUBIO MD Oct 01, 2018 10:21 TERRANCE TOVAR MD Oct 01, 2018 18:07
[2018-10-01] MEDS ORDERED: NS 500 ML IV SCH (13:30)
[2018-10-01] MEDS ORDERED: NS 250 ML IV ONE (13:45)
[2018-10-01] MEDS: NS 1,000 ML IV SCH (16:30)
[2018-10-02] VITALS (17 sets, daily range): BP systolic 89–143; BP diastolic 54–76
[2018-10-02] MEDS: NS 1,000 ML IV SCH (01:45)
[2018-10-02] MEDS: IPRATROPIUM 0.5MG/ALBUTEROL 2.5MG INH SOL UD 3ML (DUONEB)(J7620) NEB SCH ×4 (02:00→19:57)
[2018-10-02] MEDS: SODIUM CHLORIDE 0.9% INJ 10 ML SYR IV SCH ×3 (05:25→21:23)
[2018-10-02 05:58] LABS: BASO % 0.2 % (0.0-1.0); EOS # 0.4 10^3/uL (0.0-0.50); EOS % 2.9 % (0.0-3.0); HEMATOCRIT 43.7 % (42.0-52.0); HEMOGLOBIN 13.6 g/dl (13.5-17.5); LYMPH # 1.2 10^3/uL (1.5-4.5); LYMPH % 8.7 % (24.0-44.0); MEAN CORPUSCULAR HEMOGLOBIN 26.2 pg (27.0-33.0); MEAN CORPUSCULAR HGB CONC 31.1 g/dl (32.0-36.5); MONO # 1.2 10^3/uL (0.0-0.8); MONO % 8.9 % (0.0-5.0); NEUTROPHILS # 10.6 10^3/uL (1.8-7.7); NEUTROPHILS % 78.8 % (36.0-66.0); PLATELET COUNT, AUTOMATED 182 10^3/uL (150-450); WHITE BLOOD COUNT 13.4 10^3/uL (4.0-10.0)
[2018-10-02 06:11] LABS: CALCIUM LEVEL 7.9 MG/DL (8.8-10.2); CREATININE FOR GFR 1.49 MG/DL (0.70-1.30); GLOMERULAR FILTRATION RATE 50.5 (>49); POTASSIUM SERUM 4.1 MEQ/L (3.5-5.1)
--- NOTE | 2018-10-02 07:45 | IPN ---
DATE: 10/02/2018 Mr. Ruvalcaba was relatively hypotensive throughout the day yesterday and actually did get some boluses of IV fluids to correct this problem. He was asymptomatic throughout it though. He did not sleep much last night, but he cannot state any particular reason. There was no dyspnea or chest discomfort. Vital signs this morning with blood pressure 122/65. Heart rate has been in 70s and 80s. He is afebrile. Saturation 93% on 3 liters of oxygen. Weight is documented 130.7 kg, which is actually 3 kg up since yesterday. Because the documented fluid intake was only 2600 mL, again, I am little skeptical of the accuracy of this data. He is alert and oriented and appropriate. His jugular venous pulse (JVP) does not appear high, but it is somewhat challenging to estimate with his body habitus. Lungs seem reasonably clear to auscultation. Heart Exam: Regular rhythm. No gallop or rub. Abdomen is soft. No tenderness. No peripheral edema. Laboratory-nagy, basic metabolic panel with sodium 140, potassium 4.1, BUN 54, creatinine 1.5 and glucose 216. CBC with WBC count 13.4, hemoglobin 13.6, hematocrit 43.7 and platelet count 182,000 ASSESSMENT/PLAN: Mr. Ruvalcaba is a 62-year-old man who has ischemic cardiomyopathy with severe left ventricular systolic dysfunction. He presented with respiratory failure very likely due to exacerbated congestive heart failure (CHF). Then he improved as far as the respiration is concerned with diuresis, but started to have a problem with orthostatic hypotension. Consequently, many of his medications were held and actually he got a little bit of fluid yesterday. Blood pressure is better today and I am hoping we will be able to slowly reintroduce his medications. Because he seems to be well-compensated from the perspective of volume today, I would like to give him his beta blockers as a preferential choice. Please try to avoid administration of additional fluids as possible. Otherwise, I do not have any new recommendations. His other medications for coronary artery disease; namely, aspirin and statin will be continued. INDICATION
[2018-10-02] MEDS: NYSTATIN 500,000 U/5 ML SUSP UDC SS SCH ×3 (08:13→21:21)
[2018-10-02] MEDS: CALCITRIOL 0.25 MCG CAP (S0169) PO SCH (08:13)
[2018-10-02] MEDS: HumaLOG INSULIN (NovoLOG) PER UNIT SC SCH ×4 (08:13→21:00)
[2018-10-02] MEDS: ASPIRIN 81 MG CHEW TABLET PO SCH (08:13)
[2018-10-02] MEDS: ATORVASTATIN 20 MG TAB PO SCH (08:13)
[2018-10-02] MEDS: guaiFENesin ER 600 MG TAB PO SCH ×2 (08:13→21:22)
[2018-10-02] MEDS: CLOPIDOGREL 75 MG TAB PO SCH (08:13)
[2018-10-02] MEDS: FERROUS GLUCONATE 324 MG TAB PO SCH (08:13)
[2018-10-02] MEDS: LEVEMIR (INSULIN DETEMIR) 1 UNITS/0.01ML SC SCH (08:13)
[2018-10-02] MEDS: ENOXAPARIN 40 MG/0.4 ML SYRINGE (J1650) SC SCH (08:14)
[2018-10-02] MEDS: CARVedilol 6.25 MG TAB PO SCH ×2 (08:14→21:22)
[2018-10-02] MEDS: EUCERIN 120GM CREAM TOP SCH ×2 (08:23→21:23)
--- NOTE | 2018-10-02 12:07 | IPNPDOC ---
Date Seen The patient was seen on 10/02/18. Progress Note SUBJECTIVE: No major events overnight. BPs are holding in 110s systolic today, but he is still orthostatic. Patient states he feels well. He continues to have large volume watery BMs. Still complains of dizziness with positional changes. OBJECTIVE PHYSICAL EXAMINATION: VITAL SIGNS: Please see below. GENERAL: laying in bed, comfortable, calm, in no acute distress HEENT: moist mucus membranes, some white plaques on posterior pharynx, no thyromegaly, EOMI CARDIOVASCULAR: RRR, no murmurs/rubs/gallops RESPIRATORY: clear to auscultation bilaterally ABDOMINAL: soft, nontender to palpation, +BS EXTREMITIES: no clubbing/cyanosis/edema NEUROLOGICAL: CN 2-12 intact, no focal deficits PSYCHOLOGICAL: normal mood, somewhat flat affect, AAOx3 LABORATORY DATA, IMAGING STUDIES, MICROBIOLOGY: Please see below. Echocardiogram: 09/2017 1. Study is of markedly limited technical quality. 2. Preserved LV size with septal wall motion abnormality, nonvisualized apex and overall probably mildly reduced LV systolic function. This should not be considered overly reliable due to very limited visualization. Likely grade 2 diastolic dysfunction. 3. No significant valvular disease. 4. Very high central venous pressure. 5. Unable to estimate pulmonary artery pressure. DVT prophylaxis ordered?: Lovenox ASSESSMENT AND PLAN: This is a 62 YO M with history of CHF (rEF), KADIE (noncompliant), DM2, CAD s/p stent, HTN found to be hypoxemic likely 2/2 CHF exacerbation. Clinical course is significant for continued hypoxemia despite BiPaP, which has resolved, and new syncopal episodes and orthostatic hypotension that has gradually improved over the past 2 days. PROBLEMS: 1. Syncope vs seizure: most likely 2/2 orthostasis -Patient has had 2 syncopal events after having a BM in which he reports he felt lightheaded/dizzy as if he were about to faint. BP at that time dropped dramatically -Orthostatics are positive. S/p fluid resuscitation -Continue telemetry -EEG was found to be negative for any epileptiform activity -Head CT negative for any intracranial pathology other than old infarct (no change from prior head CT) -GI panel pending 2. SOB likely 2/2 CHF exacerbation: currently on 3L of oxygen. -Last echo demonstrated Grade 2 diastolic dysfunction, EF 30%. The patient received 2x 500cc fluid boluses yesterday 2/2 hypotension -s/p fluids yesterday. These have been stopped. -Low sodium diet -Continue diuresis with Demedex. Currently being held 2/2 hypotension -LE bilateral Doppler to R/U DVT/PE negative for DVT 3. Acute on chronic renal failure: -Cr improved to 1.49 today -Will continue to monitor 4. Hx of KADIE -Continue KADIE protocol and BiPaP 5. DM2: persistently elevated blood sugars -Lantus increased to 70U -Continue SSI with hypoglycemic protocol 6. Hypertension: BP is WNL -Continue Carvedilol 6.25mg PO BID 7. CAD s/p stent: -continue Aspirin, Lipitor, Plavix DISPOSITION: pending clinical improvement. Patient transferred to PCU A-FIB/CHADSVASC A-FIB History Current/History of A-Fib/PAF?: No VS, I&O, 24H, Fishbone Vital Signs/I&O Vital Signs Date Time Temp Pulse Resp B/P (MAP) Pulse Ox O2 Delivery O2 Flow Rate FiO2 10/02/18 08:14 98 115/63 10/02/18 06:00 3.0 10/02/18 05:00 93 10/02/18 04:00 98.2 21 10/02/18 00:00 Nasal Cannula 09/29/18 06:00 97 I&O- Last 24 Hours up to 6 AM 10/02/18 06:00 Intake Total 2915 ml Output Total 2145 ml Balance 770 ml Laboratory Data 24H LABS Laboratory Tests 2 10/01/18 12:00: Bedside Glucose (Misc Panel) 314H 10/01/18 17:28: Bedside Glucose (Misc Panel) 270H 10/01/18 21:45: Bedside Glucose (Misc Panel) 268H 10/02/18 05:29: Immature Granulocyte % (Auto) 0.5, White Blood Count 13.4H, Red Blood Count 5.20, Hemoglobin 13.6, Hematocrit 43.7, Mean Corpuscular Volume 84.0, Mean Corpuscular Hemoglobin 26.2L, Mean Corpuscular Hemoglobin Concent 31.1L, Red Cell Distribution Width 14.0, Platelet Count 182, Neutrophils (%) (Auto) 78.8H, Lymphocytes (%) (Auto) 8.7L, Monocytes (%) (Auto) 8.9H, Eosinophils (%) (Auto) 2.9, Basophils (%) (Auto) 0.2, Neutrophils # (Auto) 10.6H, Lymphocytes # (Auto) 1.2L, Monocytes # (Auto) 1.2H, Eosinophils # (Auto) 0.4, Basophils # (Auto) 0.0, Nucleated Red Blood Cells % (auto) 0.0, Anion Gap 6L, Glomerular Filtration Rate 50.5, Blood Urea Nitrogen 54H, Creatinine 1.49H, Sodium Level 140, Potassium Level 4.1, Chloride Level 102, Carbon Dioxide Level 32, Calcium Level 7.9L, Magnesium Level 2.0 CBC/BMP Laboratory Tests 10/02/18 05:29 Red Blood Count 5.20, Mean Corpuscular Volume 84.0, Mean Corpuscular Hemoglobin 26.2 L, Mean Corpuscular Hemoglobin Concent 31.1 L, Red Cell Distribution Width 14.0, Neutrophils (%) (Auto) 78.8 H, Lymphocytes (%) (Auto) 8.7 L, Monocytes (%) (Auto) 8.9 H, Eosinophils (%) (Auto) 2.9, Basophils (%) (Auto) 0.2, Neutrophils # (Auto) 10.6 H, Lymphocytes # (Auto) 1.2 L, Monocytes # (Auto) 1.2 H, Eosinophils # (Auto) 0.4, Basophils # (Auto) 0.0, Calcium Level 7.9 L Microbiology Microbiology 09/30/18 Stool Lactoferrin - Final, Complete GME ATTESTATION GME ATTESTATION My faculty preceptor for this patient encounter was physically present during the encounter and was fully available. All aspects of the patient interview, examination, medical decision making process, and medical care plan development were reviewed and approved by the faculty preceptor. The faculty preceptor is aware and concurs with the plan as stated in the body of this note and will attest to such by his/her cosignature. ATTENDING NOTE I, Terrance Tovar, have both independently examined this patient as well as reviewed the documentation. I have discussed in detail with the resident the findings and plan of treatment as documented in the residents documentation. I will continue to follow the patient and offer further guidance to the patients care as necessary during this hospital stay. GENARO RUBIO MD Oct 02, 2018 09:55 TERRANCE TOVAR MD Oct 02, 2018 18:01
[2018-10-03] MEDS: IPRATROPIUM 0.5MG/ALBUTEROL 2.5MG INH SOL UD 3ML (DUONEB)(J7620) NEB SCH ×4 (02:00→20:00)
[2018-10-03 04:00] VITALS: BP 136/78
[2018-10-03] MEDS: SODIUM CHLORIDE 0.9% INJ 10 ML SYR IV SCH ×3 (05:19→20:33)
[2018-10-03 05:38] LABS: BASO % 0.3 % (0.0-1.0); EOS # 0.4 10^3/uL (0.0-0.50); EOS % 3.4 % (0.0-3.0); HEMATOCRIT 43.6 % (42.0-52.0); HEMOGLOBIN 13.5 g/dl (13.5-17.5); LYMPH # 1.3 10^3/uL (1.5-4.5); LYMPH % 11.3 % (24.0-44.0); MEAN CORPUSCULAR HEMOGLOBIN 26.5 pg (27.0-33.0); MEAN CORPUSCULAR VOLUME 85.7 fl (80.0-96.0); MONO # 1.1 10^3/uL (0.0-0.8); MONO % 9.2 % (0.0-5.0); NEUTROPHILS # 8.7 10^3/uL (1.8-7.7); NEUTROPHILS % 75.4 % (36.0-66.0); PLATELET COUNT, AUTOMATED 181 10^3/uL (150-450); RED BLOOD COUNT 5.09 10^6/uL (4.30-6.10); WHITE BLOOD COUNT 11.6 10^3/uL (4.0-10.0)
[2018-10-03 05:50] LABS: CALCIUM LEVEL 8.1 MG/DL (8.8-10.2); CREATININE FOR GFR 1.39 MG/DL (0.70-1.30); GLOMERULAR FILTRATION RATE 54.8 (>49); POTASSIUM SERUM 4.6 MEQ/L (3.5-5.1)
[2018-10-03] MEDS: HumaLOG INSULIN (NovoLOG) PER UNIT SC SCH ×4 (07:59→20:32)
[2018-10-03 08:00] VITALS: BP 118/76
--- NOTE | 2018-10-03 08:50 | IPN ---
DATE: 10/03/2018 Mr. Ruvalcaba had a relatively uneventful day yesterday. Unfortunately, he did not get much ambulation but he was able to walk from his bed to bathroom while he was in intensive care and apparently did not really cause any trouble. Denies any chest pain. Denies any dizziness and denies shortness of breath. Vital signs: Blood pressure 136/78, heart rate has been in 70s and 80s. He is afebrile. Saturation 93% on 3 liters of oxygen. His fluid balance yesterday was approximately equal, but weight is 128.1. It is a different scale as he is in different unit. Alert, oriented and appropriate. His jugular venous pulse (JVP) is not high. Lungs are clear with good air movement. No wheezing, crackles or rhonchi. Heart exam reveals regular rhythm. I do not appreciate any gallop or rub. Abdomen is soft, nontender. Extremities are free of edema. There are stasis dermatitic changes on his shins. Neurologically, he is intact. Laboratory nagy, CBC is normal. Basic metabolic panel: Sodium 141, potassium 4.6, BUN 44, creatinine 1.4 and glucose 176. ASSESSMENT AND PLAN: Mr. Ruvalcaba is a 62-year-old man who has ischemic cardiomyopathy and left ventricle ejection fraction around 35%. He presented initially with congestive heart failure but with diuresis developed symptoms of orthostatic hypotension. I was asked to see him at this setting and just by holding some of his medications it seems to have corrected. He probably was somewhat over diuresed. We are slowly reintroducing his medications. Carvedilol was restarted yesterday. I would probably wait one more day before I would put him back on lisinopril, and at this point, I think is probably close to his baseline weight and I would use furosemide on as-needed basis for weight gain and peripheral edema.
[2018-10-03 09:14] VITALS: BP_SYST 122; BP_SYST 131; BP_SYST 91; BP_DIAS 58; BP_DIAS 71; BP_DIAS 80
[2018-10-03] MEDS ORDERED: LOPERAMIDE 2 MG CAP PO PRN (09:45)
[2018-10-03] MEDS: LEVEMIR (INSULIN DETEMIR) 1 UNITS/0.01ML SC SCH (09:56)
[2018-10-03] MEDS: CLOPIDOGREL 75 MG TAB PO SCH (09:57)
[2018-10-03] MEDS: ASPIRIN 81 MG CHEW TABLET PO SCH (09:57)
[2018-10-03] MEDS: ATORVASTATIN 20 MG TAB PO SCH (09:57)
[2018-10-03] MEDS: ENOXAPARIN 40 MG/0.4 ML SYRINGE (J1650) SC SCH (09:57)
[2018-10-03] MEDS: FERROUS GLUCONATE 324 MG TAB PO SCH (09:57)
[2018-10-03] MEDS: guaiFENesin ER 600 MG TAB PO SCH ×2 (09:58→20:33)
[2018-10-03] MEDS: CARVedilol 6.25 MG TAB PO SCH ×2 (09:58→20:33)
[2018-10-03] MEDS: EUCERIN 120GM CREAM TOP SCH ×2 (09:59→20:33)
[2018-10-03] MEDS: NYSTATIN 500,000 U/5 ML SUSP UDC SS SCH ×3 (10:07→20:32)
--- NOTE | 2018-10-03 10:20 | IPNPDOC ---
Date Seen The patient was seen on 10/03/18. Progress Note SUBJECTIVE: Patient has no complaints this morning. He continues to have several bowel movements, but they are less frequent now. Despite his positive orthostatics he does not feel lightheaded/dizzy when he stands/sits up as he did before. OBJECTIVE PHYSICAL EXAMINATION: VITAL SIGNS: Please see below. GENERAL: laying in bed, comfortable, calm, in no acute distress HEENT: moist mucus membranes, no thyromegaly, EOMI CARDIOVASCULAR: RRR, no murmurs/rubs/gallops RESPIRATORY: clear to auscultation bilaterally ABDOMINAL: soft, nontender to palpation, +BS EXTREMITIES: no clubbing/cyanosis/edema NEUROLOGICAL: CN 2-12 intact, no focal deficits PSYCHOLOGICAL: normal mood, somewhat flat affect, AAOx3 LABORATORY DATA, IMAGING STUDIES, MICROBIOLOGY: Please see below. Echocardiogram: 09/2017 1. Study is of markedly limited technical quality. 2. Preserved LV size with septal wall motion abnormality, nonvisualized apex and overall probably mildly reduced LV systolic function. This should not be considered overly reliable due to very limited visualization. Likely grade 2 diastolic dysfunction. 3. No significant valvular disease. 4. Very high central venous pressure. 5. Unable to estimate pulmonary artery pressure. DVT prophylaxis ordered?: Lovenox ASSESSMENT AND PLAN: This is a 62 YO M with history of CHF (rEF), KDAIE (noncompliant), DM2, CAD s/p stent, HTN found to be hypoxemic likely 2/2 CHF exacerbation. Clinical course is significant for continued hypoxemia despite BiPaP, which has resolved, and new syncopal episodes and orthostatic hypotension that has gradually improved over the past 2 days. PROBLEMS: 1. Syncope vs seizure: most likely 2/2 orthostasis -Patient has had 2 syncopal events after having a BM in which he reports he felt lightheaded/dizzy as if he were about to faint. BP at that time dropped dramatically -Orthostatics are positive. Encouraging oral hydration today. No need for more IV fluids at this time -Continue telemetry -GI panel negative 2. SOB likely 2/2 CHF exacerbation: currently on 3L of oxygen. -Last echo demonstrated Grade 2 diastolic dysfunction, EF 30%. The patient received 2x 500cc fluid boluses yesterday 2/2 hypotension -Low sodium diet -Holding Demedex 2/2 hypotension -Coreg has been restarted. Holding off on other BP meds at this time 3. Acute on chronic renal failure: -Cr improved to 1.39 today -Will continue to monitor 4. Hx of KADIE -Continue KADIE protocol and BiPaP 5. DM2: persistently elevated blood sugars -Lantus increased to 70U -Continue SSI with hypoglycemic protocol 6. Hypertension: BP is WNL -Continue Carvedilol 6.25mg PO BID 7. CAD s/p stent: -continue Aspirin, Lipitor, Plavix DISPOSITION: pending clinical improvement. PT/OT today VS, I&O, 24H, Fishbone Vital Signs/I&O Vital Signs Date Time Temp Pulse Resp B/P (MAP) Pulse Ox O2 Delivery O2 Flow Rate FiO2 10/03/18 09:58 82 136/78 10/03/18 08:00 97.6 18 94 3.0 10/03/18 04:05 Nasal Cannula 09/29/18 06:00 97 I&O- Last 24 Hours up to 6 AM 10/03/18 06:00 Intake Total 1410 ml Output Total 1050 ml Balance 360 ml Laboratory Data 24H LABS Laboratory Tests 2 10/02/18 11:22: Bedside Glucose (Misc Panel) 314H 10/02/18 16:39: Bedside Glucose (Misc Panel) 216H 10/02/18 21:14: Bedside Glucose (Misc Panel) 212H 10/03/18 05:14: Anion Gap 4L, Glomerular Filtration Rate 54.8, Blood Urea Nitrogen 44H, Creatinine 1.39H, Sodium Level 140, Potassium Level 4.6, Chloride Level 106, Carbon Dioxide Level 30, Calcium Level 8.1L, Magnesium Level 2.0 10/03/18 05:15: Immature Granulocyte % (Auto) 0.4, White Blood Count 11.6H, Red Blood Count 5.09, Hemoglobin 13.5, Hematocrit 43.6, Mean Corpuscular Volume 85.7, Mean Corpuscular Hemoglobin 26.5L, Mean Corpuscular Hemoglobin Concent 31.0L, Red Cell Distribution Width 14.0, Platelet Count 181, Neutrophils (%) (Auto) 75.4H, Lymphocytes (%) (Auto) 11.3L, Monocytes (%) (Auto) 9.2H, Eosinophils (%) (Auto) 3.4H, Basophils (%) (Auto) 0.3, Neutrophils # (Auto) 8.7H, Lymphocytes # (Auto) 1.3L, Monocytes # (Auto) 1.1H, Eosinophils # (Auto) 0.4, Basophils # (Auto) 0.0, Nucleated Red Blood Cells % (auto) 0.0 CBC/BMP Laboratory Tests 10/03/18 05:14 Calcium Level 8.1 L 10/03/18 05:15 Red Blood Count 5.09, Mean Corpuscular Volume 85.7, Mean Corpuscular Hemoglobin 26.5 L, Mean Corpuscular Hemoglobin Concent 31.0 L, Red Cell Distribution Width 14.0, Neutrophils (%) (Auto) 75.4 H, Lymphocytes (%) (Auto) 11.3 L, Monocytes (%) (Auto) 9.2 H, Eosinophils (%) (Auto) 3.4 H, Basophils (%) (Auto) 0.3, Neutrophils # (Auto) 8.7 H, Lymphocytes # (Auto) 1.3 L, Monocytes # (Auto) 1.1 H, Eosinophils # (Auto) 0.4, Basophils # (Auto) 0.0 Microbiology Microbiology 10/02/18 Gastrointestinal Tract Panel (PCR) - Final, Complete 09/30/18 Stool Lactoferrin - Final, Complete GME ATTESTATION GME ATTESTATION My faculty preceptor for this patient encounter was physically present during the encounter and was fully available. All aspects of the patient interview, examination, medical decision making process, and medical care plan development were reviewed and approved by the faculty preceptor. The faculty preceptor is aware and concurs with the plan as stated in the body of this note and will attest to such by his/her cosignature. ATTENDING NOTE I, Terrance Tovar, have both independently examined this patient as well as reviewed the documentation. I have discussed in detail with the resident the findings and plan of treatment as documented in the residents documentation. I will continue to follow the patient and offer further guidance to the patients care as necessary during this hospital stay. GENARO RUBIO MD Oct 03, 2018 10:20 TERRANCE TOVAR MD Oct 03, 2018 14:18
[2018-10-03 12:00] VITALS: BP 134/76
[2018-10-03 16:00] VITALS: BP_SYST 102; BP_SYST 122; BP_SYST 128; BP_DIAS 64; BP_DIAS 76; BP_DIAS 78
[2018-10-03 20:00] VITALS: BP_SYST 165; BP_SYST 166; BP_SYST 185; BP_SYST 195; BP_DIAS 100; BP_DIAS 80; BP_DIAS 85; BP_DIAS 91
[2018-10-04] MEDS: IPRATROPIUM 0.5MG/ALBUTEROL 2.5MG INH SOL UD 3ML (DUONEB)(J7620) NEB SCH ×4 (01:23→20:00)
[2018-10-04 04:00] VITALS: BP_SYST 114; BP_SYST 167; BP_SYST 89; BP_DIAS 47; BP_DIAS 91; BP_DIAS 92
[2018-10-04] MEDS: SODIUM CHLORIDE 0.9% INJ 10 ML SYR IV SCH ×3 (05:39→21:27)
[2018-10-04 06:00] LABS: BASO % 0.2 % (0.0-1.0); EOS # 0.4 10^3/uL (0.0-0.50); EOS % 3.6 % (0.0-3.0); HEMATOCRIT 41.8 % (42.0-52.0); HEMOGLOBIN 12.9 g/dl (13.5-17.5); LYMPH # 1.1 10^3/uL (1.5-4.5); LYMPH % 10.6 % (24.0-44.0); MEAN CORPUSCULAR HEMOGLOBIN 26.3 pg (27.0-33.0); MEAN CORPUSCULAR HGB CONC 30.9 g/dl (32.0-36.5); MEAN CORPUSCULAR VOLUME 85.1 fl (80.0-96.0); MONO # 1.1 10^3/uL (0.0-0.8); NEUTROPHILS % 75.2 % (36.0-66.0); PLATELET COUNT, AUTOMATED 200 10^3/uL (150-450); RED BLOOD COUNT 4.91 10^6/uL (4.30-6.10); WHITE BLOOD COUNT 10.6 10^3/uL (4.0-10.0)
[2018-10-04 06:13] LABS: BLOOD UREA NITROGEN 37 MG/DL (7-18); CARBON DIOXIDE LEVEL 27 MEQ/L (21-32); CHLORIDE LEVEL 110 MEQ/L (98-107); CREATININE FOR GFR 1.25 MG/DL (0.70-1.30); GLOMERULAR FILTRATION RATE > 60.0 (>49); GLUCOSE, FASTING 161 MG/DL (70-100); MAGNESIUM LEVEL 1.9 MG/DL (1.8-2.4); POTASSIUM SERUM 4.7 MEQ/L (3.5-5.1); SODIUM LEVEL 141 MEQ/L (136-145)
[2018-10-04 08:00] VITALS: BP_SYST 68; BP_SYST 86; BP_SYST 99; BP_DIAS 49; BP_DIAS 55; BP_DIAS 60
--- NOTE | 2018-10-04 08:53 | IPN ---
DATE OF SERVICE: 10/04/2018 Mr. Ruvalcaba had a good day yesterday. There were no particular events. He denies any chest pain or shortness of breath. Unfortunately, continues to have issue with orthostatic hypotension. Most of the day yesterday his orthostatics were negative, but this morning he dropped systolic blood pressure from 167 to 89 from laying to standing. Surprisingly, he was not as symptomatic at all. PHYSICAL EXAMINATION: Mr. Ruvalcaba is a 62-year-old man who appears about his age. He is alert and oriented appropriate in no distress. Vital Signs: Blood pressure 167/92. Heart rate has been 70s. He is afebrile. Saturation is 94% on 3 liters of oxygen. Fluid balance yesterday was documented slightly positive about 300. Weight is 195.5 kg, which is again little bit up from yesterday. He is alert, oriented and appropriate. His jugular venous pulse (JVP) does not look high. Lungs are clear. Heart exam reveals regular rhythm without gallop, rub or murmur. Abdomen is obese, soft, but nontender. Extremities have no edema. Neurologically he is intact. Laboratory-nagy, basic metabolic panel, sodium 141, potassium 4.7, BUN 37, creatinine 1.25 and glucose 161. CBC is essentially normal, hemoglobin 12.9, hematocrit 41.8 and platelet count 200,000. ASSESSMENT/PLAN: Mr. Ruvalcaba is a 62-year-old man who has longstanding history of diabetes and ischemic cardiomyopathy with remote coronary intervention almost 20 years ago and overall left ventricle ejection fraction of approximately 35%. He originally presented with congestive heart failure but now the dominant complaint is orthostatic hypotension. It is very likely related to combination of diabetic neuropathy plus somewhat rapid weight loss with aggressive diuresis. I do not believe that this is an issue that can be permanently corrected. We discontinued a lot of his medications. but it continues to be an issue. Fortunately, he is not symptomatic from this perspective. Because of his LV dysfunction, I certainly do not recommend that he is getting either fludrocortisone or any drug that would cause vasoconstriction. Consequently, I would keep giving his medications with holding parameters for low blood pressure. Because of his orthostatic drop, I would not introduce AZAM inhibitors as yet, even though I think it should be possible within a few days. As he is not overly symptomatic from this issue, I personally think that he can be discharged to rehab when a bed is available. I will plan on seeing him on an outpatient basis within next couple weeks. Please call our service back if further assistance is required.
[2018-10-04] MEDS: CARVedilol 6.25 MG TAB PO SCH ×2 (09:00→21:26)
[2018-10-04] MEDS: LEVEMIR (INSULIN DETEMIR) 1 UNITS/0.01ML SC SCH (09:57)
[2018-10-04] MEDS: NYSTATIN 500,000 U/5 ML SUSP UDC SS SCH ×3 (09:58→21:26)
[2018-10-04] MEDS: HumaLOG INSULIN (NovoLOG) PER UNIT SC SCH ×4 (09:58→21:26)
[2018-10-04] MEDS: ATORVASTATIN 20 MG TAB PO SCH (09:58)
[2018-10-04] MEDS: ASPIRIN 81 MG CHEW TABLET PO SCH (09:58)
[2018-10-04] MEDS: CLOPIDOGREL 75 MG TAB PO SCH (09:58)
[2018-10-04] MEDS: CALCITRIOL 0.25 MCG CAP (S0169) PO SCH (09:58)
[2018-10-04] MEDS: guaiFENesin ER 600 MG TAB PO SCH ×2 (09:58→21:26)
[2018-10-04] MEDS: FERROUS GLUCONATE 324 MG TAB PO SCH (09:58)
[2018-10-04] MEDS: ENOXAPARIN 40 MG/0.4 ML SYRINGE (J1650) SC SCH (09:59)
[2018-10-04] MEDS: EUCERIN 120GM CREAM TOP SCH ×2 (10:00→21:28)
--- NOTE | 2018-10-04 10:15 | IPNPDOC ---
Date Seen The patient was seen on 10/04/18. Progress Note SUBJECTIVE: Patient states he feels well this morning. He continues to have orthostatic hypotension. This morning he dropped almost 30mmHg systolic when standing, but states he was not symptomatic when doing so. He was seen by cardiology earlier this morning and the plan for rehab was reviewed with the patient. He is agreeable. He continues to report having diarrhea but does not wish to take any Imodium. Otherwise, he denies any SOB/CP/N/V. He asks that the plan for his rehabilitation be discussed with his when she comes in to visit today. OBJECTIVE PHYSICAL EXAMINATION: VITAL SIGNS: Please see below. GENERAL: laying in bed, comfortable, calm, in no acute distress HEENT: moist mucus membranes, no thyromegaly, EOMI CARDIOVASCULAR: RRR, no murmurs/rubs/gallops RESPIRATORY: clear to auscultation bilaterally ABDOMINAL: soft, nontender to palpation, +BS EXTREMITIES: no clubbing/cyanosis/edema NEUROLOGICAL: CN 2-12 intact, no focal deficits PSYCHOLOGICAL: normal mood, somewhat flat affect, AAOx3 LABORATORY DATA, IMAGING STUDIES, MICROBIOLOGY: Please see below. Echocardiogram: 09/2017 1. Study is of markedly limited technical quality. 2. Preserved LV size with septal wall motion abnormality, nonvisualized apex and overall probably mildly reduced LV systolic function. This should not be considered overly reliable due to very limited visualization. Likely grade 2 diastolic dysfunction. 3. No significant valvular disease. 4. Very high central venous pressure. 5. Unable to estimate pulmonary artery pressure. DVT prophylaxis ordered?: Lovenox ASSESSMENT AND PLAN: This is a 62 YO M with history of CHF (rEF), KADIE (noncompliant), DM2, CAD s/p stent, HTN found to be hypoxemic likely 2/2 CHF exacerbation. Clinical course is significant for continued hypoxemia despite BiPaP, which has resolved, and new syncopal episodes and orthostatic hypotension that has gradually improved over the past 2 days. PROBLEMS: 1. Syncope vs seizure: most likely 2/2 orthostasis -Patient has had 2 syncopal events after having a BM in which he reports he felt lightheaded/dizzy as if he were about to faint. BP at that time dropped dramatically -Orthostatics continue to be positive. Encouraging oral hydration today. No need for more IV fluids at this time -Will DC telemetry -Continue working with PT/OT. Plan for acute rehab on discharge. 2. SOB likely 2/2 CHF exacerbation: currently on 3L of oxygen. -Low sodium diet -Holding Demedex 2/2 hypotension -Coreg has been restarted. Holding off on other BP meds at this time 3. Acute on chronic renal failure: -Cr improved to 1.25 today -Will continue to monitor 4. Hx of KADIE -Continue KADIE protocol and BiPaP 5. DM2: persistently elevated blood sugars -Continue SSI with hypoglycemic protocol -Levemir 70U 6. Hypertension: BP is WNL -Continue Carvedilol 6.25mg PO BID 7. CAD s/p stent: -continue Aspirin, Lipitor, Plavix DISPOSITION: Pending PT/OT and placement VS, I&O, 24H, Fishbone Vital Signs/I&O Vital Signs Date Time Temp Pulse Resp B/P (MAP) Pulse Ox O2 Delivery O2 Flow Rate FiO2 10/04/18 08:00 97.6 74 20 99/60 (73) 97 3.0 10/03/18 04:05 Nasal Cannula 09/29/18 06:00 97 I&O- Last 24 Hours up to 6 AM 10/04/18 06:00 Intake Total 510 ml Output Total 475 ml Balance 35 ml Laboratory Data 24H LABS Laboratory Tests 2 10/03/18 11:51: Bedside Glucose (Misc Panel) 237H 10/03/18 16:59: Bedside Glucose (Misc Panel) 265H 10/03/18 20:11: Bedside Glucose (Misc Panel) 283H 10/04/18 05:41: Immature Granulocyte % (Auto) 0.4, White Blood Count 10.6H, Red Blood Count 4.91, Hemoglobin 12.9L, Hematocrit 41.8L, Mean Corpuscular Volume 85.1, Mean Corpuscular Hemoglobin 26.3L, Mean Corpuscular Hemoglobin Concent 30.9L, Red Cell Distribution Width 14.0, Platelet Count 200, Neutrophils (%) (Auto) 75.2H, Lymphocytes (%) (Auto) 10.6L, Monocytes (%) (Auto) 10.0H, Eosinophils (%) (Auto) 3.6H, Basophils (%) (Auto) 0.2, Neutrophils # (Auto) 8.0H, Lymphocytes # (Auto) 1.1L, Monocytes # (Auto) 1.1H, Eosinophils # (Auto) 0.4, Basophils # (Auto) 0.0, Nucleated Red Blood Cells % (auto) 0.0, Anion Gap 4L, Glomerular Filtration Rate > 60.0, Blood Urea Nitrogen 37H, Creatinine 1.25, Sodium Level 141, Potassium Level 4.7, Chloride Level 110H, Carbon Dioxide Level 27, Calcium Level 8.0L, Magnesium Level 1.9 CBC/BMP Laboratory Tests 10/04/18 05:41 Red Blood Count 4.91, Mean Corpuscular Volume 85.1, Mean Corpuscular Hemoglobin 26.3 L, Mean Corpuscular Hemoglobin Concent 30.9 L, Red Cell Distribution Width 14.0, Neutrophils (%) (Auto) 75.2 H, Lymphocytes (%) (Auto) 10.6 L, Monocytes (%) (Auto) 10.0 H, Eosinophils (%) (Auto) 3.6 H, Basophils (%) (Auto) 0.2, Neutrophils # (Auto) 8.0 H, Lymphocytes # (Auto) 1.1 L, Monocytes # (Auto) 1.1 H, Eosinophils # (Auto) 0.4, Basophils # (Auto) 0.0, Calcium Level 8.0 L Microbiology Microbiology 10/02/18 Gastrointestinal Tract Panel (PCR) - Final, Complete 09/30/18 Stool Lactoferrin - Final, Complete GME ATTESTATION GME ATTESTATION My faculty preceptor for this patient encounter was physically present during the encounter and was fully available. All aspects of the patient interview, examination, medical decision making process, and medical care plan development were reviewed and approved by the faculty preceptor. The faculty preceptor is aware and concurs with the plan as stated in the body of this note and will attest to such by his/her cosignature. ATTENDING NOTE I, Terrance Tovar, have both independently examined this patient as well as reviewed the documentation. I have discussed in detail with the resident the findings and plan of treatment as documented in the residents documentation. I will continue to follow the patient and offer further guidance to the patients care as necessary during this hospital stay. GENARO RUBIO MD Oct 04, 2018 10:15 TERRANCE TOVAR MD Oct 04, 2018 15:27
[2018-10-04 13:37] VITALS: BP 116/64
[2018-10-04] MEDS ORDERED: AMIODARONE HCL 150 MG in APPROPRIATE DILUENT 1 EA IV ONE (16:00)
[2018-10-04 16:19] VITALS: BP_SYST 105; BP_SYST 130; BP_SYST 131; BP_DIAS 59; BP_DIAS 71; BP_DIAS 78
[2018-10-04 22:00] VITALS: BP 129/65
[2018-10-05 01:14] VITALS: BP_SYST 105; BP_SYST 125; BP_SYST 134; BP_DIAS 55; BP_DIAS 69; BP_DIAS 73
[2018-10-05] MEDS: IPRATROPIUM 0.5MG/ALBUTEROL 2.5MG INH SOL UD 3ML (DUONEB)(J7620) NEB SCH ×4 (02:00→20:00)
[2018-10-05 06:00] VITALS: BP 158/86
[2018-10-05] MEDS: SODIUM CHLORIDE 0.9% INJ 10 ML SYR IV SCH ×3 (06:00→21:56)
[2018-10-05 06:28] VITALS: BP_SYST 111; BP_SYST 121; BP_DIAS 64; BP_DIAS 75
[2018-10-05 06:31] LABS: BLOOD UREA NITROGEN 30 MG/DL (7-18); CALCIUM LEVEL 8.2 MG/DL (8.8-10.2); CARBON DIOXIDE LEVEL 25 MEQ/L (21-32); CHLORIDE LEVEL 109 MEQ/L (98-107); CREATININE FOR GFR 1.19 MG/DL (0.70-1.30); GLOMERULAR FILTRATION RATE > 60.0 (>49); GLUCOSE, FASTING 184 MG/DL (70-100); MAGNESIUM LEVEL 1.8 MG/DL (1.8-2.4); POTASSIUM SERUM 4.9 MEQ/L (3.5-5.1); SODIUM LEVEL 138 MEQ/L (136-145)
[2018-10-05] MEDS: NYSTATIN 500,000 U/5 ML SUSP UDC SS SCH ×3 (08:55→21:54)
[2018-10-05] MEDS: HumaLOG INSULIN (NovoLOG) PER UNIT SC SCH ×4 (08:55→21:55)
[2018-10-05] MEDS: ASPIRIN 81 MG CHEW TABLET PO SCH (08:55)
[2018-10-05] MEDS: CLOPIDOGREL 75 MG TAB PO SCH (08:55)
[2018-10-05] MEDS: ATORVASTATIN 20 MG TAB PO SCH (08:55)
[2018-10-05] MEDS: guaiFENesin ER 600 MG TAB PO SCH ×2 (08:55→21:54)
[2018-10-05] MEDS: ENOXAPARIN 40 MG/0.4 ML SYRINGE (J1650) SC SCH (08:56)
[2018-10-05] MEDS: FERROUS GLUCONATE 324 MG TAB PO SCH (08:56)
[2018-10-05] MEDS: CARVedilol 6.25 MG TAB PO SCH ×2 (08:56→21:54)
[2018-10-05] MEDS: EUCERIN 120GM CREAM TOP SCH ×2 (09:00→21:56)
[2018-10-05] MEDS ORDERED: LEVEMIR (INSULIN DETEMIR) 1 UNITS/0.01ML SC SCH ×2 (09:00→21:00)
[2018-10-05 10:25] LABS: BASO % 0.5 % (0.0-1.0); EOS # 0.4 10^3/uL (0.0-0.50); EOS % 4.3 % (0.0-3.0); HEMATOCRIT 41.9 % (42.0-52.0); HEMOGLOBIN 13.1 g/dl (13.5-17.5); LYMPH # 1.2 10^3/uL (1.5-4.5); LYMPH % 13.8 % (24.0-44.0); MEAN CORPUSCULAR HEMOGLOBIN 26.7 pg (27.0-33.0); MEAN CORPUSCULAR HGB CONC 31.3 g/dl (32.0-36.5); MEAN CORPUSCULAR VOLUME 85.5 fl (80.0-96.0); MONO # 0.6 10^3/uL (0.0-0.8); MONO % 7.5 % (0.0-5.0); NEUTROPHILS # 6.3 10^3/uL (1.8-7.7); NEUTROPHILS % 73.5 % (36.0-66.0); PLATELET COUNT, AUTOMATED 232 10^3/uL (150-450); WHITE BLOOD COUNT 8.6 10^3/uL (4.0-10.0)
--- NOTE | 2018-10-05 10:30 | IPNPDOC ---
Date Seen The patient was seen on 10/05/18. Progress Note SUBJECTIVE: Patient is seen sitting in bedside chair this morning. Reports he feels well. No changes overnight. Diarrhea has almost resolved. Orthostatics negative this morning. OBJECTIVE PHYSICAL EXAMINATION: VITAL SIGNS: Please see below. GENERAL: sitting up in bedside chair, comfortable, calm, in no acute distress HEENT: moist mucus membranes, no thyromegaly, EOMI CARDIOVASCULAR: RRR, no murmurs/rubs/gallops RESPIRATORY: clear to auscultation bilaterally ABDOMINAL: soft, nontender to palpation, +BS EXTREMITIES: no clubbing/cyanosis/edema NEUROLOGICAL: CN 2-12 intact, no focal deficits PSYCHOLOGICAL: normal mood, somewhat flat affect, AAOx3 LABORATORY DATA, IMAGING STUDIES, MICROBIOLOGY: Please see below. Echocardiogram: 09/2017 1. Study is of markedly limited technical quality. 2. Preserved LV size with septal wall motion abnormality, nonvisualized apex and overall probably mildly reduced LV systolic function. This should not be considered overly reliable due to very limited visualization. Likely grade 2 diastolic dysfunction. 3. No significant valvular disease. 4. Very high central venous pressure. 5. Unable to estimate pulmonary artery pressure. DVT prophylaxis ordered?: Lovenox ASSESSMENT AND PLAN: This is a 62 YO M with history of CHF (rEF), KADIE (noncompliant), DM2, CAD s/p stent, HTN found to be hypoxemic likely 2/2 CHF exacerbation. Clinical course is significant for continued hypoxemia despite BiPaP, which has resolved, and new syncopal episodes and orthostatic hypotension that has gradually improved over the past 3 days. PROBLEMS: 1. Syncope vs seizure: most likely 2/2 orthostasis - Patient has had 2 syncopal events after having a BM in which he reports he felt lightheaded/dizzy as if he were about to faint. BP at that time dropped dramatically - Orthostatics negative this morning. Continue encouraging oral hydration. - Patient does not appear clinically fluid overloaded at this time. - Continue working with PT/OT. Plan for acute rehab on discharge. 2. SOB likely 2/2 CHF exacerbation: currently on 2L of oxygen. -Low sodium diet -Holding Demadex 2/2 hypotension -Coreg has been restarted. Holding off on other BP meds at this time 3. Acute on chronic renal failure: -Cr stable at 1.19 today -Will continue to monitor 4. Hx of KADIE -Continue KADIE protocol and BiPaP 5. DM2: persistently elevated blood sugars -Continue SSI with hypoglycemic protocol -Levemir 70U changed to 35U QAM, 40UQHS for better coverage 6. Hypertension: BP is WNL -Continue Carvedilol 6.25mg PO BID 7. CAD s/p stent: -continue Aspirin, Lipitor, Plavix 8. DVT prophylaxis - c/w Lovenox DISPOSITION: Pending PT/OT and placement VS, I&O, 24H, Fishbone Vital Signs/I&O Vital Signs Date Time Temp Pulse Resp B/P (MAP) Pulse Ox O2 Delivery O2 Flow Rate FiO2 10/05/18 08:56 61 120/70 10/05/18 06:00 97.0 16 97 2.0 10/03/18 04:05 Nasal Cannula 09/29/18 06:00 97 I&O- Last 24 Hours up to 6 AM 10/05/18 05:59 Intake Total 1610 ml Output Total 900 ml Balance 710 ml Laboratory Data 24H LABS Laboratory Tests 2 10/04/18 12:18: Bedside Glucose (Misc Panel) 260H 10/04/18 17:58: Bedside Glucose (Misc Panel) 273H 10/04/18 20:20: Bedside Glucose (Misc Panel) 355H 10/05/18 06:01: Anion Gap 4L, Glomerular Filtration Rate > 60.0, Blood Urea Nitrogen 30H, Creatinine 1.19, Sodium Level 138, Potassium Level 4.9, Chloride Level 109H, Carbon Dioxide Level 25, Calcium Level 8.2L, Magnesium Level 1.8 CBC/BMP Laboratory Tests 10/05/18 06:01 Calcium Level 8.2 L Microbiology Microbiology 10/02/18 Gastrointestinal Tract Panel (PCR) - Final, Complete 09/30/18 Stool Lactoferrin - Final, Complete GME ATTESTATION GME ATTESTATION My faculty preceptor for this patient encounter was physically present during the encounter and was fully available. All aspects of the patient interview, examination, medical decision making process, and medical care plan development were reviewed and approved by the faculty preceptor. The faculty preceptor is aware and concurs with the plan as stated in the body of this note and will att est to such by his/her cosignature. ATTENDING NOTE I, Terrance Tovar, have both independently examined this patient as well as reviewed the documentation. I have discussed in detail with the resident the findings and plan of treatment as documented in the residents documentation. I will continue to follow the patient and offer further guidance to the patients care as necessary during this hospital stay. GENARO RUBIO MD Oct 05, 2018 10:30 TERRANCE TOVAR MD Oct 05, 2018 15:51
[2018-10-05 14:00] VITALS: BP 125/89
[2018-10-05 14:27] VITALS: BP_SYST 104; BP_SYST 125; BP_SYST 130; BP_DIAS 58; BP_DIAS 74; BP_DIAS 89
[2018-10-05] MEDS: LEVEMIR (INSULIN DETEMIR) 1 UNITS/0.01ML SC SCH (21:55)
[2018-10-05 22:00] VITALS: BP 137/72
[2018-10-06] MEDS: IPRATROPIUM 0.5MG/ALBUTEROL 2.5MG INH SOL UD 3ML (DUONEB)(J7620) NEB SCH ×4 (01:16→20:00)
[2018-10-06 06:00] VITALS: BP 137/72
[2018-10-06] MEDS: SODIUM CHLORIDE 0.9% INJ 10 ML SYR IV SCH ×3 (06:00→21:03)
[2018-10-06 06:28] LABS: BASO % 0.4 % (0.0-1.0); EOS # 0.4 10^3/uL (0.0-0.50); EOS % 5.4 % (0.0-3.0); LYMPH # 1.3 10^3/uL (1.5-4.5); LYMPH % 17.4 % (24.0-44.0); MEAN CORPUSCULAR HEMOGLOBIN 26.3 pg (27.0-33.0); MONO # 0.6 10^3/uL (0.0-0.8); MONO % 8.6 % (0.0-5.0); NEUTROPHILS % 67.7 % (36.0-66.0); PLATELET COUNT, AUTOMATED 250 10^3/uL (150-450); RED BLOOD COUNT 4.94 10^6/uL (4.30-6.10); WHITE BLOOD COUNT 7.4 10^3/uL (4.0-10.0)
[2018-10-06 06:47] LABS: BLOOD UREA NITROGEN 25 MG/DL (7-18); CALCIUM LEVEL 8.4 MG/DL (8.8-10.2); CARBON DIOXIDE LEVEL 28 MEQ/L (21-32); CHLORIDE LEVEL 107 MEQ/L (98-107); CREATININE FOR GFR 1.26 MG/DL (0.70-1.30); GLOMERULAR FILTRATION RATE > 60.0 (>49); GLUCOSE, FASTING 203 MG/DL (70-100); MAGNESIUM LEVEL 1.8 MG/DL (1.8-2.4); SODIUM LEVEL 139 MEQ/L (136-145)
[2018-10-06] MEDS: HumaLOG INSULIN (NovoLOG) PER UNIT SC SCH ×4 (08:35→20:53)
[2018-10-06] MEDS: LEVEMIR (INSULIN DETEMIR) 1 UNITS/0.01ML SC SCH ×2 (08:35→21:03)
[2018-10-06] MEDS: ENOXAPARIN 40 MG/0.4 ML SYRINGE (J1650) SC SCH (08:36)
[2018-10-06] MEDS: ASPIRIN 81 MG CHEW TABLET PO SCH (08:36)
[2018-10-06] MEDS: guaiFENesin ER 600 MG TAB PO SCH ×2 (08:36→21:02)
[2018-10-06] MEDS: ATORVASTATIN 20 MG TAB PO SCH (08:36)
[2018-10-06] MEDS: CLOPIDOGREL 75 MG TAB PO SCH (08:36)
[2018-10-06] MEDS: NYSTATIN 500,000 U/5 ML SUSP UDC SS SCH ×3 (08:36→21:02)
[2018-10-06] MEDS: CARVedilol 6.25 MG TAB PO SCH ×2 (08:37→21:02)
[2018-10-06] MEDS: EUCERIN 120GM CREAM TOP SCH ×2 (08:37→21:03)
[2018-10-06] MEDS: FERROUS GLUCONATE 324 MG TAB PO SCH (08:38)
[2018-10-06] MEDS ORDERED: MOM 30ML SUSPENSION UDC PO PRN (09:00)
[2018-10-06] MEDS: SENOKOT S TAB PO SCH ×2 (10:15→20:53)
[2018-10-06 14:00] VITALS: BP 125/60
--- NOTE | 2018-10-06 14:26 | IPNPDOC ---
Text Note Date of Service The patient was seen on 10/06/18. NOTE Subjective: Patient 62-year-old male with a PMHx of CHF (rEF), KADIE (noncompliant), DM2, CAD s/p stent, HTN found to be hypoxemic likely 2/2 CHF exacerbation. Clinical course is significant for continued hypoxemia despite BiPaP, which has resolved, and new syncopal episodes and orthostatic hypotension that has gradually improved. Patient was seen and examined at the bedside. Patient reports that he has been working with physical therapy. He denies any episodes of dizziness or lightheadedness. Currently, he denies chest pain, shortness breath or pa lpitations. Denies nausea, vomiting, abdominal pain, constipation, diarrhea, or urinary discomfort. Objective: Vitals (See below) General: Lying in bed, no acute distress, comfortable, AAOx3 HEENT: NC, AT CVS: RRR, +S1S2 Lungs: Fair air entry b/l, -w/r/r Abdomen: Soft, ND, NT Extremities: - Edema, Chronic venous stasis changes, - Calf tenderness Assessment and plan: Syncope - likely 2/2 orthostatic hypotension - Initially patient had reported feeling lightheadedness after abruptly standing; currently this has resolved - Patient still experiences positive orthostatic vital signs intermittently; however, remains asymptomatic - s/p IV fluid hydration - c/w PT / OT - until cleared for discharge; likely will require [facility] / ARU s/p Shortness of breath / LE edema - likely 2/2 fluid overload - Patient has been intermittently on oxygen - No signs of fluid overload - ECHO 09/16: G2DD, Mildly reduced EF, High CVP, Septal wall motion abnormality - s/p Diuresis - Dr. Barrera / Cardiology on consultation; appreciate their input HTN - BP well controlled - c/w Carvedilol CAD s/p stent - c/w ASA, Plavix and Atorvastatin IDDM2 - c/w ISS and Levemir s/p BEE on CKD3 - Cr baseline of 1.4 - Currently Cr appears better than baseline KADIE - c/w KADIE protocol DVT prophylaxis - c/w Lovenox Disposition: - c/w PT / OT - Awaiting possible placement VS,Fishbone, I+O VS, Fishbone, I+O Laboratory Tests 10/06/18 06:02 Red Blood Count 4.94, Mean Corpuscular Volume 85.0, Mean Corpuscular Hemoglobin 26.3 L, Mean Corpuscular Hemoglobin Concent 31.0 L, Red Cell Distribution Width 13.9, Neutrophils (%) (Auto) 67.7 H, Lymphocytes (%) (Auto) 17.4 L, Monocytes (%) (Auto) 8.6 H, Eosinophils (%) (Auto) 5.4 H, Basophils (%) (Auto) 0.4, Neutrophils # (Auto) 5.0, Lymphocytes # (Auto) 1.3 L, Monocytes # (Auto) 0.6, Eosinophils # (Auto) 0.4, Basophils # (Auto) 0.0, Calcium Level 8.4 L Vital Signs Date Time Temp Pulse Resp B/P (MAP) Pulse Ox O2 Delivery O2 Flow Rate FiO2 10/06/18 10:24 10/06/18 08:37 71 136/74 10/06/18 06:00 97.5 18 91 10/03/18 04:05 Nasal Cannula I&O- Last 24 Hours up to 6 AM 10/06/18 06:00 Intake Total 2200 ml Output Total 1450 ml Balance 750 ml JERSON TOVAR MD Oct 06, 2018 14:26
[2018-10-06 22:00] VITALS: BP 137/67
[2018-10-07] MEDS: IPRATROPIUM 0.5MG/ALBUTEROL 2.5MG INH SOL UD 3ML (DUONEB)(J7620) NEB SCH ×3 (01:44→20:00)
[2018-10-07] MEDS: SODIUM CHLORIDE 0.9% INJ 10 ML SYR IV SCH (05:43)
[2018-10-07 06:00] VITALS: BP 145/65
[2018-10-07 06:07] LABS: BASO % 0.4 % (0.0-1.0); EOS # 0.4 10^3/uL (0.0-0.50); EOS % 5.3 % (0.0-3.0); HEMATOCRIT 41.4 % (42.0-52.0); HEMOGLOBIN 12.9 g/dl (13.5-17.5); LYMPH # 1.2 10^3/uL (1.5-4.5); LYMPH % 16.8 % (24.0-44.0); MEAN CORPUSCULAR HEMOGLOBIN 26.6 pg (27.0-33.0); MEAN CORPUSCULAR HGB CONC 31.2 g/dl (32.0-36.5); MEAN CORPUSCULAR VOLUME 85.4 fl (80.0-96.0); MONO # 0.7 10^3/uL (0.0-0.8); MONO % 9.4 % (0.0-5.0); NEUTROPHILS # 4.8 10^3/uL (1.8-7.7); NEUTROPHILS % 67.8 % (36.0-66.0); PLATELET COUNT, AUTOMATED 252 10^3/uL (150-450); RED BLOOD COUNT 4.85 10^6/uL (4.30-6.10); WHITE BLOOD COUNT 7.1 10^3/uL (4.0-10.0)
[2018-10-07 06:31] LABS: BLOOD UREA NITROGEN 26 MG/DL (7-18); CALCIUM LEVEL 8.1 MG/DL (8.8-10.2); CARBON DIOXIDE LEVEL 29 MEQ/L (21-32); CHLORIDE LEVEL 108 MEQ/L (98-107); CREATININE FOR GFR 1.17 MG/DL (0.70-1.30); GLOMERULAR FILTRATION RATE > 60.0 (>49); GLUCOSE, FASTING 196 MG/DL (70-100); MAGNESIUM LEVEL 1.8 MG/DL (1.8-2.4); POTASSIUM SERUM 4.9 MEQ/L (3.5-5.1); SODIUM LEVEL 140 MEQ/L (136-145)
[2018-10-07] MEDS: CALCITRIOL 0.25 MCG CAP (S0169) PO SCH (08:38)
[2018-10-07] MEDS: FERROUS GLUCONATE 324 MG TAB PO SCH (08:39)
[2018-10-07] MEDS: ATORVASTATIN 20 MG TAB PO SCH (08:39)
[2018-10-07] MEDS: CLOPIDOGREL 75 MG TAB PO SCH (08:39)
[2018-10-07] MEDS: ASPIRIN 81 MG CHEW TABLET PO SCH (08:39)
[2018-10-07] MEDS: guaiFENesin ER 600 MG TAB PO SCH ×2 (08:39→21:09)
[2018-10-07] MEDS: ENOXAPARIN 40 MG/0.4 ML SYRINGE (J1650) SC SCH (08:39)
[2018-10-07] MEDS: CARVedilol 6.25 MG TAB PO SCH ×2 (08:39→21:09)
[2018-10-07] MEDS: SENOKOT S TAB PO SCH ×2 (08:39→21:09)
[2018-10-07] MEDS: NYSTATIN 500,000 U/5 ML SUSP UDC SS SCH ×3 (08:40→21:09)
[2018-10-07] MEDS: LEVEMIR (INSULIN DETEMIR) 1 UNITS/0.01ML SC SCH ×2 (08:40→21:10)
[2018-10-07] MEDS: HumaLOG INSULIN (NovoLOG) PER UNIT SC SCH ×4 (08:41→21:10)
[2018-10-07] MEDS: EUCERIN 120GM CREAM TOP SCH ×2 (08:41→21:11)
[2018-10-07 14:00] VITALS: BP 117/59
--- NOTE | 2018-10-07 14:08 | IPNPDOC ---
Text Note Date of Service The patient was seen on 10/07/18. NOTE Subjective: Patient 62-year-old male with a PMHx of CHF (rEF), KADIE (noncompliant), DM2, CAD s/p stent, HTN found to be hypoxemic likely 2/2 CHF exacerbation. Clinical course is significant for continued hypoxemia despite BiPaP, which has resolved, and new syncopal episodes and orthostatic hypotension that has gradually improved. Patient was seen and examined at the bedside. This morning patient was seen walking with physical therapy using a rolling walker. He denies chest pain, shortness of breath or palpitations. Denies nausea, vomiting, abdominal pain, constipation, diarrhea or any urinary discomfort. Discal therapy as indicated. Patient may be transition to home with services when cleared after a few more session. Objective: Vitals (See below) General: Lying in bed, no acute distress, comfortable, AAOx3 HEENT: NC, AT CVS: RRR, +S1S2 Lungs: Fair air entry b/l, no evidence of wheezing, rales or rhonchi Abdomen: Soft, nondistended, without tenderness Extremities: No evidence of lower extremity edema, Chronic venous stasis changes, - Calf tenderness Assessment and plan: Syncope - likely 2/2 orthostatic hypotension - Initially patient had reported feeling lightheadedness after abruptly standing; currently this has resolved - Patient still experiences positive orthostatic vital signs intermittently; however, remains asymptomatic - s/p IV fluid hydration - c/w PT / OT - until cleared for discharge; disposition recommendations have been changed to home with services when cleared s/p Shortness of breath / LE edema - likely 2/2 fluid overload - Patient has been intermittently on oxygen - No signs of fluid overload - ECHO 09/16: G2DD, Mildly reduced EF, High CVP, Septal wall motion abnormality - s/p Diuresis - Dr. Barrera / Cardiology on consultation; appreciate their input HTN - BP well controlled - c/w Carvedilol CAD s/p stent - c/w ASA, Plavix and Atorvastatin IDDM2 - c/w ISS and Levemir s/p BEE on CKD3 - Cr baseline of 1.4 - Currently Cr appears better than baseline KADIE - c/w KADIE protocol DVT prophylaxis - c/w Lovenox Disposition: - c/w PT / OT - Possible home with services in next few days Mauricio CM I+O VS, Fishbone, I+O Laboratory Tests 10/07/18 05:50 Red Blood Count 4.85, Mean Corpuscular Volume 85.4, Mean Corpuscular Hemoglobin 26.6 L, Mean Corpuscular Hemoglobin Concent 31.2 L, Red Cell Distribution Width 14.0, Neutrophils (%) (Auto) 67.8 H, Lymphocytes (%) (Auto) 16.8 L, Monocytes (%) (Auto) 9.4 H, Eosinophils (%) (Auto) 5.3 H, Basophils (%) (Auto) 0.4, Neutro phils # (Auto) 4.8, Lymphocytes # (Auto) 1.2 L, Monocytes # (Auto) 0.7, Eosinophils # (Auto) 0.4, Basophils # (Auto) 0.0, Calcium Level 8.1 L Vital Signs Date Time Temp Pulse Resp B/P (MAP) Pulse Ox O2 Delivery O2 Flow Rate FiO2 10/07/18 08:39 76 145/65 10/07/18 06:00 98.0 20 97 3.0 10/03/18 04:05 Nasal Cannula I&O- Last 24 Hours up to 6 AM 10/07/18 06:00 Intake Total 1880 ml Output Total 1000 ml Balance 880 ml JERSON TOVAR MD Oct 07, 2018 14:08
[2018-10-07 22:00] VITALS: BP 150/70
[2018-10-08] MEDS: IPRATROPIUM 0.5MG/ALBUTEROL 2.5MG INH SOL UD 3ML (DUONEB)(J7620) NEB SCH ×2 (02:00→08:00)
[2018-10-08 06:00] VITALS: BP 140/77
[2018-10-08 06:23] LABS: BASO % 0.5 % (0.0-1.0); EOS # 0.4 10^3/uL (0.0-0.50); EOS % 4.9 % (0.0-3.0); HEMATOCRIT 42.6 % (42.0-52.0); HEMOGLOBIN 13.4 g/dl (13.5-17.5); LYMPH # 1.3 10^3/uL (1.5-4.5); LYMPH % 15.7 % (24.0-44.0); MEAN CORPUSCULAR HEMOGLOBIN 26.4 pg (27.0-33.0); MEAN CORPUSCULAR HGB CONC 31.5 g/dl (32.0-36.5); MONO # 0.7 10^3/uL (0.0-0.8); MONO % 8.3 % (0.0-5.0); NEUTROPHILS # 5.8 10^3/uL (1.8-7.7); NEUTROPHILS % 70.4 % (36.0-66.0); PLATELET COUNT, AUTOMATED 265 10^3/uL (150-450); RED BLOOD COUNT 5.07 10^6/uL (4.30-6.10); WHITE BLOOD COUNT 8.2 10^3/uL (4.0-10.0)
[2018-10-08 06:52] LABS: BLOOD UREA NITROGEN 23 MG/DL (7-18); CALCIUM LEVEL 8.6 MG/DL (8.8-10.2); CARBON DIOXIDE LEVEL 28 MEQ/L (21-32); CHLORIDE LEVEL 106 MEQ/L (98-107); CREATININE FOR GFR 1.15 MG/DL (0.70-1.30); GLOMERULAR FILTRATION RATE > 60.0 (>49); GLUCOSE, FASTING 204 MG/DL (70-100); MAGNESIUM LEVEL 1.8 MG/DL (1.8-2.4); POTASSIUM SERUM 4.6 MEQ/L (3.5-5.1); SODIUM LEVEL 139 MEQ/L (136-145)
[2018-10-08] MEDS: HumaLOG INSULIN (NovoLOG) PER UNIT SC SCH (07:47)
[2018-10-08] MEDS: CLOPIDOGREL 75 MG TAB PO SCH (07:48)
[2018-10-08] MEDS: ASPIRIN 81 MG CHEW TABLET PO SCH (07:48)
[2018-10-08] MEDS: LEVEMIR (INSULIN DETEMIR) 1 UNITS/0.01ML SC SCH (07:48)
[2018-10-08] MEDS: SENOKOT S TAB PO SCH (07:48)
[2018-10-08] MEDS: guaiFENesin ER 600 MG TAB PO SCH (07:48)
[2018-10-08 07:49] VITALS: BP 160/82
[2018-10-08] MEDS: NYSTATIN 500,000 U/5 ML SUSP UDC SS SCH (07:49)
[2018-10-08] MEDS: ATORVASTATIN 20 MG TAB PO SCH (07:49)
[2018-10-08] MEDS: FERROUS GLUCONATE 324 MG TAB PO SCH (07:49)
[2018-10-08] MEDS: CARVedilol 6.25 MG TAB PO SCH (07:49)
[2018-10-08] MEDS: EUCERIN 120GM CREAM TOP SCH (07:49)
[2018-10-08] MEDS: ENOXAPARIN 40 MG/0.4 ML SYRINGE (J1650) SC SCH (07:49)
[2018-10-08] MEDS ORDERED: FERR32TA PO (10:33)
[2018-10-08] MEDS ORDERED: CALC1CAP31 PO (10:33)
--- NOTE | 2018-10-08 10:45 | DS.PDOC ---
Discharge Summary General Date of Admission Sep 15, 2018 at 16:04 Date of Discharge 10/08/2018 Discharge Summary PROCEDURES PERFORMED DURING STAY: Insertion of left subclavian central line with Tay Santos MD on 09/30/2018 ADMITTING DIAGNOSES / DISCHARGE DIAGNOSES: Syncope - likely 2/2 orthostatic hypotension s/p Shortness of breath / LE edema - likely 2/2 fluid overload HTN CAD s/p stent IDDM2 s/p BEE on CKD3 KADIE DVT prophylaxis COMPLICATIONS/CHIEF COMPLAINT: This is emergency room with complaints of diarrhea and sore throat HISTORY OF PRESENT ILLNESS: Patient 62-year-old male with a PMHx of CHF (rEF), KADIE (noncompliant), DM2, CAD s/p stent, HTN found to be hypoxemic likely 2/2 CHF exacerbation. Clinical course is significant for continued hypoxemia despite BiPaP, which has resolved, and new syncopal episodes and orthostatic hypotension that has gradually improved. HOSPITAL COURSE: Syncope - likely 2/2 orthostatic hypotension -Currently patient along expenses dizziness with ambulation - Patient still experiences positive orthostatic vital signs intermittently; however, remains asymptomatic - s/p IV fluid hydration - c/w PT / OT; patient has been cleared for discharge home with services s/p Shortness of breath / LE edema - likely 2/2 fluid overload - Patient has been intermittently on oxygen - No signs of fluid overload - ECHO 09/16: G2DD, Mildly reduced EF, High CVP, Septal wall motion abnormality - s/p Diuresis; as an outpatient we will continue with this when necessary - Dr. Barrera / Cardiology on consultation; appreciate their input; will continue to follow up with cardiology as an outpatient HTN - BP well controlled - c/w Carvedilol CAD s/p stent - c/w ASA, Plavix and Atorvastatin IDDM2 - c/w ISS and Levemir s/p BEE on CKD3 - Cr baseline of 1.4 - Currently Cr appears better than baseline KADIE - c/w KADIE protocol DVT prophylaxis - c/w Lovenox DISCHARGE MEDICATIONS: Please see below. ALLERGIES: Please see below. PHYSICAL EXAMINATION ON DISCHARGE: Vitals (See below) General: Lying in bed, no acute distress, comfortable, AAOx3 HEENT: NC, AT CVS: RRR, +S1S2 Lungs: Fair air entry b/l, no evidence of wheezing, rales or rhonchi Abdomen: Soft, nondistended, without tenderness Extremities: No evidence of lower extremity edema, Chronic venous stasis changes, - Calf tenderness LABORATORY DATA: Please see below. ACTIVITY: [As tolerated]. DISCHARGE PLAN: Follow up with Dr. Tevin Santos and Dr. Barrera within 7 days Remained compliant with treatment plan and medications Return to the ER if you experience any problems DISPOSITION: Home with services DISCHARGE CONDITION: [Stable]. TIME SPENT ON DISCHARGE: Greater than [35] minutes. Vital Signs/I&Os Vital Signs Date Time Temp Pulse Resp B/P (MAP) Pulse Ox O2 Delivery O2 Flow Rate FiO2 10/08/18 07:49 71 160/82 10/08/18 06:00 98.2 17 96 10/07/18 06:00 3.0 10/03/18 04:05 Nasal Cannula I&O- Last 24 Hours up to 6 AM 10/08/18 06:00 Intake Total 1200 ml Output Total 1050 ml Balance 150 ml Laboratory Data Labs 24H Laboratory Tests 2 10/07/18 17:04: Bedside Glucose (Misc Panel) 240H 10/08/18 05:49: Immature Granulocyte % (Auto) 0.2, White Blood Count 8.2, Red Blood Count 5.07, Hemoglobin 13.4L, Hematocrit 42.6, Mean Corpuscular Volume 84.0, Mean Corpuscular Hemoglobin 26.4L, Mean Corpuscular Hemoglobin Concent 31.5L, Red Cell Distribution Width 14.0, Platelet Count 265, Neutrophils (%) (Auto) 70.4H, Lymphocytes (%) (Auto) 15.7L, Monocytes (%) (Auto) 8.3H, Eosinophils (%) (Auto) 4.9H, Basophils (%) (Auto) 0.5, Neutrophils # (Auto) 5.8, Lymphocytes # (Auto) 1.3L, Monocytes # (Auto) 0.7, Eosinophils # (Auto) 0.4, Basophils # (Auto) 0.0, Nucleated Red Blood Cells % (auto) 0.0, Anion Gap 5L, Glomerular Filtration Rate > 60.0, Blood Urea Nitrogen 23H, Creatinine 1.15, Sodium Level 139, Potassium Level 4.6, Chloride Level 106, Carbon Dioxide Level 28, Calcium Level 8.6L, Mag nesium Level 1.8 CBC/BMP Laboratory Tests 10/08/18 05:49 Red Blood Count 5.07, Mean Corpuscular Volume 84.0, Mean Corpuscular Hemoglobin 26.4 L, Mean Corpuscular Hemoglobin Concent 31.5 L, Red Cell Distribution Width 14.0, Neutrophils (%) (Auto) 70.4 H, Lymphocytes (%) (Auto) 15.7 L, Monocytes (%) (Auto) 8.3 H, Eosinophils (%) (Auto) 4.9 H, Basophils (%) (Auto) 0.5, Neutrophils # (Auto) 5.8, Lymphocytes # (Auto) 1.3 L, Monocytes # (Auto) 0.7, Eosinophils # (Auto) 0.4, Basophils # (Auto) 0.0, Calcium Level 8.6 L FSBS Laboratory Tests Test 10/07/18 17:04 Range/Units Bedside Glucose (Misc Panel) 240 80-115 MG/DL Microbiology Microbiology 10/02/18 Gastrointestinal Tract Panel (PCR) - Final, Complete 09/30/18 Stool Lactoferrin - Final, Complete Discharge Medications Scheduled (Probiotic Choclate Bears) 1 Chw Chw, 2 CHW PO DAILY, (Reported) Aspirin (Aspirin EC) 81 Mg Tab, 81 MG PO DAILY, (Reported) Atorvastatin Calcium (Atorvastatin Calcium) 20 Mg Tab, 20 MG PO DAILY, (Reporte d) Calcitriol (Calcitriol) 0.25 Mcg Capsule, 0.25 MCG PO MoWeFr@0900 Carvedilol (Carvedilol) 6.25 Mg Tab, 6.25 MG PO BID, (Reported) Clopidogrel Bisulfate (Clopidogrel) 75 Mg Tab, 75 MG PO DAILY, (Reported) Ferrous Gluconate (Ferrous Gluconate) 324 Mg Tablet, 324 MG PO DAILY Insulin Glargine/Lixisenatide (Soliqua 100 Unit-33 Mcg/ml Pen) 1 Inj Inj, 50 UNITS SQ DAILY, (Reported) Scheduled PRN Furosemide (Furosemide) 40 Mg Tab, 40 MG PO BID PRN for SWELLING, (Reported) Allergies Coded Allergies: No Known Allergies (Unverified , 09/15/18) JERSON TOVAR MD Oct 08, 2018 10:45
== END 2018-10-08 11:38 | disposition home health service (06) | DRG 291 ==
LOC: M ED 13:20 → M ED INP 16:04 → M MSPAV 17:21 → M PCU 09-16 16:20 → M ICU 09-17 03:46 → M PCU 09-20 17:58 → M MSPAV 09-23 09:49 → M ICU 09-30 15:10 → M PCU 10-02 23:00 → M MSPAV 10-04 13:31
PROVIDERS: ADMIT Internal Medicine; ATTEND Internal Medicine
PROC: 02HV33Z Insertion of Infusion Device into Superior Vena Cava, Percutaneous Approach (ICD-10-PCS; principal; 2018-09-30)
DX: I13.0 Hypertensive heart and chronic kidney disease with heart failure and stage 1 through stage 4 chronic kidney disease, or unspecified chronic kidney disease (principal); I50.21 Acute systolic (congestive) heart failure; J96.21 Acute and chronic respiratory failure with hypoxia; J96.02 Acute respiratory failure with hypercapnia; G93.41 Metabolic encephalopathy; J44.1 Chronic obstructive pulmonary disease with (acute) exacerbation; N17.9 Acute kidney failure, unspecified; N25.81 Secondary hyperparathyroidism of renal origin; N18.3 Chronic kidney disease, stage 3 (moderate); I95.1 Orthostatic hypotension; E11.9 Type 2 diabetes mellitus without complications; G47.33 Obstructive sleep apnea (adult) (pediatric); I25.10 Atherosclerotic heart disease of native coronary artery without angina pectoris; Z95.2 Presence of prosthetic heart valve; Z91.19 Patient's noncompliance with other medical treatment and regimen; Z79.82 Long term (current) use of aspirin; Z79.899 Other long term (current) drug therapy; E66.01 Morbid (severe) obesity due to excess calories; E78.5 Hyperlipidemia, unspecified; Z79.4 Long term (current) use of insulin; Z91.14 Patient's other noncompliance with medication regimen; R19.7 Diarrhea, unspecified; Z87.891 Personal history of nicotine dependence; E87.5 Hyperkalemia; D63.1 Anemia in chronic kidney disease; I25.5 Ischemic cardiomyopathy

== ENCOUNTER 2018-12-15 07:35 | Inpatient (IN) | payer MEDICARE ==
[~2018-12-15] VITALS: Ht 182.9 cm; Wt 134.2 kg
[~2018-12-15 07:35] MED LIST changes: +CALC1CAP31 PO; +CARV6.25 PO; +FERR32TA PO; +SOLI1INJ SQ
[2018-12-15] MEDS ORDERED: NS 1,000 ML IV SCH (07:48)
[2018-12-15] MEDS ORDERED: NS 500 ML IV ONE (08:00)
[2018-12-15 08:13] LABS: BASO % 0.5 % (0.0-1.0); EOS # 0.2 10^3/uL (0.0-0.50); EOS % 2.7 % (0.0-3.0); HEMATOCRIT 41.7 % (42.0-52.0); HEMOGLOBIN 12.6 g/dl (13.5-17.5); LYMPH # 0.8 10^3/uL (1.5-4.5); LYMPH % 9.2 % (24.0-44.0); MEAN CORPUSCULAR HGB CONC 30.2 g/dl (32.0-36.5); MEAN CORPUSCULAR VOLUME 95.9 fl (80.0-96.0); MONO # 0.7 10^3/uL (0.0-0.8); MONO % 7.6 % (0.0-5.0); NEUTROPHILS % 79.4 % (36.0-66.0); PLATELET COUNT, AUTOMATED 229 10^3/uL (150-450); RED BLOOD COUNT 4.35 10^6/uL (4.30-6.10); WHITE BLOOD COUNT 8.8 10^3/uL (4.0-10.0)
[2018-12-15 08:43] LABS: ALBUMIN 2.9 GM/DL (3.2-5.2); BILIRUBIN,DIRECT 0.3 MG/DL (0.0-0.2); BILIRUBIN,TOTAL 0.6 MG/DL (0.2-1.0); CALCIUM LEVEL 8.2 MG/DL (8.8-10.2); CREATININE FOR GFR 2.53 MG/DL (0.70-1.30); GLOMERULAR FILTRATION RATE 27.4 (>49); POTASSIUM SERUM 5.1 MEQ/L (3.5-5.1); TOTAL PROTEIN 6.5 GM/DL (6.4-8.2)
[2018-12-15] MEDS: CARVedilol 6.25 MG TAB PO SCH ×2 (09:00→20:27)
[2018-12-15 09:20] LABS: CK-MB VALUE MASS 2.7 NG/ML (<3.6); MB/CK RELATIVE INDEX 2.67 (< OR =4); TROPONIN I 0.02 NG/ML (< 0.10)
[2018-12-15] MEDS ORDERED: LISI-542 PO (10:18)
[2018-12-15] MEDS ORDERED: LANTINJ4 SC (10:18)
[2018-12-15] MEDS ORDERED: TRUL10IN SC (10:18)
[2018-12-15] MEDS ORDERED: PROBCAP14 PO (10:22)
[2018-12-15] MEDS ORDERED: LISI10TA4 PO (10:25)
[2018-12-15] MEDS ORDERED: GLUCAGON FOR INJ 1 MG VIAL (J1610) SC PRN (12:00)
[2018-12-15] MEDS ORDERED: GLUCOSE 4 GM CHEW TABLET PO PRN (12:00)
[2018-12-15] MEDS ORDERED: DEXTROSE 50% 50 ML SYRINGE IV PRN (12:00)
[2018-12-15] MEDS ORDERED: ACETAMINOPHEN TAB 650MG DOSE (2X325MG) PO PRN (12:00)
[2018-12-15] MEDS: HumaLOG INSULIN (NovoLOG) PER UNIT SC SCH ×3 (12:00→19:53)
[2018-12-15 13:02] VITALS: BP 122/69
--- NOTE | 2018-12-15 14:03 | REP ---
Clinical: Shortness of breath . Comparison: 09/30/2018 . Findings: Cardiomegaly and mild pulmonary vascular congestion cannot be excluded. No focal consolidation or effusion. No pneumothorax. Skeletal structures are intact. Impression: Cannot exclude pulmonary vascular congestion. No focal consolidation or effusion. Electronically Signed by Tex Ramires MD 12/15/2018 08:29 A
[2018-12-15] MEDS: LEVEMIR (INSULIN DETEMIR) 1 UNITS/0.01ML SC SCH (14:41)
[2018-12-15] MEDS: ASPIRIN 81 MG ENTERIC TAB PO SCH (15:05)
[2018-12-15] MEDS: ATORVASTATIN 20 MG TAB PO SCH (15:05)
[2018-12-15] MEDS: HEPARIN SOD (PORCINE) 5000 UNITS/ML VIAL SC SCH ×2 (15:06→20:28)
[2018-12-15] MEDS: FUROSEMIDE 40 MG/4 ML VIAL (J1940) IV SCH (15:06)
[2018-12-15] MEDS: LISINOPRIL 10 MG TAB PO SCH (15:13)
--- NOTE | 2018-12-15 15:43 | ECGEPIP ---
[facility] - ED Test Date: 2018-12-15 Pat Name: MANISH GIL Department: Room: - Gender: Male [employer]: adali : 1955 Requested By: Azra Marshall Order Number: [id number] Reading MD: Azra Marshall Measurements Intervals Tutor Key Rate: 66 P: 69 CO: 177 QRS: 37 QRSD: 81 T: 30 QT: 385 QTc: 406 Interpretive Statements SINUS RHYTHM POSSIBLE ANTERIOR MYOCARDIAL INFARCTION, OF INDETERMINATE AGE LOW VOLTAGE LIMB Electronically Signed on 12-15-2018 15:43:19 EDT by Azra Marshall
[2018-12-15 20:00] VITALS: BP 134/63
--- NOTE | 2018-12-15 20:09 | HPEPDOC ---
General Date of Admission Dec 15, 2018 at 11:54 Date of Service: Dec 15, 2018 Chief Complaint The patient is a 63-year-old male admitted with a reason for visit of Acute Renal Failure Arteriosclerotic Vasc Disease. Source: Patient, Family Exam Limitations: No limitations Timing/Duration: Changing over time Severity: Moderate History of Present Illness Mr. Mon is a 63-year-old male with a known history of chronic systolic congestive heart failure. His last known ejection fraction is 34%. The patient was reported to have a chief complaint of shortness of breath. However, upon interviewing the patient, his greatest complaint is of recurrent diarrhea. He states he's had this problem for at least 2 years. The patient states he has frequent, liquid, light brown stools. Sometimes he cannot tell that he is having a bowel movement and has incontinence. He denies remarkable associated nausea but does note bloating. He is occasionally responsive to Imodium and probiotics. He reports that he has had extensive workup with no clear etiology. Most recently he did have colonoscopy. He is not identified as having inflammatory bowel disease or diverticular disease. He did have a polyp removal; pathology report showed tubular adenoma. The patient denies any bleeding with his stools. The patient adamantly denies any shortness of breath or chest pain. He initially denied any peripheral edema, but his refutes that, noting that he has ankle edema. He is noted to have O2 sats in the mid 80s on room air. Home Medications Scheduled Aspirin (Aspirin EC) 81 Mg Tab, 81 MG PO DAILY, (Reported) Atorvastatin Calcium (Atorvastatin Calcium) 20 Mg Tab, 20 MG PO DAILY, (Reported) Carvedilol (Carvedilol) 6.25 Mg Tab, 6.25 MG PO BID, (Reported) Dulaglutide (Trulicity) 0.75 Mg/0.5 Ml Pen.injctr, 0.75 MG SC 1XWK, (Reported) PT TAKES ON SUNDAY Insulin Glargine,Hum.rec.anlog (Lantus Solostar) 100 Unit/1 Ml Insuln.pen, 60 UNITS SC QAM, (Reported) Lactobacillus Acidophilus (Probiotic) 1 Each Capsule, 1 CAP PO BID, (Reported) Lisinopril (Lisinopril) 10 Mg Tablet, 10 MG PO DAILY, (Reported) PCP RESTARTED MED Scheduled PRN Furosemide (Furosemide) 40 Mg Tab, 40 MG PO 2XWK PRN for SWELLING, (Reported) Allergies Coded Allergies: No Known Allergies (Unverified , 09/15/18) Past Medical History Medical History Past medical history is remarkable again for his chronic diarrhea of 2 years. The etiology is unknown. Essential hypertension. Ubd-grsfcua-dgmnfvdcg diabetes mellitus with complications of retinopathy, neuropathy and nephropathy. He has had multiple leg wounds were shallow diabetic ulcers for which he is followed by the wound clinic. Coronary artery disease with NH for which he's undergone percutaneous intervention and stent placement in the past. Obstructive sleep apnea; he is not compliant with CPAP, but does make use of nighttime oxygen. Chronic systolic congestive heart failure with ejection fraction of 34%. He stat es there has been discussion of defibrillator placement. Chronic kidney disease stage III. Surgical History Patient reports surgical history tonsillectomy and adenoidectomy in the past. Family History Significant Family History: Diabetes, Heart disease Patient reports maternal history of diabetes and paternal history of heart dis ease and bowel cancer. He relates that all of his siblings have had heart disease requiring CABG and that all of them have diabetes. 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 He has also worked in the [email or web address] industry A-FIB/Aptible A-FIB History Current/History of A-Fib/PAF?: No Current PO Anticoag Therapy: No Review of Systems Constitutional: Denies: Chills, Fever, Malaise, Night Sweats, Weakness, Fatigue, Weight Loss, Lethargy, Other Eyes: Reports: Vision change; Denies: Pain, Conjunctivae inflammation, Eyelid inflammation, Redness, Other ENT: Denies: Head Aches, Ear Pain, Dysphagia, Sinus Congestion, Post Nasal Drip, Sore Throat, Epistaxis, Other Symptoms Skin: Reports: Lesions; Denies: Rash, Jaundice, Bruising, Itching, Dry, Breakdown, Nail Changes, Other Pulmonary: Denies: Dyspnea, Cough, Pleuritic Chest Pain, Other Symptoms Cardiovascular: Denies: Chest Pain, Palpitations, Orthopnea, Paroxysmal Noc. Dyspnea, Edema, Lt Headedness, Other Symptoms Gastrointestinal: Reports: Diarrhea; Denies: Nausea, Vomiting, Abdominal Pain, Constipation, Melena, Hematochezia, Other Symptoms Genitourinary: Denies: Dysuria, Frequency, Incontinence, Hematuria, Retention, Other Symptoms Hematologic: Denies: Bruising, Bleeding Excessively, Petecchia, Purpura, Enlarged Lymph Nodes, Other Hematologic Endocrine: Denies: Polydipsia, Polyphagia, Polyuria, Heat Intolerance, Cold Intolerance, Other Endocrine Sx Musculoskeletal: Reports: Joint Pain; Denies: Neck Pain, Back Pain, Shoulder Pain, Arm Pain, Hand Pain, Leg Pain, Foot Pain, Muscle Pain, Spasms, Other Symptoms Neurological: Reports: Seizures (the patient describes these as "mini"seizures. He's had 2 episodes and is not on any medication.) Psych: Denies: Mood Normal, Anxiety, Depression, Memory Issues, Thoughts of Self Harm, Anger, Thoughts of Harming Other, Other Psych Physical Examination General Exam: Negative: Alert, Cooperative, No Acute Distress, Mild Distress, Moderate Distress, Severe Distress, Other Eye Exam: Positive: PERRLA, Conjunctiva & lids normal, EOMI; Negative: Sclera icteric, Ptosis, Other Eye Symptoms ENT Exam: Positive: Atraumatic, Mucous membr. moist/pink, Pharynx Normal, Tongue Midline, Nares Patent Neck Exam: Positive: Supple; Negative: JVD, thyromegaly, +2 carotid pulse wo bruit, Lymphadenopathy, Other Chest Exam: Positive: Clear to auscultation, Normal air movement, Rales (we're, rales); Negative: Rhonchi, Wheezing, Diminished, Other Heart Exam: Positive: Rate Normal, Regular Rhythm, Normal S1, Normal S2; Negative: Murmurs, Rubs Telemetry: Positive: No significant arrhythmia Abdomen Exam: Positive: Normal bowel sounds, Soft, Other (the patient has significant central obesity); Negative: Tenderness, Hepatospenomegaly Extremity Exam: Positive: Edema (at least 1-2+ pitting edema to the ankle), Normal pulses, Other (he does have some joint changes consistent with arthritis) Skin Exam: Positive: Nl turgor and temperature, Lesion (he has a number of shallow wounds of varying ages to his legs; there is no drainage), Other skin issue (there is also appearance of areas of fungal infection to the skin of his feet.) Neuro Exam: Positive: Normal Gait, Normal Speech, Cranial Nerves 3-12 NL Psych Exam: Positive: Mental status NL Vital Signs Vital Signs Date Time Temp Pulse Resp B/P (MAP) Pulse Ox O2 Delivery O2 Flow Rate FiO2 12/15/18 16:36 97.4 79 19 94 4.0 12/15/18 15:13 145/76 12/15/18 12:38 Nasal Cannula Laboratory Data Labs 24H Laboratory Tests 2 12/15/18 08:02: Immature Granulocyte % (Auto) 0.6, White Blood Count 8.8, Red Blood Count 4.35, Hemoglobin 12.6L, Hematocrit 41.7L, Mean Corpuscular Volume 95.9, Mean Corpuscular Hemoglobin 29.0, Mean Corpuscular Hemoglobin Concent 30.2L, Red Cell Distribution Width 17.2H, Platelet Count 229, Neutrophils (%) (Auto) 79.4H, Lymphocytes (%) (Auto) 9.2L, Monocytes (%) (Auto) 7.6H, Eosinophils (%) (Auto) 2.7, Basophils (%) (Auto) 0.5, Neutrophils # (Auto) 7.0, Lymphocytes # (Auto) 0.8L, Monocytes # (Auto) 0.7, Eosinophils # (Auto) 0.2, Basophils # (Auto) 0.0, Nucleated Red Blood Cells % (auto) 0.0, Anion Gap 4L, Glomerular Filtration Rate 27.4L, Calcium Level 8.2L, Aspartate Amino Transf (AST/SGOT) 9, Alanine Aminotransferase (ALT/SGPT) 18, Alkaline Phosphatase 97, Total Bilirubin 0.6, Direct Bilirubin 0.3H, Total Creatine Kinase 101, Creatine Kinase MB 2.7, Creatine Kinase MB Relative Index 2.67, Troponin I 0.02, PS-Gty-C-Type Natriuretic Peptide 5494H, Total Protein 6.5, Albumin 2.9L, Albumin/Globulin Ratio 0.81L, Lipase 199 12/15/18 13:46: Bedside Glucose (Misc Panel) 170H 12/15/18 16:28: Bedside Glucose (Misc Panel) 243H CBC/BMP Laboratory Tests 12/15/18 08:02 Red Blood Count 4.35, Mean Corpuscular Volume 95.9, Mean Corpuscular Hemoglobin 29.0, Mean Corpuscular Hemoglobin Concent 30.2 L, Red Cell Distribution Width 17.2 H, Neutrophils (%) (Auto) 79.4 H, Lymphocytes (%) (Auto) 9.2 L, Monocytes (%) (Auto) 7.6 H, Eosinophils (%) (Auto) 2.7, Basophils (%) (Auto) 0.5, Neutrophils # (Auto) 7.0, Lymphocytes # (Auto) 0.8 L, Monocytes # (Auto) 0.7, Eosinophils # (Auto) 0.2, Basophils # (Auto) 0.0 Assessment/Plan 1. Diarrhea--this is chronic as he has had this for at least 2 years. The etiology is unclear. It does not appear to be infectious. He has had evaluation by colonoscopy and at this time is not felt to have inflammatory bowel disease. His stool pattern may suggest irritable bowel syndrome that is diarrhea dominant. We could consider a trial of medication; the literature has suggested rifaximin as a potential effective agent. Probiotics may also be helpful, but he historically has not been compliant with these. Patient reports prior poor response to Imodium but this may also be due to noncompliance. 2. Acute on Chronic systolic congestive heart failure--the patient does have some signs of fluid overload. He has not been compliant with his diuretic due to the presence of the diarrhea and fluid losses from that. It's difficult to balance his intravascular versus extravascular losses. For now we will lift his fluid restriction and then also have diuretic and hope to shift his extravascular fluid. He may require some IV fluid to help accomplish this. The patient is on O2 at approximately 2 L/m at night, but currently has some hypoxia and acute respiratory failure, so he will be on O2 during the day as well. Chest x-ray does show some increased pulmonary congestion. 3. Coronary artery disease--the patient does not have chest pain and his initial enzymes are negative. We will continue him on his medical management regimen. 4. Orz-nuqnydl-hshsrhzkh diabetes mellitus--we will continue him on his home man agement regimen where possible within the limits of the hospital formulary. We will also make available sliding scale insulin. 5. Tinea pedis --The patient does appear to have fungal-type lesions to the skin of his feet; will make fungal cream available. Plan / VTE VTE Prophylaxis Ordered?: Yes Plan Diet: Continue Current Activity: Encourage Ambulation Diagnostics: Repeat Labs in AM Anticipated Discharge: Home Advanced Directives: Health Care Proxy (HCP) (the patient has indicated that he wishes to be full CODE STATUS. His is his healthcare proxy.) BORIS ARTHUR MD Dec 15, 2018 20:09
[2018-12-15] MEDS: CLOTRIMAZOLE 1% TOPICAL CREAM 30GM TOP SCH (21:40)
[2018-12-15 23:59] VITALS: BP 96/56
[2018-12-16 04:00] VITALS: BP 100/61
[2018-12-16] MEDS: HEPARIN SOD (PORCINE) 5000 UNITS/ML VIAL SC SCH ×3 (05:40→21:06)
[2018-12-16 06:43] LABS: CALCIUM LEVEL 7.9 MG/DL (8.8-10.2); CREATININE FOR GFR 2.29 MG/DL (0.70-1.30); GLOMERULAR FILTRATION RATE 30.7 (>49); MAGNESIUM LEVEL 2.2 MG/DL (1.8-2.4); POTASSIUM SERUM 4.9 MEQ/L (3.5-5.1)
[2018-12-16 08:00] VITALS: BP 121/70
[2018-12-16] MEDS: FUROSEMIDE 40 MG/4 ML VIAL (J1940) IV SCH (08:09)
[2018-12-16] MEDS: ASPIRIN 81 MG ENTERIC TAB PO SCH (08:09)
[2018-12-16] MEDS: ATORVASTATIN 20 MG TAB PO SCH (08:09)
[2018-12-16] MEDS: LISINOPRIL 10 MG TAB PO SCH (08:10)
[2018-12-16] MEDS: CLOTRIMAZOLE 1% TOPICAL CREAM 30GM TOP SCH ×2 (08:10→21:06)
[2018-12-16] MEDS: CARVedilol 6.25 MG TAB PO SCH ×2 (08:10→21:04)
[2018-12-16] MEDS: LEVEMIR (INSULIN DETEMIR) 1 UNITS/0.01ML SC SCH (08:11)
[2018-12-16] MEDS: HumaLOG INSULIN (NovoLOG) PER UNIT SC SCH ×4 (08:11→21:00)
[2018-12-16 12:00] VITALS: BP 135/65
--- NOTE | 2018-12-16 15:02 | IPNPDOC ---
Date Seen The patient was seen on 12/16/18. Progress Note SUBJECTIVE: Patient is a 63-year-old male with 2 problems. He is admitted with acute on chronic systolic congestive heart failure and fluid overload peripherally. Additionally, he has ongoing losses with acute on chronic kidney injury associated with chronic diarrhea. He is on a trial of rifaximin; he states he has not had a bowel movement since after dinner last night. OBJECTIVE PHYSICAL EXAMINATION: VITAL SIGNS: Please see below. GENERAL: Awake, alert, conversant. HEENT: Neck is supple, no adenopathy or thyromegaly, oral mucosa is moist, no scleral injection or icterus CARDIOVASCULAR: Regular rate and rhythm, no readily appreciable murmur. RESPIRATORY: Rare bibasilar rales, no active cough. ABDOMINAL: Soft, nontender, nondistended, normal bowel sounds, moderate central obesity EXTREMITIES: Patient's pitting edema is decreased to approximately 1+. NEUROLOGICAL: No focal neuromotor or sensory deficit PSYCHOLOGICAL: Patient is calm and cooperative LABORATORY DATA, IMAGING STUDIES, MICROBIOLOGY: Please see below. Echocardiogram: . DVT prophylaxis ordered?: Heparin ASSESSMENT AND PLAN: 1. Diarrhea--this is chronic as he has had this for at least 2 years. The etiology is unclear. It does not appear to be infectious. He has had evaluation by colonoscopy and at this time is not felt to have inflammatory bowel disease. His stool pattern may suggest irritable bowel syndrome that is diarrhea dominant. We are trying a trial of medication; the literature has suggested rifaximin as a potential effective agent. Probiotics may also be helpful, but he historically has not been compliant with these. Patient reports prior poor response to Imodium but this may also be due to noncompliance. 2. Acute on Chronic systolic congestive heart failure--the patient does have some signs of fluid overload. He has not been compliant with his diuretic due to the presence of the diarrhea and fluid losses from that. It's difficult to balance his intravascular versus extravascular losses. For now we will lift his fluid restriction and then also have diuretic and hope to shift his extrava scular fluid. He may require some IV fluid to help accomplish this. The patient is on O2 at approximately 2 L/m at night, but currently has some hypoxia and acute respiratory failure, so he will be on O2 during the day as well. Chest x- ray does show some increased pulmonary congestion. We will recheck his BNP tomorrow. 3. Coronary artery disease--the patient does not have chest pain and his initial enzymes are negative. We will continue him on his medical management regimen. 4. Svu-txkpmqz-mapdbixkf diabetes mellitus--we will continue him on his home management regimen where possible within the limits of the hospital formulary. We will also make available sliding scale insulin. 5. Tinea pedis --The patient does appear to have fungal-type lesions to the skin of his feet; will make fungal cream available. 6. Acute on chronic kidney injury--the patient's creatinine has improved from 2.53-2.29. DISPOSITION: . VS, I&O, 24H, Fishbone Vital Signs/I&O Vital Signs Date Time Temp Pulse Resp B/P (MAP) Pulse Ox O2 Delivery O2 Flow Rate FiO2 12/16/18 12:00 96.9 60 18 135/65 (88) 94 4.0 12/15/18 12:38 Nasal Cannula I&O- Last 24 Hours up to 6 AM 12/16/18 06:00 Intake Total 300 ml Output Total 1275 ml Balance -975 ml Laboratory Data 24H LABS Laboratory Tests 2 12/15/18 16:28: Bedside Glucose (Misc Panel) 243H 12/15/18 19:45: Bedside Glucose (Misc Panel) 190H 12/16/18 05:21: Anion Gap 5L, Glomerular Filtration Rate 30.7L, Blood Urea Nitrogen 44H, Creatinine 2.29H, Sodium Level 143, Potassium Level 4.9, Chloride Level 109H, Carbon Dioxide Level 29, Calcium Level 7.9L, Magnesium Level 2.2 12/16/18 12:13: Bedside Glucose (Misc Panel) 186H CBC/BMP Laboratory Tests 12/16/18 05:21 Calcium Level 7.9 L BORIS ARTHUR MD Dec 16, 2018 15:02
[2018-12-16 16:00] VITALS: BP 130/71
[2018-12-16] MEDS ORDERED: SLF 3 ML SYR IV PRN (17:30)
[2018-12-16 20:00] VITALS: BP 141/77
[2018-12-16] MEDS: SLF 3 ML SYR IV SCH (21:06)
[2018-12-16 23:59] VITALS: BP 118/68
[2018-12-17 04:00] VITALS: BP 100/56
[2018-12-17 05:28] LABS: CALCIUM LEVEL 8.4 MG/DL (8.8-10.2); CREATININE FOR GFR 2.34 MG/DL (0.70-1.30); GLOMERULAR FILTRATION RATE 29.9 (>49); POTASSIUM SERUM 4.9 MEQ/L (3.5-5.1)
[2018-12-17] MEDS: HEPARIN SOD (PORCINE) 5000 UNITS/ML VIAL SC SCH ×3 (06:28→21:02)
[2018-12-17] MEDS: SLF 3 ML SYR IV SCH ×3 (06:28→21:54)
[2018-12-17] MEDS: LEVEMIR (INSULIN DETEMIR) 1 UNITS/0.01ML SC SCH (07:55)
[2018-12-17] MEDS: ATORVASTATIN 20 MG TAB PO SCH (07:56)
[2018-12-17] MEDS: HumaLOG INSULIN (NovoLOG) PER UNIT SC SCH ×4 (07:56→21:00)
[2018-12-17] MEDS: ASPIRIN 81 MG ENTERIC TAB PO SCH (07:56)
[2018-12-17] MEDS: FUROSEMIDE 40 MG/4 ML VIAL (J1940) IV SCH (07:57)
[2018-12-17] MEDS: CLOTRIMAZOLE 1% TOPICAL CREAM 30GM TOP SCH ×2 (07:57→21:01)
[2018-12-17 08:00] VITALS: BP 134/78
[2018-12-17] MEDS: LISINOPRIL 10 MG TAB PO SCH (08:00)
[2018-12-17] MEDS: CARVedilol 6.25 MG TAB PO SCH ×2 (08:00→21:00)
[2018-12-17 12:00] VITALS: BP 117/66
[2018-12-17] MEDS ORDERED: FURO40TA2 PO (12:08)
[2018-12-17] MEDS ORDERED: CLOTR1CR TOP (12:08)
[2018-12-17] MEDS ORDERED: XIFA200T2 PO (12:08)
[2018-12-17] MEDS ORDERED: PROBCAP14 PO (12:08)
[2018-12-17 16:00] VITALS: BP 121/59
--- NOTE | 2018-12-17 19:03 | IPNPDOC ---
Text Note Date of Service The patient was seen on 12/17/18. NOTE This is a 63-year-old male admitted with acute on chronic systolic congestive heart failure with fluid overload. He has also had some exacerbation of his chronic diarrhea. He has been placed on Xifaxan as empiric treatment for probable irritable bowel syndrome, diarrhea dominant. He has done well with that. He again has not had stools since yesterday evening. We also make note of decreased peripheral edema and improve respiratory function with regard to his congestive heart failure. PHYSICAL EXAMINATION: GENERAL: Awake, alert, conversant. HEENT: Neck is supple, no adenopathy or thyromegaly, oral mucosa is moist, no scleral injection or icterus CARDIOVASCULAR: Regular rate and rhythm, no readily appreciable murmur. RESPIRATORY: Rare bibasilar rales, no active cough. ABDOMINAL: Soft, nontender, nondistended, normal bowel sounds, moderate central obesity EXTREMITIES: Patient's pitting edema is decreased to trace. NEUROLOGICAL: No focal neuromotor or sensory deficit PSYCHOLOGICAL: Patient is calm and cooperative ASSESSMENT AND PLAN: 1. Diarrhea--this is chronic as he has had this for at least 2 years. The etiology is unclear. It does not appear to be infectious. He has had evaluation by colonoscopy and at this time is not felt to have inflammatory bowel disease. His stool pattern may suggest irritable bowel syndrome that is diarrhea dominant. We are trying a trial of medication; the literature has suggested rifaximin as a potential effective agent. He is having a good response thus far. Probiotics may also be helpful, but he historically has not been compliant with these. Patient reports prior poor response to Imodium but this may also be due to noncompliance. 2. Acute on Chronic systolic congestive heart failure--the patient does have some signs of fluid overload. He has not been compliant with his diuretic due to the presence of the diarrhea and fluid losses from that. It's difficult to balance his intravascular versus extravascular losses. For now we will lift his fluid restriction and then also have diuretic and hope to shift his extrava scular fluid. The patient is on O2 at approximately 2 L/m at night, but currently has some hypoxia and acute respiratory failure, so he will be on O2 during the day as well. Chest x-ray does show some increased pulmonary congestion but he has improved clinically with decreased peripheral edema. BNP is decreased from 5494 to 2173. 3. Coronary artery disease--the patient does not have chest pain and his initial enzymes are negative. We will continue him on his medical management regimen. 4. Ugp-kncnnit-novnzlmzi diabetes mellitus--we will continue him on his home management regimen where possible within the limits of the hospital formulary. We will also make available sliding scale insulin. 5. Tinea pedis --The patient does appear to have fungal-type lesions to the skin of his feet; will make fungal cream available. 6. Acute on chronic kidney injury--the patient's creatinine has improved from 2.53-2.29. VS,Fishbone, I+O VS, Fishbone, I+O Laboratory Tests 12/17/18 04:31 Calcium Level 8.4 L Vital Signs Date Time Temp Pulse Resp B/P (MAP) Pulse Ox O2 Delivery O2 Flow Rate FiO2 12/17/18 16:00 4.0 12/17/18 16:00 97.0 68 20 121/59 (79) 93 12/15/18 12:38 Nasal Cannula I&O- Last 24 Hours up to 6 AM 12/17/18 06:00 Intake Total 1320 ml Output Total 1150 ml Balance 170 ml BORIS ARTHUR MD Dec 17, 2018 19:03
[2018-12-17 20:00] VITALS: BP 162/79
[2018-12-17 23:59] VITALS: BP 131/66
[2018-12-18 04:00] VITALS: BP 122/62
[2018-12-18] MEDS: SLF 3 ML SYR IV SCH ×2 (05:33→14:00)
[2018-12-18] MEDS: HEPARIN SOD (PORCINE) 5000 UNITS/ML VIAL SC SCH ×2 (05:33→14:00)
[2018-12-18 05:37] LABS: CALCIUM LEVEL 7.9 MG/DL (8.8-10.2); CREATININE FOR GFR 2.07 MG/DL (0.70-1.30); GLOMERULAR FILTRATION RATE 34.5 (>49)
[2018-12-18] MEDS: HumaLOG INSULIN (NovoLOG) PER UNIT SC SCH ×2 (07:30→12:02)
[2018-12-18 08:00] VITALS: BP 147/70
[2018-12-18] MEDS: FUROSEMIDE 40 MG/4 ML VIAL (J1940) IV SCH (08:50)
[2018-12-18] MEDS: LEVEMIR (INSULIN DETEMIR) 1 UNITS/0.01ML SC SCH (08:50)
[2018-12-18 08:51] VITALS: BP 147/70
[2018-12-18] MEDS: CARVedilol 6.25 MG TAB PO SCH (08:51)
[2018-12-18] MEDS: ATORVASTATIN 20 MG TAB PO SCH (08:51)
[2018-12-18] MEDS: LISINOPRIL 10 MG TAB PO SCH (08:51)
[2018-12-18] MEDS: ASPIRIN 81 MG ENTERIC TAB PO SCH (08:51)
[2018-12-18] MEDS: CLOTRIMAZOLE 1% TOPICAL CREAM 30GM TOP SCH (08:52)
[2018-12-18 12:00] VITALS: BP 117/60
--- NOTE | 2018-12-23 22:16 | DS.PDOC ---
Discharge Summary General Date of Admission Dec 15, 2018 at 11:54 Date of Discharge 12/18/2018@13:41 Discharge Summary PROCEDURES PERFORMED DURING STAY: None. ADMITTING DIAGNOSES: 1. Acute hypoxic respiratory failure. DISCHARGE DIAGNOSES: 1. Acute hypoxic respiratory failure resolved, acute on chronic systolic congestive heart failure, acute on chronic diarrhea, probable irritable bowel diseasediarrhea dominant, essential hypertension, fmq-wyhxvuw-kuefwkawz diabetes mellitus, coronary artery disease, obstructive sleep apnea, chronic kidney disease stage III, tinea pedis. COMPLICATIONS/CHIEF COMPLAINT: Acute Renal Failure Arteriosclerotic Vasc Disease. HISTORY OF PRESENT ILLNESS/HOSPITAL COURSE: This is a 63-year-old male with a known history of chronic systolic congestive heart failure; his last known ejection fraction of 74%. The patient presented with severe shortness of breath and lower extremity edema. O2 sats were down to the 80s on room air, indicative of acute hypoxic respiratory failure. However, the patient's principal complaint was his recurrent chronic diarrhea. He been having frequent liquid stools. The patient had remarkable ankle edema and pulmonary congestion. He was felt to be extra vascularly overloaded. He was also having significant volume loss from his diarrhea and was somewhat intravascularly depleted. Patient was admitted to the [facility] floor. We will lift his fluid restriction and maintained his diuretic therapy. We did administer shift fluid extravascular lead to intravascularly for excretion. We were able to decrease his FiO2 and resolve his hypoxia. The patient still volume losses as a pattern of irritable bowel disease, diarrhea dominant. We did put him on a trial of Xifaxan based on literature review. Patient had failed therapy with Imodium and was not consi stent with his probiotic. The patient did well with the Xifaxan. He had extended periods of up to 12 hours or more without having diarrhea. This is felt to be an effective regimen for him. He was also encouraged to continue his use of probiotics. Of additional interest, patient was noted to have tinea pedis on exam at admission. This was treated with topical clotrimazole. Unfortunately at discharge it was determined by his insurance company that Xifaxan was said to not be approved for irritable bowel. It in fact has been FDA approved since 2016. The patient is going to try to use a discount card to obtain Xifaxan. This service writer advisor did contact the reviewer at the insurance company and they persisted with their refusal. . DISCHARGE MEDICATIONS: Please see below. ALLERGIES: Please see below. PHYSICAL EXAMINATION ON DISCHARGE: VITAL SIGNS: Please see below. GENERAL: No visible distress HEENT: Neck was supple with no adenopathy or thyromegaly CARDIOVASCULAR EXAMINATION: Regular rate and rhythm with a normal S1 and S2 RESPIRATORY EXAMINATION: The patient demonstrated remarkably improved air movement and was clear to auscultation with no rhonchi, rales or wheezes ABDOMINAL EXAMINATION: Abdomen is soft. Patient does have significant central obesity, but was otherwise benign to exam, there is no abdominal wall anasarca EXTREMITIES: Pedal edema resolved, patient fully ambulatory and tolerant of activity NEUROLOGICAL EXAMINATION: No focal neuromotor or sensory deficit PSYCHIATRIC EXAMINATION: Patient with notably decreased distress due to decreased diarrhea LABORATORY DATA: Please see below. IMAGING: PROGNOSIS: ACTIVITY: As tolerated. DIET: Consistent carbohydrate. He was also discouraged from fast food as a fatty diet. Tentative exacerbate his diarrhea DISCHARGE PLAN: The patient is discharged to home. He will follow-up with his primary care provider in hopes of being referred to GI to discuss management of irritable bowel syndrome. He is hopeful that his primary care provider may advocate for him getting his Cytoxan. DISPOSITION: Home, Self-Care. DISCHARGE INSTRUCTIONS: 1. . ITEMS TO FOLLOWUP ON ON OUTPATIENT: 1. . DISCHARGE CONDITION: Stable. TIME SPENT ON DISCHARGE: Greater than 45 minutes. Vital Signs/I&Os Vital Signs Date Time Temp Pulse Resp B/P (MAP) Pulse Ox O2 Delivery O2 Flow Rate FiO2 12/18/18 12:00 2.0 12/18/18 12:00 97.6 64 18 117/60 (79) 94 Discharge Medications Scheduled Aspirin (Aspirin EC) 81 Mg Tab, 81 MG PO DAILY, (Reported) Atorvastatin Calcium (Atorvastatin Calcium) 20 Mg Tab, 20 MG PO DAILY, (Reported) Carvedilol (Carvedilol) 6.25 Mg Tab, 6.25 MG PO BID, (Reported) Clotrimazole (Clotrimazole) 30 Gm Cream..g., 1 DOSE TOP BID thin layer to fungal areas on feet/toes Dulaglutide (Trulicity) 0.75 Mg/0.5 Ml Pen.injctr, 0.75 MG SC 1XWK, (Reported) PT TAKES ON SUNDAY Insulin Glargine,Hum.rec.anlog (Lantus Solostar) 100 Unit/1 Ml Insuln.pen, 60 UNITS SC QAM, (Reported) Lactobacillus Acidophilus (Probiotic) 1 Each Capsule, 1 CAP PO BID Lisinopril (Lisinopril) 10 Mg Tablet, 10 MG PO DAILY, (Reported) PCP RESTARTED MED Rifaximin (Xifaxan) 200 Mg Tablet, 400 MG PO TID Scheduled PRN Furosemide (Furosemide) 40 Mg Tab, 40 MG PO DAILY PRN for SWELLING Allergies Coded Allergies: No Known Allergies (Unverified , 09/15/18) BORIS ARTHUR MD Dec 23, 2018 22:16
== END 2018-12-18 15:45 | disposition home or self-care (01) | DRG 291 ==
LOC: M ED 08:24 → M ED INP 11:54 → M PCU 13:02
PROVIDERS: ADMIT Internal Medicine; ATTEND Internal Medicine
DX: I13.0 Hypertensive heart and chronic kidney disease with heart failure and stage 1 through stage 4 chronic kidney disease, or unspecified chronic kidney disease (principal); J96.01 Acute respiratory failure with hypoxia; I50.23 Acute on chronic systolic (congestive) heart failure; N17.9 Acute kidney failure, unspecified; Z79.82 Long term (current) use of aspirin; E11.319 Type 2 diabetes mellitus with unspecified diabetic retinopathy without macular edema; N18.3 Chronic kidney disease, stage 3 (moderate); E11.21 Type 2 diabetes mellitus with diabetic nephropathy; E11.621 Type 2 diabetes mellitus with foot ulcer; I25.10 Atherosclerotic heart disease of native coronary artery without angina pectoris; I25.2 Old myocardial infarction; R19.7 Diarrhea, unspecified; Z87.891 Personal history of nicotine dependence; G47.33 Obstructive sleep apnea (adult) (pediatric); B35.3 Tinea pedis; Z79.899 Other long term (current) drug therapy; Z79.4 Long term (current) use of insulin